=== PATIENT | male | born 1955 | race Caucasian/White ===

== ENCOUNTER → 2018-04-01 10:28 | Outpatient (CLI) | payer OTHER, SELFPAY ==
[2018-04-01 11:42] LABS: Prostate Specific Ag, Diagnost < 0.05 ng/mL (0.0-4.0)
== END ==
PROVIDERS: Visit Provider Urology
DX: Z85.46 Personal history of malignant neoplasm of prostate (principal)
CPT/HCPCS: 36415; 84153

== ENCOUNTER → 2018-10-07 09:49 | Outpatient (CLI) | payer OTHER, SELFPAY ==
[2018-10-07 11:19] LABS: Prostate Specific Ag, Diagnost < 0.05 ng/mL (0.0-4.0)
== END ==
PROVIDERS: Visit Provider Urology
DX: C61 Malignant neoplasm of prostate (principal)
CPT/HCPCS: 36415; 84153

== ENCOUNTER → 2019-04-07 09:49 | Outpatient (CLI) | payer OTHER, SELFPAY ==
[2019-04-07 11:29] LABS: Prostate Specific Ag, Diagnost < 0.05 ng/mL (0.0-4.0)
== END ==
PROVIDERS: Visit Provider Urology
DX: C61 Malignant neoplasm of prostate (principal)
CPT/HCPCS: 36415; 84153

== ENCOUNTER → 2019-10-13 10:05 | Outpatient (CLI) | payer OTHER, SELFPAY ==
[2019-10-13 21:13] LABS: Prostate Specific Ag, Diagnost 0.02 ng/mL (0.0-4.0)
== END ==
PROVIDERS: Visit Provider Urology
DX: C61 Malignant neoplasm of prostate (principal)
CPT/HCPCS: 36415; 84153

== ENCOUNTER → 2020-04-12 14:48 | Outpatient (CLI) | payer MEDICAID, SELFPAY ==
[2020-04-12 18:26] LABS: Prostate Specific Ag, Diagnost < 0.064 ng/ml (0.0-4.0)
== END ==
PROVIDERS: Visit Provider Urology
DX: C61 Malignant neoplasm of prostate (principal)
CPT/HCPCS: 36415; 84153

== ENCOUNTER 2020-08-15 13:33 | Emergency (ER) | payer MEDICARE, OTHER, SELFPAY ==
[2020-08-15] VITALS (10 sets, daily range): BP systolic 142–218; BP diastolic 78–103; PULSE 57–67; RESP 17–18; TEMP 36.7–36.8; O2SAT 93–97
--- NOTE | 2020-08-15 13:28 | ECG_ITS ---
APPROVED REPORT Exam: Resting ECG HR:60 bpm ECG Measurements Heart Rate 60 AXES WI 184 P 63 QRSd 86 QRS 27 QT 458 T 49 QTc 458 Conclusion Sinus rhythm with marked sinus arrhythmia ST abnormality, possible digitalis effect Abnormal ECG Electronically signed by : Mack Jaeger, 08/17/2020 18:18:34
--- NOTE | 2020-08-15 13:39 | XR_ITS ---
PROCEDURE: XR CHEST PORTABLE CLINICAL HISTORY: cough midsternal chest pain COMPARISON: CR CXR1 CHEST-PORTABLE from 06/21/2016 CR CXR CHEST(2 VIEWS-NOT PORTABLE) from 06/23/[address] CHEST W/ CONTRAST from 06/23/2016 CR CXR CHEST(2 VIEWS-NOT PORTABLE) from 06/26/2016 FINDINGS: The cardiomediastinal silhouette and pulmonary vascularity are within normal limits. COPD with scattered pulmonary fibrotic changes. Patchy density is present in the right upper lobe and may be due to an area of scarring slightly more prominent compared to 06/26/2016. No definite lobar consolidation or collapse. Small bulla are present in the apices. IMPRESSION: COPD with chronic changes Dictated by: Robert Morales MD 08/15/2020 14:04 Robert Morales MD in [place] 08/15/2020 14:04
--- NOTE | 2020-08-15 13:40 | HMH.EDCP ---
ED Disposition Clinical Impression: Nonspecific chest pain, Atypical pneumonia Disposition: Home, Self-Care Condition on Discharge: Good Instructions: DI for Atypical Chest Pain Prescriptions: Doxycycline Hyclate [Doxycycline 100mg Capsule] 100 mg PO Q12 #20 cap Prescription Printed - Critical Care Critical Care Time: No Attestation: On , the high probability of a clinically significant, sudden or life threatening deterioration of the following system(s) required my full and direct attention, intervention and personal management. The time I documented below is in addition to time spent performing reported procedures but includes the following listed in this critical care notation. Medical Decision Making - Medical Records Medical records reviewed: Yes: I reviewed the patient's medical records. - Denis Inquiry Pt receiving controlled substance: Yes Denis was queried for this patient: No Reason not queried -: Emergent pt cond-no time Risks and benefits of using a controlled substance: were discussed with pt by me Vital Signs: 08/15/20 13:33 08/15/20 13:49 08/15/20 14:08 Temperature 98.0 F Temperature Source Oral Pulse Rate [Right Brachial] 65 67 59 L Respiratory Rate 18 Blood Pressure [Right Arm] 218/103 H 186/94 H 154/93 H Blood Pressure Mean [Right Arm] 141 124 113 Blood Pressure Source [Right Arm] Automatic Cuff Automatic Cuff Automatic Cuff Blood Pressure Position [Right Arm] Sitting Sitting Sitting 02 Sat by Pulse Oximetry 96 96 95 Oxygen Delivery Method Room Air Room Air Room Air 08/15/20 14:34 08/15/20 15:00 08/15/20 15:38 Temperature Temperature Source Pulse Rate [Right Brachial] 59 L 60 65 Respiratory Rate Blood Pressure [Right Arm] 196/93 H 186/94 H 142/78 H Blood Pressure Mean [Right Arm] 127 124 99 Blood Pressure Source [Right Arm] Automatic Cuff Automatic Cuff Automatic Cuff Blood Pressure Position [Right Arm] Sitting Sitting 02 Sat by Pulse Oximetry 95 95 93 L Oxygen Delivery Method Room Air Room Air Room Air 08/15/20 16:07 08/15/20 16:41 08/15/20 17:08 Temperature Temperature Source Pulse Rate [Right Brachial] 64 57 L 59 L Respiratory Rate Blood Pressure [Right Arm] 149/81 H 154/85 H 160/82 H Blood Pressure Mean [Right Arm] 103 108 108 Blood Pressure Source [Right Arm] Automatic Cuff Automatic Cuff Automatic Cuff Blood Pressure Position [Right Arm] Sitting Sitting Sitting 02 Sat by Pulse Oximetry 93 L 94 L 97 Oxygen Delivery Method Room Air Room Air Room Air - Lab Data Lab Results 08/15/20 13:43: WBC 19.8 H, RBC 4.59 L, Hgb 14.1, Hct 44.4, MCV 96.6 H, MCH 30.7, MCHC 31.8, RDW 13.3, Plt Count 540 H, MPV 8.1, Neut % (Auto) 83.8 H, Lymph % (Auto) 10.1, [place] % (Auto) 4.5, Eos % (Auto) 1.0, Baso % (Auto) 0.7, Neut # (Auto) 16.6 H, Lymph # (Auto) 2.0, [place] # (Auto) 0.9, Eos # (Auto) 0.2, Baso # (Auto) 0.1, Total Counted 100, Neutrophils % (Manual) 88 H, Lymphocytes % (Manual) 8 L, Monocytes % (Manual) 4, Platelet Estimate Marked increase, RBC Morphology Normal 08/15/20 13:43: PT 23.5 H, INR 2.28 H, APTT 49.0 H 08/15/20 13:43: Sodium 136, Potassium 3.6, Chloride 99, Carbon Dioxide 27, Anion Gap 13.6, BUN 14, Creatinine 0.90, Estimated Creat Clear 66, Estimated GFR 85, Est GFR ( Amer) 102, Glucose 107 H, Calcium 9.8, Total Bilirubin 0.8, AST 23, ALT 14, Alkaline Phosphatase 81, Troponin I < 0.01, NT-Pro-B Natriuret Pep 171 H, Total Protein 8.7 H, Albumin 4.6, Globulin 4.1 H, Albumin/Globulin Ratio 1.1, Lipase 68 08/15/20 16:53: Troponin I < 0.01 Result diagrams: 08/15/20 13:43 08/15/20 13:43 Orders (Tests/Meds): ED MEDICATIONS Discontinued Medications Generic Name Dose Route Start Last Admin Trade Name Freq PRN Reason Stop Dose Admin Iopamidol 70 ml 08/15/20 15:37 08/15/20 15:38 Iopamidol-370 (76%);100ml Bottle IV 08/15/20 15:38 70 ml ONCE ONE Administration Morphine Sulfate 4 mg 08/15/20 13:39 08/15/20 13:44 Morphine
[2020-08-15 14:09] LABS: Chloride 99 mmol/L (98-107); Potassium 3.6 mmoL/L (3.5-5.1); Sodium 136 mmol/L (136-145)
[2020-08-15 14:11] LABS: Alanine Aminotransferase 14 U/L (12-78); Aspartate Amino Transferase 23 U/L (17-59); Blood Urea Nitrogen 14 mg/dl (9-20); Creatinine Clearance Estimated 66 mL/min (50-200); Estimated Glomerular Filt Rate 85 ml/min (>60); GFR (African American) 102 ML/MIN (>60)
[2020-08-15 14:12] LABS: Albumin Level 4.6 g/dl (3.5-5.0); Albumin/Globulin Ratio 1.1 (1.1-1.8); Alkaline Phosphatase 81 U/L (38-126); Anion Gap 13.6 mEq/L (5-15); Basophils # 0.1 K/mm3 (0-0.2); Basophils % 0.7 % (0.1-2.0); Bilirubin,Total 0.8 mg/dl (0.2-1.3); Calcium 9.8 mg/dl (8.4-10.2); Carbon Dioxide 27 mmol/L (22.0-30.0); Eosinophils # 0.2 K/mm3 (0.0-0.4); Globulin 4.1 g/dL (1.3-3.2); Glucose 107 mg/dl (74-100); Hematocrit 44.4 % (42.0-52.0); Hemoglobin 14.1 g/dL (14.1-18.0); Lipase 68 U/L (23-300); Lymphocytes % 10.1 % (10-50); Mean Corpuscular HGB Conc 31.8 g/dL (31.8-35.4); Mean Corpuscular Hemoglobin 30.7 pg (27.0-31.2); Mean Corpuscular Volume 96.6 fl (80-94); Mean Platelet Volume 8.1 fl (7.4-10.4); Monocytes # 0.9 K/mm3 (0.1-1.0); Monocytes % 4.5 % (1.7-9.3); Neutrophils # 16.6 K/mm3 (1.8-7.8); Neutrophils % 83.8 % (37.0-80.0); Platelet Count 540 K/mm3 (142-424); Red Blood Count 4.59 M/mm3 (4.60-6.20); Red Cell Distribution Width 13.3 % (11.5-17.5); Total Protein,Serum 8.7 g/dl (6.3-8.2); White Blood Count 19.8 K/mm3 (4.8-10.8)
[2020-08-15 14:15] LABS: MANUAL DIFFERENTIAL MANUAL DIFFERENTIAL (MANUAL DIFF)
[2020-08-15 14:21] LABS: NT Pro Brain Natriuretic Pep. 171 pg/mL (0-125)
[2020-08-15 14:25] LABS: Troponin I < 0.01 ng/ml (0.00-0.034)
[2020-08-15 14:31] LABS: Lymphocytes % 8 % (10-50); Monocytes % 4 % (2-9); Neutrophils % 88 % (42-76); Platelet Estimate Marked Increase; RBC Morphology Normal; Total Cells Counted 100
--- NOTE | 2020-08-15 14:42 | CT_ITS ---
PROCEDURE: CT ANGIO CHEST CLINCIAL INDICATION: chest pain, soa Chest pain and shortness of air COMPARISON: CT LDCTLCAS LDCT FOR LUNG CA SCREEN from 08/25/2017 CR XR CHEST PORTABLE from 08/15/2020 TECHNIQUE: IV Contrast: 70ML Isovue 370 Axial images obtained with sagittal and coronal reformats. All CT scans at the facility use one or more dose reduction, viz: automated exposure control, ma/kV adjustment per patient size (including targeted exams where dose is matched to indication, i.e. head), or iterative reconstruction technique. FINDINGS: HEART AND MEDIASTINAL STRUCTURES: There are coronary artery calcifications. No evidence of aortic aneurysm or dissection. There is a medium-sized hiatal hernia. No evidence of pulmonary embolus. LUNGS AND PLEURAL SPACES: There is biapical bullous change with pulmonary fibrosis. There is scarring in the lung apices which may be slightly worse compared to the previous exam. There are centrilobular emphysematous changes. There are scattered multi segmental small areas of alveolar opacification along with scattered areas of ground-glass attenuation. These findings have developed since the previous exam and are suspicious for pneumonia. No effusions. There is mild dilatation of the proximal descending thoracic aorta is distal to the isthmus measuring 2.6 cm. There is a 7 mm nodule within the right middle lobe and some mild atelectatic change along the right major fissure inferiorly. BONY STRUCTURES: No acute bony abnormalities apparent. UPPER ABDOMEN: Moderate-sized hiatal hernia. Multiple nodular opacities are present in the left upper quadrant and may be due to small splenules. A normal spleen is not identified. There is a nonobstructing 3 mm stone in the upper pole of the right kidney. ADDITIONAL FINDINGS: There is moderate gynecomastia. IMPRESSION: 1. No evidence of pulmonary embolus, aortic aneurysm, or aortic dissection. 2. COPD with centrilobular emphysema and bilateral bullous changes in the upper lobes with biapical scarring slightly worse. 3. Patchy multi segmental small areas of alveolar infiltrate along with scattered ground-glass attenuation consistent with bilateral pneumonia. COVID 19 pneumonia is a consideration. 4. 7 mm nodule in the right middle lobe. This is indeterminate and could be inflammatory/infectious or neoplastic. This was not present on the previous study. Three month follow-up is suggested. Dictated by: Robert Morales MD 08/15/2020 16:03 Robert Morales MD in [place] 08/15/2020 16:03
--- NOTE | 2020-08-15 15:11 | PC.NURSE ---
pt gone to radiology
--- NOTE | 2020-08-15 15:13 | PC.NURSE ---
Pt gone to radiology at this time
[2020-08-15 16:22] LABS: INR 2.28 (0.9-1.1)
[2020-08-15 16:23] LABS: Prothrombin Time 23.5 seconds (9.4-11.8)
--- NOTE | 2020-08-15 16:24 | INFXCTL.NOTE ---
Lab called with ptt result of 49
[2020-08-15 17:27] LABS: Troponin I < 0.01 ng/ml (0.00-0.034)
[2020-08-15 18:02] LABS: Coronavirus 19 IgG Antibody Negative (Negative); Coronavirus 19 IgM Antibody Negative (Negative)
== END 2020-08-15 17:37 | disposition home or self-care (01) ==
PROVIDERS: Emergency Provider Emergency Medicine; PCP Family Medicine
DX: J18.9 Pneumonia, unspecified organism (principal); R07.89 Other chest pain; Z01.84 Encounter for antibody response examination; J44.9 Chronic obstructive pulmonary disease, unspecified; Z79.899 Other long term (current) drug therapy; R06.02 Shortness of breath
CPT/HCPCS: 71045; 71275; 80053; 83690; 83880; 84484; 85007; 85025; 85610; 85730; 86328; 93005; 96374; 96375; 99283; J2405; Q9967

== ENCOUNTER → 2020-10-16 09:58 | Outpatient (CLI) | payer MEDICARE, OTHER, SELFPAY ==
[2020-10-16 12:22] LABS: Prostate Specific Ag, Diagnost < 0.064 ng/ml (0.0-4.0)
== END ==
PROVIDERS: Visit Provider Urology
DX: C61 Malignant neoplasm of prostate (principal)
CPT/HCPCS: 36415; 84153

== ENCOUNTER → 2021-04-16 09:36 | Outpatient (CLI) | payer MEDICARE, OTHER, SELFPAY ==
[2021-04-16 11:13] LABS: Prostate Specific Ag, Diagnost < 0.064 ng/ml (0.0-4.0)
== END ==
PROVIDERS: Visit Provider Urology
DX: C61 Malignant neoplasm of prostate (principal)
CPT/HCPCS: 36415; 84153

== ENCOUNTER → 2021-10-17 09:43 | Outpatient (CLI) | payer MEDICARE, OTHER, SELFPAY ==
[2021-10-17 11:41] LABS: Prostate Specific Ag, Diagnost < 0.064 ng/ml (0.0-4.0)
== END ==
PROVIDERS: Visit Provider Urology
DX: C61 Malignant neoplasm of prostate (principal)
CPT/HCPCS: 36415; 84153

== ENCOUNTER → 2022-04-17 10:06 | Outpatient (CLI) | payer MEDICARE, OTHER, SELFPAY ==
[2022-04-17 12:23] LABS: Prostate Specific Ag, Diagnost < 0.064 ng/ml (0.0-4.0)
== END ==
PROVIDERS: PCP Family Medicine; Visit Provider Urology
DX: C61 Malignant neoplasm of prostate (principal)
CPT/HCPCS: 36415; 84153

== ENCOUNTER 2022-09-17 07:59 | Inpatient (IN) | payer MEDICARE, OTHER, SELFPAY ==
[2022-09-17] VITALS (14 sets, daily range): BP systolic 106–136; BP diastolic 69–86; PULSE 96–121; RESP 18–38; TEMP 36.7–37.2; O2SAT 92–97; BMI 21.5; BMI 27.4; BMI 20.8
--- NOTE | 2022-09-17 08:28 | EXP.UTC ---
Discharge Plan Disposition Patient Disposition: Still a Patient Condition: Good Clinical Impressions Clinical Impression: Respiratory failure, Pneumonia Discharge ED Provider: Jennifer Verma [facility] [place] HPI General Chief complaint: Weakness Stated complaint: no appetite, chest congestion, body aches, cough Mode of Arrival: Ambulatory Source of Information: Patient Limitations: No Limitations Time Seen by Provider: 09/17/22 08:28 Description of Symptoms (Recalled from Triage Doc. by RN): PT WITH SHORTNESS OF BREATH, COUGH, DIARRHEA, FATIGUE. HASN'T EATEN SINCE THURSDAY. HEENT Symptoms (Recalled from RN notes): No Resp Symptoms (Recalled from RN notes): Yes Skin Symptoms (Recalled from RN notes): No MS Symptoms (Recalled from RN notes): No Functional Status (Recalled from RN notes): WNL History of Present Illness Provider Complaint: Patient states that he hasnt felt well for several days and not eaten since Thursday and only drink small amounts States that he has COPD but been having SOA, chest congestion and diarrhea States that he has been so weak he could barely get out of bed and today he was feeling worse States that it took all he had to get up to come in here today he just does not feel well Related Data Home Medications Medication Instructions Recorded Confirmed nifedipine 30 mg tablet,extended 30 mg PO DAILY Hypertension 04/01/18 09/17/22 release 24 hr (Procardia XL) omeprazole 40 mg capsule,delayed 40 mg PO DAILY GERD 04/01/18 09/17/22 release apixaban 2.5 mg tablet (Eliquis) 2.5 mg PO BID HX OF DVT 09/17/22 09/17/22 bicalutamide 50 mg tablet 50 mg PO DAILY CANCER 09/17/22 09/17/22 budesonide 160 mcg-glycopyr 9 2 puff inhalation BID Breathing 09/17/22 09/17/22 mcg-formot 4.8 mcg/actuation HFA problems inhaler (Breztri [employer]) Allergies Allergy/AdvReac Type Severity Reaction Status Date / Time No Known Allergies Allergy Verified 04/17/22 09:42 Worker's Comp Is this a Worker's Comp case?: No [facility] Disclaimer: The information contained in this section may have been updated after the patient was seen, as this information can be updated by other users. Medical History (Updated 09/17/22 @ 18:29 by Carlos Manuel Juares MD) COPD (chronic obstructive pulmonary disease) (~09/17/22) Pneumonia Prostate cancer (~09/17/22) Surgical History (Updated 09/17/22 @ 18:23 by Carlos Manuel Juares MD) H/O hernia repair H/O splenectomy S/P TURP Family History (Updated 09/17/22 @ 18:25 by Carlos Manuel Juares MD) Mother Severe sepsis with septic shock Father Throat cancer Social History (Updated 09/17/22 @ 18:26 by Carlos Manuel Juares MD) Smoking Status: Former smoker alcohol intake: never substance use type: denies use current occupational status: retired Travel in the last 8 weeks: None household members: spouse housing: house additional social history: The patient lives with Dorothea his of 40 years. He has 2 adult sons. He quit smoking several years ago after smoking 1 pack/day for 50 years. He denies routine alcohol consumption. He elects a full CODE STATUS. ROS Obtained: Yes All systems reviewed & no additional complaints except as documented and Yes Systems reviewed as appropriate & no additional complaints except as documented Constitutional Constitutional: Reports system reviewed and no additional complaints, except as documented, Reports as per HPI, Reports body ache, Reports fatigue, Reports poor appetite and Reports weakness Cardiovascular Cardiovascular: Reports system reviewed and no additional complaints, except as documented and Reports as per HPI Respiratory Respiratory: Reports system reviewed and no additional complaints, except as documented, Reports as per HPI, Reports shortness of breath and Reports chest congestion Gastrointestinal Gastrointestingal: Reports system reviewed and no additional complaints, except as documented, as per HPI and diarrhea Neurologic
--- NOTE | 2022-09-17 08:47 | ECG_ITS ---
APPROVED REPORT Exam: Resting ECG HR:111 bpm ECG Measurements Heart Rate 111 AXES HI 189 P 65 QRSd 83 QRS 18 QT 424 T 32 QTc 490 Conclusion SINUS TACHYCARDIA WITH FREQUENT SUPRAVENTRICULAR PREMATURE COMPLEXES NONSPECIFIC ST & T-WAVE ABNORMALITY ABNORMAL RHYTHM ECG UNCONFIRMED REPORT Electronically signed by : Samuel Saldaña MD 09/17/2022 21:52:54
--- NOTE | 2022-09-17 09:11 | XR_ITS ---
FINAL REPORT CLINICAL HISTORY: dyspnea COMPARISON: 08/15/2020 FINDINGS: A single portable view of the chest was obtained. The heart size and pulmonary vascularity are within normal limits. The mediastinum is within normal limits. There are persistent bilateral pulmonary opacities favor fibrosis/scarring. The bony thorax is intact. IMPRESSION: Persistent bibasilar pulmonary opacities, favor fibrosis/scarring. If indicated, high-resolution chest CT may be helpful. Reviewed, Interpreted and Dictated by Gianni Izaguirre III, MD Transcribed by Monalisa Kc Authenticated and [facility]
--- NOTE | 2022-09-17 09:17 | PC.NURSE ---
resp called for ABG
[2022-09-17 09:23] LABS: Basophils # 0.1 K/mm3 (0-0.2); Basophils % 0.4 % (0.1-2.0); Chloride 100 mmol/L (98-107); Coronavirus 19, PCR Not Detected (NotDetected); Eosinophils # 0.2 K/mm3 (0.0-0.4); Eosinophils % 0.8 % (0.1-12.0); Hematocrit 45.6 % (42.0-52.0); Hemoglobin 14.8 g/dL (14.1-18.0); Influenza A, PCR Not Detected (NotDetected); Influenza B, PCR Not Detected (NotDetected); Lymphocytes # 1.6 K/mm3 (0.7-4.5); Lymphocytes % 6.6 % (10-50); Mean Corpuscular HGB Conc 32.4 g/dL (31.8-35.4); Mean Corpuscular Hemoglobin 31.9 pg (27.0-31.2); Mean Corpuscular Volume 98.6 fl (80-94); Mean Platelet Volume 9.4 fl (7.4-10.4); Monocytes # 1.3 K/mm3 (0.1-1.0); Monocytes % 5.4 % (1.7-9.3); Neutrophils # 20.4 K/mm3 (1.8-7.8); Neutrophils % 86.8 % (37.0-80.0); Platelet Count 405 K/mm3 (142-424); Potassium 4.2 mmoL/L (3.5-5.1); Red Blood Count 4.63 M/mm3 (4.60-6.20); Red Cell Distribution Width 14.6 % (11.5-17.5); Sodium 138 mmol/L (136-145); White Blood Count 23.5 K/mm3 (4.8-10.8)
[2022-09-17 09:26] LABS: Alanine Aminotransferase 19 U/L (12-78); Albumin Level 4.3 g/dl (3.5-5.0); Albumin/Globulin Ratio 1.1 (1.1-1.8); Alkaline Phosphatase 76 U/L (38-126); Anion Gap 18.2 mEq/L (5-15); Aspartate Amino Transferase 32 U/L (17-59); Bilirubin,Total 0.6 mg/dl (0.2-1.3); Blood Urea Nitrogen 32 mg/dl (9-20); Carbon Dioxide 24 mmol/L (22.0-30.0); Creatinine Clearance Estimated 57 mL/min (50-200); Estimated Glomerular Filt Rate 60 ml/min (>60); GFR (African American) 73 ML/MIN (>60); Total Protein,Serum 8.3 g/dl (6.3-8.2)
[2022-09-17 09:27] LABS: Calcium 9.8 mg/dl (8.4-10.2); Glucose 118 mg/dl (74-100)
[2022-09-17 09:35] LABS: MANUAL DIFFERENTIAL MANUAL DIFFERENTIAL (MANUAL DIFF)
[2022-09-17 09:38] LABS: Troponin I 0.02 ng/ml (0.00-0.034)
[2022-09-17 09:42] LABS: ABG Base Excess -3.2 mmol/L (-2.4-2.3); ABG HCO3 20.5 mmhg (22.0-26.0); ABG Oxygen Saturation 96 % (90-100); ABG PCO2 28.9 mmhg (35.0-45.0); ABG PH 7.47 mmol/L (7.35-7.45); ABG PO2 80.6 mmhg (80-100); ABG TCO2 21.4 mmhg (23-27)
[2022-09-17 09:53] LABS: Allen's Test Acceptable; Oxygen 4.5L %; Source Right Radial
[2022-09-17 10:10] LABS: Lymphocytes % 8 % (10-50); Neutrophils % 92 % (42-76); Total Cells Counted 100
[2022-09-17 10:11] LABS: Platelet Estimate Normal; RBC Morphology Normal
--- NOTE | 2022-09-17 10:22 | CT_ITS ---
FINAL REPORT CLINICAL HISTORY: dyspnea COMPARISON: 08/15/2020 FINDINGS: Thin section axial CT images of the chest were obtained with contrast. 3D reformatted images were also obtained. This study was performed with techniques to keep radiation doses as low as reasonably achievable (ALARA). Individualized dose reduction techniques using automated exposure control or adjustment of mA and/or kV according to the patient''s size were employed. There is a moderate hiatal hernia. There is moderate mediastinal and bilateral hilar adenopathy, worse from previous. Findings are nonspecific, may be reactive or neoplastic. There is no evidence of pulmonary embolism. There is no evidence of thoracic aortic aneurysm or dissection. There is moderate scarring and moderate emphysema. There is diffuse bronchial wall thickening, right greater than left with may represent bronchitis. There are patchy bilateral pulmonary ground-glass opacities worrisome for bilateral pneumonia. Limited images of the upper abdomen reveal several gallstones. The patient is status post splenectomy. IMPRESSION: No evidence of pulmonary embolism. Worsening mediastinal and bilateral hilar adenopathy, may be reactive or neoplastic. Findings worrisome for bilateral pneumonia. Cholelithiasis. Reviewed, Interpreted and Dictated by Gianni Izaguirre III, MD Transcribed by Isi Pitts Authenticated and [facility]
--- NOTE | 2022-09-17 10:35 | PC.NURSE ---
RADIOLOGY NOTIFIED OF CT CHEST
--- NOTE | 2022-09-17 10:57 | PC.NURSE ---
PT GONE OVER FOR CT CHEST VIA W/C
--- NOTE | 2022-09-17 11:23 | PC.NURSE ---
pt given urinal to attempt urine collection
[2022-09-17 11:36] LABS: Microscopic, Urine URINE MICROSCOPIC (MICROSCOPIC)
[2022-09-17 11:40] LABS: Appearance,Urine CLEAR (Clear); Blood, Urine 2+ (Negative); Color,Urine YELLOW (Yellow); Glucose,Urine (UA) Negative (Negative); Ketones,Urine 1+ (Negative); Leukocyte Esterase,Urine Negative (Negative); Nitrate,Urine Negative (Negative); PH,Urine 5.5 (5.0-8.5); Protein,Urine 1+ (Negative); Specific Gravity, Urine >= 1.030 (1.005-1.030)
--- NOTE | 2022-09-17 11:40 | PC.NURSE ---
called care management for admission
[2022-09-17 11:45] LABS: Bilirubin,Urine 1+ (Negative)
[2022-09-17 11:56] LABS: Bacteria,Urine Trace /lpf; Hyaline Casts,Urine Occasional #/lpf (0); RBC,Urine Occasional #/hpf (0-3); Squamous Epithelial Cell,Urine Occasional #/hpf (0-5); WBC,Urine Occasional #/hpf (0-3)
--- NOTE | 2022-09-17 11:57 | HMH.PHAINT1 ---
Pharmacy Intervention Comments: MEDICATION RECONCILIATION COMPLETED ON PATIENT USING EXTERNAL FILL HISTORY FROM PHARMACY. -STAN HUI, KAYLEED
--- NOTE | 2022-09-17 12:41 | PC.NURSE ---
report called to Stacie Kc RN
--- NOTE | 2022-09-17 12:54 | PC.NURSE ---
pt arrived to floor via wheelchair
[2022-09-17 12:59] LABS: Troponin I 0.02 ng/ml (0.00-0.034)
[2022-09-17 15:09] LABS: Lipase 14 U/L (23-300)
[2022-09-17 15:56] LABS: Troponin I 0.02 ng/ml (0.00-0.034)
[2022-09-17 15:59] LABS: Vitamin B12 302 pg/mL (239-931)
--- NOTE | 2022-09-17 18:18 | EXP.HP ---
History of Present Illness *Admission Date: 09/17/22 *Reason for visit:: Chief complaint: Shortness of air *History of present illness: This is a 67-year-old male who presents to [facility] emergency department with concerns of feeling weak and experiencing shortness of air. His past medical history significant for COPD, hypertension, reflux with hiatal hernia, prostate cancer 2003 on hormone therapy. He reports a significant smoking history of 1 pack/day for at least 50 years. 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 He reports getting pneumonia very easily. He identified several days of cough not improving with home care. He started experiencing shortness of air that became worse with exertion. He was not responding to his home medications so he presented to the emergency department. He denied associated retrosternal chest pain or palpitations. In the ED his tachypnea was identified and required increased oxygen from baseline to maintain appropriate oxygen saturations. Imaging of his chest identified bilateral pneumonia. [facility] Disclaimer: The information contained in this section may have been updated after the patient was seen, as this information can be updated by other users. Medical History (Updated 09/17/22 @ 18:29 by Carlos Manuel Juares MD) COPD (chronic obstructive pulmonary disease) (~09/17/22) Pneumonia Prostate cancer (~09/17/22) Surgical History (Updated 09/17/22 @ 18:23 by Carlos Manuel Juares MD) H/O hernia repair H/O splenectomy S/P TURP Family History (Updated 09/17/22 @ 18:25 by Carlos Manuel Juares MD) Mother Severe sepsis with septic shock Father Throat cancer Social History (Updated 09/17/22 @ 18:26 by Carlos Manuel Juares MD) Smoking Status: Former smoker alcohol intake: never substance use type: denies use current occupational status: retired Travel in the last 8 weeks: None household members: spouse housing: house Review of Systems Review of Systems Review of systems:: pertinent systems reviewed and negative unless documented below Constitutional Constitutional: Reports weakness *Cardiovascular Cardiovascular: Denies chest pain, Reports dyspnea and Reports dyspnea on exertion *Respiratory Respiratory: Reports change in phlegm color, Reports cough, Reports dyspnea, Reports dyspnea on exertion, Reports excessive phlegm production and Denies hemoptysis *Neurologic Neurologic: Reports weakness Meds Home Medications and Allergies Home Medications Medication Instructions Recorded Confirmed Type nifedipine 30 mg tablet,extended 30 mg PO DAILY Hypertension 04/01/18 09/17/22 History release 24 hr (Procardia XL) omeprazole 40 mg capsule,delayed 40 mg PO DAILY GERD 04/01/18 09/17/22 History release apixaban 2.5 mg tablet (Eliquis) 2.5 mg PO BID HX OF DVT 09/17/22 09/17/22 History bicalutamide 50 mg tablet 50 mg PO DAILY CANCER 09/17/22 09/17/22 History budesonide 160 mcg-glycopyr 9 2 puff inhalation BID Breathing 09/17/22 09/17/22 History mcg-formot 4.8 mcg/actuation HFA problems inhaler ([employer]) New Prescriptions to Start Prescriptions: Allergies Allergy/AdvReac Type Severity Reaction Status Date / Time No Known Allergies Allergy Verified 04/17/22 09:42 Exam Data for Last 24 hours Vital signs and Labs for Last 24 Hours: Temp Pulse Resp BP Pulse Ox 98.4 F 113 H 20 135/80 95 09/17/22 15:19 09/17/22 15:19 09/17/22 15:19 09/17/22 15:19 09/17/22 15:19 Laboratory Results - last 24 hr 09/17/22 08:53: WBC 23.5 H*, RBC 4.63, Hgb 14.8, Hct 45.6, MCV 98.6 H, MCH 31.9 H, MCHC 32.4, RDW 14.6, Plt Count 405, MPV 9.4, Neut % (Auto) 86.8 H, Lymph % (Auto) 6.6 L, [place] % (Auto) 5.4, Eos % (Auto) 0.8, Baso % (Auto) 0.4, Neut # (Auto) 20.4 H, Lymph # (Auto) 1.6, [place] # (Auto) 1.3 H, Eos # (Auto) 0.2, Baso # (Auto) 0.1, Total Counted 100, Neutrophils % (Manual) 92 H
--- NOTE | 2022-09-17 21:21 | PC.NURSE ---
Pt is A/Ox4. He has tolerated his diet well. He has been on 2L NC since admission. He has no complaints of pain or issues.
[2022-09-18] VITALS (11 sets, daily range): BP systolic 110–147; BP diastolic 67–79; PULSE 74–135; RESP 17–20; TEMP 36.4–37.1; O2SAT 92–99; BMI 20.5
--- NOTE | 2022-09-18 04:39 | PC.NURSE ---
NO ACUTE CHANGES SINCE PREVIOUS ASSESSMENT. PT HAS RESTED WELL THIS SHIFT. LUNG SOUNDS HAVE A PLURAL LIKE RUB. TOLERATING 2L NASAL CANNULA WELL. DOES GET SHORT OF BREATH WITH EXERTION. NO C/O PAIN, N/V/D THIS SHIFT. USING THE URINAL INDEPENDENTLY. HAS HAD INTERMITTENT NON-PRODUCTIVE COUGH. CALL SIMS WITHIN REACH.
[2022-09-18 07:38] LABS: Basophils % 0.1 % (0.1-2.0); Eosinophils # 0.2 K/mm3 (0.0-0.4); Hematocrit 39.6 % (42.0-52.0); Lymphocytes # 1.2 K/mm3 (0.7-4.5); Mean Corpuscular HGB Conc 32.2 g/dL (31.8-35.4); Mean Corpuscular Hemoglobin 31.8 pg (27.0-31.2); Mean Corpuscular Volume 98.8 fl (80-94); Mean Platelet Volume 10.1 fl (7.4-10.4); Monocytes # 0.8 K/mm3 (0.1-1.0); Monocytes % 3.6 % (1.7-9.3); Neutrophils # 20.9 K/mm3 (1.8-7.8); Neutrophils % 90.2 % (37.0-80.0); Platelet Count 382 K/mm3 (142-424); Red Cell Distribution Width 14.5 % (11.5-17.5); White Blood Count 23.1 K/mm3 (4.8-10.8)
[2022-09-18 07:41] LABS: Chloride 107 mmol/L (98-107)
[2022-09-18 07:42] LABS: Sodium 137 mmol/L (136-145)
[2022-09-18 07:44] LABS: Blood Urea Nitrogen 16 mg/dl (9-20); Carbon Dioxide 17 mmol/L (22.0-30.0); Creatinine Clearance Estimated 67 mL/min (50-200); Estimated Glomerular Filt Rate 112 ml/min (>60); GFR (African American) 136 ML/MIN (>60)
[2022-09-18 07:45] LABS: Calcium 8.9 mg/dl (8.4-10.2); Glucose 146 mg/dl (74-100); INR 0.97 (0.9-1.1); Magnesium 1.6 mg/dl (1.6-2.3); Prothrombin Time 10.5 seconds (10.1-12.5)
[2022-09-18 07:57] LABS: Phosphorous 1.8 mg/dl (2.5-4.5)
--- NOTE | 2022-09-18 08:00 | US_ITS ---
FINAL REPORT CLINICAL HISTORY: .hx of gallstones -- fatigue FINDINGS: Ultrasound images of the right upper quadrant were obtained. The pancreas is partially obscured. The liver parenchyma is normal in echogenicity. The gallbladder is well visualized and the wall appears normal. There are gallstones. The common duct is normal. Limited images of the right kidney are unremarkable. IMPRESSION: Cholelithiasis. Reviewed, Interpreted and Dictated by Gianni Izaguirre III, MD Transcribed by Santos Lucas Authenticated and [facility]
[2022-09-18 08:51] LABS: Hemoglobin 12.8 g/dL (14.1-18.0)
[2022-09-18 08:52] LABS: MANUAL DIFFERENTIAL MANUAL DIFFERENTIAL (MANUAL DIFF)
[2022-09-18 12:09] LABS: Lymphocytes % 3 % (10-50); Monocytes % 6 % (2-9); Neutrophils % 90 % (42-76); Platelet Estimate Normal; RBC Morphology Normal; Total Cells Counted 100
--- NOTE | 2022-09-18 16:25 | EXP.PN ---
Subjective *Date: 09/18/22 *Time: 16:25 Interval history: Date of service 09/18/2022 I am accompanied by the patient's nurse and members from the multidisciplinary rounds team. The patient reports that he is feeling 100% better. Nursing staff reports that he remains afebrile with stable vital signs and saturating appropriately on 2 L of oxygen via nasal cannula. We have reviewed and discussed his morning labs including his leukocytosis, low potassium and metabolic acidosis. He is tolerating his IV antibiotic therapy with no adverse events. Exam Data for Last 24 hours Vital signs and Labs for Last 24 Hours: Temp Pulse Resp BP Pulse Ox 97.5 F L 74 20 147/76 H 99 09/18/22 15:17 09/18/22 15:17 09/18/22 15:17 09/18/22 15:17 09/18/22 15:17 Laboratory Results - last 24 hr 09/18/22 06:55: WBC 23.1 H*, RBC 4.00 L, Hgb 12.8 L D, Hct 39.6 L, MCV 98.8 H, MCH 31.8 H, MCHC 32.2, RDW 14.5, Plt Count 382, MPV 10.1, Neut % (Auto) 90.2 H, Lymph % (Auto) 5.0 L, [place] % (Auto) 3.6, Eos % (Auto) 1.0, Baso % (Auto) 0.1, Neut # (Auto) 20.9 H, Lymph # (Auto) 1.2, [place] # (Auto) 0.8, Eos # (Auto) 0.2, Baso # (Auto) 0.0, Total Counted 100, Neutrophils % (Manual) 90 H, Band Neutrophils % 1.0, Lymphocytes % (Manual) 3 L, Monocytes % (Manual) 6, Platelet Estimate Normal, RBC Morphology Normal 09/18/22 06:55: PT 10.5, INR 0.97 09/18/22 06:55: Sodium 137, Potassium 3.0 L D, Chloride 107, Carbon Dioxide 17 L, Anion Gap 16.0 H, BUN 16 D, Creatinine 0.70 D, Estimated Creat Clear 67, Estimated GFR 112, Est GFR ( Amer) 136 D, Glucose 146 H D, Calcium 8.9, Phosphorus 1.8 L, Magnesium 1.6 I & O for Last 24 hours: Intake & Output 09/15/22 09/16/22 09/17/22 09/18/22 23:59 23:59 23:59 23:59 Intake Total 945 / 945 1267 / 1267 Output Total 700 / 1100 400 / 400 Balance 245 / -155 867 / 867 Weight 65.941 kg 65 kg Microbiology Reports for the Last 24 Hours: Microbiology 09/17/22 16:24 Sputum - Expectorated Sputum Gram Stain - Final Constitutional Constitutional: no acute distress, thin, chronically ill appearing and cooperative *Routine HEENT Exam Head: Present normocephalic Eye: Present EOMI and PERRL ENT: Present mucous membranes moist *Routine Neck Exam Neck: Present supple; Absent lymphadenopathy *Routine Respiratory Exam Respiratory: Present rhonchi, normal respiratory effort and symmetric chest movement *Routine Cardiovascular Exam Cardiovascular: Present RRR; Absent murmur *Routine Abdominal Exam Abdominal: Present soft and normoactive bowel sounds; Absent tenderness *Routine Extremities Exam Extremities: Absent cyanosis, clubbing or edema *Routine Skin Exam Skin: Present warm; Absent rash *Routine Neurological Exam Neurological: Present alert, oriented X3, moving all extremities, vision grossly intact, hearing grossly intact and normal speech; Absent sensory deficit or motor deficit Routine Psychiatric Exam Psychiatric: Present normal affect, normal thought process, cooperative, good insight and good judgment Assessment and Plan *Assessment and plan (1) Pneumonia: Status: Acute Category: Medical Code(s): J18.9 - Pneumonia, unspecified organism (2) Respiratory failure: Status: Acute Category: Medical Code(s): J96.90 - Respiratory failure, unspecified, unspecified whether with hypoxia or hypercapnia (3) Immunocompromised: Status: Acute Category: Medical Code(s): D84.9 - Immunodeficiency, unspecified (4) Elevated INR: Status: Acute Category: Medical Code(s): R79.1 - Abnormal coagulation profile Plan Pneumonia?chest x-ray and CTA of chest reviewed. Leukocytoses identified, trend labs and inflammatory markers, IV antibiotics, prior splenectomy and immunocompromise state noted, taking p.o. well transition IV to oral fluids Acute hypoxic respiratory failure?pulse oximetry monitoring, oxygen therapy to maintain appropriate oxygen sat
--- NOTE | 2022-09-18 19:23 | PC.NURSE ---
Pt on 1 L NC at this time. VSS. CB in reach. No acute changes.
[2022-09-19] VITALS (10 sets, daily range): BP systolic 137–152; BP diastolic 66–98; PULSE 76–110; RESP 18–22; TEMP 36.3–36.8; O2SAT 92–97
--- NOTE | 2022-09-19 06:59 | PC.NURSE ---
NO ACUTE CHANGES SINCE PREVIOUS ASSESSMENT. PT DID NOT SLEEP WELL THIS SHIFT. LING SOUNDS ARE DIMINISHED. REMAINS ON 1L AND IS TOLERATING WELL. NO C/O PAIN OR SOB THIS SHIFT. HAS AMBULATED TO THE BATHROOM INDEPENDENTLY. CALL SIMS WITHIN REACH.
[2022-09-19 07:54] LABS: Basophils # 0.1 K/mm3 (0-0.2); Basophils % 0.3 % (0.1-2.0); Eosinophils # 0.2 K/mm3 (0.0-0.4); Eosinophils % 0.9 % (0.1-12.0); Hematocrit 39.5 % (42.0-52.0); Hemoglobin 12.6 g/dL (14.1-18.0); Lymphocytes # 2.4 K/mm3 (0.7-4.5); Lymphocytes % 11.7 % (10-50); Mean Corpuscular HGB Conc 31.8 g/dL (31.8-35.4); Mean Corpuscular Hemoglobin 31.1 pg (27.0-31.2); Mean Corpuscular Volume 97.9 fl (80-94); Mean Platelet Volume 10.1 fl (7.4-10.4); Monocytes # 0.7 K/mm3 (0.1-1.0); Monocytes % 3.4 % (1.7-9.3); Neutrophils # 17.2 K/mm3 (1.8-7.8); Neutrophils % 83.7 % (37.0-80.0); Platelet Count 447 K/mm3 (142-424); Red Blood Count 4.03 M/mm3 (4.60-6.20); Red Cell Distribution Width 14.8 % (11.5-17.5); White Blood Count 20.6 K/mm3 (4.8-10.8)
[2022-09-19 07:56] LABS: Chloride 108 mmol/L (98-107); MANUAL DIFFERENTIAL MANUAL DIFFERENTIAL (MANUAL DIFF); Sodium 140 mmol/L (136-145)
[2022-09-19 07:58] LABS: Blood Urea Nitrogen 16 mg/dl (9-20); Creatinine Clearance Estimated 66 mL/min (50-200); Estimated Glomerular Filt Rate 134 ml/min (>60); GFR (African American) 163 ML/MIN (>60)
[2022-09-19 07:59] LABS: Carbon Dioxide 19 mmol/L (22.0-30.0); Glucose 133 mg/dl (74-100); Magnesium 1.4 mg/dl (1.6-2.3); Phosphorous 2.6 mg/dl (2.5-4.5)
[2022-09-19 08:08] LABS: Lymphocytes % 9 % (10-50); Monocytes % 5 % (2-9); Neutrophils % 86 % (42-76); Total Cells Counted 100
[2022-09-19 08:09] LABS: Platelet Estimate Normal; RBC Morphology Normal
[2022-09-19 08:20] LABS: Procalcitonin 0.243 ng/mL (0.0-2.0)
--- NOTE | 2022-09-19 10:38 | EXP.PN ---
Subjective *Date: 09/19/22 *Time: 10:38 Interval history: Date of service September 19, 2022 The patient reports no acute events overnight. He is evaluated with several members of the staff staff during multidisciplinary rounds team. He is ambulating in his room and to the bathroom with no difficulty. Nursing staff report that he remains afebrile with stable vital signs and saturating appropriately on supplemental oxygen 1 L via nasal cannula. The patient reports good urine output. His morning labs have been reviewed and discussed including an improved leukocytosis stable hemoglobin and negative procalcitonin. His electrolytes include a potassium of 3.0 with improving bicarb and normal creatinine 0.6 Exam Data for Last 24 hours Vital signs and Labs for Last 24 Hours: Temp Pulse Resp BP Pulse Ox 97.5 F L 76 22 151/97 H 97 09/19/22 08:00 09/19/22 08:00 09/19/22 08:00 09/19/22 08:00 09/19/22 08:00 Laboratory Results - last 24 hr 09/18/22 06:55: Total Counted 100, Neutrophils % (Manual) 90 H, Band Neutrophils % 1.0, Lymphocytes % (Manual) 3 L, Monocytes % (Manual) 6, Platelet Estimate Normal, RBC Morphology Normal 09/19/22 07:37: WBC 20.6 H*, RBC 4.03 L, Hgb 12.6 L, Hct 39.5 L, MCV 97.9 H, MCH 31.1, MCHC 31.8, RDW 14.8, Plt Count 447 H, MPV 10.1, Neut % (Auto) 83.7 H, Lymph % (Auto) 11.7, [place] % (Auto) 3.4, Eos % (Auto) 0.9, Baso % (Auto) 0.3, Neut # (Auto) 17.2 H, Lymph # (Auto) 2.4, [place] # (Auto) 0.7, Eos # (Auto) 0.2, Baso # (Auto) 0.1, Total Counted 100, Neutrophils % (Manual) 86 H, Lymphocytes % (Manual) 9 L, Monocytes % (Manual) 5, Platelet Estimate Normal, RBC Morphology Normal 09/19/22 07:37: Sodium 140, Potassium 3.0 L, Chloride 108 H, Carbon Dioxide 19 L, Anion Gap 16.0 H, BUN 16, Creatinine 0.60 L, Estimated Creat Clear 66, Estimated GFR 134, Est GFR ( Amer) 163, Glucose 133 H, Calcium 9.0, Phosphorus 2.6 D, Magnesium 1.4 L D, Procalcitonin 0.243 I & O for Last 24 hours: Intake & Output 09/16/22 09/17/22 09/18/22 09/19/22 23:59 23:59 23:59 23:59 Intake Total 945 / 945 1507 / 1507 240 / 240 Output Total 700 / 1100 400 / 400 250 / 250 Balance 245 / -155 1107 / 1107 -10 / -10 Weight 65.941 kg 65 kg Microbiology Reports for the Last 24 Hours: Microbiology 09/17/22 16:24 Sputum - Expectorated Sputum Gram Stain - Final 09/17/22 16:24 Sputum - Expectorated Sputum Sputum Culture - Preliminary Constitutional Constitutional: no acute distress, thin, chronically ill appearing and cooperative *Routine HEENT Exam Head: Present normocephalic Eye: Present EOMI and PERRL ENT: Present mucous membranes moist *Routine Neck Exam Neck: Present supple; Absent lymphadenopathy *Routine Respiratory Exam Respiratory: Present rhonchi, normal respiratory effort and symmetric chest movement *Routine Cardiovascular Exam Cardiovascular: Present RRR; Absent murmur *Routine Abdominal Exam Abdominal: Present soft and normoactive bowel sounds; Absent tenderness *Routine Extremities Exam Extremities: Absent cyanosis, clubbing or edema *Routine Skin Exam Skin: Present warm; Absent rash *Routine Neurological Exam Neurological: Present alert, oriented X3, moving all extremities, vision grossly intact, hearing grossly intact and normal speech; Absent sensory deficit or motor deficit Routine Psychiatric Exam Psychiatric: Present normal affect, normal thought process, cooperative, good insight and good judgment Assessment and Plan *Assessment and plan (1) Pneumonia: Status: Acute Category: Medical Code(s): J18.9 - Pneumonia, unspecified organism (2) Respiratory failure: Status: Acute Category: Medical Code(s): J96.90 - Respiratory failure, unspecified, unspecified whether with hypoxia or hypercapnia (3) Immunocompromised: Status: Acute Category: Medical Code(s): D84.9 - Immunodeficiency, unspecified (4) Elevated INR: Status: Acute Catego
--- NOTE | 2022-09-19 13:42 | DIET.NUTRFU ---
upon visit again today, patient has requested a regular diet. He uses a good amount of salt at home and plans to continue. Even though this RD discussed health benefits of counting back. Therefore changed diet during reminder of stay to a regular diet, no restrictions.
[2022-09-19 14:51] LABS: Peripheral Smear Review Scanned Result
--- NOTE | 2022-09-19 20:30 | PC.NURSE ---
Pt is A/Ox4. He has ambulated around the room and unit today. He has tolerated diet well. He has been RA.
[2022-09-20] VITALS: BP 152/86; PULSE 103; RESP 18; TEMP 36.6; O2SAT 94
[2022-09-20 04:00] VITALS: BP 153/68; PULSE 88; RESP 20; TEMP 37; O2SAT 96
[2022-09-20 05:00] VITALS: BMI 21.4
[2022-09-20 06:22] VITALS: PULSE 102; PULSE 98; O2SAT 92
--- NOTE | 2022-09-20 06:49 | PC.NURSE ---
PATIENT HAS HAD AN UNEVENTFUL NIGHT. NO C/O PAIN. NO RESP DISTRESS. PERFORMS 1250 ON INCENTIVE SPIROMETER. HAS NOT REQUIRED 02 THIS SHIFT..
[2022-09-20 07:49] LABS: Basophils # 0.1 K/mm3 (0-0.2); Basophils % 0.5 % (0.1-2.0); Eosinophils # 0.1 K/mm3 (0.0-0.4); Eosinophils % 0.7 % (0.1-12.0); Hemoglobin 12.2 g/dL (14.1-18.0); Lymphocytes # 3.2 K/mm3 (0.7-4.5); Lymphocytes % 22.8 % (10-50); Mean Corpuscular HGB Conc 32.9 g/dL (31.8-35.4); Mean Corpuscular Hemoglobin 31.2 pg (27.0-31.2); Mean Corpuscular Volume 94.9 fl (80-94); Mean Platelet Volume 11.1 fl (7.4-10.4); Monocytes % 7.1 % (1.7-9.3); Neutrophils # 9.6 K/mm3 (1.8-7.8); Neutrophils % 68.8 % (37.0-80.0); Platelet Count 444 K/mm3 (142-424); White Blood Count 13.9 K/mm3 (4.8-10.8)
[2022-09-20 07:54] LABS: Chloride 110 mmol/L (98-107)
[2022-09-20 07:55] LABS: Potassium 3.8 mmoL/L (3.5-5.1); Sodium 140 mmol/L (136-145)
[2022-09-20 07:57] LABS: Blood Urea Nitrogen 16 mg/dl (9-20); Creatinine Clearance Estimated 69 mL/min (50-200); Estimated Glomerular Filt Rate 112 ml/min (>60); GFR (African American) 136 ML/MIN (>60)
[2022-09-20 07:58] LABS: Anion Gap 10.8 mEq/L (5-15); Calcium 8.5 mg/dl (8.4-10.2); Carbon Dioxide 23 mmol/L (22.0-30.0); Glucose 81 mg/dl (74-100); Magnesium 1.8 mg/dl (1.6-2.3); Phosphorous 2.5 mg/dl (2.5-4.5)
[2022-09-20 08:00] VITALS: BP 138/99; PULSE 98; TEMP 36.4; O2SAT 95
--- NOTE | 2022-09-20 08:59 | EXP.PHA.PN ---
Subjective *Date: 09/20/22 *Time: 08:59 Medical Exam Vital signs and Labs for Last 24 Hours: Vital Signs Temp Pulse Pulse Pulse Resp BP Pulse Ox 09/20/22 06:22 102 H 09/20/22 06:22 98 H 09/20/22 06:22 92 L 09/20/22 04:00 98.6 F 88 20 153/68 H 96 09/20/22 00:00 97.8 F 103 H 18 152/86 H 94 L 09/19/22 23:39 106 H 09/19/22 23:39 97 H 09/19/22 20:00 93 L 09/19/22 20:00 98.3 F 99 H 18 143/83 H 93 L 09/19/22 16:00 98.2 F 83 22 142/98 H 97 09/19/22 18:41 110 H 09/19/22 18:41 90 09/19/22 18:41 96 09/19/22 12:00 97.5 F L 94 H 18 137/66 97 09/19/22 11:14 88 09/19/22 11:14 91 H 09/19/22 11:14 96 Intake and Output 09/19/22 09/20/22 09/20/22 23:59 07:59 15:59 Intake Total 240 / 720 250 / 250 Output Total 350 / 350 Balance 240 / 320 -100 / -100 Intake: Intake, Oral Amount 240 / 720 Intake, Total IV Amount 250 / 250 Doxycycline Hyclate 100 mg In 0 250 / 250 .9 % Sodium Chloride 250 ml @ 166.667 mls/hr IV Q[facility] Rx#: [id number] Output: Output, Urine Amount 350 / 350 Other: Weight 68.084 kg Patient Weight 09/20/22 23:59 Weight 68.084 kg Laboratory Results - last 24 hr 09/20/22 06:33: Sodium 140, Potassium 3.8 D, Chloride 110 H, Carbon Dioxide 23, Anion Gap 10.8, BUN 16, Creatinine 0.70, Estimated Creat Clear 69, Estimated GFR 112, Est GFR ( Amer) 136, Glucose 81 D, Calcium 8.5, Phosphorus 2.5, Magnesium 1.8 D 09/20/22 06:33: WBC 13.9 H D, RBC 3.90 L, Hgb 12.2 L, Hct 37.0 L, MCV 94.9 H, MCH 31.2, MCHC 32.9, RDW 15.0, Plt Count 444 H, MPV 11.1 H, Neut % (Auto) 68.8, Lymph % (Auto) 22.8, [place] % (Auto) 7.1, Eos % (Auto) 0.7, Baso % (Auto) 0.5, Neut # (Auto) 9.6 H, Lymph # (Auto) 3.2, [place] # (Auto) 1.0, Eos # (Auto) 0.1, Baso # (Auto) 0.1 I & O for Labs for Last 24 Hours: Intake & Output 09/17/22 09/18/22 09/19/22 09/20/22 23:59 23:59 23:59 23:59 Intake Total 945 / 945 1507 / 1507 720 / 720 250 / 250 Output Total 700 / 1100 400 / 400 250 / 400 350 / 350 Balance 245 / -155 1107 / 1107 470 / 320 -100 / -100 Weight 65.941 kg 65 kg 68.084 kg Microbiology Reports for the Last 24 Hours: Microbiology 09/17/22 16:24 Sputum - Expectorated Sputum Gram Stain - Final 09/17/22 16:24 Sputum - Expectorated Sputum Sputum Culture - Final Normal Respiratory Marily The patient's infection will respond to the chosen ABx?: Yes Is the patient receiving the right drug, dose, and route?: Yes Could a more targeted ABx be ordered?: No
--- NOTE | 2022-09-20 10:49 | EXP.DC.SUM ---
General Admission date:: 09/17/22 Discharge date: 09/20/22 HPI HPI HPI: This is a 67-year-old male who presents to emergency department with concerns of feeling weak and experiencing shortness of air. His past medical history significant for COPD, hypertension, reflux with hiatal hernia, prostate cancer 2003 on hormone therapy. He reports a significant smoking history of 1 pack/day for at least 50 years. 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 He reports getting pneumonia very easily. He identified several days of cough not improving with home care. He started experiencing shortness of air that became worse with exertion. He was not responding to his home medications so he presented to the emergency department. He denied associated retrosternal chest pain or palpitations. In the ED his tachypnea was identified and required increased oxygen from baseline to maintain appropriate oxygen saturations. Imaging of his chest identified bilateral pneumonia. Hospital Course Hospital Course Hospital Course: The patient was admitted to the medical unit with telemetry monitoring secondary to his oxygen requirements. CT scanning of the chest identified bilateral pneumonia. Sputum cultures were acquired that identified no growth to date. He was maintained on IV Rocephin and doxycycline therapy. His laboratory studies and inflammatory markers were trended. His leukocytoses trended downward with an admission white blood cell count of 23.5 and a discharge white blood cell count of 14,000. Electrolyte disturbances were corrected with supplementation. His discharge BMP was normal. B12 deficiency was identified through his hospital stay and he received IM supplementation which was transitioned to p.o. on discharge. Nursing staff reported that his oxygen requirements diminished and he was saturating appropriately on room air day prior to discharge. He ambulated without difficulty in his room. He identified improvement and inquired about discharge home. He will be discharged home with inhaler therapy, antibiotic therapy with instructions to see his PCP in 1 week and continue follow-up with his urologist. I spent 35 minutes in [id number] time with the patient and nursing staff concerning the discharge process. We discussed the admitting diagnoses and hospital course. We discussed identified improvement and the patient's desire to be discharged. We reviewed inpatient studies and imaging. The patient voiced understanding on the importance of follow-up with his primary care provider and specialist(s). The patient plans to be compliant with the medication regimen prescribed and follow-up appointments. He understands that he can return to the emergency department with any sudden changes or concerns. Exam Data for Last 24 hours Vital signs and Labs for Last 24 Hours: Temp Pulse Resp BP Pulse Ox 97.5 F L 98 H 20 138/99 H 95 09/20/22 08:00 09/20/22 08:00 09/20/22 04:00 09/20/22 08:00 09/20/22 08:00 Laboratory Results - last 24 hr 09/20/22 06:33: Sodium 140, Potassium 3.8 D, Chloride 110 H, Carbon Dioxide 23, Anion Gap 10.8, BUN 16, Creatinine 0.70, Estimated Creat Clear 69, Estimated GFR 112, Est GFR ( Amer) 136, Glucose 81 D, Calcium 8.5, Phosphorus 2.5, Magnesium 1.8 D 09/20/22 06:33: WBC 13.9 H D, RBC 3.90 L, Hgb 12.2 L, Hct 37.0 L, MCV 94.9 H, MCH 31.2, MCHC 32.9, RDW 15.0, Plt Count 444 H, MPV 11.1 H, Neut % (Auto) 68.8, Lymph % (Auto) 22.8, [place] % (Auto) 7.1, Eos % (Auto) 0.7, Baso % (Auto) 0.5, Neut # (Auto) 9.6 H, Lymph # (Auto) 3.2, [place] # (Auto) 1.0, Eos # (Auto) 0.1, Baso # (Auto) 0.1 I & O for Last 24 hours: Intake & Output 09/17/22 09/18/22 09/19/22 09/20/22 23:59 23:59 23:59 23:59 Intake Total 945 / 945 1507 / 1507 720 / 720 490 / 490 Output Total 700 / 1100 400 / 400 250 / 400 350 / 350 Balance 245 / -155 1107 / 1107 470 / 320 140 / 14
[2022-09-20 11:50] VITALS: PULSE 73; O2SAT 99
--- NOTE | 2022-09-22 13:48 | CARE MANAGER ---
Spoke with patient related to hospital discharge. He states he is doing better. He is taking his medications and denies any questions or concerns. HENRI Linda
== END 2022-09-20 13:07 | disposition home or self-care (01) | DRG 193 ==
LOC: UTC 08:35 → ER 08:47 → 2ND 12:40
PROVIDERS: Admitting Provider Family Medicine; Emergency Provider Student in an Organized Health Care Education/Training Program; PCP Family Medicine; Visit Provider Family Medicine
DX: J18.9 Pneumonia, unspecified organism (principal); J96.01 Acute respiratory failure with hypoxia; D84.9 Immunodeficiency, unspecified; J44.0 Chronic obstructive pulmonary disease with (acute) lower respiratory infection; R79.1 Abnormal coagulation profile; Z85.46 Personal history of malignant neoplasm of prostate; Z87.891 Personal history of nicotine dependence; K21.9 Gastro-esophageal reflux disease without esophagitis; E87.6 Hypokalemia; E53.8 Deficiency of other specified B group vitamins; K80.80 Other cholelithiasis without obstruction
CPT/HCPCS: 36415; 71045; 71275; 76705; 80048; 80053; 81001; 82607; 82803; 83690; 83735; 84100; 84145; 84484; 85007; 85025; 85610; 87070; 87205; 93005; 94640; 94760; 94761; 99285; C9803; J0696; J3475; Q9967; U0003; U0005

== ENCOUNTER 2023-07-01 10:03 | Inpatient (IN) | payer MEDICARE, OTHER, SELFPAY ==
[2023-07-01] VITALS (11 sets, daily range): BP systolic 96–129; BP diastolic 56–69; PULSE 62–110; RESP 16–24; TEMP 36.4–37; O2SAT 91–100; BMI 21.5; BMI 20.1
--- NOTE | 2023-07-01 10:05 | ECG_ITS ---
APPROVED REPORT Exam: Resting ECG HR:123 bpm ECG Measurements Heart Rate 123 AXES QRSd 85 QRS 61 QT 344 T -52 QTc 417 Conclusion ATRIAL FIBRILLATION WITH RAPID VENTRICULAR RESPONSE WITH ABERRANT CONDUCTION OR VENTRICULAR PREMATURE COMPLEXES ST DEVIATION AND MODERATE T-WAVE ABNORMALITY, CONSIDER LATERAL ISCHEMIA [-0.1+ mV T-WAVE IN I/aVL/V5/V6] ST DEVIATION AND MODERATE T-WAVE ABNORMALITY, CONSIDER INFERIOR ISCHEMIA [-0.1+ mV T-WAVE IN II/aVF] ABNORMAL ECG UNCONFIRMED REPORT Electronically signed by : Samuel Saldaña MD 07/02/2023 07:50:43
[2023-07-01 10:14] LABS: POC Glucose,Bedside 145 (70-110)
--- NOTE | 2023-07-01 10:17 | XR_ITS ---
FINAL REPORT CLINICAL HISTORY: dyspnea COMPARISON: 09/17/2022 FINDINGS: SINGLE-VIEW CHEST The heart size is in the upper limits of normal in size. The mediastinum is normal. There are moderate chronic changes at the bases, stable. Findings are consistent with chronic fibrosis. There is no pneumothorax. IMPRESSION: Chronic fibrosis. Reviewed, Interpreted and Dictated by Adam Laws MD Transcribed by Isi Pitts Authenticated and [facility]
--- NOTE | 2023-07-01 10:21 | HMH.EDGENADL ---
Discharge Plan Disposition Patient Disposition: Admitted Prescriptions Prescriptions: No Action nifedipine [Procardia XL] 30 mg tablet extended release 24hr 30 mg PO DAILY omeprazole 40 mg capsule,delayed release(DR/EC) 40 mg PO DAILY Eliquis 2.5 mg tablet 2.5 mg PO BID Patient Comments: TAKE ONE TABLET BY MOUTH TWICE DAILY Lisatri Aerosphere 160-9-4.8 mcg/actuation HFA aerosol inhaler 2 puff INHALATION BID Patient Comments: INHALE TWO PUFFS BY MOUTH TWICE DAILY bicalutamide 50 mg tablet 50 mg PO DAILY magnesium oxide 400 mg (241.3 mg magnesium) Tablet 400 mg PO BID Qty: 60 0RF cefdinir 300 mg capsule 300 mg PO BID Qty: 10 0RF cyanocobalamin (vitamin B-12) 1,000 mcg capsule 1,000 mcg PO DAILY Qty: 30 0RF budesonide-formoterol [Symbicort] 160-4.5 mcg/actuation HFA aerosol inhaler 2 puff inhalation BID Qty: 10.2 0RF doxycycline hyclate 100 mg capsule 100 mg PO BID 10 Days Qty: 20 0RF Referrals Follow up/Referrals: Shaq Sevilla MD [Primary Care Provider] - See instructions Clinical Impressions Clinical Impression: Atrial fibrillation with rapid ventricular response, Sepsis, Acute exacerbation of chronic obstructive pulmonary disease, EMA (acute kidney injury) Discharge ED Provider: Luba Chacon General Adult HPI General Chief complaint: Weakness Stated complaint: weakness Time Seen by Provider: 07/01/23 10:11 Mode of Arrival: EMS Source of Information: Patient Limitations: No Limitations Description of Symptoms (Recalled from ER Triage Doc. by RN): pt to ed c/o hypotension, blurry vision, and new onset afib. pt states he was being seen at pcp office and had a near syncopal episode. pt denies pain. History of Present Illness HPI narrative: Patient is a 67-year-old male to the emergency department multiple complaints. States that he has been feeling sick for the last several days and has been in bed. His articulation of feeling sick includes feeling dizzy lightheaded and had some chills. No objective fever. Has a chronic cough states his cough may be a little bit worse than normal but not significantly. No increased wheezing but has had some mild increase in dyspnea. States he has no history of atrial fibrillation or other cardiac dysrhythmia that he is aware of. Has a known history of a DVT which was diagnosed in 2015 at which point he was started on Eliquis and states he has never had any reevaluation for that and has never been taken off of his Eliquis and he is currently taking it. Denies any chest pain. States that he went to work today at [employer] where he felt much worse stating that he almost passed out 3 times while at work. He subsequently went to his primary care doctor and they sent him to the ED. Related Data Home Medications Medication Instructions Recorded Confirmed nifedipine 30 mg tablet,extended 30 mg PO DAILY Hypertension 04/01/18 09/17/22 release 24 hr (Procardia XL) omeprazole 40 mg capsule,delayed 40 mg PO DAILY GERD 04/01/18 09/17/22 release apixaban 2.5 mg tablet (Eliquis) 2.5 mg PO BID HX OF DVT 09/17/22 09/17/22 bicalutamide 50 mg tablet 50 mg PO DAILY CANCER 09/17/22 09/17/22 budesonide 160 mcg-glycopyr 9 2 puff inhalation BID Breathing 09/17/22 09/17/22 mcg-formot 4.8 mcg/actuation HFA problems inhaler (Breztri Aerosphere) Previous Rx's Medication Instructions Recorded budesonide-formoterol HFA 160 2 puff inhalation BID #10.2 grams 09/20/22 mcg-4.5 mcg/actuation aerosol inhaler (Symbicort) cefdinir 300 mg capsule 300 mg PO BID #10 caps 09/20/22 cyanocobalamin (vitamin B-12) 1,000 mcg PO DAILY #30 caps 09/20/22 1,000 mcg capsule doxycycline hyclate 100 mg capsule 100 mg PO BID 10 days #20 caps 09/20/22 magnesium oxide 400 mg (241.3 mg 400 mg PO BID #60 tabs 09/20/22 magnesium) tablet Allergies Allergy/AdvReac Type Severity Reaction Status Date / Time No Known Allergies Allergy Verif
--- NOTE | 2023-07-01 10:29 | PC.NURSE ---
Spouse at BS
[2023-07-01 10:30] LABS: Eosinophils # 0.2 K/mm3 (0.0-0.4); Red Cell Distribution Width 14.3 % (11.5-17.5)
[2023-07-01 10:32] LABS: Chloride 100 mmol/L (98-107); Potassium 3.4 mmoL/L (3.5-5.1); Sodium 140 mmol/L (136-145)
[2023-07-01 10:34] LABS: Alanine Aminotransferase 26 U/L (12-78); Aspartate Amino Transferase 29 U/L (17-59); Basophils # 0.1 K/mm3 (0-0.2); Basophils % 0.3 % (0.1-2.0); Blood Urea Nitrogen 26 mg/dl (9-20); Creatinine Clearance Estimated 43 mL/min (50-200); Eosinophils % 0.8 % (0.1-12.0); Estimated Glomerular Filt Rate 43 ml/min (>60); GFR (African American) 52 ML/MIN (>60); Hematocrit 43.5 % (42.0-52.0); Hemoglobin 13.6 g/dL (14.1-18.0); Lymphocytes # 2.6 K/mm3 (0.7-4.5); Lymphocytes % 8.9 % (10-50); Mean Corpuscular HGB Conc 31.2 g/dL (31.8-35.4); Mean Corpuscular Hemoglobin 30.6 pg (27.0-31.2); Monocytes % 3.4 % (1.7-9.3); Neutrophils # 24.7 K/mm3 (1.8-7.8); Neutrophils % 86.6 % (37.0-80.0); Platelet Count 490 K/mm3 (142-424); Red Blood Count 4.44 M/mm3 (4.60-6.20)
[2023-07-01 10:35] LABS: Albumin Level 4.1 g/dl (3.5-5.0); Alkaline Phosphatase 66 U/L (38-126); Anion Gap 18.4 mEq/L (5-15); Bilirubin,Total 1.4 mg/dl (0.2-1.3); Calcium 8.3 mg/dl (8.4-10.2); Carbon Dioxide 25 mmol/L (22.0-30.0); Globulin 4.3 g/dL (1.3-3.2); Glucose 155 mg/dl (74-100); Total Protein,Serum 8.4 g/dl (6.3-8.2)
[2023-07-01 10:36] LABS: Magnesium 0.9 mg/dl (1.6-2.3)
[2023-07-01 10:40] LABS: White Blood Count 28.5 K/mm3 (4.8-10.8)
[2023-07-01 10:42] LABS: MANUAL DIFFERENTIAL MANUAL DIFFERENTIAL (MANUAL DIFF)
[2023-07-01 10:44] LABS: NT Pro Brain Natriuretic Pep. 867 pg/mL (0-125)
[2023-07-01 10:46] LABS: D-Dimer 0.77 ug/mL (0.0-0.5)
[2023-07-01 10:50] LABS: Troponin I < 0.01 ng/ml (0.00-0.034)
--- NOTE | 2023-07-01 10:50 | ECG_ITS ---
APPROVED REPORT Exam: Resting ECG HR:78 bpm ECG Measurements Heart Rate 78 AXES AR 175 P 75 QRSd 92 QRS 63 QT 434 T 3 QTc 467 Conclusion SINUS RHYTHM WITH FREQUENT VENTRICULAR PREMATURE COMPLEXES ST DEVIATION AND MODERATE T-WAVE ABNORMALITY, CONSIDER INFERIOR ISCHEMIA [-0.1+ mV T-WAVE IN II/aVF] ABNORMAL ECG UNCONFIRMED REPORT Electronically signed by : Samuel Saldaña MD 07/02/2023 07:50:26
--- NOTE | 2023-07-01 10:50 | PC.NURSE ---
Repeat EKG completed and given to DEANNE MARTINEZ
--- NOTE | 2023-07-01 11:00 | PC.NURSE ---
pt converted to SR while preparing dilt. per MD, hold medication.
[2023-07-01 11:06] LABS: Coronavirus 19, PCR Not Detected (NotDetected); Influenza A, PCR Not Detected (NotDetected); Influenza B, PCR Not Detected (NotDetected)
[2023-07-01 11:06] LABS: Thyroid Stimulating Hormone 2.21 uIU/mL (0.465-4.68)
--- NOTE | 2023-07-01 11:21 | PC.NURSE ---
Spoke with Raina in care management regarding patient admission
[2023-07-01 11:36] LABS: Lymphocytes % 12 % (10-50); Monocytes % 4 % (2-9); Neutrophils % 82 % (42-76); Platelet Estimate Normal; RBC Morphology Normal; Total Cells Counted 100
--- NOTE | 2023-07-01 11:52 | PC.NURSE ---
report called to genaro peacock
--- NOTE | 2023-07-01 12:11 | PC.NURSE ---
arrived by w/c to floor from ED
[2023-07-01 13:01] LABS: Lactic Acid 2.7 mmol/L (0.7-2.1)
[2023-07-01 13:15] LABS: Troponin I < 0.01 ng/ml (0.00-0.034)
--- NOTE | 2023-07-01 13:29 | HMH.PHAINT1 ---
Pharmacy Intervention Comments: HOME MEDICATION LIST VERIFIED USING LIST FROM OUTPATIENT PHARMACY AND PT INTERVIEW
--- NOTE | 2023-07-01 14:17 | EXP.HP ---
History of Present Illness *Admission Date: 07/01/23 *Reason for visit:: weakness, SOA *History of present illness: Mr. Cosme is a 67-year-old gentleman with history of prostate cancer, hypertension, DVT, and COPD. Presented to the ER with complaint of fatigue, weakness, blurry vision. Initially presented to his PCPs office today where he had a near syncopal event. PCP sent him urgently to the ER for evaluation. Patient states that he started feeling bad about Thursday. Slight increase in cough and shortness of breath. Fatigue and chills accompanied his symptoms. Stayed home from work the past 2 days and felt better today. When he got to work he had 3 events of near syncope. Denies any vomiting but has had some nausea and one episode of diarrhea. Denies any increased production and cough. On arrival to the ER was found to be in A-fib with RVR. Initial labs concerning for leukocytosis, electrolyte disturbances, EMA, and meeting criteria for sepsis. Medicine consulted for admission. On arrival to the floor, patient's is at bedside and helps answer questions. States he has had some intermittent chest discomfort worse with coughing over the past several months. Reports dyspnea for the past 2 years but more acutely over the past few days. Reports being on Eliquis for history of DVTs in 2016 but is just continued to take the medication without further evaluation. Denies any confusion. Denies any dysuria or hematuria. [facility] Disclaimer: The information contained in this section may have been updated after the patient was seen, as this information can be updated by other users. Medical History (Updated 07/01/23 @ 14:21 by Rashaad Arreola MD) COPD (chronic obstructive pulmonary disease) (~09/17/22) Pneumonia Prostate cancer (~09/17/22) Surgical History H/O hernia repair H/O splenectomy S/P TURP Family History Father Mother Severe sepsis with septic shock Mother Throat cancer Father Social History (Updated 07/01/23 @ 12:39 by Lisa Osorio RN) Smoking Status: Never smoker alcohol intake: never substance use type: denies use current occupational status: retired Travel in the last 8 weeks: None household members: spouse housing: house Review of Systems Review of Systems Review of systems (narrative): 14 point review of systems performed, pertinent positives and negatives as per HPI Meds Home Medications and Allergies Home Medications Medication Instructions Recorded Confirmed Type nifedipine 30 mg tablet,extended 30 mg PO DAILY High Blood Pressure 04/01/18 07/01/23 History release 24 hr (Procardia XL) omeprazole 40 mg capsule,delayed 40 mg PO DAILY Acid Reflux 04/01/18 07/01/23 History release apixaban 2.5 mg tablet (Eliquis) 2.5 mg PO DAILY history of DVT 09/17/22 07/01/23 History bicalutamide 50 mg tablet 50 mg PO DAILY cancer 09/17/22 07/01/23 History budesonide 160 mcg-glycopyr 9 2 puff inhalation BID Breathing 09/17/22 07/01/23 History mcg-formot 4.8 mcg/actuation HFA problems inhaler (Breztri Aerosphere) lisinopril 10 mg tablet 10 mg PO DAILY High Blood Pressure 07/01/23 07/01/23 History New Prescriptions to Start Prescriptions: Allergies Allergy/AdvReac Type Severity Reaction Status Date / Time No Known Allergies Allergy Verified 04/17/22 09:42 Exam Data for Last 24 hours Vital signs and Labs for Last 24 Hours: Temp Pulse Resp BP Pulse Ox O2 Del Method 97.7 F 62 18 108/57 L 95 Room Air 07/01/23 12:27 07/01/23 12:27 07/01/23 12:27 07/01/23 12:27 07/01/23 12:27 07/01/23 13:00 Laboratory Results - last 24 hr 07/01/23 10:05: WBC 28.5 H*, RBC 4.44 L, Hgb 13.6 L, Hct 43.5, MCV 98.0 H, MCH 30.6, MCHC 31.2 L, RDW 14.3, Plt Count 490 H, MPV 9.0, Neut % (Auto) 86.6 H, Lymph % (Auto) 8.9 L, [place] % (Auto) 3.4, Eos % (Auto) 0
--- NOTE | 2023-07-01 14:18 | CA_ITS ---
APPROVED REPORT EXAM: Comprehensive 2D, Doppler, and color-flow Echocardiogram Branch Specialist: Miladis Boateng CRT Ht: 5 ft 10 in Wt: 140lbs BSA: 1.79 BP: 108/57 mmHg Indications: COPD, Atrial Fibrillation (new onset), pneumonia 2D Dimensions LVOT 2.07 cm (M/F) 1.5-2.5 LA Volume 43.20 mL LA Volume Index 23.50 mL/m2 (M/F) 16-34 M-Mode Dimensions RVDd 2.25 cm (0.9-2.6) LA Diam 3.70 cm (1.9-4.0) LVDd 4.54 cm (3.5-5.7) Ao Diam 3.87 cm (2.0-3.7) LVDs 3.04 cm (3.5-5.7) IVSd 1.25 cm (0.6-1.1) PWd 0.84 cm (0.6-1.1) EF (Teich) 61.70% FS 33.00% EDV (Teich) 94.40 mL TAPSE 2.73 (<1.7) ESV (Teich) 36.20 mL LV Diastology E Decel Time 197.00 (160-240 msec) E/A Ratio 1.27 MED E' 14.10 (< 7 cm/sec) MED A' 15.50 cm/s E'/MED E' Ratio 6.46 (>14) LAT E' 11.40 (<10 cm/sec) LAT A' 9.70 cm/s E/LAT E' Ratio 7.99 (>14) Aortic Valve AO Peak GR. 9.80 mmHg Mitral Valve MV A Velocity 72.00 (40-130 cm/s) E/A Ratio 1.27 MV Decel. Time 197.00 (160-240 ms) Pulmonary Valve PV Peak Velocity 121.00 (50-150 cm/s) Tricuspid Valve TR P. Velocity 228.00 cm/s RAP Estimate 10.00 mmHg RVSP 30.90 mmHg Left Ventricle The left ventricle is normal size. The left ventricular systolic function is normal. The left ventricular ejection fraction is within the normal range. There is normal left ventricular wall thickness. There is normal LV segmental wall motion. The left ventricular diastolic function is normal. LVEF is 55%. Right Ventricle The right ventricle is normal size. The right ventricular systolic function is normal. Atria The left atrium size is normal. The right atrium size is normal. There is no Doppler evidence of interatrial shunt. Aortic Valve The aortic valve is mildly thickened. There is no aortic valvular stenosis. No aortic regurgitation is present. Mitral Valve The mitral valve is normal in structure. No evidence of mitral valve stenosis. Trace mitral regurgitation. Tricuspid Valve The tricuspid valve leaflets are thin and pliable. Mild tricuspid regurgitation. RVSP is 20-25 mmHg. Pulmonic Valve The pulmonary valve is normal in structure. Trace pulmonic regurgitation. Great Vessels The aortic root is normal in size. The ascending aorta is normal in size. IVC is normal in size and collapses >50% with inspiration. Pericardium There is no pericardial effusion. Other Information Study Quality: Adequate Conclusion Normal biventricular systolic function. No significant valvular stenosis or regurigtation. Electronically signed by : Citlali De La Cruz MD 07/03/2023 19:54:50
--- NOTE | 2023-07-01 14:19 | EXP.SEPSISRE ---
[facility] Tissue Perfusion Eval Sepsis Re-Evaluation Performed: Yes Date Performed: 07/01/23 Time Performed: 14:02
[2023-07-01 16:32] LABS: Microscopic, Urine URINE MICROSCOPIC (MICROSCOPIC)
[2023-07-01 16:35] LABS: Appearance,Urine CLEAR (Clear); Blood, Urine TRACE-I (Negative); Color,Urine YELLOW (Yellow); Glucose,Urine (UA) TRACE (Negative); Ketones,Urine TRACE (Negative); Leukocyte Esterase,Urine Negative (Negative); Nitrate,Urine Negative (Negative); PH,Urine 5.5 (5.0-8.5); Protein,Urine 1+ (Negative); Specific Gravity, Urine 1.025 (1.005-1.030); Urobilinogen,Urine 0.2 EU/dl (0.2)
[2023-07-01 16:42] LABS: Reflex Lactic Add Lactic Reflex
[2023-07-01 17:04] LABS: Bilirubin,Urine 1+ (Negative)
[2023-07-01 17:08] LABS: Squamous Epithelial Cell,Urine Occasional #/hpf (0-5)
[2023-07-01 17:50] LABS: Troponin I < 0.01 ng/ml (0.00-0.034)
[2023-07-01 18:03] LABS: Lactic Acid Follow Up (RFLX 1) 1.6 mmol/L (0.7-2.1)
[2023-07-01 20:34] LABS: Anion Gap 16.9 mEq/L (5-15); Blood Urea Nitrogen 20 mg/dl (9-20); Calcium 7.7 mg/dl (8.4-10.2); Carbon Dioxide 20 mmol/L (22.0-30.0); Chloride 103 mmol/L (98-107); Creatinine Clearance Estimated 64 mL/min (50-200); Estimated Glomerular Filt Rate 75 ml/min (>60); GFR (African American) 90 ML/MIN (>60); Glucose 272 mg/dl (74-100); Magnesium 1.2 mg/dl (1.6-2.3); Sodium 137 mmol/L (136-145)
[2023-07-01 20:42] LABS: Potassium 2.9 mmoL/L (3.5-5.1)
[2023-07-02] VITALS (14 sets, daily range): BP systolic 107–148; BP diastolic 59–79; PULSE 68–95; RESP 16–20; TEMP 36.4–36.7; O2SAT 92–98; BMI 20.7
[2023-07-02 01:22] LABS: Chloride 104 mmol/L (98-107); Sodium 137 mmol/L (136-145)
[2023-07-02 01:25] LABS: Blood Urea Nitrogen 19 mg/dl (9-20); Calcium 7.5 mg/dl (8.4-10.2); Carbon Dioxide 21 mmol/L (22.0-30.0); Creatinine Clearance Estimated 64 mL/min (50-200); Estimated Glomerular Filt Rate 84 ml/min (>60); GFR (African American) 102 ML/MIN (>60); Glucose 245 mg/dl (74-100)
--- NOTE | 2023-07-02 05:09 | PC.NURSE ---
Patient has had a good night. had been able to rest after his K was replaced. No other issues have been noted
[2023-07-02 06:18] LABS: Eosinophils # 0.1 K/mm3 (0.0-0.4); Eosinophils % 0.4 % (0.1-12.0); Hematocrit 35.9 % (42.0-52.0); Lymphocytes # 1.1 K/mm3 (0.7-4.5); Lymphocytes % 6.6 % (10-50); Mean Corpuscular HGB Conc 31.9 g/dL (31.8-35.4); Mean Corpuscular Hemoglobin 30.5 pg (27.0-31.2); Mean Corpuscular Volume 95.6 fl (80-94); Mean Platelet Volume 8.9 fl (7.4-10.4); Monocytes # 0.3 K/mm3 (0.1-1.0); Monocytes % 1.8 % (1.7-9.3); Neutrophils # 15.4 K/mm3 (1.8-7.8); Neutrophils % 91.2 % (37.0-80.0); Platelet Count 486 K/mm3 (142-424); Red Blood Count 3.76 M/mm3 (4.60-6.20); Red Cell Distribution Width 14.4 % (11.5-17.5); White Blood Count 16.9 K/mm3 (4.8-10.8)
[2023-07-02 06:20] LABS: MANUAL DIFFERENTIAL MANUAL DIFFERENTIAL (MANUAL DIFF)
[2023-07-02 06:21] LABS: Hemoglobin 11.5 g/dL (14.1-18.0)
[2023-07-02 06:23] LABS: Alanine Aminotransferase 22 U/L (12-78); Albumin Level 3.3 g/dl (3.5-5.0); Albumin/Globulin Ratio 0.9 (1.1-1.8); Alkaline Phosphatase 56 U/L (38-126); Anion Gap 14.2 mEq/L (5-15); Aspartate Amino Transferase 21 U/L (17-59); Bilirubin,Total 0.3 mg/dl (0.2-1.3); Blood Urea Nitrogen 16 mg/dl (9-20); Calcium 7.9 mg/dl (8.4-10.2); Carbon Dioxide 24 mmol/L (22.0-30.0); Chloride 103 mmol/L (98-107); Chol/HDL Ratio 3.4 (1-3.5); Cholesterol 175 mg/dl (140-200); Creatinine Clearance Estimated 67 mL/min (50-200); Estimated Glomerular Filt Rate 96 ml/min (>60); GFR (African American) 117 ML/MIN (>60); Globulin 3.6 g/dL (1.3-3.2); Glucose 145 mg/dl (74-100); HDL Cholesterol 52 mg/dl (40-60); Magnesium 1.7 mg/dl (1.6-2.3); Potassium 3.2 mmoL/L (3.5-5.1); Sodium 138 mmol/L (136-145); Total Protein,Serum 6.9 g/dl (6.3-8.2); Triglycerides 61 mg/dl (30-150); VLDL Cholesterol 12 mg/dL (0-40)
[2023-07-02 06:34] LABS: Direct LDL Cholesterol 87.82 mg/dL (100-129)
[2023-07-02 07:10] LABS: Lymphocytes % 5 % (10-50); Neutrophils % 92 % (42-76); Total Cells Counted 100
[2023-07-02 07:11] LABS: Macrocytosis 2+; Platelet Estimate Moderate Increase; Polychromasia 1+
[2023-07-02 07:12] LABS: Target Cells 1+
--- NOTE | 2023-07-02 07:53 | EXP.ACUTE.PN ---
Subjective *Date: 07/02/23 *Time: 10:21 Interval history: Patient states he is feeling much better this morning. Not as weak. No nausea or vomiting overnight. No diarrhea. No chest pain. Denies any worsening shortness of breath. No cough this morning. Tolerating p.o. intake. Afebrile. Medical Exam Vital signs and Labs for Last 24 Hours: Vital Signs Temp Pulse Pulse Resp BP BP Pulse Ox 07/02/23 07:35 97.5 F L 88 20 107/59 L 97 07/02/23 05:58 74 07/02/23 05:58 78 07/02/23 05:58 92 L 07/02/23 04:00 70 07/02/23 04:00 98.1 F 72 16 115/62 95 07/02/23 00:00 80 07/02/23 01:00 07/02/23 00:00 98 F 68 17 133/63 96 07/02/23 06:46 07/02/23 05:00 07/02/23 03:00 07/01/23 23:00 07/01/23 21:00 07/01/23 20:00 07/01/23 20:00 98.6 F 80 16 96/56 L 93 L 07/01/23 20:00 80 07/01/23 18:24 67 07/01/23 18:24 70 07/01/23 18:21 07/01/23 17:00 07/01/23 14:18 71 07/01/23 16:00 69 07/01/23 15:41 97.6 F 68 24 114/64 91 L 07/01/23 15:00 07/01/23 13:00 07/01/23 12:27 97.7 F 62 18 108/57 L 95 07/01/23 12:08 98.2 F 64 20 108/57 L 07/01/23 11:30 76 117/67 97 07/01/23 11:00 70 109/64 L 99 07/01/23 10:30 71 103/59 L 100 07/01/23 10:12 98.3 F 110 H 20 129/69 96 O2 Del Method 07/02/23 07:35 Room Air 07/02/23 05:58 07/02/23 05:58 07/02/23 05:58 Room Air 07/02/23 04:00 07/02/23 04:00 07/02/23 00:00 07/02/23 01:00 Room Air 07/02/23 00:00 07/02/23 06:46 Room Air 07/02/23 05:00 Room Air 07/02/23 03:00 Room Air 07/01/23 23:00 Room Air 07/01/23 21:00 Room Air 07/01/23 20:00 Room Air 07/01/23 20:00 Room Air 07/01/23 20:00 07/01/23 18:24 07/01/23 18:24 07/01/23 18:21 Room Air 07/01/23 17:00 Room Air 07/01/23 14:18 07/01/23 16:00 07/01/23 15:41 Room Air 07/01/23 15:00 Room Air 07/01/23 13:00 Room Air 07/01/23 12:27 Room Air 07/01/23 12:08 Room Air 07/01/23 11:30 07/01/23 11:00 Room Air 07/01/23 10:30 Room Air 07/01/23 10:12 Room Air Intake and Output 07/01/23 07/01/23 07/02/23 15:59 23:59 07:59 Intake Total 270 / 1060 240 / 1060 970 / 970 Output Total 100 / 100 250 / 250 Balance 270 / 960 140 / 960 720 / 720 Intake: Intake, Oral Amount 270 / 710 240 / 710 620 / 620 Intake, Total IV Amount 350 / 350 KCl 10mEq/100ml 100 ml @ 100 300 / 300 mls/hr IV Q1H [facility] Rx#:[id number] Magnesium Sulfate in Water 2 gm 50 / 50 In 50 ml @ 50 mls/hr IV ONCE ONE Rx#:[id number] Output: Output, Urine Amount 100 / 100 250 / 250 Other: Number of Unmeasured Voids 1 0 Weight 63.588 kg 65.589 kg Patient Weight 07/02/23 23:59 Weight 65.589 kg Laboratory Results - last 24 hr 07/01/23 10:05: WBC 28.5 H*, RBC 4.44 L, Hgb 13.6 L, Hct 43.5, MCV 98.0 H, MCH 30.6, MCHC 31.2 L, RDW 14.3, Plt Count 490 H, MPV 9.0, Neut % (Auto) 86.6 H, Lymph % (Auto) 8.9 L, [place] % (Auto) 3.4, Eos % (Auto) 0.8, Baso % (Auto) 0.3, Neut # (Auto) 24.7 H, Lymph # (Auto) 2.6, [place] # (Auto) 1.0, Eos # (Auto) 0.2, Baso # (Auto) 0.1, Total Counted 100, Neutrophils % (Manual) 82 H, Band Neutrophils % 2.0, Lymphocytes % (Manual) 12, Monocytes % (Manual) 4, Platelet Estimate Normal, RBC Morphology Normal, D-Dimer 0.77 H, Sodium 140, Potassium 3.4 L, Chloride 100, Carbon Dioxide 25, Anion Gap 18.4 H, BUN 26 H, Creatinine 1.60 H, Estimated Creat Clear 43, Estimated GFR 43 L, Est GFR ( Amer) 52 L, Glucose 155 H, Calcium 8.3 L, Magnesium 0.9 L, Total Bilirubin 1.4 H, AST 29, ALT 26, Alkaline Phosphatase 66, Troponin I < 0.01, NT-Pro-B Natriuret Pep 867 H, Total Protein 8.4 H, Albumin 4.1, Globulin 4.3 H, Albumin/Globulin Ratio 1.0 L, TSH 2.21 07/01/23 10:08: POC Glucose 145 H 07/01/23 11:02: SARS-CoV-2 (PCR) Not detected, Influenza A Untype (PCR) Not de
[2023-07-02 09:30] LABS: Hemoglobin A1C 5.4 % (4.0-6.0)
--- NOTE | 2023-07-02 18:52 | ECG_ITS ---
APPROVED REPORT Exam: Resting ECG HR:100 bpm ECG Measurements Heart Rate 100 AXES NV 160 P 76 QRSd 92 QRS 2 QT 365 T 46 QTc 422 Conclusion SINUS TACHYCARDIA WITH FREQUENT VENTRICULAR PREMATURE COMPLEXES WITH OCCASIONAL SUPRAVENTRICULAR PREMATURE COMPLEXES NONSPECIFIC ST & T-WAVE ABNORMALITY ABNORMAL RHYTHM ECG UNCONFIRMED REPORT Electronically signed by : Samuel Saldaña MD 07/03/2023 09:51:11
[2023-07-03] VITALS (9 sets, daily range): BP systolic 141–146; BP diastolic 73–100; PULSE 65–91; RESP 18; TEMP 36.4–36.5; O2SAT 95–96; BMI 21.0
--- NOTE | 2023-07-03 03:55 | PC.NURSE ---
pt rested well through the night. no complaints of pain. no issues noted.
[2023-07-03 06:27] LABS: Basophils % 0.1 % (0.1-2.0); Eosinophils # 0.2 K/mm3 (0.0-0.4); Eosinophils % 1.1 % (0.1-12.0); Hematocrit 35.9 % (42.0-52.0); Hemoglobin 11.3 g/dL (14.1-18.0); Lymphocytes # 2.9 K/mm3 (0.7-4.5); Lymphocytes % 14.5 % (10-50); Mean Corpuscular HGB Conc 31.5 g/dL (31.8-35.4); Mean Corpuscular Hemoglobin 30.8 pg (27.0-31.2); Mean Corpuscular Volume 97.7 fl (80-94); Mean Platelet Volume 8.9 fl (7.4-10.4); Monocytes # 0.9 K/mm3 (0.1-1.0); Monocytes % 4.3 % (1.7-9.3); Neutrophils # 15.8 K/mm3 (1.8-7.8); Neutrophils % 79.9 % (37.0-80.0); Platelet Count 482 K/mm3 (142-424); Red Blood Count 3.67 M/mm3 (4.60-6.20); Red Cell Distribution Width 14.5 % (11.5-17.5); White Blood Count 19.8 K/mm3 (4.8-10.8)
[2023-07-03 06:31] LABS: MANUAL DIFFERENTIAL MANUAL DIFFERENTIAL (MANUAL DIFF)
[2023-07-03 06:35] LABS: Alanine Aminotransferase 21 U/L (12-78); Albumin Level 3.1 g/dl (3.5-5.0); Albumin/Globulin Ratio 0.9 (1.1-1.8); Alkaline Phosphatase 48 U/L (38-126); Anion Gap 10.7 mEq/L (5-15); Aspartate Amino Transferase 23 U/L (17-59); Bilirubin,Total 0.3 mg/dl (0.2-1.3); Blood Urea Nitrogen 15 mg/dl (9-20); Calcium 7.7 mg/dl (8.4-10.2); Carbon Dioxide 27 mmol/L (22.0-30.0); Chloride 104 mmol/L (98-107); Creatinine Clearance Estimated 68 mL/min (50-200); Estimated Glomerular Filt Rate 112 ml/min (>60); GFR (African American) 136 ML/MIN (>60); Globulin 3.3 g/dL (1.3-3.2); Glucose 98 mg/dl (74-100); Magnesium 1.6 mg/dl (1.6-2.3); Potassium 3.7 mmoL/L (3.5-5.1); Sodium 138 mmol/L (136-145); Total Protein,Serum 6.4 g/dl (6.3-8.2)
--- NOTE | 2023-07-03 07:13 | CT_ITS ---
FINAL REPORT TECHNIQUE: Axial images were obtained through the chest without contrast. CLINICAL HISTORY: Shortness of breath, lymphadenopathy COMPARISON: CTA chest 09/17/2022 FINDINGS: There has been interval improvement in the previously noted diffuse mediastinal adenopathy. The heart size is normal. There is no pericardial or pleural effusion. There is a moderate hiatal hernia. There is moderately asymmetric bilateral gynecomastia, right greater than left. There are moderate changes of centrilobular emphysema. There is coarse linear scarring in both lungs. The previously noted patchy airspace opacities have generally improved. There is a new opacity at the left base measuring 1.8 x 1.4 cm best seen on image 63 of series 3. IMPRESSION: Improved adenopathy. Generally improved airspace infiltrates. Extensive pulmonary scarring and centrilobular emphysema. New ovoid focus at the periphery of the left base could be inflammatory or neoplastic. Consider PET scan or tissue sampling. Reviewed, Interpreted and Dictated by Adam Laws MD Transcribed by Zaynab Mueller Authenticated and . [facility]
--- NOTE | 2023-07-03 07:18 | EXP.DC.SUM ---
General Admission date:: 07/01/23 Discharge date: 07/03/23 HPI HPI HPI: Mr. Cosme is a 67-year-old gentleman with history of prostate cancer, hypertension, DVT, and COPD. Presented to the ER with complaint of fatigue, weakness, blurry vision. Initially presented to his PCPs office today where he had a near syncopal event. PCP sent him urgently to the ER for evaluation. Patient states that he started feeling bad about Thursday. Slight increase in cough and shortness of breath. Fatigue and chills accompanied his symptoms. Stayed home from work the past 2 days and felt better today. When he got to work he had 3 events of near syncope. Denies any vomiting but has had some nausea and one episode of diarrhea. Denies any increased production and cough. On arrival to the ER was found to be in A-fib with RVR. Initial labs concerning for leukocytosis, electrolyte disturbances, EMA, and meeting criteria for sepsis. Medicine consulted for admission. On arrival to the floor, patient's is at bedside and helps answer questions. States he has had some intermittent chest discomfort worse with coughing over the past several months. Reports dyspnea for the past 2 years but more acutely over the past few days. Reports being on Eliquis for history of DVTs in 2016 but is just continued to take the medication without further evaluation. Denies any confusion. Denies any dysuria or hematuria. Hospital Course Hospital Course Hospital Course: Mr. Cosme is a 67-year-old male with a history of COPD and prostate cancer who resented for weakness to the ER. Found to be septic with leukocytosis, tachycardia, new onset A-fib, EMA, chest imaging concerning for possible pneumonia. Showed improvement during admission with antibiotics. Symptoms defervesced and he is stable for discharge home to continue antibiotics. Problems addressed as follows: Sepsis, POA COPD exacerbation versus pneumonia -Leukocytosis, tachycardia, suspected infection with pneumonia/COPD exacerbation. Which was obtained and remain negative at discharge. Started on antibiotics with azithromycin and ceftriaxone. Supplemental oxygen used with stable saturations on room air for more than 24 hours prior to discharge home. Chest imaging was reviewed showed concern for some bilateral airspace disease versus fibrosis. Echo was obtained out of concern for CHF component with preliminary EF preserved greater than 55%. Treated with DuoNebs and budesonide during admission. Plan to complete antibiotics orally for total of 7 days. Stable to discharge home to complete course. Hypertension: Holding home regimen of lisinopril and nifedipine given normotension. New onset A-fib: Converted in the ER to sinus rhythm. Increase metoprolol to 25 mg succinate twice daily for rate control. Initiated on Eliquis. Plan for follow-up with cardiology EMA Hypokalemia Hypomagnesemia -Potassium and magnesium monitor during admission. Necessitated repletion. Improved to normal range. Creatinine elevated with EMA on admission at 1.6. Improved to 0.8 by discharge. Recommend repeat labs in 1 week with CMP. History of prostate cancer: Continue home bicalutamide. Denies any symptoms at this time. Spent 35 minutes in discharge counseling, documentation, chart review, and direct care with patient. Exam Data for Last 24 hours Vital signs and Labs for Last 24 Hours: Temp Pulse Resp BP Pulse Ox O2 Del Method 97.7 F 65 18 141/80 H 95 Room Air 07/03/23 04:00 07/03/23 06:15 07/03/23 04:00 07/03/23 04:00 07/03/23 04:00 07/03/23 06:50 Laboratory Results - last 24 hr 07/02/23 05:38: Hemoglobin A1c 5.4, LDL Cholesterol Direct 87.82 L 07/03/23 06:15: WBC 19.8 H, RBC 3.67 L, Hgb 11.3 L, Hct 35.9 L, MCV 97.7 H, MCH 30.8, MCHC 31.5 L, RDW 14.5, Plt Count 482 H, MPV 8.9, Neut % (Auto) 79.9, Lymph % (Auto) 14.5, [place] % (Auto) 4.3, Eos % (Auto) 1.1, Baso % (Auto) 0.1, Neut # (Auto) 15.8 H, Lymph # (Auto) 2.9,
[2023-07-03 07:30] LABS: Lactate Dehydrogenase 143 U/L (313-618); Uric Acid 4.3 mg/dl (3.5-8.5)
[2023-07-03 07:31] LABS: Lymphocytes % 15 % (10-50); Monocytes % 3 % (2-9); Neutrophils % 82 % (42-76); Platelet Estimate Slight Increase; RBC Morphology Normal; Total Cells Counted 100
--- NOTE | 2023-07-03 12:33 | CARE MANAGER ---
Patient is planned for discharge home today and will have a new order for a nebulizer machine. [facility] signed for [facility], and it was placed on chart. Clinical/Order faxed to [facility]. Nebulizer will be delivered to home.
--- NOTE | 2023-07-03 12:52 | HMH.PHAINT1 ---
Pharmacy Intervention Comments: DISCHARGE MEDICATION COUNSELING PROVIDED. DISCUSSED STARTING THE FOLLOWING: -ALBUTEROL INHALER (RESCUE INHALER, 2 PUFFS EVERY 6 HOURS NEEDED FOR SHORTNESS OF BREATH, JITTERY/NERVOUSNESS FEELING POSSIBLE) -DUONEBS (NEBULIZER SOLUTION, 1 NEB EVERY 4-6 HOURS NEEDED FOR SHORTNESS OF BREATH, JITTERY/NERVOUSNESS FEELING POSSIBLE) -AZITHROMYCIN (ANTIBIOTIC, DAILY FOR 2 DAYS, TAKE WITH FOOD, N/V/D POSSIBLE) -CEFDINIR (ANTIBIOTIC, TWICE DAILY FOR 2 DAYS, TAKE WITH FOOD, N/V/D POSSIBLE) -MAGNESIUM OXIDE (SUPPLEMENT, TWICE DAILY, UPSET STOMACH/DIARRHEA POSSIBLE) -METOPROLOL SUCCINATE (FOR BLOOD PRESSURE, TWICE DAILY, FATIGUE, DIZZINESS, LIGHTHEADEDNESS, LOW BP, SLOWED HEART RATE POSSIBLE) PATIENT VERBALIZED NO QUESTIONS AT THIS TIME.
[2023-07-05 07:21] LABS: Peripheral Smear Review Scanned Result
--- NOTE | 2023-07-07 08:22 | CARE MANAGER ---
Patient returned phone call related to hospital discharge. He states he picked up all his medications and is doing well. He has a follow up appt. today with PCP and pulmonology on the 12 of August. He denies questions or concerns. HENRI Linda
== END 2023-07-03 13:23 | disposition home or self-care (01) | DRG 871 ==
LOC: ER 11:06 → 2ND 11:41
PROVIDERS: Nurse Practitioner Critical Care Medicine; Admitting Provider Internal Medicine Adolescent Medicine; Emergency Provider Student in an Organized Health Care Education/Training Program; PCP Family Medicine; Visit Provider Internal Medicine Adolescent Medicine
DX: A41.9 Sepsis, unspecified organism (principal); J18.9 Pneumonia, unspecified organism; N17.9 Acute kidney failure, unspecified; J44.1 Chronic obstructive pulmonary disease with (acute) exacerbation; R65.20 Severe sepsis without septic shock; E83.42 Hypomagnesemia; I48.91 Unspecified atrial fibrillation; Z86.718 Personal history of other venous thrombosis and embolism; E87.6 Hypokalemia; C61 Malignant neoplasm of prostate
CPT/HCPCS: 36415; 71045; 71250; 80048; 80053; 80061; 81001; 82962; 83036; 83605; 83615; 83735; 83880; 84443; 84484; 84550; 85007; 85025; 85378; 87040; 87070; 87205; 87636; 93005; 93306; 94640; 99291; J0456; J0696; J3475

== ENCOUNTER 2023-09-08 08:49 | Inpatient (IN) | payer MEDICARE, OTHER, SELFPAY ==
[2023-09-08] VITALS (17 sets, daily range): BP systolic 98–136; BP diastolic 55–101; PULSE 57–140; RESP 18–28; TEMP 36.4–36.8; O2SAT 88–97; BMI 19.8; BMI 19.0
--- NOTE | 2023-09-08 08:46 | ECG_ITS ---
APPROVED REPORT Exam: Resting ECG HR:148 bpm ECG Measurements Heart Rate 148 AXES QRSd 84 QRS 58 QT 254 T -83 QTc 339 Conclusion ATRIAL FIBRILLATION WITH RAPID VENTRICULAR RESPONSE WITH ABERRANT CONDUCTION OR VENTRICULAR PREMATURE COMPLEXES ST DEVIATION AND MODERATE T-WAVE ABNORMALITY, CONSIDER LATERAL ISCHEMIA [-0.1+ mV T-WAVE IN I/aVL/V5/V6] ST DEVIATION AND MODERATE T-WAVE ABNORMALITY, CONSIDER INFERIOR ISCHEMIA [-0.1+ mV T-WAVE IN II/aVF] ABNORMAL ECG UNCONFIRMED REPORT Electronically signed by : Samuel Saldaña MD 09/09/2023 18:27:40
--- NOTE | 2023-09-08 08:52 | HMH.EDGENADL ---
Discharge Plan Disposition Patient Disposition: Admitted Clinical Impressions Clinical Impression: Pneumonia, Atrial fibrillation with rapid ventricular response Discharge ED Provider: Lukas Butts Adult HPI General Chief complaint: Arrhythmia/Palpitations Stated complaint: rapid heart rate Time Seen by Provider: 09/08/23 08:52 History of Present Illness HPI narrative: The patient presents with a chief complaint of feeling unwell since Thursday night. They report a history of fatigue and have been mostly bedridden, only getting up for bathroom use. The patient has a past medical history of a cold and recent diarrhea, but denies any blood in the stool. They report experiencing lightheadedness and dizziness, particularly when walking. The patient has a history of an irregular heart rhythm a few months ago, which was associated with a kidney infection that spread to the blood and heart. No known heart conditions are reported, but nitroglycerin has been prescribed as a precaution. The patient has been using inhalers but does not regularly wear oxygen. They have not been exposed to any sick individuals recently. Currently, the patient is experiencing a rapid and irregular heart rhythm without any associated pain. Related Data Home Medications Medication Instructions Recorded Confirmed nifedipine 30 mg tablet,extended 30 mg PO DAILY High Blood Pressure 04/01/18 09/08/23 release 24 hr (Procardia XL) omeprazole 40 mg capsule,delayed 40 mg PO DAILY Acid Reflux 04/01/18 09/08/23 release apixaban 2.5 mg tablet (Eliquis) 2.5 mg PO DAILY blood 09/17/22 09/08/23 thinner/history of DVT bicalutamide 50 mg tablet 50 mg PO DAILY cancer 09/17/22 09/08/23 budesonide 160 mcg-glycopyr 9 2 puff inhalation BID Breathing 09/17/22 09/08/23 mcg-formot 4.8 mcg/actuation HFA problems inhaler (Breztri Aerosphere) lisinopril 10 mg tablet 10 mg PO DAILY High Blood Pressure 07/01/23 09/08/23 albuterol sulfate 90 mcg/actuation 2 puff inhalation Q6HP PRN 09/08/23 09/08/23 aerosol inhaler shortness of breath or wheezing ipratropium 0.5 mg-albuterol 3 mg 3 ml inhalation Q4HP PRN Shortness 09/08/23 09/08/23 (2.5 mg base)/3 mL nebulization Of Breath Or Wheezing soln magnesium oxide 400 mg (241.3 mg 400 mg PO BID Supplement 09/08/23 09/08/23 magnesium) tablet metoprolol succinate 25 mg 25 mg PO BID High Blood Pressure 09/08/23 09/08/23 tablet,extended release 24 hr nitroglycerin 0.4 mg sublingual 0.4 mg sublingual Q5MINP PRN Chest 09/08/23 09/08/23 tablet Pain Allergies Allergy/AdvReac Type Severity Reaction Status Date / Time No Known Allergies Allergy Verified 04/17/22 09:42 [facility] Disclaimer: The information contained in this section may have been updated after the patient was seen, as this information can be updated by other users. Medical History (Updated 09/08/23 @ 16:46 by Cassie Guillermo RN) Atrial fibrillation COPD (chronic obstructive pulmonary disease) (~09/17/22) DVT (deep venous thrombosis) GERD (gastroesophageal reflux disease) HTN (hypertension) Pneumonia Prostate cancer (~09/17/22) Surgical History H/O hernia repair H/O splenectomy S/P TURP Family History Mother Severe sepsis with septic shock Father Throat cancer Social History (Updated 09/08/23 @ 16:46 by Cassie Guillermo RN) Smoking Status: Never smoker alcohol intake: never substance use type: denies use current occupational status: retired Travel in the last 8 weeks: None household members: spouse housing: house ROS Obtained: Yes Systems reviewed as appropriate & no additional complaints except as documented As per HPI Physical Exam General General appearance: alert and in no apparent distress Head Head exam: atraumatic and normocephalic Eye Eye exam: Present
--- NOTE | 2023-09-08 09:03 | XR_ITS ---
PROCEDURE INFORMATION: Exam: XR Chest Exam date and time: 09/08/2023 9:05 AM Age: 68 years old Clinical indication: Cough and shortness of breath; Additional info: SOA, cough TECHNIQUE: Imaging protocol: Radiologic exam of the chest. Views: 2 views. COMPARISON: CT CHEST WO CON 07/03/2023 8:39 AM FINDINGS: Lungs: Bilateral infiltrates are identified when compared to a contract specialist topogram of this CT chest. This is heavier on the left. Pleural spaces: Apical pleural thickening and disease appears stable since the CT scan. Heart/Mediastinum: Unremarkable. No cardiomegaly. Bones/joints: Unremarkable. IMPRESSION: While it is difficult to compare CT scan to a chest x-ray, comparing the contract specialist films demonstrate bilateral worsening infiltrates in the lungs. This could be an acute pneumonia on chronic changes.
[2023-09-08 09:14] LABS: Basophils # 0.1 K/mm3 (0-0.2); Basophils % 0.2 % (0.1-2.0); Eosinophils # 0.4 K/mm3 (0.0-0.4); Eosinophils % 1.1 % (0.1-12.0); Hemoglobin 15.6 g/dL (14.1-18.0); Lymphocytes # 1.9 K/mm3 (0.7-4.5); Lymphocytes % 5.2 % (10-50); Mean Corpuscular HGB Conc 32.5 g/dL (31.8-35.4); Mean Corpuscular Hemoglobin 32.8 pg (27.0-31.2); Mean Corpuscular Volume 100.8 fl (80-94); Mean Platelet Volume 9.5 fl (7.4-10.4); Monocytes # 0.9 K/mm3 (0.1-1.0); Monocytes % 2.5 % (1.7-9.3); Neutrophils # 32.6 K/mm3 (1.8-7.8); Neutrophils % 90.9 % (37.0-80.0); Platelet Count 372 K/mm3 (142-424); Red Blood Count 4.76 M/mm3 (4.60-6.20); White Blood Count 35.8 K/mm3 (4.8-10.8)
[2023-09-08 09:15] LABS: Chloride 102 mmol/L (98-107); Sodium 141 mmol/L (136-145)
[2023-09-08 09:16] LABS: Potassium 3.6 mmoL/L (3.5-5.1)
[2023-09-08 09:18] LABS: Alanine Aminotransferase 29 U/L (12-78); Albumin Level 4.6 g/dl (3.5-5.0); Albumin/Globulin Ratio 1.2 (1.1-1.8); Alkaline Phosphatase 72 U/L (38-126); Anion Gap 15.6 mEq/L (5-15); Aspartate Amino Transferase 37 U/L (17-59); Bilirubin,Total 1.2 mg/dl (0.2-1.3); Blood Urea Nitrogen 29 mg/dl (9-20); Carbon Dioxide 27 mmol/L (22.0-30.0); Creatinine Clearance Estimated 52 mL/min (50-200); Estimated Glomerular Filt Rate 60 ml/min (>60); GFR (African American) 73 ML/MIN (>60); Globulin 3.9 g/dL (1.3-3.2); Total Protein,Serum 8.5 g/dl (6.3-8.2)
[2023-09-08 09:19] LABS: Calcium 9.6 mg/dl (8.4-10.2); Glucose 132 mg/dl (74-100); Magnesium 1.7 mg/dl (1.6-2.3); Phosphorous 3.1 mg/dl (2.5-4.5)
[2023-09-08 09:20] LABS: VBG Base Excess -2.9 mmol/L (-2.4-2.3); VBG Oxygen Saturation 54.3 % (50-70); VBG PCO2 44.3 mmol/L (35-51); VBG PH 7.33 mmol/L (7.31-7.41); VBG PO2 28.9 mmol/L (28-40); VBG Total CO2 24.4 mmol/L (23-27)
[2023-09-08 09:20] LABS: MANUAL DIFFERENTIAL MANUAL DIFFERENTIAL (MANUAL DIFF)
[2023-09-08 09:29] LABS: NT Pro Brain Natriuretic Pep. 4760 pg/mL (0-125)
[2023-09-08 09:31] LABS: Troponin I 0.05 ng/ml (0.00-0.034)
[2023-09-08 09:35] LABS: Free T4 (Free Thyroxine) 1.21 ng/dl (0.78-2.19)
[2023-09-08 09:50] LABS: Thyroid Stimulating Hormone 2.67 uIU/mL (0.465-4.68)
[2023-09-08 09:52] LABS: Lymphocytes % 15 % (10-50); Macrocytosis 1+; Monocytes % 4 % (2-9); Neutrophils % 81 % (42-76); Platelet Estimate Normal; Total Cells Counted 100
[2023-09-08 10:05] LABS: Coronavirus 19, PCR Not Detected (NotDetected); Influenza A, PCR Not Detected (NotDetected); Influenza B, PCR Not Detected (NotDetected)
--- NOTE | 2023-09-08 10:45 | PC.NURSE ---
PT SLEEPING ON RIGHT SIDE, NO DISTRESS NOTED. CALL LIGHT WITHIN REACH
--- NOTE | 2023-09-08 11:42 | PC.NURSE ---
Lab at to draw cultures.
--- NOTE | 2023-09-08 11:43 | PC.NURSE ---
BLOOD CULTURES COLLECTED BY LAB
--- NOTE | 2023-09-08 12:07 | PC.NURSE ---
patient re-adjusted in bed to sit up and eat his lunch. Lunch tray set up for patient to be accessible. No other needs at this time
[2023-09-08 12:22] LABS: Troponin I 0.05 ng/ml (0.00-0.034)
--- NOTE | 2023-09-08 13:14 | PC.NURSE ---
DR CONTE SPEAKING WITH HOSPITALIST FOR ADMISSION
--- NOTE | 2023-09-08 13:17 | PC.NURSE ---
CARE MANAGEMENT NOTIFIED OF ADMISSION
--- NOTE | 2023-09-08 14:06 | HMH.PHAINT1 ---
Pharmacy Intervention Comments: MEDICATION RECONCILIATION COMPLETED ON PATIENT USING EXTERNAL FILL HISTORY FROM PHARMACY. -STAN HUI, KAYLEED
[2023-09-08 14:09] LABS: Troponin I 0.05 ng/ml (0.00-0.034)
--- NOTE | 2023-09-08 14:12 | PC.NURSE ---
REPORT CALLED TO MAYDA AT THIS TIME
--- NOTE | 2023-09-08 17:37 | EXP.HP ---
History of Present Illness *Admission Date: 09/08/23 *Reason for visit:: generalized weakness *History of present illness: Patient is a 68-year-old male with past medical history of atrial fibrillation who presented to hospital due to difficulty walking. Patient feels weak, patient also mentions he has cough productive of phlegm., Greenish,. On arrival to the emergency department he was also noticed to have A-fib with RVR. Patient otherwise denied chest pain nausea vomiting, endorses having diarrhea, he had dry cough. [facility] Disclaimer: The information contained in this section may have been updated after the patient was seen, as this information can be updated by other users. Medical History (Updated 09/08/23 @ 16:46 by Cassie Guillermo RN) Atrial fibrillation COPD (chronic obstructive pulmonary disease) (~09/17/22) DVT (deep venous thrombosis) GERD (gastroesophageal reflux disease) HTN (hypertension) Pneumonia Prostate cancer (~09/17/22) Surgical History H/O hernia repair H/O splenectomy S/P TURP Family History Mother Severe sepsis with septic shock Father Throat cancer Social History (Updated 09/08/23 @ 16:46 by Cassie Guillermo RN) Smoking Status: Never smoker alcohol intake: never substance use type: denies use current occupational status: retired Travel in the last 8 weeks: None household members: spouse housing: house Review of Systems Review of Systems Review of systems (narrative): as per HPI Meds Home Medications and Allergies Home Medications Medication Instructions Recorded Confirmed Type nifedipine 30 mg tablet,extended 30 mg PO DAILY High Blood Pressure 04/01/18 09/08/23 History release 24 hr (Procardia XL) omeprazole 40 mg capsule,delayed 40 mg PO DAILY Acid Reflux 04/01/18 09/08/23 History release apixaban 2.5 mg tablet (Eliquis) 2.5 mg PO DAILY blood 09/17/22 09/08/23 History thinner/history of DVT bicalutamide 50 mg tablet 50 mg PO DAILY cancer 09/17/22 09/08/23 History budesonide 160 mcg-glycopyr 9 2 puff inhalation BID Breathing 09/17/22 09/08/23 History mcg-formot 4.8 mcg/actuation HFA problems inhaler (Breztri Aerosphere) lisinopril 10 mg tablet 10 mg PO DAILY High Blood Pressure 07/01/23 09/08/23 History albuterol sulfate 90 mcg/actuation 2 puff inhalation Q6HP PRN 09/08/23 09/08/23 History aerosol inhaler shortness of breath or wheezing ipratropium 0.5 mg-albuterol 3 mg 3 ml inhalation Q4HP PRN Shortness 09/08/23 09/08/23 History (2.5 mg base)/3 mL nebulization Of Breath Or Wheezing soln magnesium oxide 400 mg (241.3 mg 400 mg PO BID Supplement 09/08/23 09/08/23 History magnesium) tablet metoprolol succinate 25 mg 25 mg PO BID High Blood Pressure 09/08/23 09/08/23 History tablet,extended release 24 hr nitroglycerin 0.4 mg sublingual 0.4 mg sublingual Q5MINP PRN Chest 09/08/23 09/08/23 History tablet Pain New Prescriptions to Start Prescriptions: Allergies Allergy/AdvReac Type Severity Reaction Status Date / Time No Known Allergies Allergy Verified 04/17/22 09:42 Exam Data for Last 24 hours Vital signs and Labs for Last 24 Hours: Temp Pulse Resp BP Pulse Ox O2 Del Method O2 Flow Rate 97.6 F 65 18 121/68 97 Nasal Cannula 2 09/08/23 15:28 09/08/23 16:00 09/08/23 15:28 09/08/23 15:28 09/08/23 15:28 09/08/23 15:28 09/08/23 15:28 Laboratory Results - last 24 hr 09/08/23 08:58: WBC 35.8 H*, RBC 4.76, Hgb 15.6, Hct 48.0, MCV 100.8 H, MCH 32.8 H, MCHC 32.5, RDW 14.0, Plt Count 372, MPV 9.5, Neut % (Auto) 90.9 H, Lymph % (Auto) 5.2 L, [place] % (Auto) 2.5, Eos % (Auto) 1.1, Baso % (Auto) 0.2, Neut # (Auto) 32.6 H, Lymph # (Auto) 1.9, [place] # (Auto) 0.9, Eos # (Auto) 0.4, Baso # (Auto) 0.1, Total Counted 100, Neutrophils % (Manual) 81 H, Lymphocytes % (M
--- NOTE | 2023-09-08 18:46 | PC.NURSE ---
Patient admitted from ER today. Patient has shortness of air and new oxygen requirement. Patient A&Ox4 VSS
--- NOTE | 2023-09-08 19:02 | PC.NURSE ---
Patient's bicalutamide not given as patient's is to bring home medication in the morning and is unable to bring medication tonight.
[2023-09-09] VITALS (11 sets, daily range): BP systolic 101–114; BP diastolic 50–71; PULSE 50–66; RESP 16–19; TEMP 36.6–36.8; O2SAT 91–94; BMI 19.6
--- NOTE | 2023-09-09 03:56 | PC.NURSE ---
Pt is A&Ox4 and currently on 2L of O2 and sating in the mid 90's. Pt denies pain this shift and C/O trouble sleeping. Contacted and obtained an order for restoril 15 mg PO. Pt tolerated medication well and has rested for the most part of the shift. Pt denies need at this time
[2023-09-09 06:20] LABS: Chloride 107 mmol/L (98-107); Potassium 3.1 mmoL/L (3.5-5.1); Sodium 140 mmol/L (136-145)
[2023-09-09 06:23] LABS: Anion Gap 8.1 mEq/L (5-15); Blood Urea Nitrogen 22 mg/dl (9-20); Calcium 8.6 mg/dl (8.4-10.2); Carbon Dioxide 28 mmol/L (22.0-30.0); Creatinine Clearance Estimated 62 mL/min (50-200); Estimated Glomerular Filt Rate 84 ml/min (>60); GFR (African American) 102 ML/MIN (>60); Glucose 103 mg/dl (74-100)
[2023-09-09 06:27] LABS: Basophils % 0.2 % (0.1-2.0); Eosinophils # 0.3 K/mm3 (0.0-0.4); Mean Corpuscular HGB Conc 32.1 g/dL (31.8-35.4); Neutrophils # 16.9 K/mm3 (1.8-7.8)
[2023-09-09 06:56] LABS: Eosinophils % 1.3 % (0.1-12.0); Lymphocytes # 2.4 K/mm3 (0.7-4.5); Lymphocytes % 11.5 % (10-50); Mean Corpuscular Hemoglobin 32.7 pg (27.0-31.2); Mean Corpuscular Volume 101.8 fl (80-94); Monocytes % 5.1 % (1.7-9.3); Neutrophils % 81.9 % (37.0-80.0); Platelet Count 340 K/mm3 (142-424); Red Blood Count 3.64 M/mm3 (4.60-6.20); Red Cell Distribution Width 14.1 % (11.5-17.5); White Blood Count 20.7 K/mm3 (4.8-10.8)
[2023-09-09 06:57] LABS: Hemoglobin 11.9 g/dL (14.1-18.0); MANUAL DIFFERENTIAL MANUAL DIFFERENTIAL (MANUAL DIFF)
[2023-09-09 08:56] LABS: Eosinophils % 2 % (0-3); Lymphocytes % 11 % (10-50); Macrocytosis 1+; Monocytes % 4 % (2-9); Neutrophils % 83 % (42-76); Platelet Estimate Normal; Total Cells Counted 100
--- NOTE | 2023-09-09 11:51 | EXP.CARD.CON ---
History of Present Illness History of Present Illness Consult date: 09/09/23 Requesting physician: Rukhsana Hernandez Consult reason: atrial fibrillation Chief complaint: Fatigue and weakness History of present illness: This is a 68-year-old white gentleman who presented to the emergency department with complaints of weakness and fatigue and difficulty walking. He states that he started to feel dizzy and lightheaded on Thursday. He states that he just overall did not feel well and thought he had a stomach virus. He also had a little bit of diarrhea and a cough that was productive for green sputum. He states that he is weakness and fatigue just progressively worsened and he decided to come into the emergency department. The patient the patient was found to be in atrial fibrillation with RVR. He is also currently being treated for pneumonia. He denied any chest pain or pressure. He denied any shortness of breath or edema. He denied any fever, chills, nausea, vomiting, PND or orthopnea. He denied any racing of the heart or palpitations. The patient was treated with diltiazem and he has converted to sinus rhythm this morning. He denies any racing of the heart or palpitations this morning. He states that he actually feels pretty well today and better than he did when he came into the hospital. [facility] Disclaimer: The information contained in this section may have been updated after the patient was seen, as this information can be updated by other users. Medical History (Updated 09/09/23 @ 11:57 by Jennifer Albert APRN) Atrial fibrillation COPD (chronic obstructive pulmonary disease) (~09/17/22) DVT (deep venous thrombosis) Elevated troponin GERD (gastroesophageal reflux disease) HTN (hypertension) Pneumonia Prostate cancer (~09/17/22) Surgical History H/O hernia repair H/O splenectomy S/P TURP Family History Mother Severe sepsis with septic shock Father Throat cancer Social History (Updated 09/08/23 @ 16:46 by Cassie Guillermo RN) Smoking Status: Never smoker alcohol intake: never substance use type: denies use current occupational status: retired Travel in the last 8 weeks: None household members: spouse housing: house Review of Systems Review of Systems Review of systems:: pertinent systems reviewed and negative unless documented below Constitutional Constitutional: Reports system reviewed and no additional complaints, except as documented, Reports fatigue, Reports lethargy and Reports weakness Eyes Eyes: Reports system reviewed and no additional complaints, except as documented ENT Ears, Nose, Mouth, and Throat: Reports system reviewed and no additional complaints, except as documented, Reports disequilibrium and Reports dizziness *Cardiovascular Cardiovascular: Reports system reviewed and no additional complaints, except as documented, Denies chest pain, Denies dyspnea, Reports lightheadedness, Denies palpitations and Denies rapid heart rate *Respiratory Respiratory: Reports system reviewed and no additional complaints, except as documented, Reports change in phlegm color, Reports cough and Denies dyspnea *Gastrointestinal Gastrointestinal: Reports system reviewed and no additional complaints, except as documented *Genitourinary Genitourinary: Reports system reviewed and no additional complaints, except as documented *Musculoskeletal Musculoskeletal: Reports system reviewed and no additional complaints, except as documented and Reports abnormal gait Integumentary/Breasts Skin/Breast: Reports system reviewed and no additional complaints, except as documented *Neurologic Neurologic: Reports system reviewed and no additional complaints, except as documented, Reports abnormal gait, Reports disequilibrium, Reports dizziness and Reports weakness Psychiatric Psychiatric: Reports system
--- NOTE | 2023-09-09 17:43 | EXP.PN ---
Subjective *Date: 09/09/23 *Time: 17:47 Interval history: Patient was seen and evaluated at the bedside. denies chest pain, shortness of breath, nausea, vomiting, abdominal pain. Patient does not have any complaints at this time. feels better overall Exam Data for Last 24 hours Vital signs and Labs for Last 24 Hours: Temp Pulse Resp BP Pulse Ox O2 Del Method O2 Flow Rate 98.2 F 60 19 101/60 L 93 L Nasal Cannula 2 09/09/23 15:31 09/09/23 16:00 09/09/23 15:31 09/09/23 15:31 09/09/23 15:31 09/09/23 15:31 09/09/23 15:31 Laboratory Results - last 24 hr 09/09/23 05:16: WBC 20.7 H* D, RBC 3.64 L, Hgb 11.9 L D, Hct 37.0 L, MCV 101.8 H, MCH 32.7 H, MCHC 32.1, RDW 14.1, Plt Count 340, MPV 10.0, Neut % (Auto) 81.9 H, Lymph % (Auto) 11.5, [place] % (Auto) 5.1, Eos % (Auto) 1.3, Baso % (Auto) 0.2, Neut # (Auto) 16.9 H, Lymph # (Auto) 2.4, [place] # (Auto) 1.0, Eos # (Auto) 0.3, Baso # (Auto) 0.0, Total Counted 100, Neutrophils % (Manual) 83 H, Lymphocytes % (Manual) 11, Monocytes % (Manual) 4, Eosinophils % (Manual) 2, Platelet Estimate Normal, Macrocytosis 1+, Sodium 140, Potassium 3.1 L, Chloride 107, Carbon Dioxide 28, Anion Gap 8.1, BUN 22 H, Creatinine 0.90 D, Estimated Creat Clear 62, Estimated GFR 84, Est GFR ( Amer) 102 D, Glucose 103 H D, Calcium 8.6 I & O for Last 24 hours: Intake & Output 09/06/23 09/07/23 09/08/23 09/09/23 23:59 23:59 23:59 23:59 Intake Total 1550 / 1550 Output Total 850 / 850 Balance 700 / 700 Weight 60.101 kg 62.233 kg Constitutional Constitutional: no acute distress *Routine HEENT Exam Head: Present normocephalic Eye: Present EOMI and PERRL ENT: Present mucous membranes moist *Routine Neck Exam Neck: Present supple; Absent lymphadenopathy *Routine Respiratory Exam Respiratory: Present CTA bilaterally *Routine Cardiovascular Exam Cardiovascular: Present RRR *Routine Abdominal Exam Abdominal: Present soft and normoactive bowel sounds; Absent tenderness *Routine Extremities Exam Extremities: Absent cyanosis, clubbing or edema *Routine Skin Exam Skin: Present warm; Absent rash *Routine Neurological Exam Neurological: Present alert and oriented X3 Assessment and Plan *Assessment and plan (1) Atrial fibrillation with rapid ventricular response: Status: Acute Category: Medical Code(s): I48.91 - Unspecified atrial fibrillation (2) Pneumonia: Status: Acute Qualifiers: Pneumonia type: due to unspecified organism Laterality: unspecified laterality Lung location: unspecified part of lung Qualified Code(s): J18.9 - Pneumonia, unspecified organism Category: Medical Code(s): J18.9 - Pneumonia, unspecified organism Plan Patient is a 68-year-old male with past medical history of atrial fibrillation who presented to hospital due to difficulty walking. Patient feels weak, patient also mentions he has cough productive of phlegm., Greenish,. On arrival to the emergency department he was also noticed to have A-fib with RVR. Patient otherwise denied chest pain nausea vomiting, endorses having diarrhea, he had dry cough. Assessment Generalized weakness Secondary to suspected pneumonia A-fib with RVR COPD GERD Hypertension Plan continue azithromycin, Rocephin Chest x-ray reviewed does show bilateral worsening infiltrates Check blood cultures - ngtd Patient is a s/p IV Cardizem, currently rate controlled, cardiology consulted and following Monitor on cardiac telemetry Consult cardiology Echocardiogram performed 06/2023 did show EF 55% continue home Eliquis, lisinopril, metoprolol Monitor and replace electrolytes DVT prophylaxis-on Eliquis
--- NOTE | 2023-09-09 18:52 | PC.NURSE ---
Patient has been tolerating IV antibiotics and states that he is feeling better than yesterday today. Patient A&Ox4 and VSS. Patient still on 2L NC
[2023-09-10] VITALS: BP 106/60; PULSE 50; PULSE 70; RESP 16; TEMP 36.6; O2SAT 94
[2023-09-10 04:00] VITALS: BP 109/56; PULSE 50; PULSE 59; RESP 16; TEMP 36.7; O2SAT 91; BMI 19.6
--- NOTE | 2023-09-10 05:12 | PC.NURSE ---
NO C/O SOA/CP OR DISCOMFORT. VSS/AFEBRILE. SINUS KRISTEN ON TELE. 02 AT 2LNC MOST OF NIGHT. 02 SATS 91% ON RM AIR.
[2023-09-10 05:49] VITALS: O2SAT 90
[2023-09-10 06:03] LABS: Basophils % 0.4 % (0.1-2.0); Eosinophils # 0.4 K/mm3 (0.0-0.4); Eosinophils % 3.2 % (0.1-12.0); Hematocrit 33.8 % (42.0-52.0); Hemoglobin 11.1 g/dL (14.1-18.0); Lymphocytes # 2.2 K/mm3 (0.7-4.5); Lymphocytes % 19.8 % (10-50); Mean Corpuscular HGB Conc 32.8 g/dL (31.8-35.4); Mean Corpuscular Hemoglobin 32.9 pg (27.0-31.2); Mean Corpuscular Volume 100.2 fl (80-94); Mean Platelet Volume 10.1 fl (7.4-10.4); Monocytes # 0.7 K/mm3 (0.1-1.0); Monocytes % 6.4 % (1.7-9.3); Neutrophils # 7.9 K/mm3 (1.8-7.8); Neutrophils % 70.3 % (37.0-80.0); Platelet Count 347 K/mm3 (142-424); Red Blood Count 3.37 M/mm3 (4.60-6.20); Red Cell Distribution Width 14.1 % (11.5-17.5); White Blood Count 11.2 K/mm3 (4.8-10.8)
[2023-09-10 06:10] LABS: Anion Gap 8.1 mEq/L (5-15); Blood Urea Nitrogen 15 mg/dl (9-20); Calcium 8.3 mg/dl (8.4-10.2); Carbon Dioxide 25 mmol/L (22.0-30.0); Chloride 104 mmol/L (98-107); Creatinine Clearance Estimated 62 mL/min (50-200); Estimated Glomerular Filt Rate 96 ml/min (>60); GFR (African American) 116 ML/MIN (>60); Glucose 97 mg/dl (74-100); Potassium 3.1 mmoL/L (3.5-5.1); Sodium 134 mmol/L (136-145)
[2023-09-10 07:18] VITALS: BP 108/58; PULSE 59; RESP 18; TEMP 36.6; O2SAT 97
[2023-09-10 08:00] VITALS: PULSE 80; O2SAT 97
--- NOTE | 2023-09-10 08:32 | PC.NURSE ---
Jennifer with cardiology okay to give patient metoprolol.
--- NOTE | 2023-09-10 08:35 | PC.NURSE ---
pt walked around half of floor with just stand by assistance to help with O2
--- NOTE | 2023-09-10 09:20 | EXP.DC.SUM ---
General Admission date:: 09/08/23 Discharge date: 09/10/23 HPI HPI HPI: Patient is a 68-year-old male with past medical history of atrial fibrillation who presented to hospital due to difficulty walking. Patient feels weak, patient also mentions he has cough productive of phlegm., Greenish,. On arrival to the emergency department he was also noticed to have A-fib with RVR. Patient otherwise denied chest pain nausea vomiting, endorses having diarrhea, he had dry cough. Hospital Course Hospital Course Hospital Course: Patient was seen and evaluated at the bedside on the day of discharge. Patient is stable for discharge. Patient wishes to be discharged. All patient questions were answered and patient was given time to ask questions. Patient was discharged in stable condition. Patient is a 68-year-old male with past medical history of atrial fibrillation who presented to hospital due to difficulty walking. Patient feels weak, patient also mentions he has cough productive of phlegm., Greenish,. On arrival to the emergency department he was also noticed to have A-fib with RVR. Patient otherwise denied chest pain nausea vomiting, endorses having diarrhea, he had dry cough. Assessment Generalized weakness Secondary to suspected pneumonia - dc on oral ceftin A-fib with RVR - started on xarelto, dc eliquis, cardizem PO 120mg daily, f/u with cardiology as OP COPD GERD Hypertension Exam Data for Last 24 hours Vital signs and Labs for Last 24 Hours: Temp Pulse Resp BP Pulse Ox O2 Del Method O2 Flow Rate 97.9 F 80 18 108/58 L 97 Nasal Cannula 2 09/10/23 07:18 09/10/23 08:00 09/10/23 07:18 09/10/23 07:18 09/10/23 08:00 09/10/23 09:00 09/10/23 09:00 Laboratory Results - last 24 hr 09/10/23 05:13: WBC 11.2 H D, RBC 3.37 L, Hgb 11.1 L, Hct 33.8 L, MCV 100.2 H, MCH 32.9 H, MCHC 32.8, RDW 14.1, Plt Count 347, MPV 10.1, Neut % (Auto) 70.3, Lymph % (Auto) 19.8, [place] % (Auto) 6.4, Eos % (Auto) 3.2, Baso % (Auto) 0.4, Neut # (Auto) 7.9 H, Lymph # (Auto) 2.2, [place] # (Auto) 0.7, Eos # (Auto) 0.4, Baso # (Auto) 0.0, Sodium 134 L, Potassium 3.1 L, Chloride 104, Carbon Dioxide 25, Anion Gap 8.1, BUN 15 D, Creatinine 0.80, Estimated Creat Clear 62, Estimated GFR 96, Est GFR ( Amer) 116, Glucose 97, Calcium 8.3 L I & O for Last 24 hours: Intake & Output 09/07/23 09/08/23 09/09/23 09/10/23 23:59 23:59 23:59 23:59 Intake Total 1550 / 1990 910 / 910 Output Total 850 / 850 Balance 700 / 1140 909 / 909 Weight 60.101 kg 62.233 kg 62.278 kg Constitutional Constitutional: no acute distress *Routine HEENT Exam Head: Present normocephalic Eye: Present EOMI and PERRL ENT: Present mucous membranes moist *Routine Neck Exam Neck: Present supple; Absent lymphadenopathy *Routine Respiratory Exam Respiratory: Present CTA bilaterally *Routine Cardiovascular Exam Cardiovascular: Present RRR *Routine Abdominal Exam Abdominal: Present soft and normoactive bowel sounds; Absent tenderness *Routine Extremities Exam Extremities: Absent cyanosis, clubbing or edema *Routine Skin Exam Skin: Present warm; Absent rash *Routine Neurological Exam Neurological: Present alert and oriented X3 Results Data Completed and Pending Labs on day of discharge: Labs from last 24 hours 09/10/23 05:13 WBC 11.2 H D RBC 3.37 L Hgb 11.1 L Hct 33.8 L MCV 100.2 H MCH 32.9 H MCHC 32.8 RDW 14.1 Plt Count 347 MPV 10.1 Neut % (Auto) 70.3 Lymph % (Auto) 19.8 [place] % (Auto) 6.4 Eos % (Auto) 3.2 Baso % (Auto) 0.4 Neut # (Auto) 7.9 H Lymph # (Auto) 2.2 [place] # (Auto) 0.7 Eos # (Auto) 0.4 Baso # (Auto) 0.0 Sodium 134 L Potassium 3.1 L Chloride 104 Carbon Dioxide 25 Anion Gap 8.1 BUN 15 D Creatinine 0.80 Estimated Creat Clear 62 Estimated GFR 96 Est GFR ( Amer) 116 Glucose 97 Calcium 8.3 L DS: Diagnosis Discharge Diagnosis (1) Atrial fibrillation with rapid v
--- NOTE | 2023-09-10 09:58 | EXP.CARD.PN ---
Subjective Subjective Date: 09/10/23 Time: 08:30 Principal diagnosis: afib with RVR Interval history: This is a 68-year-old gentleman who presented to the emergency department with complaints of weakness, fatigue and difficulty walking. He was found to be in atrial fibrillation with RVR. He has converted to sinus rhythm. This morning he states he feels well. He denies any chest pain or pressure. He states that he does have shortness of breath with exertion which is chronic and unchanged from his baseline. He denies any lower extremity edema. He denies any fever, chills, nausea, vomiting, diarrhea, PND or orthopnea. Exam Data for Last 24 hours Vital signs and Labs for Last 24 Hours: Temp Pulse Resp BP Pulse Ox O2 Del Method O2 Flow Rate 97.9 F 80 18 108/58 L 97 Nasal Cannula 2 09/10/23 07:18 09/10/23 08:00 09/10/23 07:18 09/10/23 07:18 09/10/23 08:00 09/10/23 09:00 09/10/23 09:00 Laboratory Results - last 24 hr 09/10/23 05:13: WBC 11.2 H D, RBC 3.37 L, Hgb 11.1 L, Hct 33.8 L, MCV 100.2 H, MCH 32.9 H, MCHC 32.8, RDW 14.1, Plt Count 347, MPV 10.1, Neut % (Auto) 70.3, Lymph % (Auto) 19.8, [place] % (Auto) 6.4, Eos % (Auto) 3.2, Baso % (Auto) 0.4, Neut # (Auto) 7.9 H, Lymph # (Auto) 2.2, [place] # (Auto) 0.7, Eos # (Auto) 0.4, Baso # (Auto) 0.0, Sodium 134 L, Potassium 3.1 L, Chloride 104, Carbon Dioxide 25, Anion Gap 8.1, BUN 15 D, Creatinine 0.80, Estimated Creat Clear 62, Estimated GFR 96, Est GFR ( Amer) 116, Glucose 97, Calcium 8.3 L I & O for Last 24 hours: Intake & Output 09/07/23 09/08/23 09/09/23 09/10/23 23:59 23:59 23:59 23:59 Intake Total 1550 / 1989 910 / 910 Output Total 850 / 850 Balance 700 / 1140 909 / 909 Weight 132 lb 8 oz 137 lb 3.2 oz 137 lb 4.8 oz Narrative: Telemetry strip shows sinus rhythm with a rate of 72 bpm. Constitutional Constitutional: no acute distress and average body habitus *Routine HEENT Exam Head: Present normocephalic and atraumatic ENT: Present mucous membranes moist *Routine Neck Exam Neck: Present supple, full ROM and normal carotid upstroke; Absent JVD, carotid bruit or lymphadenopathy *Routine Respiratory Exam Respiratory: Present CTA bilaterally, normal respiratory effort, able to speak in complete sentences and symmetric chest movement *Routine Cardiovascular Exam Cardiovascular: Present RRR, Normal S1, Normal S2 and bradycardia; Absent murmur or gallop *Routine Abdominal Exam Abdominal: Present soft and normoactive bowel sounds; Absent tenderness, distended or organomegaly *Routine Extremities Exam Extremities: Present full ROM, pulses intact and normal capillary refill; Absent cyanosis, clubbing or edema *Routine Skin Exam Skin: Present intact and warm; Absent erythema *Routine Neurological Exam Neurological: Present alert, oriented X3 and CN II-XII intact; Absent sensory deficit or motor deficit Routine Psychiatric Exam Psychiatric: Present normal affect Progress Note: A&P Assessment and plan (1) Atrial fibrillation with rapid ventricular response: Status: Acute (2) Pneumonia: Status: Acute (3) HTN (hypertension): Status: Acute (4) COPD (chronic obstructive pulmonary disease): Status: Acute (5) Elevated troponin: Status: Acute (6) Immunocompromised: Status: Acute (7) Hx of prostatic malignancy: Status: Chronic Assessment and Plan Assessment and Plan for All Diagnoses:: Plan: 1. The patient was admitted to the hospital for atrial fibrillation with RVR. He did convert with diltiazem. The patient's nifedipine was stopped yesterday and he has been placed on oral diltiazem. He remains in sinus rhythm today. 2. The patient will need long-term anticoagulation for [id number] score of at least 2. The patient will remain on Xarelto for long-term anticoagulation. 3. The patient is being treated for pneumonia by the hospitalist. Will defer. 4. The patient did have an elevated troponin. This
--- NOTE | 2023-09-10 10:11 | PC.NURSE ---
iv went bad and removed.
--- NOTE | 2023-09-11 12:48 | CARE MANAGER ---
Contacted patient related to hospital discharge. He is taking his new medication. He denies questions and concerns and is aware of follow up appointments. HENRI Linda
== END 2023-09-10 13:43 | disposition home or self-care (01) | DRG 280 ==
LOC: ER 09:35 → 2ND 13:56
PROVIDERS: Admitting Provider Internal Medicine; Emergency Provider Emergency Medicine; PCP Family Medicine; Visit Provider Internal Medicine
DX: I48.91 Unspecified atrial fibrillation (principal); J18.9 Pneumonia, unspecified organism; I21.A1 Myocardial infarction type 2; J44.0 Chronic obstructive pulmonary disease with (acute) lower respiratory infection; I10 Essential (primary) hypertension; Z85.46 Personal history of malignant neoplasm of prostate; Z86.718 Personal history of other venous thrombosis and embolism; K21.9 Gastro-esophageal reflux disease without esophagitis
CPT/HCPCS: 36415; 71046; 80048; 80053; 82803; 83735; 83880; 84100; 84439; 84443; 84484; 85007; 85025; 87040; 87070; 87205; 87636; 93005; 94640; 99285; J0456; J0696; J2405

== ENCOUNTER → 2023-10-02 06:12 | Outpatient (CLI) | payer MEDICARE, OTHER, SELFPAY ==
--- NOTE | 2023-10-02 | CA_ITS ---
APPROVED REPORT Exam: Pharmacologic Technologist: Cristine Sauceda, Ht: 5 ft 10 in Wt: 144 lbs BSA: 1.82 m2 HR: 54 bpm BP: 117/58 mmHg Rhythm: SINUS BRADYCARDIA, CANNOT R/O OLD SEPTAL PA Medical History Medical History: HTN Medications: Lisinopril,,,,, Omeprazole,,,,, Atorvastatin,,,,, Albuterol,,,,, Nitroglycerin,,,,, RIvaROXABAN,,,,, Bicalutamide,,,,, BREztri aeroshpere,,,,, DilTAiazem,,,,, Allergies: No known drug allergies Cardiac Risk Factors: HTN Stress Test Details Test: LEXISCAN HR Resting HR: 56 bpm Max Heart Rate (APMHR): 152 bpm Max HR Achieved: 88 bpm Target HR (85% APMHR): 129 bpm % of APMHR: 58 Recovery HR: 67 bpm BP Resting BP: 117/58 mmHg Max BP: 126/63 mmHg Recovery BP: 112.0/56.0 mmHg ECG Resting ECG: Sinus bradycardia, cannot rule out old septal PA, nonspecific T wave changes at baseline Stress ECG: No significant ST changes Arrhythmia: PACs, PVCs Clinical Exercise duration: 04:13 min Highest Stage Achieved: Exercise capacity: 1.0 METs Stress ECG Conclusion The patient developed mild headache and stomach discomfort. No chest pain Ectopy: PACs, PVCs ST changes: No significant ST changes were noted Conclusion: Unremarkable Lexiscan stress test. Myoview images are reported separately. Test Summary REST 03:53 . . 56 . 117/ 58 . . Stage 1 01:00 . . 75 . . . . Stage 2 01:00 . . 86 . 126/ 63 . . Stage 3 01:00 . . 75 . 119/ 62 . . Stage 4 01:00 . . 75 . . . . Stage 4 01:13 . . 77 . 119/ 63 . Stop exercise at 04:13 RECOVERY 01:00 . . 69 . . . . RECOVERY 02:00 . . 78 . 122/ 65 . . RECOVERY 03:00 . . 67 . 112/ 56 . . RECOVERY 03:16 . . 67 . 112/ 56 . . Electronically signed by : Citlali De La Cruz MD 10/05/2023 21:45:29
--- NOTE | 2023-10-02 06:15 | NM_ITS ---
APPROVED REPORT Exam: Nuclear Stress Test Indication: a-fib, sob, htn, hyperlipidemia, palptations Patient Location: Outpatient Stress Tech: Cristine Sauceda DC Tech:Nova Lou NORAH RT (R)(N)(M) Ht: 5 ft 10 in Wt: 145 lbs HR: 54 bpm BP: 117/58 mmHg BSA: 1.82 m2 TID: 1.00 BMI: 20.8 Procedure: Patient received 0.4 mg of intravenous AdenosineLexiscan, resting heart rate 54 bpm, resting blood pressure 117/58 mmHg, with Lexiscan maximum heart rate achieved was 87 bpm which is % of the maximum predicted heart rate and blood pressure was 126/63 mmHg. With Lexiscan, patient denied any complaint of chest pain. Cardiac Stress and Resting SPECT Images: Cardiac Stress and Resting SPECT images were obtained using technetium 99m Myoview 31.4 mCi stress and 10.64 mCi at rest. Raw images demonstrate significant GI radiotracer uptake in close proximity to the inferior border of the LV wall. This may affect the diagnostic interpretation of the study findings. Resting and stress imaging in supine and prone positions demonstrate no definite evidence of fixed or reversible perfusion defects. Gated imaging demonstrates normal global and regional LV systolic function. LVEF is calculated at 54%. Conclusion: No definite evidence of fixed or reversible perfusion defects. Gated imaging demonstrates normal global and regional LV systolic function. LVEF is calculated at 54%. Electronically signed by : Citlali De La Cruz MD 10/05/2023 21:47:23
== END ==
PROVIDERS: PCP Family Medicine; Visit Provider Internal Medicine
DX: I10 Essential (primary) hypertension (principal); I48.19 Other persistent atrial fibrillation; J44.9 Chronic obstructive pulmonary disease, unspecified; R06.02 Shortness of breath; R79.89 Other specified abnormal findings of blood chemistry; Z85.46 Personal history of malignant neoplasm of prostate
CPT/HCPCS: 78452; 93017; 93018; A9502; J2785

== ENCOUNTER 2024-02-24 10:33 | Emergency (ER) | payer MEDICARE, OTHER, SELFPAY ==
[2024-02-24 10:34] VITALS: BP 106/63; PULSE 67; RESP 18; TEMP 36.7; O2SAT 97; BMI 22.2
[2024-02-24 10:39] VITALS: BP 106/63; PULSE 64; O2SAT 97
[2024-02-24 11:00] VITALS: BP 105/61; PULSE 61; O2SAT 96
[2024-02-24] MEDS: predniSONE 20MG TAB 40 MG PO (11:19)
--- NOTE | 2024-02-24 11:28 | ED_ITS ---
Discharge Plan Disposition Patient Disposition: Home, Self-Care Prescriptions Prescriptions: New prednisone 20 mg tablet 40 mg PO DAILY 5 Days Qty: 10 0RF No Action nifedipine [Procardia XL] 30 mg tablet extended release 24hr 30 mg PO DAILY omeprazole 40 mg capsule,delayed release(DR/EC) 40 mg PO DAILY lisinopril 10 mg tablet 10 mg PO DAILY Patient Comments: TAKE ONE TABLET BY MOUTH EVERY DAY nitroglycerin 0.4 mg tablet, sublingual 0.4 mg sublingual Q5MINP PRN (Reason: Chest Pain) Patient Comments: PLACE 1 TABLET UNDER TONGUE EVERY 5 MINUTES IF NEEDED FOR CHEST PAIN; MAY REPEAT 2 TIMES; IF NO RELIEF AFTER 3 DOSES CALL 911 OR GO TO ER albuterol sulfate 90 mcg/actuation HFA aerosol inhaler 2 puff inhalation Q6HP PRN (Reason: shortness of breath or wheezing) atorvastatin 40 mg Tablet 40 mg PO HS Qty: 30 0RF diltiazem HCl 120 mg Capsule,Extended Release 24hr 120 mg PO DAILY Qty: 30 0RF Xarelto 10 mg Tablet 20 mg PO QPMWITHMEAL Qty: 30 0RF Breztri Aerosphere 160-9-4.8 mcg/actuation HFA aerosol inhaler 2 puff INHALATION BID Patient Comments: INHALE TWO PUFFS BY MOUTH TWICE DAILY bicalutamide 50 mg tablet 50 mg PO DAILY Referrals Follow up/Referrals: Shaq Sevilla MD [Primary Care Provider] - See instructions Activity Restrictions/Add. Instructions Additional Instructions/Restrictions: Talk to your family doctor regarding this visit to the emergency department within 48 hours. Discuss schedulin) physical therapy for your back 2) MRI of your spine 3) follow-up with a spine surgeon 4) pain management with Dr. Ang Take prednisone every morning with plenty of food and water to prevent GI upset. If you have any worsening of your condition or any other concerning signs or symptoms, return to the emergency department or your primary care doctor for further evaluation. Clinical Impressions Clinical Impression: Acute exacerbation of chronic low back pain Instructions Patient Instructions: DI for Low Back Pain Discharge ED Provider: Darin Davis General Adult [facility] General Chief complaint: Back Pain/Injury Stated complaint: severe back pain and legs going numb Time Seen by Provider: 02/24/24 10:37 Mode of Arrival: Wheelchair Source of Information: Patient Limitations: No Limitations Description of Symptoms (Recalled from ER Triage Doc. by RN): Patient reports mid lower back pain that started approx 4-5 months ago. States it got worse this morning and he began to have bilateral leg numbness. States the pain has improved since getting here but wanted to get it checked out. History of Present Illness HPI narrative: 68-year-old male history of chronic back pain presenting with back pain. Patient states that lower back pain started months ago, has been following with his family doctor for this. Has not been to physical therapy, received a cortisone shot, 1 time, it seemed to help with pain for short period of time, then went away. Patient has not seen or been referred to physical therapy, spine surgery, further diagnostic imaging including MRI, or pain management. Denies weakness, patient states that multiple times a day and numerous times a week his back goes out, and he has to help himself sit down. No bowel or bladder dysfunction, saddle anesthesia, or any other concerns. No recent or remote traumatic injuries to his back. Please note that above description of symptoms, in this electronic medical record under categorization of recalled from ER triage doctor by RN are reflective of an initial nursing assessment, however, is not reflective of my full history and physical exam that was personally taken and clarified. Consequentially, this preceding description of symptoms, which may include the patient's categorized chief complaint in the EMR, do not reflect my personal cl inical impression, and the ultimate description of history of present illness and patient stated complaints should be deferred to this section of the note. Unless stated otherwise or congruent with this section of the note, additional signs, symptoms, or incongruence should be interpreted as inaccurate with my clinical impression. Related Data Home Medications Medication Instructions Recorded Confirmed nifedipine 30 mg tablet,extended 30 mg PO DAILY High Blood Pressure 04/01/18 10/13/23 release 24 hr (Procardia XL) omeprazole 40 mg capsule,delayed 40 mg PO DAILY Acid Reflux 04/01/18 10/13/23 release bicalutamide 50 mg tablet 50 mg PO DAILY cancer 09/17/22 10/13/23 budesonide 160 mcg-glycopyr 9 2 puff inhalation BID Breathing 09/17/22 10/13/23 mcg-formot 4.8 mcg/actuation HFA problems inhaler (Breztri Aerosphere) lisinopril 10 mg tablet 10 mg PO DAILY High Blood Pressure 07/01/23 10/13/23 albuterol sulfate 90 mcg/actuation 2 puff inhalation Q6HP PRN 09/08/23 10/13/23 aerosol inhaler shortness of breath or wheezing nitroglycerin 0.4 mg sublingual 0.4 mg sublingual Q5MINP PRN Chest 09/08/23 10/13/23 tablet Pain Previous Rx's Medication Instructions Recorded atorvastatin 40 mg tablet 40 mg PO HS #30 tabs 09/10/23 diltiazem HCl 120 mg 120 mg PO DAILY #30 caps 09/10/23 capsule,extended release 24 hr rivaroxaban 10 mg tablet (Xarelto) 20 mg (2 x 10 mg) PO QPMWITHMEAL 09/10/23 #30 tabs prednisone 20 mg tablet 40 mg (2 x 20 mg) PO DAILY 5 days 02/24/24 #10 tabs Allergies Allergy/AdvReac Type Severity Reaction Status Date / Time No Known Allergies Allergy Verified 10/13/23 09:09 [facility] Disclaimer: The information contained in this section may have been updated after the patient was seen, as this information can be updated by other users. Medical History Acute exacerbation of chronic obstructive pulmonary disease Atrial fibrillation Atrial fibrillation with rapid ventricular response Atrial fibrillation with rapid ventricular response COPD (chronic obstructive pulmonary disease) (~09/17/22) DVT (deep venous thrombosis) Elevated troponin GERD (gastroesophageal reflux disease) HTN (hypertension) Hx of prostatic malignancy Hypomagnesemia Immunocompromised Pneumonia Pneumonia Prostate cancer (~09/17/22) SOB (shortness of breath) Surgical History H/O hernia repair H/O splenectomy S/P TURP Family History Mother , Mother at the age of 73 from sepsis Severe sepsis with septic shock Father , Father at the age of 57 from throat cancer Throat cancer Social History Smoking Status: Never smoker alcohol intake: never substance use type: denies use current occupational status: retired Travel in the last 8 weeks: None household members: spouse housing: house ROS Obtained: Yes All systems reviewed & no additional complaints except as documented Physical Exam General General appearance: alert and in no apparent distress Head Head exam: atraumatic and normocephalic Eye Eye exam: Present normal appearance, PERRL and EOMI ENT ENT exam: Present mucous membranes moist Neck Neck exam: Present normal inspection, full ROM and trachea midline Respiratory Respiratory exam: Absent respiratory distress, wheezes, stridor, accessory muscle use or prolonged expiratory phase Cardiovascular Cardiovascular exam: Present normal rhythm Abdominal Exam Abdominal exam: Present soft; Absent distention, tenderness, guarding, rebound or rigidity Extremities Exam Extremities exam: Absent edema Neurological Exam Neurological exam: Present alert, oriented X3, CN II-XII intact, normal gait and reflexes normal; Absent motor sensory deficit Skin Skin exam: Present warm and dry; Absent diaphoresis or erythema Medical Decision Making Medical Records Medical records reviewed: Yes I reviewed the patient's medical records. Denis Inquiry Pt receiving controlled substance: No Denis was queried for this patient: No Vital Signs: 02/24/24 10:34 02/24/24 10:39 02/24/24 11:00 Temperature 98.1 F Temperature Source Oral Pulse Rate 64 61 Pulse Rate [Radial] 67 Respiratory Rate 18 Blood Pressure 106/63 L 105/61 L Blood Pressure [Right Arm] 106/63 L Blood Pressure Mean [Right Arm] 77 Blood Pressure Source [Right Arm] Automatic Cuff Blood Pressure Position [Right Arm] Sitting 02 Sat by Pulse Oximetry 97 97 96 Oxygen Delivery Method Room Air Room Air Room Air Orders (Tests/Meds): ED MEDICATIONS Discontinued Medications Generic Name Dose Route Start Last Admin Trade Name Cornelioq PRN Reason Stop Dose Admin Prednisone 40 mg 02/24/24 11:10 02/24/24 11:19 Prednisone 20mg Tab PO 02/24/24 11:11 40 mg ONCE ONE Administration Medical Decision Narrative: 68-year-old male history of chronic back pain presenting with back pain. Patient states that lower back pain started months ago, has been following with his family doctor for this. Has not been to physical therapy, received a cortisone shot, 1 time, it seemed to help with pain for short period of time, then went away. Patient has not seen or been referred to physical therapy, spine surgery, further diagnostic imaging including MRI, or pain management. Denies weakness, patient states that multiple times a day and numerous times a week his back goes out, and he has to help himself sit down. No bowel or bladder dysfunction, saddle anesthesia, or any other concerns. No recent or remote traumatic injuries to his back. History was obtained via conversation with patient. On arrival, patient hemodynamically stable, alert, oriented x4, appropriate, GCS 15, moving all extremities spontaneously, pupils equal and reactive to light. Full physical exam performed and significant for patient ambulatory, very well-appearing. He does not have midline spinal tenderness in his back. Straight leg test negative bilaterally. Neurologically intact including reflexes, motor, sensory and lower extremities. Differential includes disc herniation, spinal osteoarthritis, fracture, dislocation, among others. Patient was given p.o. prednisone for symptomatic management and correction of underlying abnormalities. Because patient well-appearing, atraumatic, desi rologically intact, further diagnostic imaging including CT versus MRI of spine was considered, but not deemed necessary. Patient able to ambulate with mild pain. Postvoid residual 0. I feel this is likely acute on chronic pain and patient does as well. Recommendations for primary care follow-up to arrange physical therapy, MRI, then evaluation by spine surgeon within 6 months of MRI given and patient voiced his understanding. Patient be given prednisone burst for 5 days. Return precautions given. Because patient at baseline without signs or symptoms of clinical decompensation, deemed appropriate for discharge. Results were relayed to patient who voiced understanding and were agreeable to outpatient management and follow up. I discussed my clinical impression with patient and answered all questions. At this time, the evidence for any other entities in the differential is insufficient to warrant any further testing or ED observation. This was explained as well. Advisory was given that persistent or worsening symptoms require further evaluation. I confirmed the understanding of this discussion. Critical Care Critical Care Time Critical Care Time: No
[2024-02-24 11:43] VITALS: BP 105/61; PULSE 61; RESP 18; TEMP 36.7; O2SAT 96
== END 2024-02-24 11:44 | disposition home or self-care (01) ==
PROVIDERS: Emergency Provider Emergency Medicine; PCP Family Medicine
DX: M54.50 Low back pain, unspecified (principal); G89.29 Other chronic pain
CPT/HCPCS: 99283

== ENCOUNTER 2024-02-25 07:44 | Emergency (ER) | payer MEDICARE, SELFPAY ==
[2024-02-25 07:44] VITALS: BP 159/70; PULSE 78; RESP 20; TEMP 36.6; O2SAT 97; BMI 19.5
[2024-02-25 07:45] VITALS: BP 159/70; PULSE 83; O2SAT 98
[2024-02-25 08:00] VITALS: BP 165/75; PULSE 84; O2SAT 99
--- NOTE | 2024-02-25 08:13 | CT_ITS ---
FINAL REPORT TECHNIQUE: Axial imaging of the lumbar spine was obtained without contrast. Sagittal and coronal reformatted images were also obtained and reviewed. This study was performed with techniques to keep radiation doses as low as reasonably achievable (ALARA). Individualized dose reduction techniques using automated exposure control or adjustment of mA and/or kV according to the patient's size were employed. CLINICAL HISTORY: new onset acute on chronic pain COMPARISON: None FINDINGS: There is no fracture. There is mild left curvature of the lumbar spine. Mild degenerative changes present.There is no evidence of significant central canal stenosis. L1-L2: An annular bulge is present with small osteophytes and mild bilateral neural foraminal narrowing. L2-L3: An annular bulge is present with osteophytes and mild bilateral neural foraminal narrowing. L3-L4: An annular bulge is present with facet arthropathy, small vertebral osteophytes, and moderate bilateral neural foraminal narrowing. L4-L5: An annular bulge is present with facet arthropathy and moderate bilateral neural foraminal narrowing. L5-S1: An annular bulge is present with facet arthropathy and mild bilateral neural foraminal narrowing. There are several nonobstructing right renal stones present measuring up to 3 mm in size. IMPRESSION: Multilevel degenerative change without acute bony abnormality. Several nonobstructing right renal stones are present measuring up to 3 mm in size. Reviewed, Interpreted and Dictated by Gianni Izaguirre III, MD Transcribed by Renate Reid Authenticated and [facility]
--- NOTE | 2024-02-25 08:17 | ED_ITS ---
Discharge Plan Disposition Patient Disposition: Home, Self-Care Chief Complaint: Back Pain/Injury Prescriptions Prescriptions: No Action nifedipine [Procardia XL] 30 mg tablet extended release 24hr 30 mg PO DAILY omeprazole 40 mg capsule,delayed release(DR/EC) 40 mg PO DAILY lisinopril 10 mg tablet 10 mg PO DAILY Patient Comments: TAKE ONE TABLET BY MOUTH EVERY DAY nitroglycerin 0.4 mg tablet, sublingual 0.4 mg sublingual Q5MINP PRN (Reason: Chest Pain) Patient Comments: PLACE 1 TABLET UNDER TONGUE EVERY 5 MINUTES IF NEEDED FOR CHEST PAIN; MAY REPEAT 2 TIMES; IF NO RELIEF AFTER 3 DOSES CALL 911 OR GO TO ER albuterol sulfate 90 mcg/actuation HFA aerosol inhaler 2 puff inhalation Q6HP PRN (Reason: shortness of breath or wheezing) atorvastatin 40 mg Tablet 40 mg PO HS Qty: 30 0RF diltiazem HCl 120 mg Capsule,Extended Release 24hr 120 mg PO DAILY Qty: 30 0RF Xarelto 10 mg Tablet 20 mg PO QPMWITHMEAL Qty: 30 0RF Breztri Aerosphere 160-9-4.8 mcg/actuation HFA aerosol inhaler 2 puff INHALATION BID Patient Comments: INHALE TWO PUFFS BY MOUTH TWICE DAILY bicalutamide 50 mg tablet 50 mg PO DAILY prednisone 20 mg tablet 40 mg PO DAILY 5 Days Qty: 10 0RF Referrals Follow up/Referrals: Shaq Sevilla MD [Primary Care Provider] - See instructions Activity Restrictions/Add. Instructions Additional Instructions/Restrictions: Follow-up with your family doctor regarding referral to Dr. Ang, physical therapy, possible MRI, possible spine surgery referrals. Take Tylenol 1000 mg every 6 hours (4 times daily) and ibuprofen 400 mg every 6 hours (4 times daily) as needed with food and water to prevent GI upset and kidney damage. Clinical Impressions Clinical Impression: Pain of lumbar spine Instructions Patient Instructions: DI for Low Back Pain Discharge ED Provider: Darin Davis General Adult HPI General Chief complaint: Back Pain/Injury Stated complaint: back pain w nausea Time Seen by Provider: 02/25/24 08:03 Mode of Arrival: EMS Source of Information: Patient and EMS Limitations: No Limitations Description of Symptoms (Recalled from ER Triage Doc. by RN): Patient brought in by EMS due to low back pain. Patient states he was seen here yesterday for same issue. Patient returned to work and back pain has returned. Reports pain is severe in lower back radiates down into both legs and making him nauseous. History of Present Illness HPI narrative: Patient with history of hypertension, hyperlipidemia, prostate cancer and remission after radiation therapy, atrial fibrillation on Xarelto, chronic lower back pain presenting with back pain. Patient was seen by me yesterday on 02/23 in the emergency department for back pain. Today he returns for the same thing. Was at work, not doing anything particularly heavy lifting, believes he turned the wrong way, had severe onset lower back pain. Caused him to vomit. He is also shaking from pain. Has not taken anything for pain. He saw his family doctor yesterday and afternoon after being seen in the emergency department and they gave him 2 pain shots, but these did not seem to help. No bowel or bladder dysfunction, lower extremity weakness, or any other concerns. Please note that above description of symptoms, in this electronic medical record under categorization of recalled from ER triage doctor by RN are reflective of an initial nursing assessment, however, is not reflective of my full history and physical exam that was personally taken and clarified. Consequentially, this preceding description of symptoms, which may include the patient's categorized chief complaint in the EMR, do not reflect my personal clinical impression, and the ultimate description of history of present illness and patient stated complaints should be deferred to this section of the note. Unless stated otherwise or congruent with this section of the note, additional signs, symptoms, or incongruence should be interpreted as inaccurate with my clinical impression. Related Data Home Medications Medication Instructions Recorded Confirmed nifedipine 30 mg tablet,extended 30 mg PO DAILY High Blood Pressure 04/01/18 10/13/23 release 24 hr (Procardia XL) omeprazole 40 mg capsule,delayed 40 mg PO DAILY Acid Reflux 04/01/18 10/13/23 release bicalutamide 50 mg tablet 50 mg PO DAILY cancer 09/17/22 10/13/23 budesonide 160 mcg-glycopyr 9 2 puff inhalation BID Breathing 09/17/22 10/13/23 mcg-formot 4.8 mcg/actuation HFA problems inhaler (Breztri Aerosphere) lisinopril 10 mg tablet 10 mg PO DAILY High Blood Pressure 07/01/23 10/13/23 albuterol sulfate 90 mcg/actuation 2 puff inhalation Q6HP PRN 09/08/23 10/13/23 aerosol inhaler shortness of breath or wheezing nitroglycerin 0.4 mg sublingual 0.4 mg sublingual Q5MINP PRN Chest 09/08/23 10/13/23 tablet Pain Previous Rx's Medication Instructions Recorded atorvastatin 40 mg tablet 40 mg PO HS #30 tabs 09/10/23 diltiazem HCl 120 mg 120 mg PO DAILY #30 caps 09/10/23 capsule,extended release 24 hr rivaroxaban 10 mg tablet (Xarelto) 20 mg (2 x 10 mg) PO QPMWITHMEAL 09/10/23 #30 tabs prednisone 20 mg tablet 40 mg (2 x 20 mg) PO DAILY 5 days 02/24/24 #10 tabs Allergies Allergy/AdvReac Type Severity Reaction Status Date / Time No Known Allergies Allergy Verified 10/13/23 09:09 [facility] Disclaimer: The information contained in this section may have been updated after the patient was seen, as this information can be updated by other users. Medical History Acute exacerbation of chronic obstructive pulmonary disease Atrial fibrillation Atrial fibrillation with rapid ventricular response Atrial fibrillation with rapid ventricular response COPD (chronic obstructive pulmonary disease) (~09/17/22) DVT (deep venous thrombosis) Elevated troponin GERD (gastroesophageal reflux disease) HTN (hypertension) Hx of prostatic malignancy Hypomagnesemia Immunocompromised Pneumonia Pneumonia Prostate cancer (~09/17/22) SOB (shortness of breath) Surgical History H/O hernia repair H/O splenectomy S/P TURP Family History Mother , Mother at the age of 73 from sepsis Severe sepsis with septic shock Father , Father at the age of 57 from throat cancer Throat cancer Social History Smoking Status: Never smoker alcohol intake: never substance use type: denies use current occupational status: retired Travel in the last 8 weeks: None household members: spouse housing: house ROS Obtained: Yes All systems reviewed & no additional complaints except as documented Physical Exam General General appearance: alert and in distress (Second to pain) Head Head exam: atraumatic and normocephalic Eye Eye exam: Present normal appearance, PERRL and EOMI ENT ENT exam: Present mucous membranes moist Neck Neck exam: Present normal inspection, full ROM and trachea midline Respiratory Respiratory exam: Absent respiratory distress, wheezes, stridor, accessory muscle use or prolonged expiratory phase Cardiovascular Cardiovascular exam: Present normal rhythm Abdominal Exam Abdominal exam: Present soft; Absent distention, tenderness, guarding, rebound or rigidity Extremities Exam Extremities exam: Absent edema Back Exam Back exam: Present tenderness (Midline lumbar spine without outward normality) Neurological Exam Neurological exam: Present alert, oriented X3, CN II-XII intact and normal gait (From stretcher to bed); Absent motor sensory deficit Skin Skin exam: Present warm and dry; Absent diaphoresis or erythema Medical Decision Making Medical Records Medical records reviewed: Yes I reviewed the patient's medical records. Denis Inquiry Pt receiving controlled substance: No Denis was queried for this patient: No Vital Signs: 02/25/24 07:44 02/25/24 07:45 02/25/24 08:00 Temperature 97.9 F Temperature Source Oral Pulse Rate 83 84 Pulse Rate [Right] 78 Respiratory Rate 20 Blood Pressure 159/70 H 165/75 H Blood Pressure [Right Arm] 159/70 H Blood Pressure Mean [Right Arm] 99 Blood Pressure Source [Right Arm] Automatic Cuff 02 Sat by Pulse Oximetry 97 98 99 Oxygen Delivery Method Room Air Room Air Room Air Orders (Tests/Meds): ED MEDICATIONS Discontinued Medications Generic Name Dose Route Start Last Admin Trade Name Cornelioq PRN Reason Stop Dose Admin Acetaminophen 1,000 mg 02/25/24 08:14 02/25/24 09:04 Acetaminophen 500mg Tab PO 02/25/24 08:15 1,000 mg ONCE ONE Administration Diazepam 5 mg 02/25/24 08:13 02/25/24 08:24 Diazepam 5mg Tablet PO 02/25/24 08:14 5 mg ONCE ONE Administration Ketorolac Tromethamine 15 mg 02/25/24 08:13 02/25/24 09:04 Ketorolac 30mg/Ml Vial IV 02/25/24 08:14 15 mg ONCE ONE Administration Lidocaine 1 each 02/25/24 08:13 02/25/24 09:04 Lidocaine 5% Transdermal Patch TP 02/25/24 08:14 1 each ONCE ONE Administration Oxycodone HCl 5 mg 02/25/24 08:13 02/25/24 08:24 Oxycodone 5mg Immediate Release Tablet PO 02/25/24 08:14 5 mg ONCE ONE Administration ORDERS Category Date Time Status CT lumbar spine wo con Stat Cat Scan 02/25/24 08:13 Completed Medical Decision Narrative: Patient with history of hypertension, hyperlipidemia, prostate cancer and remission after radiation therapy, atrial fibrillation on Xarelto, chronic lower back pain presenting with back pain. Patient was seen by me yesterday on 02/23 in the emergency department for back pain. Today he returns for the same thing. Was at work, not doing anything particularly heavy lifting, believes he turned the wrong way, had severe onset lower back pain. Caused him to vomit. He is also shaking from pain. Has not taken anything for pain. He saw his family doctor yesterday and afternoon after being seen in the emergency department and they gave him 2 pain shots, but these did not seem to help. No bowel or bladder dysfunction, lower extremity weakness, or any other concerns. History was obtained via conversation with patient and EMS. On arrival, patient hemodynamically stable, alert, oriented x4, appropriate, GCS 15, moving all extremities spontaneously, pupils equal and reactive to light. Full physical exam performed and significant for 68-year-old male mild distress secondary to pain. Has vomitus bag, shaking with minimal movement. Laying on his right side. Knees are tucked. He does have midline spinal tenderness in the lumbar spine, straight leg positive. Neurovascular intact in lower extremities without saddle anesthesia. Patient able to ambulate to the bed from the stretcher. Differential includes osteoarthritis, disc herniation, fracture, muscle spasm, radiculopathy, among others. Patient was given Valium, oxycodone, Toradol, acetaminophen for symptomatic management and correction of underlying abnormalities. Workup independently interpreted and significant for negative CT lumbar spine. See radiology read for full review of final results. On reevaluation, patient sitting on bed, able to ambulate, no pain or complaints at this time. Reassurance given, patient still has follow-up with Dr. Ang, physical therapy, and recommendations for outpatient management and following up in case needing MRI or spine surgeon referral, he voiced his understanding. Because patient at baseline without signs or symptoms of clinical decompensation, deemed appropriate for discharge. Results were relayed to patient who voiced understanding and were agreeable to outpatient management and follow up. I discussed my clinical impression with patient and answered all questions. At this time, the evidence for any other entities in the differential is insufficient to warrant any further testing or ED observation. This was explained as well. Advisory was given that persistent or worsening symptoms require further evaluation. I confirmed the understanding of this discussion. [employer] disclaimer Much of this encounter note is an electronic service order clerk spoken language to printed text. Electronic service order clerk of the spoken language may permit errors. Although I have reviewed the note, some errors may still exist. Critical Care Critical Care Time Critical Care Time: No
[2024-02-25] MEDS: OXYCODONE 5MG IMMEDIATE RELEASE TABLET 5 MG PO (08:24)
[2024-02-25] MEDS: diazePAM 5MG TABLET 5 MG PO (08:24)
[2024-02-25] MEDS: LIDOCAINE 5% TRANSDERMAL PATCH 1 EACH TP (09:04)
[2024-02-25] MEDS: KETOROLAC 30MG/ML VIAL 15 MG IV (09:04)
[2024-02-25] MEDS: ACETAMINOPHEN 500MG TAB 1000 MG PO (09:04)
--- NOTE | 2024-02-25 09:43 | PC.NURSE ---
Rounded on patient. Patient states pain has improved.
[2024-02-25 10:27] VITALS: BP 148/68; PULSE 78; RESP 18; TEMP 36.6; O2SAT 96
== END 2024-02-25 10:35 | disposition home or self-care (01) ==
PROVIDERS: Emergency Provider Emergency Medicine; PCP Family Medicine
DX: M54.50 Low back pain, unspecified (principal); G89.29 Other chronic pain
CPT/HCPCS: 72131; 96374; 99284

== ENCOUNTER 2024-02-29 17:32 | Inpatient (IN) | payer MEDICARE, SELFPAY ==
[2024-02-29] VITALS (17 sets, daily range): BP systolic 92–128; BP diastolic 56–76; PULSE 60–120; RESP 14–23; TEMP 36.8–36.9; O2SAT 94–100; BMI 19.5; BMI 18.8
--- NOTE | 2024-02-29 17:44 | ED_ITS ---
<Statement entered by Harry Yuan MD - 02/29/24 21:06> I was consulted by the YOBANY, and we discussed the complexity of the problems being addressed. I approved the treatment and management plan for this patient's care in the emergency department, thus performing a substantive portion of the medical decision making. Harry Yuan MD Discharge Plan Disposition Chief Complaint: Back Pain/Injury Prescriptions Prescriptions: No Action atorvastatin 40 mg tablet 40 mg PO HS Patient Comments: TAKE ONE TABLET BY MOUTH EVERY DAY bicalutamide 50 mg tablet 50 mg PO DAILY Patient Comments: TAKE ONE TABLET BY MOUTH EVERY DAY nifedipine 30 mg tablet extended release 30 mg PO DAILY Patient Comments: TAKE ONE TABLET BY MOUTH EVERY DAY omeprazole 40 mg capsule,delayed release(DR/EC) 40 mg PO DAILY Patient Comments: TAKE ONE CAPSULE BY MOUTH ONCE DAILY IN THE MORNING FOR stomach diltiazem HCl 120 mg tablet 120 mg PO DAILY Patient Comments: TAKE ONE TABLET BY MOUTH EVERY DAY DIRECTED Xarelto 10 mg tablet 10 mg PO DAILY Patient Comments: TAKE ONE TABLET BY MOUTH EVERY DAY Breztri Aerosphere 160-9-4.8 mcg/actuation HFA aerosol inhaler 2 inh INHALATION BID Patient Comments: INHALE TWO PUFFS BY MOUTH TWICE DAILY Discharge ED Provider: Harry Yuan General Adult HPI <SELINA Jasso - Last Filed: 02/29/24 20:57> General Chief complaint: Back Pain/Injury Stated complaint: back pain, vomiting Time Seen by Provider: 02/29/24 17:44 Mode of Arrival: Wheelchair Source of Information: Patient Limitations: No Limitations Description of Symptoms (Recalled from ER Triage Doc. by RN): 68 M presents from home with c/o severe and worsening low back pain that he has been dealing with over the last few months. Patient reports being here 3 times at this ER for evaluation of the pain that is now making him severely nauseated. He reports a few episodes of vomiting. Patient denies incontinence of bowel or bladder. Full ROM intact to lower extremities. History of Present Illness HPI narrative: Patient presents for reevaluation of severe low back pain. Patient has been seen 2 previous times in our ER the first being February 23 and the second 1 day later and now today. Patient does have a history of chronic low back pain but he is normally functional working 40 hours a week and treating symptomatically up until the last 5 days. Patient is now at a point where his pain hurts so bad that he is left in tears. He is been seen both in our ER and by his PCP in this time. And prescribed multiple medication regimens none of which have relieved his pain. Patient reports that the pain does not radiate anywhere and denies any known injury or trauma. He currently denies chest pain fever chills hemoptysis hematochezia melena nausea vomit diarrhea. On arrival and at the time of my exam patient was noted to be in atrial fibrillation with rapid ventricular response in the bedside monitor. Related Data Home Medications Medication Instructions Recorded Confirmed atorvastatin 40 mg tablet 40 mg PO HS 02/29/24 02/29/24 bicalutamide 50 mg tablet 50 mg PO DAILY Prostate Cancer 02/29/24 02/29/24 budesonide 160 mcg-glycopyr 9 2 inh inhalation BID 02/29/24 02/29/24 mcg-formot 4.8 mcg/actuation HFA inhaler (Breztri Aerosphere) diltiazem HCl 120 mg tablet 120 mg PO DAILY 02/29/24 02/29/24 nifedipine 30 mg tablet,extended 30 mg PO DAILY 02/29/24 02/29/24 release omeprazole 40 mg capsule,delayed 40 mg PO DAILY 02/29/24 02/29/24 release rivaroxaban 10 mg tablet (Xarelto) 10 mg PO DAILY 02/29/24 02/29/24 Allergies Allergy/AdvReac Type Severity Reaction Status Date / Time No Known Allergies Allergy Verified 10/13/23 09:09 [facility] <SELINA Jasso - Last Filed: 02/29/24 20:57> [facility] Disclaimer: The information contained in this section may have been updated after the patient was seen, as this information can be updated by other users. Medical History Acute exacerbation of chronic obstructive pulmonary disease Atrial fibrillation Atrial fibrillation with rapid ventricular response Atrial fibrillation with rapid ventricular response COPD (chronic obstructive pulmonary disease) (~09/17/22) DVT (deep venous thrombosis) Elevated troponin GERD (gastroesophageal reflux disease) HTN (hypertension) Hx of prostatic malignancy Hypomagnesemia Immunocompromised Pneumonia Pneumonia Prostate cancer (~09/17/22) SOB (shortness of breath) Surgical History H/O hernia repair H/O splenectomy S/P TURP Family History Mother , Mother at the age of 73 from sepsis Severe sepsis with septic shock Father , Father at the age of 57 from throat cancer Throat cancer Social History (Updated 02/29/24 @ 19:17 by Kale Lunsford RN) Smoking Status: Former smoker alcohol intake: current alcohol intake frequency: a few times a month substance use type: denies use current occupational status: retired Travel in the last 8 weeks: None household members: spouse housing: house <SELINA Jasso - Last Filed: 02/29/24 20:57> ROS Obtained: Yes Systems reviewed as appropriate & no additional complaints except as documented Physical Exam <SELINA Jasso - Last Filed: 02/29/24 20:57> General General appearance: alert and in no apparent distress Respiratory Respiratory exam: Present normal lung sounds bilaterally Cardiovascular Cardiovascular exam: Present tachycardia, irregular rhythm, normal heart sounds, +S1 and +S2 Abdominal Exam Abdominal exam: Present soft, rigidity and normal bowel sounds; Absent tenderness, guarding or rebound Extremities Exam Extremities exam: Present normal inspection and full ROM; Absent tenderness or edema Back Exam Back exam: Present normal inspection, tenderness (Tenderness to palpation all over the left CVA/paraspinous musculature no midline tenderness), CVA tenderness (L), paraspinal tenderness (Left) and vertebral tenderness (None); Absent full ROM Neurological Exam Neurological exam: Present alert, oriented X3, CN II-XII intact and reflexes normal; Absent normal gait (Antalgic gait) or motor sensory deficit Psychiatric Psychiatric exam: Present normal affect and normal mood Skin Skin exam: Present warm, dry and normal color Medical Decision Making <SELINA Jasso - Last Filed: 02/29/24 20:57> Medical Records Medical records reviewed: Yes I reviewed the patient's medical records. Denis Inquiry Pt receiving controlled substance: No Vital Signs: 02/29/24 17:33 02/29/24 18:00 02/29/24 18:05 Temperature 98.2 F Temperature Source Oral Pulse Rate 90 100 H Pulse Rate [Left] 120 H Respiratory Rate 20 22 23 Blood Pressure 103/66 L 103/66 L Blood Pressure [Right Arm] 128/72 Blood Pressure Mean 81 Blood Pressure Mean [Right Arm] 90 Blood Pressure Source [Right Arm] Automatic Cuff Blood Pressure Position [Right Arm] Sitting 02 Sat by Pulse Oximetry 100 98 99 Oxygen Delivery Method Room Air Room Air Room Air 02/29/24 18:34 02/29/24 18:45 02/29/24 19:00 Temperature Temperature Source Pulse Rate 94 H 70 80 Pulse Rate [Left] Respiratory Rate 14 20 20 Blood Pressure 111/64 109/71 L 110/64 Blood Pressure [Right Arm] Blood Pressure Mean 77 72 Blood Pressure Mean [Right Arm] Blood Pressure Source [Right Arm] Blood Pressure Position [Right Arm] 02 Sat by Pulse Oximetry 98 96 96 Oxygen Delivery Method Room Air Room Air Room Air 02/29/24 19:15 02/29/24 19:30 02/29/24 19:45 Temperature Temperature Source Pulse Rate 82 84 84 Pulse Rate [Left] Respiratory Rate 18 17 17 Blood Pressure 107/63 L 96/56 L 104/76 L Blood Pressure [Right Arm] Blood Pressure Mean 72 62 85 Blood Pressure Mean [Right Arm] Blood Pressure Source [Right Arm] Blood Pressure Position [Right Arm] 02 Sat by Pulse Oximetry 95 97 97 Oxygen Delivery Method Room Air Room Air Room Air 02/29/24 20:00 02/29/24 20:16 Temperature Temperature Source Pulse Rate 60 76 Pulse Rate [Left] Respiratory Rate 20 19 Blood Pressure 96/60 L 112/62 Blood Pressure [Right Arm] Blood Pressure Mean 72 68 Blood Pressure Mean [Right Arm] Blood Pressure Source [Right Arm] Blood Pressure Position [Right Arm] 02 Sat by Pulse Oximetry 98 98 Oxygen Delivery Method Room Air Lab Data Lab results reviewed: Yes I reviewed the patient's lab results. Lab Results 02/29/24 17:52: WBC 19.5 H, RBC 3.88 L, Hgb 13.6 L, Hct 38.6 L, MCV 99.5 H, MCH 34.9 H, MCHC 35.1, RDW 14.3, Plt Count 464 H, MPV 8.8, Neut % (Auto) 91.7 H, L ymph % (Auto) 4.8 L, Leake % (Auto) 2.4, Eos % (Auto) 1.0, Baso % (Auto) 0.1, N eut # (Auto) 17.9 H, Lymph # (Auto) 0.9, Leake # (Auto) 0.5, Eos # (Auto) 0.2, Baso # (Auto) 0.0, Total Counted 100, Neutrophils % (Manual) 89 H, Lymphocytes % (Manual) 8 L, Monocytes % (Manual) 3, Platelet Estimate Normal, RBC Morphology Not Reportable, Acanthocytes (Spur) 1+, PT 14.0 H, INR 1.32 H, Sodium 136, Potassium 4.1, Chloride 104, Carbon Dioxide 18 L, Anion Gap 18.1 H, BUN 58 H, C reatinine 2.80 H, Estimated Creat Clear 22, Estimated GFR 23 L, Est GFR ( Amer) 27 L, Glucose 134 H, Calcium 8.5, Magnesium 0.5 L, Total Bilirubin 0.7, AST 32, ALT 37, Alkaline Phosphatase 49, Total Creatine Kinase 60, Troponin I < 0.01, Total Protein 7.4, Albumin 4.1, Globulin 3.3 H, Albumin/Globulin Ratio 1.2, Lipase 90, TSH 0.85 02/29/24 19:41: Urine Color Yellow, Urine Appearance Clear, Urine pH 6.0, Ur Specific [place] 1.010, Urine Protein Negative, Urine Glucose (UA) Negative, Urine Ketones Negative, Urine Blood Negative, Urine Nitrate Negative, Urine Bilirubin Negative, Urine Urobilinogen 0.2, Ur Leukocyte Esterase Trace, Urine RBC None, Urine WBC 5-10, Ur Squamous Epith Cells Occasional, Urine Bacteria None 02/29/24 19:43: Lactate 3.3 H 02/29/24 20:14: Sodium 134 L, Potassium 3.9, Chloride 106 02/29/24 17:52 02/29/24 20:14 Orders (Tests/Meds): ED MEDICATIONS Generic Name Dose Route Start Last Admin Trade Name Freq PRN Reason Stop Dose Admin Magnesium Oxide 800 mg 02/29/24 19:00 02/29/24 19:07 Magnesium Oxide 400mg Tablet PO 03/30/24 18:59 800 mg DAILY ARMEN Administration Discontinued Medications Generic Name Dose Route Start Last Admin Trade Name Freq PRN Reason Stop Dose Admin Acetaminophen 1,000 mg 02/29/24 17:57 02/29/24 18:04 Acetaminophen 1,000mg/100ml Vial IV 02/29/24 17:58 1,000 mg ONCE ONE Administration Dexamethasone Sodium Phosphate 10 mg 02/29/24 17:57 02/29/24 18:04 Dexamethasone 4mg/Ml 5ml Mdv IV 02/29/24 17:58 10 mg ONCE ONE Administration Hydromorphone HCl 0.5 mg 02/29/24 19:01 02/29/24 19:05 Hydromorphone 2mg/Ml Syringe IV 02/29/24 19:02 0.5 mg ONCE ONE Administration Lactated Ringer's 1,000 mls @ 999 mls/hr 02/29/24 17:57 02/29/24 18:04 Lactated Ringer's 1000 Ml Bag IV 02/29/24 18:57 999 mls/hr .Q1H1M ONE Administration Magnesium Sulfate 2 gm in 50 mls @ 50 mls/hr 02/29/24 18:57 02/29/24 19:02 Magnesium Sulfate 2gm/50ml Premix IV 02/29/24 19:56 50 mls/hr ONCE ONE Administration Iopamidol 100 ml 02/29/24 18:28 02/29/24 18:30 Iopamidol-370 (76%);100ml Bottle IV 02/29/24 18:29 100 ml ONCE ONE Administration Lidocaine 1 each 02/29/24 17:57 02/29/24 18:05 Lidocaine 5% Transdermal Patch TP 02/29/24 17:58 1 each ONCE ONE Administration Methocarbamol 500 mg 02/29/24 21:00 02/29/24 18:04 Methocarbamol 500mg Tablet PO 03/30/24 20:59 500 mg BID ARMEN Administration Methocarbamol 500 mg 02/29/24 20:04 02/29/24 20:05 Methocarbamol 500mg Tablet PO 02/29/24 20:05 Not Given ONCE ONE Metoprolol Tartrate 5 mg 02/29/24 17:54 02/29/24 17:54 Metoprolol Tartrate 5mg/5ml Vial IV 02/29/24 17:55 5 mg ONCE ONE Administration Oxycodone HCl 5 mg 02/29/24 17:57 02/29/24 18:04 Oxycodone 5mg Immediate Release Tablet PO 02/29/24 17:58 5 mg ONCE ONE Administration Sodium Chloride 10 ml 02/29/24 18:28 02/29/24 18:30 Sodium Chloride 0.9% 10ml Syr (Rad Only) IV 02/29/24 18:29 10 ml ONCE ONE Administration Sodium Chloride 50 ml 02/29/24 18:28 02/29/24 18:30 0.9 % Sodium Chloride 50 Ml Vial IV 02/29/24 18:29 50 ml ONCE ONE Administration ORDERS Category Date Time Status CT abdomen pelvis wo con Stat Cat Scan 02/29/24 17:[address] angio abdomen pelvis Stat Cat Scan 02/29/24 18:17 Completed BMP [Basic Metabolic Panel] Stat Lab 02/29/24 20:14 Received CBC w/Auto Diff [Complete Blood Count Auto Diff] Stat Lab 02/29/24 17:52 Completed CK [Creatine Kinase] Stat Lab 02/29/24 17:52 Completed Comprehensive Metabolic Panel Stat Lab 02/29/24 17:52 Completed INR [Prothrombin Time INR] Stat Lab 02/29/24 17:52 Completed Lactic Acid Stat Lab 02/29/24 19:43 Completed Lipase Stat Lab 02/29/24 17:52 Completed Magnesium Stat Lab 02/29/24 17:52 Completed Magnesium Stat Lab 02/29/24 20:14 Received TSH [Thyroid Stimulating Hormone] Stat Lab 02/29/24 17:52 Completed Trop I [Troponin I] Stat Lab 02/29/24 17:52 Completed Troponin I Q3H Lab 02/29/24 21:00 Ordered Troponin I Q3H Lab 03/01/24 00:00 Ordered UA [Urinalysis and Microscopic] Stat Lab 02/29/24 19:41 Completed Medical Decision Narrative: In summary patient is a 68-year-old male who presents to the emergency department for evaluation of low back pain. Patient is atrial fibrillation with rapid ventricular response on arrival but satting at 100% on room air breathing 20 times a minute and essentially asymptomatic upon arrival, afebrile. Physical exam is remarkable for exquisite tenderness to palpation in the left flank/paraspinous area with no bony deformity noted. Patient is neurovascularly intact distally in the left lower extremity with preserved motor and sensory.. Differential diagnosis includes degenerative disc disease, muscle tear versus muscle spasm versus deep space infection versus pyelonephritis versus complicated urinary tract infection versus epidural abscess versus epidural hematoma etc. Initial workup will be conducted with hematologic labs CT scan of the abdomen pelvis and CTA of the abdomen pelvis urinalysis.. Initial interventions include crystalloid bolus Tylenol oxycodone p.o. Initial workup reviewed by me shows significant lab derangements including acute renal failure, severe low magnesium and leukocytosis. Patient appears to be significantly volume depleted contributing to his leukocytosis in addition to receiving both oral and IM steroid several times this week do not feel that this represents a true infection or sepsis but a stress response plus leukemoid reaction plus volume contraction. Upon repeat evaluation has improvement in his low back pain and he is still in atrial fibrillation but now rate controlled after volume repletion and repleted his magnesium. Given this I had interactive discussion with [facility] for vascular surgery consult regarding his right internal iliac artery thrombus and they advised that no follow-up was required as this is likely chronic and there is no intervention. Given this I had interactive discussion with hospital medicine for admission and volume hydration and recheck his creatinine. <Harry Yuan MD - Last Filed: 02/29/24 18:01> Vital Signs: 02/29/24 17:33 02/29/24 18:00 02/29/24 18:05 Temperature 98.2 F Temperature Source Oral Pulse Rate 90 100 H Pulse Rate [Left] 120 H Respiratory Rate 20 22 23 Blood Pressure 103/66 L 103/66 L Blood Pressure [Right Arm] 128/72 Blood Pressure Mean 81 Blood Pressure Mean [Right Arm] 90 Blood Pressure Source [Right Arm] Automatic Cuff Blood Pressure Position [Right Arm] Sitting 02 Sat by Pulse Oximetry 100 98 99 Oxygen Delivery Method Room Air Room Air Room Air 02/29/24 18:34 02/29/24 18:45 02/29/24 19:00 Temperature Temperature Source Pulse Rate 94 H 70 80 Pulse Rate [Left] Respiratory Rate 14 20 20 Blood Pressure 111/64 109/71 L 110/64 Blood Pressure [Right Arm] Blood Pressure Mean 77 72 Blood Pressure Mean [Right Arm] Blood Pressure Source [Right Arm] Blood Pressure Position [Right Arm] 02 Sat by Pulse Oximetry 98 96 96 Oxygen Delivery Method Room Air Room Air Room Air 02/29/24 19:15 02/29/24 19:30 02/29/24 19:45 Temperature Temperature Source Pulse Rate 82 84 84 Pulse Rate [Left] Respiratory Rate 18 17 17 Blood Pressure 107/63 L 96/56 L 104/76 L Blood Pressure [Right Arm] Blood Pressure Mean 72 62 85 Blood Pressure Mean [Right Arm] Blood Pressure Source [Right Arm] Blood Pressure Position [Right Arm] 02 Sat by Pulse Oximetry 95 97 97 Oxygen Delivery Method Room Air Room Air Room Air 02/29/24 20:00 02/29/24 20:16 Temperature Temperature Source Pulse Rate 60 76 Pulse Rate [Left] Respiratory Rate 20 19 Blood Pressure 96/60 L 112/62 Blood Pressure [Right Arm] Blood Pressure Mean 72 68 Blood Pressure Mean [Right Arm] Blood Pressure Source [Right Arm] Blood Pressure Position [Right Arm] 02 Sat by Pulse Oximetry 98 98 Oxygen Delivery Method Room Air Lab Data Lab Results 02/29/24 17:52: WBC 19.5 H, RBC 3.88 L, Hgb 13.6 L, Hct 38.6 L, MCV 99.5 H, MCH 34.9 H, MCHC 35.1, RDW 14.3, Plt Count 464 H, MPV 8.8, Neut % (Auto) 91.7 H, L ymph % (Auto) 4.8 L, Leake % (Auto) 2.4, Eos % (Auto) 1.0, Baso % (Auto) 0.1, N eut # (Auto) 17.9 H, Lymph # (Auto) 0.9, Leake # (Auto) 0.5, Eos # (Auto) 0.2, Baso # (Auto) 0.0, Total Counted 100, Neutrophils % (Manual) 89 H, Lymphocytes % (Manual) 8 L, Monocytes % (Manual) 3, Platelet Estimate Normal, RBC Morphology Not Reportable, Acanthocytes (Spur) 1+, PT 14.0 H, INR 1.32 H, Sodium 136, Potassium 4.1, Chloride 104, Carbon Dioxide 18 L, Anion Gap 18.1 H, BUN 58 H, C reatinine 2.80 H, Estimated Creat Clear 22, Estimated GFR 23 L, Est GFR ( Amer) 27 L, Glucose 134 H, Calcium 8.5, Magnesium 0.5 L, Total Bilirubin 0.7, AST 32, ALT 37, Alkaline Phosphatase 49, Total Creatine Kinase 60, Troponin I < 0.01, Total Protein 7.4, Albumin 4.1, Globulin 3.3 H, Albumin/Globulin Ratio 1.2, Lipase 90, TSH 0.85 02/29/24 19:41: Urine Color Yellow, Urine Appearance Clear, Urine pH 6.0, Ur Specific [place] 1.010, Urine Protein Negative, Urine Glucose (UA) Negative, Urine Ketones Negative, Urine Blood Negative, Urine Nitrate Negative, Urine Bilirubin Negative, Urine Urobilinogen 0.2, Ur Leukocyte Esterase Trace, Urine RBC None, Urine WBC 5-10, Ur Squamous Epith Cells Occasional, Urine Bacteria None 02/29/24 19:43: Lactate 3.3 H 02/29/24 20:14: Sodium 134 L, Potassium 3.9, Chloride 106 Orders (Tests/Meds): ED MEDICATIONS Generic Name Dose Route Start Last Admin Trade Name Freq PRN Reason Stop Dose Admin Magnesium Oxide 800 mg 02/29/24 19:00 02/29/24 19:07 Magnesium Oxide 400mg Tablet PO 03/30/24 18:59 800 mg DAILY ARMEN Administration Discontinued Medications Generic Name Dose Route Start Last Admin Trade Name Freq PRN Reason Stop Dose Admin Acetaminophen 1,000 mg 02/29/24 17:57 02/29/24 18:04 Acetaminophen 1,000mg/100ml Vial IV 02/29/24 17:58 1,000 mg ONCE ONE Administration Dexamethasone Sodium Phosphate 10 mg 02/29/24 17:57 02/29/24 18:04 Dexamethasone 4mg/Ml 5ml Mdv IV 02/29/24 17:58 10 mg ONCE ONE Administration Hydromorphone HCl 0.5 mg 02/29/24 19:01 02/29/24 19:05 Hydromorphone 2mg/Ml Syringe IV 02/29/24 19:02 0.5 mg ONCE ONE Administration Lactated Ringer's 1,000 mls @ 999 mls/hr 02/29/24 17:57 02/29/24 18:04 Lactated Ringer's 1000 Ml Bag IV 02/29/24 18:57 999 mls/hr .Q1H1M ONE Administration Magnesium Sulfate 2 gm in 50 mls @ 50 mls/hr 02/29/24 18:57 02/29/24 19:02 Magnesium Sulfate 2gm/50ml Premix IV 02/29/24 19:56 50 mls/hr ONCE ONE Administration Iopamidol 100 ml 02/29/24 18:28 02/29/24 18:30 Iopamidol-370 (76%);100ml Bottle IV 02/29/24 18:29 100 ml ONCE ONE Administration Lidocaine 1 each 02/29/24 17:57 02/29/24 18:05 Lidocaine 5% Transdermal Patch TP 02/29/24 17:58 1 each ONCE ONE Administration Methocarbamol 500 mg 02/29/24 21:00 02/29/24 18:04 Methocarbamol 500mg Tablet PO 03/30/24 20:59 500 mg BID ARMEN Administration Methocarbamol 500 mg 02/29/24 20:04 02/29/24 20:05 Methocarbamol 500mg Tablet PO 02/29/24 20:05 Not Given ONCE ONE Metoprolol Tartrate 5 mg 02/29/24 17:54 02/29/24 17:54 Metoprolol Tartrate 5mg/5ml Vial IV 02/29/24 17:55 5 mg ONCE ONE Administration Oxycodone HCl 5 mg 02/29/24 17:57 02/29/24 18:04 Oxycodone 5mg Immediate Release Tablet PO 02/29/24 17:58 5 mg ONCE ONE Administration Sodium Chloride 10 ml 02/29/24 18:28 02/29/24 18:30 Sodium Chloride 0.9% 10ml Syr (Rad Only) IV 02/29/24 18:29 10 ml ONCE ONE Administration Sodium Chloride 50 ml 02/29/24 18:28 02/29/24 18:30 0.9 % Sodium Chloride 50 Ml Vial IV 02/29/24 18:29 50 ml ONCE ONE Administration ORDERS Category Date Time Status CT abdomen pelvis wo con Stat Cat Scan 02/29/24 17:[address] angio abdomen pelvis Stat Cat Scan 02/29/24 18:17 Completed BMP [Basic Metabolic Panel] Stat Lab 02/29/24 20:14 Received CBC w/Auto Diff [Complete Blood Count Auto Diff] Stat Lab 02/29/24 17:52 Completed CK [Creatine Kinase] Stat Lab 02/29/24 17:52 Completed Comprehensive Metabolic Panel Stat Lab 02/29/24 17:52 Completed INR [Prothrombin Time INR] Stat Lab 02/29/24 17:52 Completed Lactic Acid Stat Lab 02/29/24 19:43 Completed Lipase Stat Lab 02/29/24 17:52 Completed Magnesium Stat Lab 02/29/24 17:52 Completed Magnesium Stat Lab 02/29/24 20:14 Received TSH [Thyroid Stimulating Hormone] Stat Lab 02/29/24 17:52 Completed Trop I [Troponin I] Stat Lab 02/29/24 17:52 Completed Troponin I Q3H Lab 02/29/24 21:00 Ordered Troponin I Q3H Lab 03/01/24 00:00 Ordered UA [Urinalysis and Microscopic] Stat Lab 02/29/24 19:41 Completed ECG Data Tracing #1: Independently interpreted by me, rate is 114, rhythm is irregular, atrial fibrillation with rapid ventricular response, no ST elevation in anatomical contiguous leads, QTc 377 Critical Care <SELINA Jasso - Last Filed: 02/29/24 20:57> Critical Care Time Critical Care Time: Yes Attestation: On 02/29/24, the high probability of a clinically significant, sudden or life threatening deterioration of the following system(cardiac) required my full and direct attention, intervention and personal management. The time I documented below is in addition to time spent performing reported procedures but includes the following listed in this critical care notation. Total Time Total Critical Care Time: 30
[2024-02-29] MEDS: METOPROLOL TARTRATE 5MG/5ML VIAL 5 MG IV (17:54)
--- NOTE | 2024-02-29 17:58 | CT_ITS ---
PROCEDURE INFORMATION: Exam: CT Abdomen And Pelvis Without Contrast Exam date and time: 02/29/2024 6:14 PM Age: 68 years old Clinical indication: Abdominal pain; Generalized; Additional info: Acute abd pain TECHNIQUE: Imaging protocol: Computed tomography of the abdomen and pelvis without contrast. Radiation optimization: All CT scans at this facility use at least one of these dose optimization techniques: automated exposure control; mA and/or kV adjustment per patient size (includes targeted exams where dose is matched to clinical indication); or iterative reconstruction. COMPARISON: 1. CT LUMBAR SPINE WO CON 02/25/2024 8:[address] ANGIO ABDOMEN PELVIS 02/29/2024 6:25 PM FINDINGS: Lungs: Emphysema at the lung bases. Diaphragm: Small hiatal hernia. Liver: Normal. No mass. Gallbladder and bile ducts: Punctate gallstone in the gallbladder. The gallbladder is decompressed. No biliary ductal dilatation. Pancreas: Normal. No ductal dilation. Spleen: Status post splenectomy. Tiny splenules remain in the splenic bed. Adrenal glands: Normal. No mass. Kidneys and ureters: 3 mm right renal calyceal calculi. 1.8 cm simple cyst in the lower pole of the left kidney. No ureteral calculi or hydronephrosis. Stomach and bowel: Unremarkable. No obstruction. No mucosal thickening. Appendix: No evidence of appendicitis. Intraperitoneal space: Unremarkable. No free air. No significant fluid collection. Vasculature: Mild aortoiliac atherosclerotic disease without aneurysm. Lymph nodes: Unremarkable. No enlarged lymph nodes. Urinary bladder: Unremarkable as visualized. Reproductive: Status post prostatectomy. Bones/joints: Unremarkable. No acute fracture. Soft tissues: Unremarkable. IMPRESSION: 1. No acute findings. 2. Punctate right renal calyceal calculi. 3. Status post prostatectomy. 4. Cholelithiasis. COMMENTS: Consistent with the [employer]'s Incidental Findings Committee white paper (J Am Nicolle Radiol 2018): Any incidental renal lesion less than 1 cm or classified as too small to characterize, or any incidental cystic renal lesion characterized as simple-appearing, is likely benign. No follow-up imaging is recommended for these lesions per consensus recommendations based on imaging criteria.
--- NOTE | 2024-02-29 18:00 | PC.NURSE ---
RACHELLE notified for severe sepsis risk per questionnaire. No new orders
[2024-02-29] MEDS: DEXAMETHASONE 4MG/ML 5ML MDV 10 MG IV (18:04)
[2024-02-29] MEDS: ACETAMINOPHEN 1,000MG/100ML VIAL 1000 MG IV (18:04)
[2024-02-29] MEDS: OXYCODONE 5MG IMMEDIATE RELEASE TABLET 5 MG PO (18:04)
[2024-02-29] MEDS: LACTATED RINGERS 1000ML 1,000 ML 999 ML IV (18:04)
[2024-02-29] MEDS: METHOCARBAMOL 500MG TABLET 500 MG PO (18:04)
[2024-02-29 18:05] LABS: Basophils % 0.1 % (0.1-2.0); Eosinophils # 0.2 K/mm3 (0.0-0.4); Hematocrit 38.6 % (42.0-52.0); Hemoglobin 13.6 g/dL (14.1-18.0); Lymphocytes # 0.9 K/mm3 (0.7-4.5); Lymphocytes % 4.8 % (10-50); Mean Corpuscular HGB Conc 35.1 g/dL (31.8-35.4); Mean Corpuscular Hemoglobin 34.9 pg (27.0-31.2); Mean Corpuscular Volume 99.5 fl (80-94); Mean Platelet Volume 8.8 fl (7.4-10.4); Monocytes # 0.5 K/mm3 (0.1-1.0); Monocytes % 2.4 % (1.7-9.3); Neutrophils # 17.9 K/mm3 (1.8-7.8); Neutrophils % 91.7 % (37.0-80.0); Platelet Count 464 K/mm3 (142-424); Red Blood Count 3.88 M/mm3 (4.60-6.20); Red Cell Distribution Width 14.3 % (11.5-17.5); White Blood Count 19.5 K/mm3 (4.8-10.8)
[2024-02-29] MEDS: LIDOCAINE 5% TRANSDERMAL PATCH 1 EACH TP (18:05)
[2024-02-29 18:11] LABS: MANUAL DIFFERENTIAL MANUAL DIFFERENTIAL (MANUAL DIFF)
--- NOTE | 2024-02-29 18:17 | CT_ITS ---
PROCEDURE INFORMATION: Exam: CTA Abdomen and Pelvis With Contrast Exam date and time: 02/29/2024 6:25 PM Age: 68 years old Clinical indication: Abdominal pain; Generalized; Additional info: Acute abdominal pain TECHNIQUE: Imaging protocol: Computed tomographic angiography of the abdomen and pelvis with contrast. Exam focused on the arteries. 3D rendering (Not supervised by radiologist): MIP and/or 3D reconstructed images were created by the technologist. Radiation optimization: All CT scans at this facility use at least one of these dose optimization techniques: automated exposure control; mA and/or kV adjustment per patient size (includes targeted exams where dose is matched to clinical indication); or iterative reconstruction. Contrast material: ISO 370; Contrast volume: 100 ml; Contrast route: INTRAVENOUS (IV); COMPARISON: CT ABDOMEN PELVIS WO CON 02/29/2024 6:14 PM FINDINGS: Lungs: Mild emphysema at the lung bases. Calcified granuloma in the lingula. Diaphragm: Small hiatal hernia. Aorta: No aortic aneurysm. No aortic dissection. Mild atherosclerotic disease. Celiac trunk and mesenteric arteries: No occlusion or significant stenosis. Mild narrowing of the proximal celiac artery is likely due to the arcuate ligament. Renal arteries: No occlusion or significant stenosis. 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 Patent common and external iliac artery without significant stenosis. Mild atherosclerotic disease. Left iliac arteries: No occlusion or significant stenosis. Mild atherosclerotic disease. Liver: No mass. Gallbladder and bile ducts: Small calcified gallstone in the gallbladder. The gallbladder is decompressed. No biliary ductal dilatation. Pancreas: Unremarkable. No mass. No ductal dilation. Spleen: Status post splenectomy. Tiny splenules remain in the splenic bed. Adrenal glands: Unremarkable. No mass. Kidneys and ureters: Heterogeneous enhancement of the bilateral kidneys. 3 mm right renal calyceal calculi. 1.8 cm left lower pole simple cyst. No ureteral calculi or hydronephrosis. Stomach and bowel: Unremarkable. No obstruction. No mucosal thickening. Appendix: No evidence of appendicitis. Intraperitoneal space: Unremarkable. No free air. No significant fluid collection. Lymph nodes: Unremarkable. No enlarged lymph nodes. Urinary bladder: Unremarkable. No mass. Reproductive: Status post prostatectomy. Bones/joints: No acute fracture. Soft tissues: Bilateral gynecomastia, worse on the right. IMPRESSION: 1. 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 2. No acute findings. 3. Heterogeneous enhancement of both kidneys. Correlate with renal function. No hydronephrosis.
[2024-02-29 18:21] LABS: Chloride 104 mmol/L (98-107); Sodium 136 mmol/L (136-145)
[2024-02-29 18:22] LABS: Potassium 4.1 mmoL/L (3.5-5.1)
[2024-02-29 18:24] LABS: Alanine Aminotransferase 37 U/L (12-78); Albumin Level 4.1 g/dl (3.5-5.0); Albumin/Globulin Ratio 1.2 (1.1-1.8); Alkaline Phosphatase 49 U/L (38-126); Anion Gap 18.1 mEq/L (5-15); Aspartate Amino Transferase 32 U/L (17-59); Bilirubin,Total 0.7 mg/dl (0.2-1.3); Blood Urea Nitrogen 58 mg/dl (9-20); Calcium 8.5 mg/dl (8.4-10.2); Carbon Dioxide 18 mmol/L (22.0-30.0); Creatine Kinase 60 U/L (55-170); Creatinine Clearance Estimated 22 mL/min (50-200); Estimated Glomerular Filt Rate 23 ml/min (>60); GFR (African American) 27 ML/MIN (>60); Globulin 3.3 g/dL (1.3-3.2); Glucose 134 mg/dl (74-100); Total Protein,Serum 7.4 g/dl (6.3-8.2)
[2024-02-29 18:26] LABS: INR 1.32 (0.9-1.1)
[2024-02-29] MEDS: 0.9 % SODIUM CHLORIDE 50 ML VIAL IV (18:30)
[2024-02-29] MEDS: IOPAMIDOL-370 (76%);100ML BOTTLE 100 ML IV (18:30)
[2024-02-29] MEDS: SODIUM CHLORIDE 0.9% 10ML SYR (RAD ONLY) 10 ML IV (18:30)
--- NOTE | 2024-02-29 18:36 | PC.NURSE ---
PT ARRIVED BACK TO ROOM FROM CT
[2024-02-29 18:37] LABS: Lipase 90 U/L (23-300)
[2024-02-29 18:38] LABS: Magnesium 0.5 mg/dl (1.6-2.3); Troponin I < 0.01 ng/ml (0.00-0.034)
[2024-02-29 18:43] LABS: Acanthocytes 1+; Lymphocytes % 8 % (10-50); Monocytes % 3 % (2-9); Neutrophils % 89 % (42-76); Platelet Estimate Normal; Total Cells Counted 100
[2024-02-29 18:55] LABS: Thyroid Stimulating Hormone 0.85 uIU/mL (0.465-4.68)
[2024-02-29] MEDS: MAGNESIUM SULFATE IN WATER 2 GM/50 ML PIGGYBACK IV (19:02)
[2024-02-29] MEDS: HYDROMORPHONE 2MG/ML SYRINGE 0.5 MG IV (19:05)
[2024-02-29] MEDS: MAGNESIUM OXIDE 400MG TABLET 800 MG PO (19:07)
[2024-02-29 19:49] LABS: Microscopic, Urine URINE MICROSCOPIC (MICROSCOPIC)
[2024-02-29 19:56] LABS: Appearance,Urine CLEAR (Clear); Bilirubin,Urine Negative (Negative); Blood, Urine Negative (Negative); Color,Urine YELLOW (Yellow); Glucose,Urine (UA) Negative (Negative); Ketones,Urine Negative (Negative); Leukocyte Esterase,Urine TRACE (Negative); Nitrate,Urine Negative (Negative); Protein,Urine Negative (Negative); Urobilinogen,Urine 0.2 EU/dl (0.2)
[2024-02-29 20:07] LABS: Lactic Acid 3.3 mmol/L (0.7-2.1)
--- NOTE | 2024-02-29 20:19 | PC.NURSE ---
Lactate level resulted as 3.3- Reported this to RACHELLE Mendez to go along with severe sepsis risk. No new orders
--- NOTE | 2024-02-29 20:25 | PC.NURSE ---
spoke with [facility] for a consult with vascular, vascular will call back when available.
[2024-02-29 20:44] LABS: Chloride 106 mmol/L (98-107); Potassium 3.9 mmoL/L (3.5-5.1); Sodium 134 mmol/L (136-145)
[2024-02-29 20:45] LABS: Squamous Epithelial Cell,Urine Occasional #/hpf (0-5)
[2024-02-29 20:47] LABS: Anion Gap 12.9 mEq/L (5-15); Blood Urea Nitrogen 51 mg/dl (9-20); Calcium 7.3 mg/dl (8.4-10.2); Carbon Dioxide 19 mmol/L (22.0-30.0); Creatinine Clearance Estimated 29 mL/min (50-200); Estimated Glomerular Filt Rate 32 ml/min (>60); GFR (African American) 38 ML/MIN (>60); Glucose 123 mg/dl (74-100)
[2024-02-29 20:48] LABS: Magnesium 1.2 mg/dl (1.6-2.3)
--- NOTE | 2024-02-29 20:51 | PC.NURSE ---
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
--- NOTE | 2024-02-29 20:52 | EXP.HP ---
History of Present Illness *Admission Date: 02/29/24 *Reason for visit:: [place] *History of present illness: This is a 68yo M with PMHx of hypertension, hyperlipidemia, prostate cancer and remission after radiation therapy, atrial fibrillation on Xarelto, who initially came with back pain. Patient has been seen in the emergency department twice and PCP. Patient was advised to follow-up with spine surgery again nonemergent MRI. However during this evaluation, patient presented with mild distress, tachycardic, dehydration. Initial ED the workup findings was consistent with acute kidney injury and severe hypomagnesemia. Admitted for further treatment and management. [facility] Disclaimer: The information contained in this section may have been updated after the patient was seen, as this information can be updated by other users. Medical History Acute exacerbation of chronic obstructive pulmonary disease Atrial fibrillation Atrial fibrillation with rapid ventricular response Atrial fibrillation with rapid ventricular response COPD (chronic obstructive pulmonary disease) (~09/17/22) DVT (deep venous thrombosis) Elevated troponin GERD (gastroesophageal reflux disease) HTN (hypertension) Hx of prostatic malignancy Hypomagnesemia Immunocompromised Pneumonia Pneumonia Prostate cancer (~09/17/22) SOB (shortness of breath) Surgical History H/O hernia repair H/O splenectomy S/P TURP Family History Mother , Mother at the age of 73 from sepsis Severe sepsis with septic shock Father , Father at the age of 57 from throat cancer Throat cancer Social History (Updated 02/29/24 @ 21:42 by Ping Connolly RN) Smoking Status: Former smoker alcohol intake: current alcohol intake frequency: a few times a month substance use type: denies use current occupational status: employed Travel in the last 8 weeks: None household members: spouse housing: house Review of Systems Review of Systems Review of systems:: pertinent systems reviewed and negative unless documented below Meds Home Medications and Allergies Home Medications Medication Instructions Recorded Confirmed Type atorvastatin 40 mg tablet 40 mg PO HS 02/29/24 02/29/24 History bicalutamide 50 mg tablet 50 mg PO DAILY Prostate Cancer 02/29/24 02/29/24 History budesonide 160 mcg-glycopyr 9 2 inh inhalation BID 02/29/24 02/29/24 History mcg-formot 4.8 mcg/actuation HFA inhaler (Breztri Aerosphere) diltiazem HCl 120 mg tablet 120 mg PO DAILY 02/29/24 02/29/24 History nifedipine 30 mg tablet,extended 30 mg PO DAILY 02/29/24 02/29/24 History release omeprazole 40 mg capsule,delayed 40 mg PO DAILY 02/29/24 02/29/24 History release rivaroxaban 10 mg tablet (Xarelto) 10 mg PO DAILY 02/29/24 02/29/24 History New Prescriptions to Start Prescriptions: Allergies Allergy/AdvReac Type Severity Reaction Status Date / Time No Known Allergies Allergy Verified 10/13/23 09:09 Exam Data for Last 24 hours Vital signs and Labs for Last 24 Hours: Temp Pulse Resp BP Pulse Ox O2 Del Method 98.2 F 76 19 112/62 98 Room Air 02/29/24 17:33 02/29/24 20:16 02/29/24 20:16 02/29/24 20:16 02/29/24 20:16 02/29/24 20:00 Laboratory Results - last 24 hr 02/29/24 17:52: WBC 19.5 H, RBC 3.88 L, Hgb 13.6 L, Hct 38.6 L, MCV 99.5 H, MCH 34.9 H, MCHC 35.1, RDW 14.3, Plt Count 464 H, MPV 8.8, Neut % (Auto) 91.7 H, Lymph % (Auto) 4.8 L, [place] % (Auto) 2.4, Eos % (Auto) 1.0, Baso % (Auto) 0.1, Neut # (Auto) 17.9 H, Lymph # (Auto) 0.9, [place] # (Auto) 0.5, Eos # (Auto) 0.2, Baso # (Auto) 0.0, Total Counted 100, Neutrophils % (Manual) 89 H, Lymphocytes % (Manual) 8 L, Monocytes % (Manual) 3, Platelet Estimate Normal, RBC Morphology Not Reportable, Acanthocytes (Spur) 1+, PT 14.0 H, INR 1.32 H, Sodium 136, Potassium 4.1, Chloride 104, Carbon Dioxide 18 L, Anion Gap 18.1 H, BUN 58 H, Creatinine 2.80 H, Estimated Creat Clear 22, Estimated GFR 23 L, Est GFR ( Amer) 27 L, Glucose 134 H, Calcium 8.5, Magnesium 0.5 L, Total Bilirubin 0.7, AST 32, ALT 37, Alkaline Phosphatase 49, Total Creatine Kinase 60, Troponin I < 0.01, Total Protein 7.4, Albumin 4.1, Globulin 3.3 H, Albumin/Globulin Ratio 1.2, Lipase 90, TSH 0.85 02/29/24 19:41: Urine Color Yellow, Urine Appearance Clear, Urine pH 6.0, Ur Specific [place] 1.010, Urine Protein Negative, Urine Glucose (UA) Negative, Urine Ketones Negative, Urine Blood Negative, Urine Nitrate Negative, Urine Bilirubin Negative, Urine Urobilinogen 0.2, Ur Leukocyte Esterase Trace, Urine RBC None, Urine WBC 5-10, Ur Squamous Epith Cells Occasional, Urine Bacteria None 02/29/24 19:43: Lactate 3.3 H 02/29/24 20:14: Sodium 134 L, Potassium 3.9, Chloride 106, Carbon Dioxide 19 L, Anion Gap 12.9, BUN 51 H, Creatinine 2.10 H D, Estimated Creat Clear 29, Estimated GFR 32 L, Est GFR ( Amer) 38 L D, Glucose 123 H, Calcium 7.3 L, Magnesium 1.2 L D Temp Pulse Resp BP Pulse Ox O2 Del Method O2 Flow Rate 97.6 F 65 18 121/68 97 Nasal Cannula 2 09/08/23 15:28 09/08/23 16:00 09/08/23 15:28 09/08/23 15:28 09/08/23 15:28 09/08/23 15:28 09/08/23 15:28 Laboratory Results - last 24 hr 09/08/23 08:58: WBC 35.8 H*, RBC 4.76, Hgb 15.6, Hct 48.0, MCV 100.8 H, MCH 32.8 H, MCHC 32.5, RDW 14.0, Plt Count 372, MPV 9.5, Neut % (Auto) 90.9 H, Lymph % (Auto) 5.2 L, [place] % (Auto) 2.5, Eos % (Auto) 1.1, Baso % (Auto) 0.2, Neut # (Auto) 32.6 H, Lymph # (Auto) 1.9, [place] # (Auto) 0.9, Eos # (Auto) 0.4, Baso # (Auto) 0.1, Total Counted 100, Neutrophils % (Manual) 81 H, Lymphocytes % (Manual) 15, Monocytes % (Manual) 4, Platelet Estimate Normal, Macrocytosis 1+, Sodium 141, Potassium 3.6, Chloride 102, Carbon Dioxide 27, Anion Gap 15.6 H, BUN 29 H, Creatinine 1.20, Estimated Creat Clear 52, Estimated GFR 60, Est GFR ( Amer) 73, Glucose 132 H, Calcium 9.6, Phosphorus 3.1, Magnesium 1.7, Total Bilirubin 1.2, AST 37, ALT 29, Alkaline Phosphatase 72, Troponin I 0.05 H, NT-Pro-B Natriuret Pep 4760 H, Total Protein 8.5 H D, Albumin 4.6, Globulin 3.9 H, Albumin/Globulin Ratio 1.2, TSH 2.67, Free T4 1.21 09/08/23 09:05: VBG pH 7.33, VBG pCO2 44.3, VBG pO2 28.9, VBG HCO3 23.0, VBG Total CO2 24.4, VBG O2 Saturation 54.3, VBG Base Excess -2.9 L 09/08/23 10:01: SARS-CoV-2 (PCR) Not detected, Influenza A Untype (PCR) Not detected, Influenza Type B (PCR) Not detected 09/08/23 11:35: Troponin I 0.05 H 09/08/23 13:27: Troponin I 0.05 H I & O for Last 24 hours: Intake & Output 02/26/24 02/27/24 02/28/24 02/29/24 23:59 23:59 23:59 23:59 Weight 61.689 kg Intake & Output 09/05/23 09/06/23 09/07/23 09/08/23 23:59 23:59 23:59 23:59 Weight 60.101 kg Constitutional Constitutional: no acute distress *Routine HEENT Exam Head: Present normocephalic Eye: Present EOMI and PERRL ENT: Present mucous membranes moist *Routine Neck Exam Neck: Present supple; Absent lymphadenopathy *Routine Respiratory Exam Respiratory: Present CTA bilaterally *Routine Cardiovascular Exam Cardiovascular: Present Normal S1, Normal S2 and irregularly irregular *Routine Abdominal Exam Abdominal: Present soft and normoactive bowel sounds; Absent tenderness *Routine Rectal Exam Rectal:: deferred *Routine Genitalia Exam Genitalia:: deferred *Routine Extremities Exam Extremities: Absent cyanosis, clubbing or edema *Routine Skin Exam Skin: Present warm; Absent rash *Routine Neurological Exam Neurological: Present alert and oriented X3 H&P: Result Imaging and Cardiology EKG: Status: image reviewed by me, Preliminary report and final report CT scan - abdomen: Status: image reviewed by me, Preliminary report and final report CT scan - pelvis: Status: image reviewed by me, Preliminary report and final report Assessment and Plan *Assessment and plan (1) HENRIETTA (acute kidney injury): Status: Resolved Category: Medical Code(s): N17.9 - Acute kidney failure, unspecified (2) Hypomagnesemia: Status: Inactive Category: Medical Code(s): E83.42 - Hypomagnesemia (3) Atrial fibrillation with rapid ventricular response: Status: Inactive Category: Medical Code(s): I48.91 - Unspecified atrial fibrillation (4) Hx of prostatic malignancy: Status: Acute Category: Medical Code(s): Z85.46 - Personal history of malignant neoplasm of prostate (5) HTN (hypertension): Status: Acute Qualifiers: Hypertension type: primary hypertension Qualified Code(s): I10 - Essential (primary) hypertension Category: Medical Code(s): I10 - Essential (primary) hypertension (6) COPD (chronic obstructive pulmonary disease): Status: Acute Qualifiers: COPD type: unspecified COPD Qualified Code(s): J44.9 - Chronic obstructive pulmonary disease, unspecified Category: Medical Code(s): J44.9 - Chronic obstructive pulmonary disease, unspecified (7) Pain of lumbar spine: Status: Acute Category: Medical Code(s): M54.50 - Low back pain, unspecified Plan 68yo M with PMHx of hypertension, hyperlipidemia, prostate cancer and remission after radiation therapy, atrial fibrillation on Xarelto, who initially came with back pain. On arrival he was found on A-fib with rapid response. Acute kidney injury with elevated creatinine above baseline, severe hypomagnesemia, CBC was concerning for leukocytosis, suspect reactive. Initial intervention included IV fluid bolus. Heart rate responded to therapy. ED request bed for admit. Discussion was made the above findings. Medicine agreeable. Plan as follow: HENRIETTA hyponatremia Hypomagnesemia -Potassium 3.9 on admission, Na 134, magnesium 0.5 on admission, creatinine 2.80 (baseline normal at less than 1). -started on Mg oral 800mg BID after initial 2g replaced. -Repeat labs ordered for this afternoon and in the morning with CMP and magnesium in the morning. Monitor for improvement after fluids -Suspect prerenal and secondary to dehydration -Caution with nephrotoxins A-fib with RVR. Improved rate after crystalloid bolus -resume cardizem 120ng daily to maintain rate control. -Already anticoagulated with Xarelto History of prostate cancer -Continue home bicalutamide -Denies any symptoms at this time -HTN and COPD not on exacerbation. stable. on RA. cont monitor resume nifedipine -PAin lumbar spine: Improved after oxycodone pain management. advised to follow up as outpatient with spine surgery. Recommended non emergent MRI Full code Cardiac diet Rounded on patient after nurse practitioner. Personally examined and interviewed patient. Agree with exam findings and care plan as documented.
[2024-02-29] MEDS: 0.9 % SODIUM CHLORIDE 1000ML 1,000 ML 125 ML IV (20:57)
--- NOTE | 2024-02-29 20:59 | PC.NURSE ---
Attempted report at this time. No answer. Will give another call in 5 min
--- NOTE | 2024-02-29 21:03 | PC.NURSE ---
Attempted report again with no answer to receiving RN. Contacting 2nd floor charge
--- NOTE | 2024-02-29 21:12 | PC.NURSE ---
Report given at this time. Awaiting transportation
[2024-02-29] MEDS: DOCUSATE SODIUM 100 MG CAPSULE PO (21:31)
[2024-02-29 21:34] LABS: Troponin I < 0.01 ng/ml (0.00-0.034)
[2024-02-29 23:24] LABS: Reflex Lactic Add Lactic Reflex
[2024-02-29 23:59] LABS: Lactic Acid Follow Up (RFLX 1) 2.9 mmol/L (0.7-2.1)
[2024-03-01] VITALS (9 sets, daily range): BP systolic 114–130; BP diastolic 59–85; PULSE 63–100; RESP 16–24; TEMP 36.3–37.1; O2SAT 96–100; BMI 18.8
[2024-03-01 00:48] LABS: Troponin I < 0.01 ng/ml (0.00-0.034)
[2024-03-01 01:44] LABS: Reflex Lactic (2 hrs) Add Lactic Reflex
[2024-03-01 02:17] LABS: Lactic Acid Follow up (RFLX 2) 1.6 mmol/L (0.7-2.1)
[2024-03-01] MEDS: 0.9 % SODIUM CHLORIDE 1000ML 1,000 ML 125 ML IV ×3 (04:59→23:55)
[2024-03-01 07:55] LABS: Eosinophils # 0.1 K/mm3 (0.0-0.4); Eosinophils % 0.5 % (0.1-12.0); Hematocrit 38.5 % (42.0-52.0); Hemoglobin 12.4 g/dL (14.1-18.0); Lymphocytes % 6.6 % (10-50); Mean Corpuscular HGB Conc 32.2 g/dL (31.8-35.4); Mean Corpuscular Hemoglobin 32.6 pg (27.0-31.2); Mean Corpuscular Volume 101.5 fl (80-94); Mean Platelet Volume 9.7 fl (7.4-10.4); Monocytes # 0.4 K/mm3 (0.1-1.0); Monocytes % 2.5 % (1.7-9.3); Neutrophils # 13.2 K/mm3 (1.8-7.8); Neutrophils % 90.4 % (37.0-80.0); Platelet Count 452 K/mm3 (142-424); Red Blood Count 3.79 M/mm3 (4.60-6.20); Red Cell Distribution Width 14.1 % (11.5-17.5); White Blood Count 14.6 K/mm3 (4.8-10.8)
[2024-03-01 08:01] LABS: Alanine Aminotransferase 31 U/L (12-78); Albumin Level 3.5 g/dl (3.5-5.0); Albumin/Globulin Ratio 1.3 (1.1-1.8); Alkaline Phosphatase 41 U/L (38-126); Anion Gap 16.3 mEq/L (5-15); Aspartate Amino Transferase 27 U/L (17-59); Bilirubin,Total 0.5 mg/dl (0.2-1.3); Blood Urea Nitrogen 45 mg/dl (9-20); Carbon Dioxide 21 mmol/L (22.0-30.0); Chloride 104 mmol/L (98-107); Creatinine Clearance Estimated 35 mL/min (50-200); Estimated Glomerular Filt Rate 40 ml/min (>60); GFR (African American) 49 ML/MIN (>60); Globulin 2.8 g/dL (1.3-3.2); Glucose 123 mg/dl (74-100); Magnesium 1.3 mg/dl (1.6-2.3); Potassium 4.3 mmoL/L (3.5-5.1); Sodium 137 mmol/L (136-145); Total Protein,Serum 6.3 g/dl (6.3-8.2)
[2024-03-01 08:08] LABS: MANUAL DIFFERENTIAL MANUAL DIFFERENTIAL (MANUAL DIFF)
[2024-03-01 08:30] LABS: Anisocytosis 1+; Lymphocytes % 11 % (10-50); Macrocytosis 1+; Monocytes % 2 % (2-9); Neutrophils % 87 % (42-76); Total Cells Counted 100
[2024-03-01 08:31] LABS: Burr Cells 1+; Platelet Estimate Slight Increase
[2024-03-01] MEDS: dilTIAZem ER 120MG CAPSULE 120 MG PO (09:13)
[2024-03-01] MEDS: MAGNESIUM SULFATE IN WATER 2 GM/50 ML PIGGYBACK IV ×2 (09:13→13:47)
[2024-03-01] MEDS: DOCUSATE SODIUM 100 MG CAPSULE PO (09:13)
[2024-03-01] MEDS: NIFEdipine XL 30MG TABLET 30 MG PO (09:14)
[2024-03-01] MEDS: RIVAROXABAN 10MG TABLET 10 MG PO (09:14)
[2024-03-01] MEDS: GLYCOPYRROLATE IH ×2 (09:56→20:08)
[2024-03-01] MEDS: BICALUTAMIDE 50 MG 50 EACH PO (09:56)
[2024-03-01] MEDS: FORMOTEROL IH ×2 (09:56→20:08)
[2024-03-01] MEDS: BUDESONIDE IH ×2 (09:56→20:08)
[2024-03-01] MEDS: MAGNESIUM OXIDE 400MG TABLET 800 MG PO (09:57)
[2024-03-01 14:16] LABS: Basophils % 0.2 % (0.1-2.0); Eosinophils # 0.3 K/mm3 (0.0-0.4); Eosinophils % 1.6 % (0.1-12.0); Hematocrit 39.7 % (42.0-52.0); Hemoglobin 13.1 g/dL (14.1-18.0); Lymphocytes # 1.1 K/mm3 (0.7-4.5); Lymphocytes % 5.8 % (10-50); Mean Corpuscular HGB Conc 33.1 g/dL (31.8-35.4); Mean Corpuscular Volume 99.8 fl (80-94); Mean Platelet Volume 9.3 fl (7.4-10.4); Monocytes # 0.6 K/mm3 (0.1-1.0); Monocytes % 3.3 % (1.7-9.3); Neutrophils # 16.8 K/mm3 (1.8-7.8); Neutrophils % 89.1 % (37.0-80.0); Platelet Count 428 K/mm3 (142-424); Red Blood Count 3.98 M/mm3 (4.60-6.20); Red Cell Distribution Width 14.2 % (11.5-17.5); White Blood Count 18.9 K/mm3 (4.8-10.8)
[2024-03-01 14:28] LABS: Chloride 106 mmol/L (98-107); Potassium 3.9 mmoL/L (3.5-5.1); Sodium 136 mmol/L (136-145)
[2024-03-01 14:31] LABS: Anion Gap 16.9 mEq/L (5-15); Blood Urea Nitrogen 43 mg/dl (9-20); Calcium 8.5 mg/dl (8.4-10.2); Carbon Dioxide 17 mmol/L (22.0-30.0); Creatinine Clearance Estimated 35 mL/min (50-200); Estimated Glomerular Filt Rate 40 ml/min (>60); GFR (African American) 49 ML/MIN (>60); Glucose 128 mg/dl (74-100); Magnesium 2.2 mg/dl (1.6-2.3)
[2024-03-01] MEDS: LEVOFLOXACIN/D5W 750 MG/150 ML 750 MG/150 ML PIGGYBACK 100 MG IV (16:26)
--- NOTE | 2024-03-01 18:05 | PC.NURSE ---
Alert & oriented x4 this shift. Tolerating room air well. Patient treated with mag per MAR and 1400 labs shown improvement. States back pain has improved, but is still having pain. Offered medications for pain but patient denied. Tolerating NS at 125 mls/hr well. Patient has ambulated on the floor a few times today and took a shower. No new complaints. Call light within reach.
--- NOTE | 2024-03-01 18:31 | EXP.ACUTE.PN ---
Subjective *Date: 03/01/24 *Time: 19:34 Interval history: Patient feeling better this morning. Back pain responded well to opiate therapy. Kidney functions showing improvement on morning labs. White cell count still elevated. Stable on room air. Denies chest pain, nausea, vomiting, dysuria, flank pain. Complains of just feeling weak. No increase shortness of breath from baseline. Medical Exam Vital signs and Labs for Last 24 Hours: Vital Signs Temp Pulse Pulse Resp BP BP Pulse Ox 03/01/24 17:00 03/01/24 16:00 90 03/01/24 16:00 97.6 F 78 16 118/59 L 98 03/01/24 15:00 03/01/24 13:10 03/01/24 12:00 100 H 03/01/24 11:42 97.4 F L 73 20 122/74 100 03/01/24 11:00 03/01/24 09:05 03/01/24 09:00 100 03/01/24 08:00 90 03/01/24 08:00 98.8 F 75 24 130/74 100 03/01/24 06:33 03/01/24 05:49 88 03/01/24 04:38 03/01/24 04:00 97.9 F 80 16 117/82 97 03/01/24 04:00 80 03/01/24 03:00 03/01/24 01:00 03/01/24 00:00 98.4 F 77 18 114/60 99 02/29/24 23:00 02/29/24 21:45 02/29/24 21:35 02/29/24 21:35 98.4 F 78 17 115/67 97 02/29/24 21:13 98.2 F 73 14 108/66 L 02/29/24 21:00 74 14 108/66 L 94 L 02/29/24 20:58 80 02/29/24 20:45 69 14 96/61 L 94 L 02/29/24 20:30 74 16 92/63 L 96 02/29/24 20:16 76 19 112/62 98 02/29/24 20:00 60 20 96/60 L 98 02/29/24 19:45 84 17 104/76 L 97 02/29/24 19:30 84 17 96/56 L 97 02/29/24 19:15 82 18 107/63 L 95 02/29/24 19:00 80 20 110/64 96 02/29/24 18:45 70 20 109/71 L 96 02/29/24 18:34 94 H 14 111/64 98 O2 Del Method 03/01/24 17:00 Room Air 03/01/24 16:00 03/01/24 16:00 Room Air 03/01/24 15:00 Room Air 03/01/24 13:10 Room Air 03/01/24 12:00 03/01/24 11:42 Room Air 03/01/24 11:00 Room Air 03/01/24 09:05 Room Air 03/01/24 09:00 Room Air 03/01/24 08:00 03/01/24 08:00 Room Air 03/01/24 06:33 Room Air 03/01/24 05:49 03/01/24 04:38 Room Air 03/01/24 04:00 Room Air 03/01/24 04:00 03/01/24 03:00 Room Air 03/01/24 01:00 Room Air 03/01/24 00:00 Room Air 02/29/24 23:00 Room Air 02/29/24 21:45 Room Air 02/29/24 21:35 Room Air 02/29/24 21:35 Room Air 02/29/24 21:13 Room Air 02/29/24 21:00 Room Air 02/29/24 20:58 02/29/24 20:45 Room Air 02/29/24 20:30 Room Air 02/29/24 20:16 02/29/24 20:00 Room Air 02/29/24 19:45 Room Air 02/29/24 19:30 Room Air 02/29/24 19:15 Room Air 02/29/24 19:00 Room Air 02/29/24 18:45 Room Air 02/29/24 18:34 Room Air Intake and Output 03/01/24 03/01/24 03/01/24 07:59 15:59 23:59 Intake Total 480 / 990 510 / 990 Output Total 910 / 1735 825 / 1735 Balance -910 / -745 -345 / -745 510 / -745 Intake: Intake, Oral Amount 480 / 990 510 / 990 Output: Output, Urine Amount 910 / 1735 825 / 1735 Other: Number of Unmeasured Voids 0 1 Weight 59.87 kg Patient Weight 03/01/24 23:59 Weight 59.87 kg Laboratory Results - last 24 hr 02/29/24 17:52: Total Counted 100, Neutrophils % (Manual) 89 H, Lymphocytes % (Manual) 8 L, Monocytes % (Manual) 3, Platelet Estimate Normal, RBC Morphology Not Reportable, Acanthocytes (Spur) 1+, PT 14.0 H, INR 1.32 H, Magnesium 0.5 L, Troponin I < 0.01, Lipase 90, TSH 0.85 02/29/24 19:41: Urine Color Yellow, Urine Appearance Clear, Urine pH 6.0, Ur Specific [place] 1.010, Urine Protein Negative, Urine Glucose (UA) Negative, Urine Ketones Negative, Urine Blood Negative, Urine Nitrate Negative, Urine Bilirubin Negative, Urine Urobilinogen 0.2, Ur Leukocyte Esterase Trace, Urine RBC None, Urine WBC 5-10, Ur Squamous Epith Cells Occasional, Urine Bacteria None 02/29/24 19:43: Lactate 3.3 H 02/29/24 20:14: Sodium 134 L, Potassium 3.9, Chloride 106, Carbon Dioxide 19 L, Anion Gap 12.9, BUN 51 H, Creatinine 2.10 H D, Estimated Creat Clear 29, Estimated GFR 32 L, Est GFR ( Amer) 38 L D, Glucose 123 H, Calcium 7.3 L, Magnesium 1.2 L D, Troponin I < 0.01 02/29/24 23:37: Lactate 2.9 H 03/01/24 00:20: Troponin I < 0.01 03/01/24 02:00: Lactate 1.6 03/01/24 06:55: WBC 14.6 H D, RBC 3.79 L, Hgb 12.4 L, Hct 38.5 L, MCV 101.5 H, MCH 32.6 H, MCHC 32.2, RDW 14.1, Plt Count 452 H, MPV 9.7, Neut % (Auto) 90.4 H, Lymph % (Auto) 6.6 L, [place] % (Auto) 2.5, Eos % (Auto) 0.5, Baso % (Auto) 0.0 L, Neut # (Auto) 13.2 H, Lymph # (Auto) 1.0, [place] # (Auto) 0.4, Eos # (Auto) 0.1, Baso # (Auto) 0.0, Total Counted 100, Neutrophils % (Manual) 87 H, Lymphocytes % (Manual) 11, Monocytes % (Manual) 2, Platelet Estimate Slight increase, Anisocytosis 1+, Macrocytosis 1+, [place] Cells 1+, Sodium 137, Potassium 4.3, Chloride 104, Carbon Dioxide 21 L, Anion Gap 16.3 H, BUN 45 H, Creatinine 1.70 H, Estimated Creat Clear 35, Estimated GFR 40 L, Est GFR ( Amer) 49 L D, Glucose 123 H, Calcium 8.0 L, Magnesium 1.3 L, Total Bilirubin 0.5, AST 27, ALT 31, Alkaline Phosphatase 41, Total Protein 6.3, Albumin 3.5 D, Globulin 2.8, Albumin/Globulin Ratio 1.3 03/01/24 14:00: WBC 18.9 H D, RBC 3.98 L, Hgb 13.1 L, Hct 39.7 L, MCV 99.8 H, MCH 33.0 H, MCHC 33.1, RDW 14.2, Plt Count 428 H, MPV 9.3, Neut % (Auto) 89.1 H, Lymph % (Auto) 5.8 L, [place] % (Auto) 3.3, Eos % (Auto) 1.6, Baso % (Auto) 0.2, Neut # (Auto) 16.8 H, Lymph # (Auto) 1.1, [place] # (Auto) 0.6, Eos # (Auto) 0.3, Baso # (Auto) 0.0, Sodium 136, Potassium 3.9, Chloride 106, Carbon Dioxide 17 L, Anion Gap 16.9 H, BUN 43 H, Creatinine 1.70 H, Estimated Creat Clear 35, Estimated GFR 40 L, Est GFR ( Amer) 49 L, Glucose 128 H, Calcium 8.5, Magnesium 2.2 D I & O for Labs for Last 24 Hours: Intake & Output 02/27/24 02/28/24 02/29/24 03/01/24 23:59 23:59 23:59 23:59 Intake Total 990 / 990 Output Total 50 / 260 1735 / 1735 Balance -50 / -260 -745 / -745 Weight 59.874 kg 59.87 kg Constitutional: Present no acute distress, thin, chronically ill appearing and cooperative Head: Present atraumatic and normocephalic ENT: Present normal exam Neck: Present normal inspection Respiratory: Present distant breath sounds and normal respiratory effort; Absent rhonchi, wheezes or crackles Cardiac: Present Reg Rate and Rhythm GI: Present soft and normal bowel sounds; Absent distention or tenderness Extremities: Present normal inspection and full ROM Skin: Present intact; Absent erythema Neuro: Present Grossly Intact, alert, awake, oriented x 3 and moves all extremities Comment:: Minimal tenderness in paraspinal muscles in the lower lumbar region. Assessment and Plan *Assessment and plan (1) EMA (acute kidney injury): Status: Resolved Category: Medical Code(s): N17.9 - Acute kidney failure, unspecified (2) Hypomagnesemia: Status: Inactive Category: Medical Code(s): E83.42 - Hypomagnesemia (3) Atrial fibrillation with rapid ventricular response: Status: Inactive Category: Medical Code(s): I48.91 - Unspecified atrial fibrillation (4) Hx of prostatic malignancy: Status: Acute Category: Medical Code(s): Z85.46 - Personal history of malignant neoplasm of prostate (5) HTN (hypertension): Status: Acute Qualifiers: Hypertension type: primary hypertension Qualified Code(s): I10 - Essential (primary) hypertension Category: Medical Code(s): I10 - Essential (primary) hypertension (6) COPD (chronic obstructive pulmonary disease): Status: Acute Qualifiers: COPD type: unspecified COPD Qualified Code(s): J44.9 - Chronic obstructive pulmonary disease, unspecified Category: Medical Code(s): J44.9 - Chronic obstructive pulmonary disease, unspecified (7) Pain of lumbar spine: Status: Acute Category: Medical Code(s): M54.50 - Low back pain, unspecified Plan 68yo M with PMHx of hypertension, hyperlipidemia, prostate cancer and remission after radiation therapy, atrial fibrillation on Xarelto, who initially came with back pain. On arrival he was found on A-fib with rapid response. Acute kidney injury with elevated creatinine above baseline, severe hypomagnesemia, CBC was concerning for leukocytosis, suspect reactive. Initial intervention included IV fluid bolus. Heart rate responded to therapy. ED request bed for admit. Discussion was made the above findings. Medicine agreeable. Showing improvement this morning. Still has leukocytosis. Magnesium slowly improving. Continue to monitor for 24 more hours. Problems addressed as follows: EMA hyponatremia Hypomagnesemia -Creatinine improved to 1.7, BUN 45. Potassium normalized to 4.3. Magnesium 1.3. Continue IV repletion today. -Repeat BMP ordered for the evening, CMP, magnesium, CBC ordered for the morning. - started on Mg oral 800mg BID -Suspect prerenal and secondary to dehydration -Caution with nephrotoxins A-fib with RVR. Improved rate after crystalloid bolus -resume cardizem 120ng daily to maintain rate control. -Already anticoagulated with Xarelto Leukocytosis -Unclear etiology, worse today on repeat labs in the afternoon. Initiate empiric levofloxacin. Blood cultures pending, obtained prior to initiation of antibiotics -Reviewed abdomen/pelvis CT, no concern for focal source of infection. -No significant respiratory symptoms, if no improvement by morning, will consider chest x-ray. History of prostate cancer -Continue home bicalutamide -Denies any symptoms at this time -HTN and COPD not on exacerbation. stable. on RA. cont monitor resume nifedipine Pain lumbar spine: Improved after oxycodone -Will need outpatient nonemergent MRI -Transition hydrocodone 5 every 6 hours as needed. Monitor for toxicity Full code Cardiac diet Xarelto
[2024-03-01] MEDS: ATORVASTATIN 40MG TABLET 40 MG PO (20:08)
[2024-03-01] MEDS: PANTOPRAZOLE 40MG TABLET 40 MG PO (20:08)
[2024-03-02] VITALS: BP 111/58; PULSE 70; PULSE 78; RESP 16; TEMP 37; O2SAT 99
[2024-03-02 04:00] VITALS: BP 126/78; PULSE 67; PULSE 68; RESP 17; TEMP 36.9; O2SAT 99; BMI 19.5
--- NOTE | 2024-03-02 05:03 | PC.NURSE ---
A/O X 4. SLEPT AT SHORT INTERVALS. BED UNCOMFORTABLE. VITAL SIGNS STABLE/AFEBRILE. TELEMETRY MONITORING ONGOING, AFIB CONTROLLED RATE WITH OCCASSIONAL PVC. DENIES CHEST PAIN OR SOA. ONLY COMPLAINT THIS SHIFT WAS GASTRIC REFLUX AT 1999.
[2024-03-02] MEDS: BUDESONIDE IH (06:40)
[2024-03-02] MEDS: GLYCOPYRROLATE IH (06:40)
[2024-03-02] MEDS: FORMOTEROL IH (06:40)
[2024-03-02 07:14] LABS: Alanine Aminotransferase 25 U/L (12-78); Albumin Level 2.9 g/dl (3.5-5.0); Albumin/Globulin Ratio 1.1 (1.1-1.8); Alkaline Phosphatase 41 U/L (38-126); Anion Gap 11.4 mEq/L (5-15); Aspartate Amino Transferase 33 U/L (17-59); Bilirubin,Total 0.5 mg/dl (0.2-1.3); Blood Urea Nitrogen 33 mg/dl (9-20); Calcium 7.5 mg/dl (8.4-10.2); Carbon Dioxide 21 mmol/L (22.0-30.0); Chloride 106 mmol/L (98-107); Creatinine Clearance Estimated 56 mL/min (50-200); Estimated Glomerular Filt Rate 67 ml/min (>60); GFR (African American) 81 ML/MIN (>60); Globulin 2.6 g/dL (1.3-3.2); Glucose 84 mg/dl (74-100); Magnesium 2.1 mg/dl (1.6-2.3); Potassium 4.4 mmoL/L (3.5-5.1); Sodium 134 mmol/L (136-145); Total Protein,Serum 5.5 g/dl (6.3-8.2)
[2024-03-02 07:18] LABS: Basophils % 0.1 % (0.1-2.0); Eosinophils # 0.1 K/mm3 (0.0-0.4); Eosinophils % 0.8 % (0.1-12.0); Hematocrit 35.7 % (42.0-52.0); Lymphocytes # 2.1 K/mm3 (0.7-4.5); Lymphocytes % 13.6 % (10-50); Mean Corpuscular HGB Conc 32.8 g/dL (31.8-35.4); Mean Corpuscular Hemoglobin 32.1 pg (27.0-31.2); Mean Corpuscular Volume 98.1 fl (80-94); Monocytes % 6.2 % (1.7-9.3); Neutrophils # 12.4 K/mm3 (1.8-7.8); Neutrophils % 79.4 % (37.0-80.0); Platelet Count 435 K/mm3 (142-424); Red Blood Count 3.64 M/mm3 (4.60-6.20); Red Cell Distribution Width 14.4 % (11.5-17.5); White Blood Count 15.6 K/mm3 (4.8-10.8)
[2024-03-02 07:25] LABS: MANUAL DIFFERENTIAL MANUAL DIFFERENTIAL (MANUAL DIFF)
[2024-03-02 08:00] VITALS: BP 111/72; PULSE 90; PULSE 98; RESP 18; TEMP 36.4; O2SAT 98
[2024-03-02] MEDS: 0.9 % SODIUM CHLORIDE 1000ML 1,000 ML 125 ML IV (08:11)
[2024-03-02] MEDS: DOCUSATE SODIUM 100 MG CAPSULE PO (09:23)
[2024-03-02] MEDS: BICALUTAMIDE 50 MG 50 EACH PO (09:23)
[2024-03-02] MEDS: NIFEdipine XL 30MG TABLET 30 MG PO (09:23)
[2024-03-02] MEDS: MAGNESIUM OXIDE 400MG TABLET 800 MG PO (09:23)
[2024-03-02] MEDS: RIVAROXABAN 10MG TABLET 10 MG PO (09:23)
[2024-03-02] MEDS: dilTIAZem ER 120MG CAPSULE 120 MG PO (09:23)
[2024-03-02 09:39] LABS: Lymphocytes % 29 % (10-50); Monocytes % 3 % (2-9); Neutrophils % 68 % (42-76); Platelet Estimate Normal; RBC Morphology Normal; Total Cells Counted 100
--- NOTE | 2024-03-02 10:44 | EXP.DC.SUM ---
General Admission date:: 02/29/24 Discharge date: 03/02/24 HPI HPI HPI: This is a 68yo M with PMHx of hypertension, hyperlipidemia, prostate cancer and remission after radiation therapy, atrial fibrillation on Xarelto, who initially came with back pain. Patient has been seen in the emergency department twice and PCP. Patient was advised to follow-up with spine surgery again nonemergent MRI. However during this evaluation, patient presented with mild distress, tachycardic, dehydration. Initial ED the workup findings was consistent with acute kidney injury and severe hypomagnesemia. Admitted for further treatment and management. Hospital Course Hospital Course Hospital Course: 68yo M with PMHx of hypertension, hyperlipidemia, prostate cancer and remission after radiation therapy, atrial fibrillation on Xarelto, who initially came with back pain. On arrival he was found on A-fib with rapid response. Acute kidney injury with elevated creatinine above baseline, severe hypomagnesemia, CBC was concerning for leukocytosis, suspect reactive. Initial intervention included IV fluid bolus. Heart rate responded to therapy. ED request bed for admit. Discussion was made the above findings. Medicine agreeable. Showed improvement in kidney function during admission. Creatinine normalized. Leukocytosis improving. Continue antibiotics at discharge. Stable for discharge home with follow-up with PCP. Cultures still pending at discharge. Problems addressed as follows: EMA hyponatremia Hypomagnesemia -Kidney injury present on admission. Also noted to have electrolyte disturbances. These improved with gentle hydration. On day of discharge magnesium was 2.1, but sodium 134, creatinine 1.1, BUN 33. Encouraged to avoid NSAIDs to decrease risk for further kidney injury. Suspect NSAID induced injury due to his back pain. Would benefit from repeat labs in 1 to 2 weeks to monitor for stability and kidney function electrolytes. A-fib with RVR. Improved rate after crystalloid bolus Hypertension -Continue home regimen with diltiazem 120mg daily, nifedipine 30 mg daily, Xarelto 10 mg daily. Rate controlled during admission. Leukocytosis -Unclear etiology, fluctuated during admission. 15.6 on day of discharge. Differential includes infection such as COPD exacerbation, UTI reactive due to his kidney injury, related to his prostate cancer history. Cultures pending. Started on empiric Levaquin. Patient relatively asymptomatic with no fever. Chest imaging negative. No oxygen requirement during admission. Urine unremarkable. Will continue to follow cultures after discharge. Of note, CT abdomen pelvis with no concern for focal source of infection. Of note, blood cultures negative at time of completion of this note (more than 48 hours after being drawn). History of prostate cancer -Continue home bicalutamide, Denies any symptoms at this time COPD not in exacerbation. stable. on RA. Pain lumbar spine: Improved after oxycodone -Will need outpatient nonemergent MRI -Transition hydrocodone 5 every 6 hours as needed. Discharged with short course of pain medication. Exam Data for Last 24 hours Vital signs and Labs for Last 24 Hours: Temp Pulse Resp BP Pulse Ox O2 Del Method 97.6 F 90 18 111/72 98 Room Air 03/02/24 08:00 03/02/24 08:00 03/02/24 08:00 03/02/24 08:00 03/02/24 08:00 03/02/24 08:00 Laboratory Results - last 24 hr 03/01/24 14:00: WBC 18.9 H D, RBC 3.98 L, Hgb 13.1 L, Hct 39.7 L, MCV 99.8 H, MCH 33.0 H, MCHC 33.1, RDW 14.2, Plt Count 428 H, MPV 9.3, Neut % (Auto) 89.1 H, Lymph % (Auto) 5.8 L, [place] % (Auto) 3.3, Eos % (Auto) 1.6, Baso % (Auto) 0.2, Neut # (Auto) 16.8 H, Lymph # (Auto) 1.1, [place] # (Auto) 0.6, Eos # (Auto) 0.3, Baso # (Auto) 0.0, Sodium 136, Potassium 3.9, Chloride 106, Carbon Dioxide 17 L, Anion Gap 16.9 H, BUN 43 H, Creatinine 1.70 H, Estimated Creat Clear 35, Estimated GFR 40 L, Est GFR ( Amer) 49 L, Glucose 128 H, Calcium 8.5, Magnesium 2.2 D 03/02/24 06:33: WBC 15.6 H, RBC 3.64 L, Hct 35.7 L, MCV 98.1 H, MCH 32.1 H, MCHC 32.8, RDW 14.4, Plt Count 435 H, MPV 10.0, Neut % (Auto) 79.4, Lymph % (Auto) 13.6, [place] % (Auto) 6.2, Eos % (Auto) 0.8, Baso % (Auto) 0.1, Neut # (Auto) 12.4 H, Lymph # (Auto) 2.1, [place] # (Auto) 1.0, Eos # (Auto) 0.1, Baso # (Auto) 0.0, Total Counted 100, Neutrophils % (Manual) 68, Lymphocytes % (Manual) 29, Monocytes % (Manual) 3, Platelet Estimate Normal, RBC Morphology Normal, Sodium 134 L, Potassium 4.4, Chloride 106, Carbon Dioxide 21 L, Anion Gap 11.4, BUN 33 H, Creatinine 1.10 D, Estimated Creat Clear 56, Estimated GFR 67, Est GFR ( Amer) 81 D, Glucose 84 D, Calcium 7.5 L, Magnesium 2.1, Total Bilirubin 0.5, AST 33, ALT 25, Alkaline Phosphatase 41, Total Protein 5.5 L, Albumin 2.9 L D, Globulin 2.6, Albumin/Globulin Ratio 1.1 I & O for Last 24 hours: Intake & Output 02/28/24 02/29/24 03/01/24 03/02/24 23:59 23:59 23:59 23:59 Intake Total 4429 / 4429 240 / 240 Output Total 50 / 260 2335 / 2535 1050 / 1050 Balance -50 / -260 2094 / 1894 -810 / -810 Weight 59.874 kg 59.87 kg 62.006 kg Constitutional Constitutional: no acute distress, thin, chronically ill appearing and cooperative *Routine HEENT Exam Head: Present normocephalic Eye: Present EOMI and PERRL ENT: Present mucous membranes moist *Routine Neck Exam Neck: Present supple; Absent lymphadenopathy *Routine Respiratory Exam Respiratory: Present CTA bilaterally; Absent rhonchi, wheezes or crackles Comments: Smoker's cough *Routine Cardiovascular Exam Cardiovascular: Present RRR *Routine Abdominal Exam Abdominal: Present soft and normoactive bowel sounds; Absent tenderness *Routine Rectal Exam Patient deferred: visual exam *Routine Exam Patient deferred: penile exam *Routine Extremities Exam Extremities: Absent cyanosis, clubbing or edema Routine Back/Spine/Pelvis Exam Comments: Minimal pain to palpation in paraspinal lumbar region *Routine Skin Exam Skin: Present warm; Absent rash *Routine Neurological Exam Neurological: Present alert, oriented X3 and moving all extremities; Absent altered mental status Results Data Completed and Pending Labs on day of discharge: Labs from last 24 hours 03/02/24 03/01/24 06:33 14:00 WBC 15.6 H 18.9 H D RBC 3.64 L 3.98 L Hgb 13.1 L Hct 35.7 L 39.7 L MCV 98.1 H 99.8 H MCH 32.1 H 33.0 H MCHC 32.8 33.1 RDW 14.4 14.2 Plt Count 435 H 428 H MPV 10.0 9.3 Neut % (Auto) 79.4 89.1 H Lymph % (Auto) 13.6 5.8 L [place] % (Auto) 6.2 3.3 Eos % (Auto) 0.8 1.6 Baso % (Auto) 0.1 0.2 Neut # (Auto) 12.4 H 16.8 H Lymph # (Auto) 2.1 1.1 [place] # (Auto) 1.0 0.6 Eos # (Auto) 0.1 0.3 Baso # (Auto) 0.0 0.0 Total Counted 100 Neutrophils % (Manual) 68 Lymphocytes % (Manual) 29 Monocytes % (Manual) 3 Platelet Estimate Normal RBC Morphology Normal Sodium 134 L 136 Potassium 4.4 3.9 Chloride 106 106 Carbon Dioxide 21 L 17 L Anion Gap 11.4 16.9 H BUN 33 H 43 H Creatinine 1.10 D 1.70 H Estimated Creat Clear 56 35 Estimated GFR 67 40 L Est GFR ( Amer) 81 D 49 L Glucose 84 D 128 H Calcium 7.5 L 8.5 Magnesium 2.1 2.2 D Total Bilirubin 0.5 AST 33 ALT 25 Alkaline Phosphatase 41 Total Protein 5.5 L Albumin 2.9 L D Globulin 2.6 Albumin/Globulin Ratio 1.1 DS: Diagnosis Discharge Diagnosis (1) EMA (acute kidney injury): Status: Resolved Code(s): N17.9 - Acute kidney failure, unspecified (2) Hypomagnesemia: Status: Inactive Code(s): E83.42 - Hypomagnesemia (3) Atrial fibrillation with rapid ventricular response: Status: Inactive Code(s): I48.91 - Unspecified atrial fibrillation (4) Hx of prostatic malignancy: Status: Acute Code(s): Z85.46 - Personal history of malignant neoplasm of prostate (5) HTN (hypertension): Status: Acute Code(s): I10 - Essential (primary) hypertension Qualifiers: Hypertension type: primary hypertension Qualified Code(s): I10 - Essential (primary) hypertension (6) COPD (chronic obstructive pulmonary disease): Status: Acute Code(s): J44.9 - Chronic obstructive pulmonary disease, unspecified Qualifiers: COPD type: unspecified COPD Qualified Code(s): J44.9 - Chronic obstructive pulmonary disease, unspecified (7) Pain of lumbar spine: Status: Acute Code(s): M54.50 - Low back pain, unspecified (8) Leukocytosis: Status: Acute Code(s): D72.829 - Elevated white blood cell count, unspecified (9) Back pain: Status: Acute Code(s): M54.9 - Dorsalgia, unspecified Qualifiers: Back pain laterality: unspecified Back pain location: low back pain Chronicity: chronic Sciatica presence: unspecified whether sciatica present Qualified Code(s): M54.50 - Low back pain, unspecified; G89.29 - Other chronic pain Meds Home Medications and Allergies Home Medications Medication Instructions Recorded Confirmed Type atorvastatin 40 mg tablet 40 mg PO HS 02/29/24 02/29/24 History bicalutamide 50 mg tablet 50 mg PO DAILY Prostate Cancer 02/29/24 02/29/24 History budesonide 160 mcg-glycopyr 9 2 inh inhalation BID 02/29/24 02/29/24 History mcg-formot 4.8 mcg/actuation HFA inhaler (Breztri Aerosphere) diltiazem HCl 120 mg tablet 120 mg PO DAILY 02/29/24 02/29/24 History nifedipine 30 mg tablet,extended 30 mg PO DAILY 02/29/24 02/29/24 History release omeprazole 40 mg capsule,delayed 40 mg PO DAILY 02/29/24 02/29/24 History release rivaroxaban 10 mg tablet (Xarelto) 10 mg PO DAILY 02/29/24 02/29/24 History hydrocodone 5 mg-acetaminophen 325 1 tab PO Q6HP PRN Moderate To 03/02/24 Rx mg tablet Severe Pain (4-10) 3 days #12 tabs levofloxacin 750 mg tablet 750 mg PO DAILY 3 days #3 tabs 03/02/24 Rx magnesium oxide 400 mg (241.3 mg 400 mg PO DAILY 30 days #30 tabs 03/02/24 Rx magnesium) tablet New Prescriptions to Start Prescriptions: hydrocodone-acetaminophen Rashaad Arreola levofloxacin Rashaad Arreola magnesium oxide Rashaad Arreola Allergies Allergy/AdvReac Type Severity Reaction Status Date / Time No Known Allergies Allergy Verified 10/13/23 09:09 Discharge Plan Disposition Patient Disposition: Home, Self-Care Condition: Fair Discharge Order Discharge Orders: Discharge Order (Routine); Ordered 03/02/24 Ordered By: Rashaad Arreola Follow up Plan Follow up with: Shaq Sevilla MD [Primary Care Provider] - 03/02/24 2:15 pm Prescriptions/Medication Reconciliation: New hydrocodone-acetaminophen 5-325 mg Tablet 1 tab PO Q6HP PRN (Reason: Moderate To Severe Pain (4-10)) 3 Days Qty: 12 0RF magnesium oxide 400 mg (241.3 mg magnesium) Tablet 400 mg PO DAILY 30 Days Qty: 30 0RF levofloxacin 750 mg tablet 750 mg PO DAILY 3 Days Qty: 3 0RF Rx Instructions: first dose 03/03 Continued atorvastatin 40 mg tablet 40 mg PO HS Patient Comments: TAKE ONE TABLET BY MOUTH EVERY DAY bicalutamide 50 mg tablet 50 mg PO DAILY Patient Comments: TAKE ONE TABLET BY MOUTH EVERY DAY nifedipine 30 mg tablet extended release 30 mg PO DAILY Patient Comments: TAKE ONE TABLET BY MOUTH EVERY DAY omeprazole 40 mg capsule,delayed release(DR/EC) 40 mg PO DAILY Patient Comments: TAKE ONE CAPSULE BY MOUTH ONCE DAILY IN THE MORNING FOR stomach diltiazem HCl 120 mg tablet 120 mg PO DAILY Patient Comments: TAKE ONE TABLET BY MOUTH EVERY DAY DIRECTED Xarelto 10 mg tablet 10 mg PO DAILY Patient Comments: TAKE ONE TABLET BY MOUTH EVERY DAY Breztri Aerosphere 160-9-4.8 mcg/actuation HFA aerosol inhaler 2 inh INHALATION BID Patient Comments: INHALE TWO PUFFS BY MOUTH TWICE DAILY Problem Reconciliation Problems Reviewed?: Yes Patient Discharge Instructions ACTIVITY: Continue current activity DIET: continue same diet Stand Alone Forms: [facility] Work Release Patient Instructions: DI for Low Back Pain, DI for Hypomagnesemia, DI for Acute Kidney Injury Providers Primary Care Provider: Shaq Sevilla Admit Provider: Rukhsana Hernandez Attending Provider: Rukhsana Hernandez
[2024-03-02 11:46] VITALS: BP 144/70; PULSE 108; RESP 20; TEMP 36.5; O2SAT 98
--- NOTE | 2024-03-02 12:01 | HMH.PHAINT1 ---
Pharmacy Intervention Comments: DISCHARGE MEDICATION COUNSELING PROVIDED. DISCUSSED STARTING THE FOLLOWING: -NORCO (FOR PAIN, EVERY 6 HOURS NEEDED FOR PAIN, DO NOT HAVE TO TAKE IF NOT IN PAIN, N/V/CONSTIPATION POSSIBLE, MAY CAUSE SEDATION, DONT DRIVE/OPERATE MACHINERY UNTIL YOU KNOW HOW THIS WILL AFFECT YOU.) -LEVOFLOXACIN (ANTIBIOTIC FOR INFECTION, DAILY, START TOMORROW, N/V/D POSSIBLE) -MAGNESIUM (SUPPLEMENT, DAILY, START TOMORROW, DIARRHEA POSSIBLE) PATIENT VERBALIZED NO QUESTIONS AT THIS TIME.
[2024-03-02 13:01] LABS: Hemoglobin 11.7 g/dL (14.1-18.0)
--- NOTE | 2024-03-03 14:55 | CARE MANAGER ---
Called and spoke with patient regarding recent discharge. Patient states that he is doing well, went to f/u appt yesterday and has started all new medication prescribed at discharge. No concerns voiced at time of call.
== END 2024-03-02 12:05 | disposition home or self-care (01) | DRG 683 ==
LOC: ER 18:06 → 2ND 21:05
PROVIDERS: Internal Medicine Adolescent Medicine; Nurse Practitioner Family; Physician Assistant; Admitting Provider Internal Medicine; Emergency Provider Emergency Medicine; PCP Family Medicine; Visit Provider Internal Medicine
DX: N17.9 Acute kidney failure, unspecified (principal); E87.1 Hypo-osmolality and hyponatremia; E83.42 Hypomagnesemia; I10 Essential (primary) hypertension; C61 Malignant neoplasm of prostate; J44.9 Chronic obstructive pulmonary disease, unspecified; M54.50 Low back pain, unspecified; I48.91 Unspecified atrial fibrillation; Z86.718 Personal history of other venous thrombosis and embolism; Z87.891 Personal history of nicotine dependence; M54.9 Dorsalgia, unspecified; G89.29 Other chronic pain; Z79.01 Long term (current) use of anticoagulants
CPT/HCPCS: 36415; 74174; 74176; 80048; 80053; 81001; 82550; 83605; 83690; 83735; 84443; 84484; 85007; 85025; 85610; 87040; 93005; 99291; J0131; J1956; J3475; Q9967

== ENCOUNTER 2024-03-08 12:09 | Outpatient (CLI) | payer MEDICARE, SELFPAY ==
--- NOTE | 2024-03-08 12:14 | XR_ITS ---
FINAL REPORT TECHNIQUE: 5 views CLINICAL HISTORY: severe low back pain no known injury COMPARISON: None FINDINGS: There is no fracture present. There is no malalignment. There is mild anterior osteophyte formation at L2-3 and L3-4. Vertebrae are normal in height. IMPRESSION: No acute process. Reviewed, Interpreted and Dictated by Adam Laws MD Transcribed by Zaynab Mueller Authenticated and [facility]
== END 2024-03-08 23:59 | disposition home or self-care (01) ==
LOC: RAD 12:10
PROVIDERS: PCP Family Medicine; Visit Provider Family Medicine
DX: M54.50 Low back pain, unspecified (principal)
CPT/HCPCS: 72110

== ENCOUNTER 2024-03-28 14:25 | Outpatient (CLI) | payer MEDICARE, SELFPAY ==
--- NOTE | 2024-03-28 14:30 | MR_ITS ---
FINAL REPORT TECHNIQUE: Multiplanar MR without contrast CLINICAL HISTORY: Neck pain when standing for 4 months COMPARISON: None FINDINGS: There is a mild chronic compression fracture at the superior endplate of T1. Cervical vertebrae are normal with normal height and alignment. Cervical spinal cord shows normal signal and contour. C2-3: Mild right neuroforaminal narrowing. No central canal stenosis. C3-4: Minimal annular disc bulge. Mild central canal stenosis. C4-5: Mild annular disc bulge. No central canal stenosis. C5-6: Moderate annular disc bulge. Borderline central canal stenosis. Moderate bilateral neuroforaminal narrowing. C6-7: Unremarkable C7-T1: Unremarkable IMPRESSION: Multilevel degenerative disc disease with mild central canal stenosis as described. Reviewed, Interpreted and Dictated by Alejandra Oseguera MD Transcribed by Zaynab Mueller Authenticated and . [facility]
--- NOTE | 2024-03-28 14:30 | MR_ITS ---
FINAL REPORT TECHNIQUE: Multiplanar MR without contrast CLINICAL HISTORY: Low back pain for 4 weeks COMPARISON: None FINDINGS: Sagittal images show normal vertebral height. Alignment is normal. Marrow signal pattern is unremarkable. L1-2: Unremarkable L2-3: Minimal annular disc bulge. Mild bilateral facet arthropathy. Mild bilateral neuroforaminal narrowing without central canal stenosis. L3-4: Minimal annular disc bulge. Mild bilateral facet arthropathy. Mild bilateral neuroforaminal narrowing without central canal stenosis. L4-5: Minimal annular disc bulge. Mild bilateral facet arthropathy. Mild bilateral neuroforaminal narrowing without central canal stenosis. L5-S1: Unremarkable IMPRESSION: Multilevel degenerative changes as above. Reviewed, Interpreted and Dictated by Alejandra Oseguera MD Transcribed by Zaynab Mueller Authenticated and [facility]
== END 2024-03-28 23:59 | disposition home or self-care (01) ==
LOC: RAD 14:26
PROVIDERS: PCP Family Medicine; Visit Provider Family Medicine
DX: M54.2 Cervicalgia (principal); M54.50 Low back pain, unspecified
CPT/HCPCS: 72141; 72148

== ENCOUNTER 2024-08-25 22:58 | Observation (INO) | payer MEDICARE, SELFPAY ==
--- NOTE | 2024-08-25 22:55 | ECG_ITS ---
APPROVED REPORT Exam: Resting ECG HR:89 bpm ECG Measurements Heart Rate 89 AXES [place] 194 P 78 QRSd 89 QRS 31 QT 391 T 76 QTc 438 Conclusion SINUS RHYTHM MODERATE ST DEPRESSION [0.05+ mV ST DEPRESSION] ABNORMAL ECG UNCONFIRMED REPORT Electronically signed by : NGUYỄN DANIELLE, 08/26/2024 06:49:38
--- NOTE | 2024-08-25 22:59 | HMH.EDGENADL ---
Discharge Plan Disposition Patient Disposition: Admitted Prescriptions Prescriptions: No Action atorvastatin 40 mg tablet 40 mg PO HS Patient Comments: TAKE ONE TABLET BY MOUTH EVERY DAY bicalutamide 50 mg tablet 50 mg PO DAILY Patient Comments: TAKE ONE TABLET BY MOUTH EVERY DAY nifedipine 30 mg tablet extended release 30 mg PO DAILY Patient Comments: TAKE ONE TABLET BY MOUTH EVERY DAY omeprazole 40 mg capsule,delayed release(DR/EC) 40 mg PO DAILY Patient Comments: TAKE ONE CAPSULE BY MOUTH ONCE DAILY IN THE MORNING FOR stomach diltiazem HCl 120 mg tablet 120 mg PO DAILY Patient Comments: TAKE ONE TABLET BY MOUTH EVERY DAY DIRECTED Xarelto 10 mg tablet 10 mg PO DAILY Patient Comments: TAKE ONE TABLET BY MOUTH EVERY DAY Breztri Aerosphere 160-9-4.8 mcg/actuation HFA aerosol inhaler 2 inh INHALATION BID Patient Comments: INHALE TWO PUFFS BY MOUTH TWICE DAILY hydrocodone-acetaminophen 5-325 mg Tablet 1 tab PO Q6HP PRN (Reason: Moderate To Severe Pain (4-10)) 3 Days Qty: 12 0RF magnesium oxide 400 mg (241.3 mg magnesium) Tablet 400 mg PO DAILY 30 Days Qty: 30 0RF levofloxacin 750 mg tablet 750 mg PO DAILY 3 Days Qty: 3 0RF Rx Instructions: first dose 03/03 Referrals Follow up/Referrals: Provider,Referral, MD [Primary Care Provider] - See instructions Clinical Impressions Clinical Impression: Angina pectoris, unstable Print Language Print Language: Korean Discharge ED Provider: Kvng Saldivar General Adult HPI General Chief complaint: Chest Pain Stated complaint: CP Time Seen by Provider: 08/25/24 22:59 History of Present Illness HPI narrative: 69-year-old male with history of prostate cancer in remission, hypertension, COPD, atrial fibrillation on Xarelto presents for chest pain. He reports that the pain is central in nature, relatively severe, nonradiating, has been lasting for about 3 hours. Denies significant shortness of breath. Reports he did have some pain last night as well but it went away. Denies history of AR. Patient reports that he has pretty bad reflux and his pain is much worse with laying down. Related Data Home Medications ?Medication ?Instructions ?Recorded ?Confirmed atorvastatin 40 mg tablet 40 mg PO HS 02/29/24 02/29/24 bicalutamide 50 mg tablet 50 mg PO DAILY Prostate Cancer 02/29/24 02/29/24 budesonide 160 mcg-glycopyr 9 2 inh inhalation BID 02/29/24 02/29/24 mcg-formot 4.8 mcg/actuation HFA inhaler (Breztri Aerosphere) diltiazem HCl 120 mg tablet 120 mg PO DAILY 02/29/24 02/29/24 nifedipine 30 mg tablet,extended 30 mg PO DAILY 02/29/24 02/29/24 release omeprazole 40 mg capsule,delayed 40 mg PO DAILY 02/29/24 02/29/24 release rivaroxaban 10 mg tablet (Xarelto) 10 mg PO DAILY 02/29/24 02/29/24 Previous Rx's ?Medication ?Instructions ?Recorded hydrocodone 5 mg-acetaminophen 325 1 tab PO Q6HP PRN Moderate To 03/02/24 mg tablet Severe Pain (4-10) 3 days #12 tabs levofloxacin 750 mg tablet 750 mg PO DAILY 3 days #3 tabs 03/02/24 magnesium oxide 400 mg (241.3 mg 400 mg PO DAILY 30 days #30 tabs 03/02/24 magnesium) tablet Allergies Allergy/AdvReac Type Severity Reaction Status Date / Time No Known Allergies Allergy Verified 10/13/23 09:09 [facility] Disclaimer: The information contained in this section may have been updated after the patient was seen, as this information can be updated by other users. Medical History Acute exacerbation of chronic obstructive pulmonary disease Atrial fibrillation Atrial fibrillation with rapid ventricular response Atrial fibrillation with rapid ventricular response COPD (chronic obstructive pulmonary disease) (~09/17/22) DVT (deep venous thrombosis) Elevated troponin GERD (gastroesophageal reflux disease) HTN (hypertension) Hx of prostatic malignancy Hypomagnesemia Immunocompromised Pneumonia Pneumonia Prostate cancer (~09/17/22) SOB (shortness of breath) Surgical History H/O hernia repair H/O splenectomy S/P TURP Family History Mother , Mother at the age of 73 from sepsis Severe sepsis with septic shock Father , Father at the age of 57 from throat cancer Throat cancer Social History (Updated 02/29/24 @ 21:42 by Ping Connolly RN) Smoking Status: Former smoker alcohol intake: current alcohol intake frequency: a few times a month substance use type: denies use current occupational status: employed Travel in the last 8 weeks: None household members: spouse housing: house Other Medical History Have you received the Flu Vaccine for this season: No Have you received the Pneumonia Vaccine: No ROS Obtained: Yes All systems reviewed & no additional complaints except as documented Physical Exam General General appearance: alert Comment: Uncomfortable appearing Head Head exam: atraumatic and normocephalic Eye Eye exam: Present normal appearance, PERRL and EOMI ENT ENT exam: Present normal oropharynx and normal external ear exam Neck Neck exam: Present normal inspection and full ROM Chest Chest inspection: Present normal inspection and symmetric chest wall rise; Absent tenderness Respiratory Respiratory exam: Present normal lung sounds bilaterally; Absent respiratory distress Cardiovascular Cardiovascular exam: Present regular rate and normal rhythm Abdominal Exam Abdominal exam: Present soft; Absent distention, tenderness or guarding Extremities Exam Extremities exam: Present normal inspection; Absent edema or joint swelling Back Exam Back exam: Present normal inspection; Absent tenderness Neurological Exam Neurological exam: Present alert and oriented X3; Absent motor sensory deficit Psychiatric Psychiatric exam: Present normal affect and normal mood Skin Skin exam: Present warm, dry and normal color Lymphatic Lymphatic Findings: no adenopathy Medical Decision Making Medical Records Medical records reviewed: Yes I reviewed the patient's medical records. Screening: Per USPSTF and CDC recommendations, given the prevalence of disease in our region, it is our hospital?s policy to screen for HIV and viral Hepatitis for all patients aged 18 and over and those with ongoing risk factors. Denis Inquiry Pt receiving controlled substance: No Denis was queried for this patient: No Vital Signs: 08/25/24 23:02 08/25/24 23:09 08/25/24 23:30 Temperature 98.0 F Temperature Source Oral Pulse Rate 90 Pulse Rate [Left Radial] 90 Respiratory Rate 22 Blood Pressure 160/83 H Blood Pressure [Right Arm] 168/89 H Blood Pressure Mean 111 Blood Pressure Mean [Right Arm] 115 Blood Pressure Source [Right Arm] Automatic Cuff Blood Pressure Position [Right Arm] Sitting 02 Sat by Pulse Oximetry 95 Oxygen Delivery Method Room Air 08/25/24 23:56 08/26/24 00:00 08/26/24 00:30 Temperature Temperature Source Pulse Rate Pulse Rate [Left Radial] Respiratory Rate Blood Pressure 154/82 H 131/72 150/85 H Blood Pressure [Right Arm] Blood Pressure Mean 109 94 103 Blood Pressure Mean [Right Arm] Blood Pressure Source [Right Arm] Blood Pressure Position [Right Arm] 02 Sat by Pulse Oximetry Oxygen Delivery Method 08/26/24 01:00 Temperature Temperature Source Pulse Rate Pulse Rate [Left Radial] Respiratory Rate Blood Pressure 153/75 H Blood Pressure [Right Arm] Blood Pressure Mean 106 Blood Pressure Mean [Right Arm] Blood Pressure Source [Right Arm] Blood Pressure Position [Right Arm] 02 Sat by Pulse Oximetry Oxygen Delivery Method Lab Data Lab results reviewed: Yes I reviewed the patient's lab results. Lab Results 08/25/24 23:00: WBC 12.9 H, RBC 4.28 L, Hgb 13.6 L, Hct 39.5 L, MCV 92.2, MCH 31.8 H, MCHC 34.5, RDW 15.3, Plt Count 437 H, MPV 8.2, Neut % (Auto) 65.3, Lymph % (Auto) 21.1, Amador % (Auto) 6.5, Eos % (Auto) 6.1, Baso % (Auto) 1.0, Neut # (Auto) 8.4 H, Lymph # (Auto) 2.7, Amador # (Auto) 0.8, Eos # (Auto) 0.8 H, Baso # (Auto) 0.1, D-Dimer 0.80 H, Sodium 138, Potassium 3.4 L, Chloride 102, Carbon Dioxide 22, Anion Gap 17.4 H, BUN 21 H, Creatinine 1.90 H, Estimated Creat Clear 31, Estimated GFR 35 L, Est GFR ( Amer) 43 L, Glucose 112 H, Calcium 9.5, Total Bilirubin 0.7, AST 20, ALT 13, Alkaline Phosphatase 106, Troponin I < 0.01, Total Protein 7.8 D, Albumin 4.3, Globulin 3.5 H, Albumin/Globulin Ratio 1.2, HIV 1&2 Antibody Rapid Nonreactive 08/26/24 01:43: Troponin I < 0.01 08/25/24 23:00 08/25/24 23:00 Orders (Tests/Meds): ED MEDICATIONS Generic Name Dose Route Start Last Admin Trade Name Freq PRN Reason Stop Dose Admin Nitroglycerin 0.4 mg 08/25/24 23:03 08/25/24 23:59 Nitroglycerin 0.4mg Sl Tablet SL 09/24/24 23:02 0.4 mg Q5MINP PRN Administration Chest Pain Discontinued Medications Generic Name Dose Route Start Last Admin Trade Name Tyree PRN Reason Stop Dose Admin Acetaminophen 1,000 mg 08/25/24 23:03 08/25/24 23:10 Acetaminophen 500mg Tab PO 08/25/24 23:04 1,000 mg ONCE ONE Administration Aspirin 324 mg 08/25/24 23:03 08/25/24 23:10 Aspirin 81mg Chewable Tablet PO 08/25/24 23:04 324 mg ONCE ONE Administration Belladonna Alkaloids 60 ml 08/25/24 23:53 08/25/24 23:59 Belladonna Alkaloids 60 Ml Ml PO 08/25/24 23:54 60 ml ONCE ONE Administration Famotidine 20 mg 08/25/24 23:53 08/25/24 23:59 Famotidine 20mg Tablet PO 08/25/24 23:54 20 mg ONCE ONE Administration ORDERS Category Date Time Status CXR --portable [XR chest portable] Stat Exams 08/25/24 23:04 Completed CBC w/Auto Diff [Complete Blood Count Auto Diff] Stat Lab 08/25/24 23:00 Completed CMP [Comprehensive Metabolic Panel] Stat Lab 08/25/24 23:00 Completed D-Dimer Stat Lab 08/25/24 23:00 Completed HIV (1&2) Antibody Rapid Stat Lab 08/25/24 23:00 Completed Hep C Ab with Reflex to RNA Stat Lab 08/25/24 23:00 Received Troponin I Q3H Lab 08/25/24 23:00 Completed Troponin I Q3H Lab 08/26/24 01:43 Completed EKG Request [ECG Request] Stat Y 08/26/24 01:46 Ordered ECG Data Tracing #1: I reviewed this ECG and interpreted as documented below: Sinus rhythm, regular rate, ST depression in lead V34 and 5, significant baseline artifact limits interpretation. ECG initial impression date: 08/25/24 ECG initial impression time: 22:58 Tracing #2: I reviewed this ECG and interpreted as documented below: Sinus rhythm, rate of 79, previously seen ST depression in V345 appear mildly improved. ECG initial impression date: 08/26/24 ECG initial impression time: 01:47 HEART Score History (anamnesis): Moderately suspicious ECG: Significant ST-deviation Age: >65 years Risk factors: 1-2 risk factors Troponin: </= normal limit HEART Score: 6 Medical Decision Narrative: 69-year-old male with history of hypertension COPD A-fib on Xarelto presents for central chest pain for the last 3 hours.. History was obtained via interactive discussion with patient, family, chart review. On arrival, patient is [afebrile, hemodynamically stable, satting appropriately, alert, oriented x4, GCS 15], moving all extremities spontaneously. Full physical exam performed and significant for no significant physical exam abnormalities. Differential includes but is not limited to ACS, PE, musculoskeletal chest pain, pneumonia, pneumothorax, GERD, esophagitis, Patient was given full dose aspirin and nitro, GI cocktail and Tylenol for symptomatic management and correction of underlying abnormalities. Workup initiated including CBC CMP troponin EKG chest x-ray D-dimer (unable to PERC out secondary to age). EKG shows some subtle ST depression in V345. On re-evaluation, patient [remains afebrile, HD stable.] Patient continues to have some chest pain. Laboratory workup independently interpreted by me and significant for negative troponin x 2, negative D-dimer by Years criteria. Minimal leukocytosis. Creatinine mildly somewhat elevated from baseline. Imaging independently interpreted by me and significant for chronic emphysematous changes, some left-sided increased density. See radiology read for full review of final results. Repeat EKG shows some subtle improvement in ST depressions. Heart score of 6. Patient continues to have chest pain though reports it feels better. Given patient history, exam and workup, patient's presentation most likely represents unstable angina. The chest x-ray was read as possible pneumonia, but given the pain was sudden in onset, patient is not short of breath, not hypoxic, no cough or fever, I feel that an infectious etiology is less likely. I had interactive discussion with patient regarding his presentation. We will admit to the hospitalist service for further evaluation and management.. Procedures Risk/Benefits of Procedure(s) Were Explained: Yes Critical Care Critical Care Time Critical Care Time: No
[2024-08-25 23:02] VITALS: BP 168/89; PULSE 90; RESP 22; TEMP 36.7; O2SAT 95; BMI 18.6
--- NOTE | 2024-08-25 23:04 | XR_ITS ---
PROCEDURE INFORMATION: Exam: XR Chest Exam date and time: 08/25/2024 11:10 PM Age: 69 years old Clinical indication: Pain; Chest pressure; Additional info: Cp TECHNIQUE: Imaging protocol: Radiologic exam of the chest. Views: 1 view. COMPARISON: No relevant prior studies available. FINDINGS: Lungs: Apical lucency bilaterally. Left lower lung hazy infiltrate. Left lower lobe region calcified granuloma measuring 6 mm. Pleural spaces: No pleural effusions. Heart/Mediastinum: Unremarkable. No cardiomegaly. Bones/joints: Unremarkable. Other findings: Rotated examination to the right IMPRESSION: Chronic lung disease. Suspect left lower lobe pneumonia or pneumonitis
[2024-08-25 23:09] VITALS: PULSE 90
[2024-08-25] MEDS: ASPIRIN 81MG CHEWABLE TABLET 324 MG PO (23:10)
[2024-08-25] MEDS: NITROGLYCERIN 0.4MG SL TABLET 0.4 MG SL ×2 (23:10→23:59)
[2024-08-25] MEDS: ACETAMINOPHEN 500MG TAB 1000 MG PO (23:10)
[2024-08-25 23:12] LABS: Basophils # 0.1 K/mm3 (0-0.2); Eosinophils # 0.8 K/mm3 (0.0-0.4); Eosinophils % 6.1 % (0.1-12.0); Hematocrit 39.5 % (42.0-52.0); Hemoglobin 13.6 g/dL (14.1-18.0); Lymphocytes # 2.7 K/mm3 (0.7-4.5); Lymphocytes % 21.1 % (10-50); Mean Corpuscular HGB Conc 34.5 g/dL (31.8-35.4); Mean Corpuscular Hemoglobin 31.8 pg (27.0-31.2); Mean Corpuscular Volume 92.2 fl (80-94); Mean Platelet Volume 8.2 fl (7.4-10.4); Monocytes # 0.8 K/mm3 (0.1-1.0); Monocytes % 6.5 % (1.7-9.3); Neutrophils # 8.4 K/mm3 (1.8-7.8); Neutrophils % 65.3 % (37.0-80.0); Platelet Count 437 K/mm3 (142-424); Red Blood Count 4.28 M/mm3 (4.60-6.20); Red Cell Distribution Width 15.3 % (11.5-17.5); White Blood Count 12.9 K/mm3 (4.8-10.8)
[2024-08-25 23:21] LABS: Alanine Aminotransferase 13 U/L (12-78); Albumin Level 4.3 g/dl (3.5-5.0); Albumin/Globulin Ratio 1.2 (1.1-1.8); Alkaline Phosphatase 106 U/L (38-126); Anion Gap 17.4 mEq/L (5-15); Aspartate Amino Transferase 20 U/L (17-59); Bilirubin,Total 0.7 mg/dl (0.2-1.3); Blood Urea Nitrogen 21 mg/dl (9-20); Calcium 9.5 mg/dl (8.4-10.2); Carbon Dioxide 22 mmol/L (22.0-30.0); Chloride 102 mmol/L (98-107); Creatinine Clearance Estimated 31 mL/min (50-200); Estimated Glomerular Filt Rate 35 ml/min (>60); GFR (African American) 43 ML/MIN (>60); Globulin 3.5 g/dL (1.3-3.2); Glucose 112 mg/dl (74-100); Potassium 3.4 mmoL/L (3.5-5.1); Sodium 138 mmol/L (136-145); Total Protein,Serum 7.8 g/dl (6.3-8.2)
[2024-08-25 23:30] VITALS: BP 160/83
[2024-08-25 23:37] LABS: Troponin I < 0.01 ng/ml (0.00-0.034)
[2024-08-25 23:56] VITALS: BP 154/82
[2024-08-25] MEDS: FAMOTIDINE 20MG TABLET 20 MG PO (23:59)
[2024-08-25] MEDS: BELLADONNA ALKALOIDS 60 ML ML PO (23:59)
[2024-08-26] VITALS (13 sets, daily range): BP systolic 131–175; BP diastolic 69–101; PULSE 77–91; RESP 16–22; TEMP 36.6–36.9; O2SAT 94–97; BMI 17.4
[2024-08-26 00:37] LABS: HIV (1&2) Antibody Rapid NONREACTIVE (NONREACTIVE)
--- NOTE | 2024-08-26 01:45 | PC.NURSE ---
pt reports still having chest pain. RN reports chest pain to MD. New EKG ordered. EKG obtained
--- NOTE | 2024-08-26 01:47 | ECG_ITS ---
APPROVED REPORT Exam: Resting ECG HR:79 bpm ECG Measurements Heart Rate 79 AXES ME 166 P -3 QRSd 83 QRS -5 QT 397 T 30 QTc 432 Conclusion SINUS RHYTHM WITH OCCASIONAL VENTRICULAR PREMATURE COMPLEXES WITH OCCASIONAL SUPRAVENTRICULAR PREMATURE COMPLEXES BORDERLINE ECG UNCONFIRMED REPORT Electronically signed by : NGUYỄN DANIELLE, 08/26/2024 06:49:22
[2024-08-26 02:12] LABS: Troponin I < 0.01 ng/ml (0.00-0.034)
--- NOTE | 2024-08-26 03:04 | PC.NURSE ---
report called to Flora ÁLVAREZ
--- NOTE | 2024-08-26 03:14 | PC.NURSE ---
Patient arrived to floor via wheelchair from ED at 03:13.
[2024-08-26] MEDS: IPRATROPIUM/ALBUTEROL 3 ML NEB IH ×3 (03:45→11:02)
[2024-08-26] MEDS: KETOROLAC 30MG/ML VIAL 15 MG IV (03:45)
--- NOTE | 2024-08-26 03:52 | P.HP_ITS ---
<Statement entered by Shoaib Fuentes MD - 08/28/24 22:46> I personally examined patient and agree with FILLER SHREDDER HELPER's plan of care. History of Present Illness *Admission Date: 08/26/24 *Reason for visit:: Atypical chest wall pain/angina *History of present illness: This patient has been for the last 48 hours has had increased chest wall pain. Versus atypical angina. He denies any new respiratory symptoms of cough but while in the emergency room began to feel chilled , had normal temperature. Patient is a previous smoker for more than 30 years. But quit in 2016, past medical history includes a DVT, doctors talk to him about this and he decided to quit smoking because of, patient also noted for extremely bad teeth, gingivitis untreated. Past medical history include spleenectomy 1985 prostatectomy related to prostate cancer also has had a TURP. History of hypertension with off and on again A-fib and COPD. It is noted in the past scanned that he does have gallstones I have conferred with the ER physician and do agree to admit him., Will need to rule out whether this is cardiac in nature costochondritis, pneumonia referred pain from gallbladder, or possibly something related to his chronic back pain, or related to pleurisy. Patient is medically stable at this time we will place him on the floor start antibiotics and breathing treatments and work with pain relief. Patient noted that he had Toradol and that his pain went from an 8 out of 10 to a 4 out of 10. [facility] Disclaimer: The information contained in this section may have been updated after the patient was seen, as this information can be updated by other users. Medical History Acute exacerbation of chronic obstructive pulmonary disease Atrial fibrillation Atrial fibrillation with rapid ventricular response Atrial fibrillation with rapid ventricular response COPD (chronic obstructive pulmonary disease) (~09/17/22) DVT (deep venous thrombosis) Elevated troponin GERD (gastroesophageal reflux disease) HTN (hypertension) Hx of prostatic malignancy Hypomagnesemia Immunocompromised Pneumonia Pneumonia Prostate cancer (~09/17/22) SOB (shortness of breath) Surgical History H/O hernia repair H/O splenectomy S/P TURP Family History Mother , Mother at the age of 73 from sepsis Severe sepsis with septic shock Father , Father at the age of 57 from throat cancer Throat cancer Social History (Updated 08/26/24 @ 03:39 by Flora Pierre RN) Smoking Status: Former smoker alcohol intake: current alcohol intake frequency: a few times a month substance use type: denies use current occupational status: employed Travel in the last 8 weeks: None household members: spouse housing: house Other Medical History Have you received the Flu Vaccine for this season: Yes Have you received the Pneumonia Vaccine: Yes Review of Systems Review of Systems Review of systems:: pertinent systems reviewed and negative unless documented below Constitutional Constitutional: Reports body ache(s) Comments: Having chills per the patient and the exam while in the emergency room Eyes Eyes: Reports as per HPI ENT Ears, Nose, Mouth, and Throat: Reports as per HPI *Cardiovascular Cardiovascular: Reports as per HPI and Reports chest pain Comments: He describes midsternal constant chest pain *Respiratory Respiratory: Reports as per HPI Comments: He denies respiratory issues *Gastrointestinal Comments: Denies any chest pain without palpation stated have no problems with bowel or bladder control *Genitourinary Genitourinary: Reports as per HPI *Musculoskeletal Musculoskeletal: Reports as per HPI and Reports back pain (Chronic back pain) Integumentary/Breasts Skin/Breast: Reports as per HPI *Neurologic Neurologic: Reports as per HPI Psychiatric Psychiatric: Reports as per HPI Endocrine Endocrine: Reports as per HPI Hematologic/Lymphatic Hematologic/Lymphatic: Reports as per HPI Allergic/Immunologic Allergic/Immunologic: Reports as per HPI Meds Home Medications and Allergies Home Medications ?Medication ?Instructions ?Recorded ?Confirmed ?Type atorvastatin 40 mg tablet 40 mg PO HS 02/29/24 08/26/24 History bicalutamide 50 mg tablet 50 mg PO DAILY Prostate Cancer 02/29/24 08/26/24 History budesonide 160 mcg-glycopyr 9 2 inh inhalation BID 02/29/24 08/26/24 History mcg-formot 4.8 mcg/actuation HFA inhaler (Breztri Aerosphere) diltiazem HCl 120 mg tablet 120 mg PO DAILY 02/29/24 08/26/24 History nifedipine 30 mg tablet,extended 30 mg PO DAILY 02/29/24 08/26/24 History release omeprazole 40 mg capsule,delayed 40 mg PO DAILY 02/29/24 08/26/24 History release rivaroxaban 10 mg tablet (Xarelto) 10 mg PO DAILY 02/29/24 08/26/24 History magnesium oxide 400 mg (241.3 mg 400 mg PO DAILY 30 days #30 tabs 03/02/24 08/26/24 Rx magnesium) tablet New Prescriptions to Start Prescriptions: Allergies Allergy/AdvReac Type Severity Reaction Status Date / Time No Known Allergies Allergy Verified 10/13/23 09:09 Exam Data for Last 24 hours Vital signs and Labs for Last 24 Hours: Temp Pulse Resp BP Pulse Ox O2 Del Method 98.5 F 87 22 168/96 H 96 Room Air 08/26/24 03:04 08/26/24 03:04 08/26/24 03:04 08/26/24 03:04 08/26/24 02:30 08/26/24 03:04 Laboratory Results - last 24 hr 08/25/24 23:00: WBC 12.9 H, RBC 4.28 L, Hgb 13.6 L, Hct 39.5 L, MCV 92.2, MCH 31.8 H, MCHC 34.5, RDW 15.3, Plt Count 437 H, MPV 8.2, Neut % (Auto) 65.3, Lymph % (Auto) 21.1, [place] % (Auto) 6.5, Eos % (Auto) 6.1, Baso % (Auto) 1.0, Neut # (Auto) 8.4 H, Lymph # (Auto) 2.7, [place] # (Auto) 0.8, Eos # (Auto) 0.8 H, Baso # (Auto) 0.1, D-Dimer 0.80 H, Sodium 138, Potassium 3.4 L, Chloride 102, Carbon Dioxide 22, Anion Gap 17.4 H, BUN 21 H, Creatinine 1.90 H, Estimated Creat Clear 31, Estimated GFR 35 L, Est GFR ( Amer) 43 L, Glucose 112 H, Calcium 9.5, Total Bilirubin 0.7, AST 20, ALT 13, Alkaline Phosphatase 106, Troponin I < 0.01, Total Protein 7.8 D, Albumin 4.3, Globulin 3.5 H, Albumin/Globulin Ratio 1.2, HIV 1&2 Antibody Rapid Nonreactive 08/26/24 01:43: Troponin I < 0.01 I & O for Last 24 hours: Intake & Output 08/23/24 08/24/24 08/25/24 08/26/24 23:59 23:59 23:59 23:59 Weight 58.967 kg Radiology Reports for the Last 24 Hours: I have examined the chest x-ray do agree that is probably a left lower lobe pneumonia. Heart size was normal Constitutional Constitutional: mild distress and thin Comments: Has been having 8 out of 10 midsternal chest pain, not complicated by deep breath or palpation. Patient has received Toradol says pain is gone from 8 out of 10 to 4 out of 10 *Routine HEENT Exam Head: Present normocephalic and atraumatic Eye: Present EOMI and PERRL ENT: Present mucous membranes moist Comments: Severe dental disease with his teeth rotted down to the gums., Very bad halitosis *Routine Neck Exam Neck: Present supple and full ROM Comments: No lymphadenopathy or thyroid megaly found Routine Chest/Breast/Axilla Exam Comments: No lymphadenopathy or chest wall tenderness found, I am able to press on the chest the sternum and does not increase chest pain. *Routine Respiratory Exam Respiratory: Present decreased breath sounds, rhonchi, wheezes, distant breath sounds, normal respiratory effort, able to speak in complete sentences and symmetric chest movement Comments: Left lower posterior lung abnormal lung sounds on exam. Harsh and raspy on end expiration *Routine Cardiovascular Exam Cardiovascular: Present RRR, Normal S1, Normal S2 and tachycardia Comments: No rubs or squeaks heard on auscultation *Routine Abdominal Exam Abdominal: Present soft, normoactive bowel sounds and tenderness Comments: Mild generalized tenderness in left lower quadrant also moderate tenderness to deep palpation over gallbladder right upper quadrant *Routine Rectal Exam Rectal:: deferred *Routine Genitalia Exam Genitalia:: deferred *Routine Extremities Exam Comments: Examination of the person's limbs shows that he is able to move all limbs no decrease in range of motion he can bear weight Routine Back/Spine/Pelvis Exam Back/Spine: Present full ROM and CVA tenderness Comments: Patient long history of chronic back pain.. Says sometimes it is stabbing middle of the back almost makes him vomit *Routine Skin Exam Skin: Present intact and warm *Routine Neurological Exam Neurological: Present alert, oriented X3, CN II-XII intact, normal reflexes, normal tone, vision grossly intact, hearing grossly intact and normal speech Comments: No neurological deficits found Routine Psychiatric Exam Psychiatric: Present normal affect, normal thought process, cooperative, good insight and good judgment Additional Findings:: Extremely poor dental care gingivitis with blackened knobs of what used to be as teeth protruding through the gums H&P: Result Impressions 1. Constant chest pains starting approximately 48 hours ago. 2. Left lung pneumonia 3. Severe dental disease with gingivitis, Imaging and Cardiology Chest x-ray: Additional comments: COPD changes with emphysema left lower lung pneumonia Assessment and Plan *Assessment and plan (1) Angina pectoris, unstable: Status: Acute Category: Medical Code(s): I20.0 - Unstable angina (2) COPD (chronic obstructive pulmonary disease): Status: Acute Qualifiers: COPD type: unspecified COPD Qualified Code(s): J44.9 - Chronic obstructive pulmonary disease, unspecified Category: Medical Code(s): J44.9 - Chronic obstructive pulmonary disease, unspecified (3) Pneumonia involving left lung: Status: Acute Category: Medical Code(s): J18.9 - Pneumonia, unspecified organism (4) Right upper quadrant pain: Status: Acute Category: Medical Code(s): R10.11 - Right upper quadrant pain (5) HTN (hypertension): Status: Acute Qualifiers: Hypertension type: primary hypertension Qualified Code(s): I10 - Essential (primary) hypertension Category: Medical Code(s): I10 - Essential (primary) hypertension (6) Back pain: Status: Acute Qualifiers: Back pain laterality: unspecified Back pain location: low back pain Chronicity: chronic Sciatica presence: unspecified whether sciatica present Qualified Code(s): M54.50 - Low back pain, unspecified; G89.29 - Other chronic pain Category: Medical Code(s): M54.9 - Dorsalgia, unspecified Plan 1. #1. chest pain unstable and atypical. Will consult cardiology, continue to monitor labs troponins have been normal at this time, patient is in sinus rhythm. Toradol 15 mg IV given with good results lowering pain by 50%. Will rule out other sources of pain from the gallbladder, pleurisy or costochondritis. , 2. #2 left lung pneumonia will start antibiotics at this time and breathing treatments., 3. #3. terrible dental decay with halitosis, patient is on antibiotics for pneumonia but question possibility of endocarditis. Cardiology has been consulted
[2024-08-26] MEDS: AZITHROMYCIN 250MG TABLET 250 MG PO ×3 (04:14→10:42)
[2024-08-26] MEDS: CEFTRIAXONE SODIUM 2 GM in 0.9 % SODIUM CHLORIDE 100 ML IV (04:15)
--- NOTE | 2024-08-26 05:29 | PC.NURSE ---
Blood cultures and lactic labs were not taken in the ER prior to patient's arrival to the floor. At this time, Keisha MUSTAFA was paged to request orders for blood cultures and a lactic lab to be taken. He stated that he will put these orders in so they can be drawn with the morning labs.
--- NOTE | 2024-08-26 05:33 | PC.NURSE ---
Addendum entered by Flora Pierre RN 08/26/24 05:48: Sputum culture has not been obtained thus far. Patient is aware of expectorating a sputum sample into a specimen cup at the bedside. Original Note: Mr Jayden Cosme was newly admitted this morning on behalf of documented diagnosis of chest pain. He has a history of pneumonia, a splenectomy, prostatectomy and TURP, GERD, chronic back pain, afib, COPD, an EMA, etc. (see list). His admission and home medication reconciliation was completed this shift (Keisha MUSTAFA was notified of completion). He was given a dose of IV Toradol 15mg once this shift; he stated that this medication has relieved some of his chest pain. He reports that his chest pain is primarily localized in the center. His chest x-ray showed chronic lung disease findings and suspected left lower lobe pneumonia. Upon auscultation, the patient's left lung was more diminished compared to the right, S1/S2 heart sounds could be heard, and his bowel sounds were active. Patient was able to ambulate independently with supervision to the bathroom; he tolerated this well. Tooth decay was noticed. He was given a PO azithromycin and an IV Rocephin per DEC this shift. Blood cultures and lactic labs were ordered (see prior note). He also has scheduled breathing treatments; he has had complaints of shortness of air. Oxygen saturations have remained > 90% on room air. At this time, the patient is resting in bed. No acute changes noted. Call light within reach.
[2024-08-26 06:32] LABS: Basophils # 0.1 K/mm3 (0-0.2); Basophils % 0.6 % (0.1-2.0); Eosinophils # 0.2 K/mm3 (0.0-0.4); Eosinophils % 1.4 % (0.1-12.0); Hematocrit 41.8 % (42.0-52.0); Hemoglobin 14.1 g/dL (14.1-18.0); Lymphocytes # 1.6 K/mm3 (0.7-4.5); Lymphocytes % 12.2 % (10-50); Mean Corpuscular HGB Conc 33.7 g/dL (31.8-35.4); Mean Corpuscular Hemoglobin 31.7 pg (27.0-31.2); Mean Platelet Volume 8.5 fl (7.4-10.4); Monocytes # 0.8 K/mm3 (0.1-1.0); Monocytes % 6.1 % (1.7-9.3); Neutrophils # 10.5 K/mm3 (1.8-7.8); Neutrophils % 79.8 % (37.0-80.0); Platelet Count 443 K/mm3 (142-424); Red Blood Count 4.44 M/mm3 (4.60-6.20); Red Cell Distribution Width 15.1 % (11.5-17.5); White Blood Count 13.1 K/mm3 (4.8-10.8)
[2024-08-26 06:50] LABS: Alanine Aminotransferase 18 U/L (12-78); Albumin Level 3.9 g/dl (3.5-5.0); Albumin/Globulin Ratio 1.2 (1.1-1.8); Alkaline Phosphatase 92 U/L (38-126); Anion Gap 15.7 mEq/L (5-15); Aspartate Amino Transferase 20 U/L (17-59); Bilirubin,Total 0.5 mg/dl (0.2-1.3); Blood Urea Nitrogen 18 mg/dl (9-20); Calcium 9.4 mg/dl (8.4-10.2); Carbon Dioxide 22 mmol/L (22.0-30.0); Chloride 104 mmol/L (98-107); Creatinine Clearance Estimated 34 mL/min (50-200); Estimated Glomerular Filt Rate 43 ml/min (>60); GFR (African American) 52 ML/MIN (>60); Globulin 3.2 g/dL (1.3-3.2); Glucose 103 mg/dl (74-100); Magnesium 2.1 mg/dl (1.6-2.3); Potassium 3.7 mmoL/L (3.5-5.1); Sodium 138 mmol/L (136-145); Total Protein,Serum 7.1 g/dl (6.3-8.2)
--- NOTE | 2024-08-26 08:09 | HMH.PHAINT1 ---
Pharmacy Intervention Comments: MEDICATION RECONCILIATION COMPLETED ON PATIENT USING EXTERNAL FILL HISTORY FROM PHARMACY. -STAN HUI, KAYLEED
--- NOTE | 2024-08-26 08:28 | CA_ITS ---
APPROVED REPORT EXAM: Comprehensive 2D, Doppler, and color-flow Echocardiogram Polishing Machine Operator: Isabela Garrett, RCS, RVS Ht: 5 ft 10 in Wt: 121lbs BSA: 1.69 BP: 168/96 mmHg Indications: afib, copd, htn, cp 2D Dimensions Aortic Root 3.04 cm LA Volume 54.20 mL Left Atrium 2.52 cm LA Volume Index 32.10 mL/m2 (M/F) 16-34 RVID Base (AP4) 3.29 cm (M/F) 2.5-4.1 EF AP4 66.50 % LVOT 1.83 cm (M/F) 1.5-2.5 GL Strain -19.3 % M-Mode Dimensions RVDd 2.03 cm (0.9-2.6) LVDd 4.07 cm (3.5-5.7) Ao Diam 3.37 cm (2.0-3.7) LVDs 2.47 cm (3.5-5.7) IVSd 0.91 cm (0.6-1.1) PWd 0.91 cm (0.6-1.1) EF (Teich) 70.20% FS 39.30% EDV (Teich) 72.90 mL TAPSE 1.22 (<1.7) ESV (Teich) 21.70 mL LV Diastology E Decel Time 175 (160-240 msec) E/A Ratio 0.66 MED E' 6.0 (>= 7 cm/sec) MED A' 15.80 cm/s E'/MED E' Ratio 9.28 (<= 14) LAT E' 7.1 (>= 10 cm/sec) LAT A' 12.60 cm/s E/LAT E' Ratio 7.85 (<= 14) Aortic Valve LVOT Max 118.0 (70-110 cm/s) GENA Index 1.43 cm2/m2 LVOT VTI 23.07 cm AoV Peak Hai. 135.0 (50-130 cm/s) AO Mean GR. 3.60 (<5 mmHg) AO VTI 25.2 (18-25 cm) GENA (VTI) 2.41 (2.5-4.5 cm2) Mitral Valve MV E Max Hai. 56.0 (40-130 cm/s) MV A Velocity 84.0 (40-130 cm/s) E/A Ratio 0.66 MV Decel. Time 175 (160-240 ms) MV Mean Gr. 1.20 (<2mmHg) Tricuspid Valve TR P. Velocity 258.00 cm/s RAP Estimate 10.00 mmHg RVSP 36.70 mmHg Left Ventricle The left ventricle is normal size. The left ventricular systolic function is normal. The left ventricular ejection fraction is within the normal range. There is increased LV wall thickness. There is normal LV segmental wall motion. Transmitral Doppler flow pattern suggests impaired LV relaxation. LVEF is 55%. Right Ventricle The right ventricle is normal size. The right ventricular systolic function is normal. Atria The left atrium is mildly dilated. The right atrium size is normal. There is no Doppler evidence of interatrial shunt. Aortic Valve The aortic valve is mildly thickened. There is no aortic valvular stenosis. No aortic regurgitation is present. Mitral Valve The mitral valve is normal in structure. No evidence of mitral valve stenosis. Trace mitral regurgitation. Tricuspid Valve Tricuspid valve is grossly normal in structure and function. Mild tricuspid regurgitation. RVSP is 20-25 mmHg. Pulmonic Valve The pulmonary valve is normal in structure. Trace pulmonic regurgitation. Great Vessels The aortic root is normal in size. IVC is normal in size and collapses >50% with inspiration. Pericardium There is no pericardial effusion. Other Information Study Quality: Fair Conclusion Normal biventricular systolic function. Mild LA dilation. Mild TR. Electronically signed by : Citlali De La Cruz MD 08/26/2024 11:58:08
[2024-08-26] MEDS: ASPIRIN EC 81MG TABLET 81 MG PO (09:20)
[2024-08-26] MEDS: MAGNESIUM OXIDE 400MG TABLET 400 MG PO (09:20)
[2024-08-26] MEDS: dilTIAZem 60MG TABLET 120 MG PO (09:20)
[2024-08-26] MEDS: METOPROLOL SUCCINATE XL 50MG TABLET 50 MG PO (09:20)
[2024-08-26] MEDS: 0.9 % SODIUM CHLORIDE 1000ML 1,000 ML 999 ML IV (09:21)
--- NOTE | 2024-08-26 09:26 | P.CONS_ITS ---
History of Present Illness History of present illness: Mr. Cosme is a 69-year-old male greater than [id number] smoking history carries a diagnosis COPD on Breztri inhaler presented to the ER complaining of chest pain. Patient admits chronic cough and productive phlegm. Denies any worsening. Denies any subjective fevers or chills. [facility] Disclaimer: The information contained in this section may have been updated after the patient was seen, as this information can be updated by other users. Medical History (Updated 08/26/24 @ 09:55 by Dawit Arechiga MD) Pneumonia SOB (shortness of breath) Elevated troponin Atrial fibrillation GERD (gastroesophageal reflux disease) DVT (deep venous thrombosis) HTN (hypertension) Atrial fibrillation with rapid ventricular response Hypomagnesemia Hx of prostatic malignancy Acute exacerbation of chronic obstructive pulmonary disease Atrial fibrillation with rapid ventricular response Immunocompromised Pneumonia COPD (chronic obstructive pulmonary disease) (~09/17/22) Prostate cancer (~09/17/22) Surgical History H/O hernia repair S/P TURP H/O splenectomy Family History Mother , Mother at the age of 73 from sepsis Severe sepsis with septic shock Father , Father at the age of 57 from throat cancer Throat cancer Social History (Updated 08/26/24 @ 03:39 by Flora Pierre, HENRI) Smoking Status: Former smoker alcohol intake: current alcohol intake frequency: a few times a month substance use type: denies use current occupational status: employed Travel in the last 8 weeks: None household members: spouse housing: house Review of Systems Constitutional Constitutional: Reports anorexia, Reports body ache(s) and Reports fatigue Eyes Eyes: Denies eye discharge, Denies dry eyes, Denies irritation and Denies itchy eyes ENT Ears, Nose, Mouth, and Throat: Denies epistaxis, Denies facial pain, Denies lip swelling and Denies throat swelling *Cardiovascular Cardiovascular: Reports dyspnea and Reports dyspnea on exertion *Respiratory Respiratory: Denies change in phlegm color, Reports chest congestion, Reports cough, Reports dyspnea, Reports dyspnea on exertion, Denies excessive phlegm production, Denies hemoptysis, Denies pain on inspiration, Denies pain with cough and Reports wheezing *Gastrointestinal Gastrointestinal: Denies abdominal pain, Denies belching and Denies cramping *Musculoskeletal Musculoskeletal: Reports back pain, Reports myalgias and Reports other (No small joint swelling or Pain) *Neurologic Neurologic: Reports as per HPI Psychiatric Psychiatric: Denies homicidal ideation and Denies suicidal ideation Endocrine Endocrine: Reports fatigue and Denies heat intolerance Hematologic/Lymphatic Hematologic/Lymphatic: Denies easy bleeding and Denies lymphadenopathy Allergic/Immunologic Allergic/Immunologic: Denies itchy eyes, Denies lip swelling, Denies throat swelling and Reports wheezing Pulmonology Exam Inpatient Vital signs and Labs for Last 24 Hours: Temp Pulse Resp BP Pulse Ox O2 Del Method 98 F 91 H 16 147/77 H 94 L Room Air 08/26/24 08:00 08/26/24 08:00 08/26/24 08:00 08/26/24 08:00 08/26/24 08:00 08/26/24 08:00 Laboratory Results - last 24 hr 08/25/24 23:00: WBC 12.9 H, RBC 4.28 L, Hgb 13.6 L, Hct 39.5 L, MCV 92.2, MCH 31.8 H, MCHC 34.5, RDW 15.3, Plt Count 437 H, MPV 8.2, Neut % (Auto) 65.3, Lymph % (Auto) 21.1, [place] % (Auto) 6.5, Eos % (Auto) 6.1, Baso % (Auto) 1.0, Neut # (Auto) 8.4 H, Lymph # (Auto) 2.7, [place] # (Auto) 0.8, Eos # (Auto) 0.8 H, Baso # (Auto) 0.1, D-Dimer 0.80 H, Sodium 138, Potassium 3.4 L, Chloride 102, Carbon Dioxide 22, Anion Gap 17.4 H, BUN 21 H, Creatinine 1.90 H, Estimated Creat Clear 31, Estimated GFR 35 L, Est GFR ( Amer) 43 L, Glucose 112 H, Calcium 9.5, Total Bilirubin 0.7, AST 20, ALT 13, Alkaline Phosphatase 106, Troponin I < 0.01, Total Protein 7.8 D, Albumin 4.3, Globulin 3.5 H, Albumin/Globulin Ratio 1.2, HIV 1&2 Antibody Rapid Nonreactive 08/26/24 01:43: Troponin I < 0.01 08/26/24 06:11: WBC 13.1 H, RBC 4.44 L, Hgb 14.1, Hct 41.8 L, MCV 94.0, MCH 31.7 H, MCHC 33.7, RDW 15.1, Plt Count 443 H, MPV 8.5, Neut % (Auto) 79.8, Lymph % (Auto) 12.2, [place] % (Auto) 6.1, Eos % (Auto) 1.4, Baso % (Auto) 0.6, Neut # (Auto) 10.5 H, Lymph # (Auto) 1.6, [place] # (Auto) 0.8, Eos # (Auto) 0.2, Baso # (Auto) 0.1, Sodium 138, Potassium 3.7, Chloride 104, Carbon Dioxide 22, Anion Gap 15.7 H, BUN 18, Creatinine 1.60 H, Estimated Creat Clear 34, Estimated GFR 43 L, Est GFR ( Amer) 52 L D, Glucose 103 H, Calcium 9.4, Magnesium 2.1, Total Bilirubin 0.5, AST 20, ALT 18 D, Alkaline Phosphatase 92, Total Protein 7.1, Albumin 3.9, Globulin 3.2, Albumin/Globulin Ratio 1.2 I & O for Labs for Last 24 Hours: Intake & Output 08/23/24 08/24/24 08/25/24 08/26/24 23:59 23:59 23:59 23:59 Intake Total 80 / 80 Balance 80 / 80 Weight 130 lb 121 lb 4 oz Constitutional: Present moderate distress Head: Present normocephalic and atraumatic ENT: Present normal exam, normal oropharynx and mucous membranes moist Neck: Present normal inspection and full ROM Respiratory: Present respiratory distress and able to speak in complete sentences; Absent rhonchi, wheezes or crackles Cardiac: Present S1/S2, Tachycardia and radial pulses present GI: Present soft and distention; Absent tenderness or guarding Skin: Present intact; Absent cyanosis or jaundice Neuro: Present alert, awake and oriented x 3 Extremities: Present normal inspection; Absent clubbing or cyanosis Psychiatric: Present normal affect and cooperative Meds Home Medications and Allergies Home Medications ?Medication ?Instructions ?Recorded ?Confirmed ?Type atorvastatin 40 mg tablet 40 mg PO HS 02/29/24 08/26/24 History bicalutamide 50 mg tablet 50 mg PO DAILY 02/29/24 08/26/24 History budesonide 160 mcg-glycopyr 9 2 inh inhalation BID 02/29/24 08/26/24 History mcg-formot 4.8 mcg/actuation HFA inhaler (Breztri Aerosphere) diltiazem HCl 120 mg tablet 120 mg PO DAILY 02/29/24 08/26/24 History nifedipine 30 mg tablet,extended 30 mg PO DAILY 02/29/24 08/26/24 History release omeprazole 40 mg capsule,delayed 40 mg PO DAILY 02/29/24 08/26/24 History release rivaroxaban 10 mg tablet (Xarelto) 10 mg PO QPMWITHMEAL 02/29/24 08/26/24 History magnesium oxide 400 mg (241.3 mg 400 mg PO DAILY 30 days #30 tabs 03/02/24 08/26/24 Rx magnesium) tablet meloxicam 15 mg tablet 15 mg PO DAILY 08/26/24 08/26/24 History New Prescriptions to Start Prescriptions: Allergies Allergy/AdvReac Type Severity Reaction Status Date / Time No Known Allergies Allergy Verified 10/13/23 09:09 Results Laboratory Findings 08/26/24 06:11 08/26/24 06:11 PT/INR, D-dimer D-Dimer 0.80 ug/mL (0.0-0.5) H 08/25/24 23:00 Abnormal lab findings: Abnormal Labs 08/25/24 08/26/24 23:00 06:11 WBC 12.9 H 13.1 H RBC 4.28 L 4.44 L Hgb 13.6 L Hct 39.5 L 41.8 L MCH 31.8 H 31.7 H Plt Count 437 H 443 H Neut # (Auto) 8.4 H 10.5 H Eos # (Auto) 0.8 H D-Dimer 0.80 H Potassium 3.4 L Anion Gap 17.4 H 15.7 H BUN 21 H Creatinine 1.90 H 1.60 H Estimated GFR 35 L 43 L Est GFR ( Amer) 43 L 52 L D Glucose 112 H 103 H Globulin 3.5 H Assessment and Plan *Assessment and plan (1) Pneumonia: Status: Acute Qualifiers: Pneumonia type: due to unspecified organism Laterality: unspecified laterality Lung location: unspecified part of lung Qualified Code(s): J18.9 - Pneumonia, unspecified organism Category: Medical Code(s): J18.9 - Pneumonia, unspecified organism Plan Mr. Cosme is a 69-year-old male greater than [id number] smoking history, last moved presented to ER complaining of chest pain for further evaluation and management. Cardiology following. Chest pain as per the patient chronic and intermittent however not resolving on this episode. Mostly epigastric nonradiating. No aggravating or relieving factors. Not worsened with coughing or deep breathing. Denies any hemoptysis. Saturating 99% on room air with no evidence of tachycardia. Afebrile. Hemodynamically stable. Mild neutrophilic predominant leukocytosis. CT chest June 2023 upper emphysematous changes along with multiple nodular/cavitary lesions and bronchiectasis noted. Chest x-ray predominant upper lobe emphysematous changes, lower lobe scarring and airspace disease. Patient currently receiving ceftriaxone and azithromycin. Plan: Follow-up with CT chest without contrast Sputum culture with induction DuoNebs 4 times daily scheduled, will transition to Breztri at home inhaler. Continue ceftriaxone and azithromycin pending culture result # Thank you for involving pulmonary in this patient care. Will continue to follow.
--- NOTE | 2024-08-26 09:30 | CT_ITS ---
FINAL REPORT TECHNIQUE: Axial images were obtained from the lung apex to the mid abdomen by computed tomography. Coronal reformatted images were obtained. This study was performed with techniques to keep radiation doses as low as reasonably achievable, (ALARA). Individualized dose reduction techniques using automated exposure control or adjustment of mA and/or kV according to the patient''s size were employed. CLINICAL HISTORY: Pneumonia COMPARISON: Chest x-ray dated 08/26/2024, CT chest dated 07/03/2023 FINDINGS: Borderline mediastinal lymph nodes are stable. No axillary mass or adenopathy is seen. Mild gynecomastia is noted. There is no pericardial or pleural effusion. There is moderate emphysema and mild scarring. There has been interval resolution of the the left lower lobe nodule seen on the prior exam. There are new and worsening left upper lobe, lingular, and left lower lobe opacities consistent with pneumonia. The chest wall is intact.Limited images of the upper abdomen demonstrate a moderate hiatal hernia. There is a 3 mm nonobstructing right renal stone. There has been, presumed, splenectomy. IMPRESSION: New and worsening left lung opacities consistent with pneumonia. Interval resolution of left lower lobe nodule seen on the previous exam. Reviewed, Interpreted and Dictated by Gianni Izaguirre III, MD Transcribed by Britta Cid Authenticated and [facility]
--- NOTE | 2024-08-26 09:50 | EXP.CARD.CON ---
History of Present Illness History of Present Illness Consult date: 08/26/24 Requesting physician: Shoaib Fuentes Consult reason: chest pain Chief complaint: CP History of present illness: This is a 69-year-old gentleman presented to the emergency department complaints of chest pain. The patient states that he is constantly short of breath as well. The patient reports that he feels like he was having pressure in the center of his chest. It did not radiate. He states that the chest pain lasted for approximately 3 hours before coming to the emergency department. He states that he is short of breath all the time and it is no different than his usual. He states his shortness of breath can be severe and it is typically with exertion from his COPD. He states that this improves with rest. He denies any fever, chills, nausea, vomiting, diarrhea, PND or orthopnea. He denies any lower extremity edema. [facility] Disclaimer: The information contained in this section may have been updated after the patient was seen, as this information can be updated by other users. Medical History (Updated 08/26/24 @ 10:00 by Jennifer Albert APRN) Hyperlipidemia Chest pain Pneumonia SOB (shortness of breath) Elevated troponin Atrial fibrillation GERD (gastroesophageal reflux disease) DVT (deep venous thrombosis) HTN (hypertension) Atrial fibrillation with rapid ventricular response Hypomagnesemia Hx of prostatic malignancy Acute exacerbation of chronic obstructive pulmonary disease Atrial fibrillation with rapid ventricular response Immunocompromised Pneumonia COPD (chronic obstructive pulmonary disease) (~09/17/22) Prostate cancer (~09/17/22) Surgical History H/O hernia repair S/P TURP H/O splenectomy Family History Mother , Mother at the age of 73 from sepsis Severe sepsis with septic shock Father , Father at the age of 57 from throat cancer Throat cancer Social History (Updated 08/26/24 @ 03:39 by Flora Pierre RN) Smoking Status: Former smoker alcohol intake: current alcohol intake frequency: a few times a month substance use type: denies use current occupational status: employed Travel in the last 8 weeks: None household members: spouse housing: house Review of Systems Review of Systems Review of systems:: pertinent systems reviewed and negative unless documented below Constitutional Constitutional: Reports system reviewed and no additional complaints, except as documented and Reports lethargy Eyes Eyes: Reports system reviewed and no additional complaints, except as documented ENT Ears, Nose, Mouth, and Throat: Reports system reviewed and no additional complaints, except as documented *Cardiovascular Cardiovascular: Reports system reviewed and no additional complaints, except as documented, Reports chest pain, Reports chest pain at rest, Reports chest pain with activity, Reports dyspnea and Reports dyspnea on exertion *Respiratory Respiratory: Reports system reviewed and no additional complaints, except as documented, Reports dyspnea and Reports dyspnea on exertion *Gastrointestinal Gastrointestinal: Reports system reviewed and no additional complaints, except as documented *Genitourinary Genitourinary: Reports system reviewed and no additional complaints, except as documented *Musculoskeletal Musculoskeletal: Reports system reviewed and no additional complaints, except as documented Integumentary/Breasts Skin/Breast: Reports system reviewed and no additional complaints, except as documented *Neurologic Neurologic: Reports system reviewed and no additional complaints, except as documented and Reports as per HPI Psychiatric Psychiatric: Reports system reviewed and no additional complaints, except as documented Endocrine Endocrine: Reports system reviewed and no additional complaints, except as documented Hematologic/Lymphatic Hematologic/Lymphatic: Reports system reviewed and no additional complaints, except as documented Allergic/Immunologic Allergic/Immunologic: Reports system reviewed and no additional complaints, except as documented Exam Data for Last 24 hours Vital signs and Labs for Last 24 Hours: Temp Pulse Resp BP Pulse Ox O2 Del Method 98 F 91 H 16 147/77 H 94 L Room Air 08/26/24 08:00 08/26/24 08:00 08/26/24 08:00 08/26/24 08:00 08/26/24 08:00 08/26/24 08:00 Laboratory Results - last 24 hr 08/25/24 23:00: WBC 12.9 H, RBC 4.28 L, Hgb 13.6 L, Hct 39.5 L, MCV 92.2, MCH 31.8 H, MCHC 34.5, RDW 15.3, Plt Count 437 H, MPV 8.2, Neut % (Auto) 65.3, Lymph % (Auto) 21.1, [place] % (Auto) 6.5, Eos % (Auto) 6.1, Baso % (Auto) 1.0, Neut # (Auto) 8.4 H, Lymph # (Auto) 2.7, [place] # (Auto) 0.8, Eos # (Auto) 0.8 H, Baso # (Auto) 0.1, D-Dimer 0.80 H, Sodium 138, Potassium 3.4 L, Chloride 102, Carbon Dioxide 22, Anion Gap 17.4 H, BUN 21 H, Creatinine 1.90 H, Estimated Creat Clear 31, Estimated GFR 35 L, Est GFR ( Amer) 43 L, Glucose 112 H, Calcium 9.5, Total Bilirubin 0.7, AST 20, ALT 13, Alkaline Phosphatase 106, Troponin I < 0.01, Total Protein 7.8 D, Albumin 4.3, Globulin 3.5 H, Albumin/Globulin Ratio 1.2, HIV 1&2 Antibody Rapid Nonreactive 08/26/24 01:43: Troponin I < 0.01 08/26/24 06:11: WBC 13.1 H, RBC 4.44 L, Hgb 14.1, Hct 41.8 L, MCV 94.0, MCH 31.7 H, MCHC 33.7, RDW 15.1, Plt Count 443 H, MPV 8.5, Neut % (Auto) 79.8, Lymph % (Auto) 12.2, [place] % (Auto) 6.1, Eos % (Auto) 1.4, Baso % (Auto) 0.6, Neut # (Auto) 10.5 H, Lymph # (Auto) 1.6, [place] # (Auto) 0.8, Eos # (Auto) 0.2, Baso # (Auto) 0.1, Sodium 138, Potassium 3.7, Chloride 104, Carbon Dioxide 22, Anion Gap 15.7 H, BUN 18, Creatinine 1.60 H, Estimated Creat Clear 34, Estimated GFR 43 L, Est GFR ( Amer) 52 L D, Glucose 103 H, Calcium 9.4, Magnesium 2.1, Total Bilirubin 0.5, AST 20, ALT 18 D, Alkaline Phosphatase 92, Total Protein 7.1, Albumin 3.9, Globulin 3.2, Albumin/Globulin Ratio 1.2 I & O for Last 24 hours: Intake & Output 08/23/24 08/24/24 08/25/24 08/26/24 23:59 23:59 23:59 23:59 Intake Total 80 / 80 Output Total 0 / 0 Balance 80 / 80 Weight 130 lb 121 lb 4 oz Narrative: EKG #1 is sinus rhythm with a rate of [address]/T wave abnormalities. EKG #2 sinus rhythm with a rate of 79 bpm and PVCs. Constitutional Constitutional: no acute distress and thin *Routine HEENT Exam Head: Present normocephalic and atraumatic ENT: Present mucous membranes moist *Routine Neck Exam Neck: Present supple, full ROM and normal carotid upstroke; Absent JVD, carotid bruit or lymphadenopathy *Routine Respiratory Exam Respiratory: Present CTA bilaterally, normal respiratory effort, able to speak in complete sentences and symmetric chest movement *Routine Cardiovascular Exam Cardiovascular: Present RRR, Normal S1 and Normal S2; Absent murmur or gallop *Routine Abdominal Exam Abdominal: Present soft and normoactive bowel sounds; Absent tenderness, distended or organomegaly *Routine Extremities Exam Extremities: Present full ROM, pulses intact and normal capillary refill; Absent cyanosis, clubbing or edema *Routine Skin Exam Skin: Present intact and warm; Absent erythema *Routine Neurological Exam Neurological: Present alert, oriented X3 and CN II-XII intact; Absent sensory deficit or motor deficit Routine Psychiatric Exam Psychiatric: Present normal affect Meds Home Medications and Allergies Home Medications ?Medication ?Instructions ?Recorded ?Confirmed ?Type atorvastatin 40 mg tablet 40 mg PO HS 02/29/24 08/26/24 History bicalutamide 50 mg tablet 50 mg PO DAILY 02/29/24 08/26/24 History budesonide 160 mcg-glycopyr 9 2 inh inhalation BID 02/29/24 08/26/24 History mcg-formot 4.8 mcg/actuation HFA inhaler (Breztri Aerosphere) diltiazem HCl 120 mg tablet 120 mg PO DAILY 02/29/24 08/26/24 History nifedipine 30 mg tablet,extended 30 mg PO DAILY 02/29/24 08/26/24 History release omeprazole 40 mg capsule,delayed 40 mg PO DAILY 02/29/24 08/26/24 History release rivaroxaban 10 mg tablet (Xarelto) 10 mg PO QPMWITHMEAL 02/29/24 08/26/24 History magnesium oxide 400 mg (241.3 mg 400 mg PO DAILY 30 days #30 tabs 03/02/24 08/26/24 Rx magnesium) tablet meloxicam 15 mg tablet 15 mg PO DAILY 08/26/24 08/26/24 History New Prescriptions to Start Prescriptions: Allergies Allergy/AdvReac Type Severity Reaction Status Date / Time No Known Allergies Allergy Verified 10/13/23 09:09 Assessment and Plan *Assessment and plan (1) Pneumonia involving left lung: Status: Acute Qualifiers: Lung location: lower lobe of lung Pneumonia type: due to unspecified organism Qualified Code(s): J18.9 - Pneumonia, unspecified organism Category: Medical Code(s): J18.9 - Pneumonia, unspecified organism (2) Chest pain: Status: Acute Qualifiers: Chest pain type: unspecified Qualified Code(s): R07.9 - Chest pain, unspecified Category: Medical Code(s): R07.9 - Chest pain, unspecified (3) Atrial fibrillation: Status: Acute Qualifiers: Atrial fibrillation type: paroxysmal Qualified Code(s): I48.0 - Paroxysmal atrial fibrillation Category: Medical Code(s): I48.91 - Unspecified atrial fibrillation (4) HTN (hypertension): Status: Acute Qualifiers: Hypertension type: primary hypertension Qualified Code(s): I10 - Essential (primary) hypertension Category: Medical Code(s): I10 - Essential (primary) hypertension (5) Hyperlipidemia: Status: Acute Qualifiers: Hyperlipidemia type: mixed hyperlipidemia Qualified Code(s): E78.2 - Mixed hyperlipidemia Category: Medical Code(s): E78.5 - Hyperlipidemia, unspecified (6) COPD (chronic obstructive pulmonary disease): Status: Acute Qualifiers: COPD type: unspecified COPD Qualified Code(s): J44.9 - Chronic obstructive pulmonary disease, unspecified Category: Medical Code(s): J44.9 - Chronic obstructive pulmonary disease, unspecified Plan Plan: 1. The patient was admitted to the hospital with chest pain. He ruled out for an AL. No plans for invasive left cardiac catheterization at this time. Consider an outpatient ischemic evaluation once he has recovered from pneumonia. He does have a recent normal stress test in September 2023. 2. Will obtain an echocardiogram to evaluate his LV function. 3. The patient does have a left lower lobe pneumonia. He is getting IV antibiotics. Will defer to the hospitalist and pulmonology. 4. The patient does have an elevated D-dimer. It appears that he is currently underdosed on his Xarelto. The hospitalist is going to order a CTA of the chest to rule out a PE. 5. The patient does have a history of paroxysmal atrial fibrillation. He is currently in sinus rhythm. He is listed as taking both nifedipine and diltiazem. These are both calcium channel blockers. Stop nifedipine and remain on diltiazem. 6. Will add Toprol 50 mg p.o. daily for his paroxysmal atrial fibrillation and blood pressure. 7. The patient is currently underdosed on Xarelto. Will change his Xarelto to 20 mg p.o. with supper for long-term anticoagulation. 8. There was some concern about the patient's significant dental caries and concern for endocarditis. Will obtain an echocardiogram as mentioned above but as long as he has negative blood cultures then there is no indication for LEONARDO at this time per Dr. De La Cruz. 9. His LDL goal is less than 100. Will get a lipid panel in the morning. Continue his statin. 10. Further recommendations will be made pending the patient's response to treatment and the results of his echocardiogram today. Thank you for the opportunity to help participate in the care of this patient. All recommendations and orders are per Dr. De La Cruz.
[2024-08-26] MEDS: SODIUM CHLORIDE 3% 15ML NEB 3 ML IH (11:02)
--- NOTE | 2024-08-26 12:11 | CT_ITS ---
PROCEDURE INFORMATION: Exam: CTA Chest With Contrast Exam date and time: 08/26/2024 1:22 PM Age: 69 years old Clinical indication: Abnormal findings; Abnormal diagnostic tests; Elevated d-dimer; Additional info: Chest pain, dyspnea, elevated d-dimer TECHNIQUE: Imaging protocol: Computed tomographic angiography of the chest with contrast. Exam focused on the arteries. 3D rendering (Not supervised by radiologist): MIP and/or 3D reconstructed images were created by the technologist. Radiation optimization: All CT scans at this facility use at least one of these dose optimization techniques: automated exposure control; mA and/or kV adjustment per patient size (includes targeted exams where dose is matched to clinical indication); or iterative reconstruction. Contrast material: ISOVUE 370; Contrast volume: 70 ml; Contrast route: INTRAVENOUS (IV); COMPARISON: CR XR CHEST PORTABLE 08/25/2024 11:10 PM FINDINGS: Pulmonary arteries: Normal. No pulmonary emboli. Aorta: Regions of atherosclerotic vascular calcification involving the aortic arch. Lungs: Bullous changes of both lung apices. Densely calcified granuloma left lingula. 2 cm region of masslike consolidation at the right lung apex. In the absence of previous examinations to document stability of the findings, follow-up CT recommended in 3 months. Tree-in-bud opacities most pronounced in the left lower lobe. Findings compatible with bronchiolitis. Bronchiectasis with regions of subsegmental atelectasis and consolidation left upper lobe as well as left lingula. Pleural spaces: Biapical pleural thickening and parenchymal scarring at both lung apices. Series 3, image number 14 demonstrates focal Heart: Unremarkable. No cardiomegaly. No pericardial effusion. Coronary arteries: Coronary artery calcification Lymph nodes: Unremarkable. No enlarged lymph nodes. Diaphragm: Moderate hiatal hernia Bones/joints: Unremarkable. No acute fracture. Soft tissues: Unremarkable. Other findings: moderate emphysema. IMPRESSION: 1. 2 cm region of masslike consolidation at the right lung apex. In the absence of previous examinations to document stability of the findings, follow-up CT recommended in 3 months. 2. Tree-in-bud opacities most pronounced in the left lower lobe. Findings compatible with bronchiolitis. 3. Moderate emphysema. 4. Bronchiectasis with regions of subsegmental atelectasis and consolidation left upper lobe as well as left lingula.
[2024-08-26] MEDS: SODIUM CHLORIDE 0.9% 10ML SYR (RAD ONLY) 10 ML IV (13:36)
[2024-08-26] MEDS: 0.9 % SODIUM CHLORIDE 50 ML VIAL IV (13:36)
[2024-08-26] MEDS: IOPAMIDOL-370 (76%);100ML BOTTLE 70 ML IV (13:36)
--- NOTE | 2024-08-26 14:11 | SW/DCPLANNER ---
I received a consult on this patient regarding resources at time of discharge. Patient expressed that he is unsure if he has dental insurance and would like to speak w/ financial counselor regarding 's health insurance. [facility] has been contacted and will speak w/ patient today.
--- NOTE | 2024-08-26 15:21 | EXP.DC.SUM ---
General Admission date:: 08/26/24 HPI HPI HPI: This patient has been for the last 48 hours has had increased chest wall pain. Versus atypical angina. He denies any new respiratory symptoms of cough but while in the emergency room began to feel chilled , had normal temperature. Patient is a previous smoker for more than 30 years. But quit in 2016, past medical history includes a DVT, doctors talk to him about this and he decided to quit smoking because of, patient also noted for extremely bad teeth, gingivitis untreated. Past medical history include spleenectomy 1985 prostatectomy related to prostate cancer also has had a TURP. History of hypertension with off and on again A-fib and COPD. It is noted in the past scanned that he does have gallstones I have conferred with the ER physician and do agree to admit him., Will need to rule out whether this is cardiac in nature costochondritis, pneumonia referred pain from gallbladder, or possibly something related to his chronic back pain, or related to pleurisy. Patient is medically stable at this time we will place him on the floor start antibiotics and breathing treatments and work with pain relief. Patient noted that he had Toradol and that his pain went from an 8 out of 10 to a 4 out of 10. Hospital Course Hospital Course Hospital Course: Jayden Cosme is a 69-year-old male with a medical history significant for COPD on room air, a fib on Xarelto, hypertension, history of prostate cancer remission presents with worsening midsternal chest pain and shortness of breath. CT chest demonstrated new/worsening left lung opacities, CTA chest reveals 2 cm right upper lobe apical opacity. Case discussed with the provider and decision was made to admit patient for work up of chest pain and shortness of breath. #Atypical chest pain #Shortness of breath #Left lobe community-acquired pneumonia #Right lung apical opacity versus mass ? Pulmonary consulted for lung findings, recommended treating for CAP and follow-up outpatient for further evaluation of opacities. ? Treated with ceftriaxone and azithromycin for 1 day. ? Given elevated d-dimer and that patient was on subtherapeutic dose of [id number] mg with a history of prostate cancer, CTA chest was obtained but did not reveal pulmonary embolism. ? Cardiology consulted for a typical chest pain, ECHO did not show wall motion abnormalities or significant findings. Troponins were negative, EKG unremarkable. ? Cardiology recommended further outpatient ischemic work up if symptoms persist. ? G.I. cocktail did not alleviate symptoms to suggest GERD. Has been compliant with his omeprazole on empty stomach. ? Given unremarkable work up, chest pain and shortness of breath most likely are sequela of pneumonia. ? Discharged with Augmentin for 6 more days. ? Will follow up with cardiology and pulmonology within one week after discharge. #A-fib ? Currently rate controlled. ? Resume home Diltiazem 120mg. Cardiology discontinued nifedipine and started metroprolol succinate 50 mg daily, increased Xarelto to 15 mg daily with renal dosing. #GERD ? Continue home omeprazole 40 mg. Exam Data for Last 24 hours Vital signs and Labs for Last 24 Hours: Temp Pulse Resp BP Pulse Ox O2 Del Method 98 F 88 17 139/75 97 Room Air 08/26/24 12:00 08/26/24 12:00 08/26/24 12:00 08/26/24 12:00 08/26/24 12:00 08/26/24 12:34 Laboratory Results - last 24 hr 08/25/24 23:00: WBC 12.9 H, RBC 4.28 L, Hgb 13.6 L, Hct 39.5 L, MCV 92.2, MCH 31.8 H, MCHC 34.5, RDW 15.3, Plt Count 437 H, MPV 8.2, Neut % (Auto) 65.3, Lymph % (Auto) 21.1, [place] % (Auto) 6.5, Eos % (Auto) 6.1, Baso % (Auto) 1.0, Neut # (Auto) 8.4 H, Lymph # (Auto) 2.7, [place] # (Auto) 0.8, Eos # (Auto) 0.8 H, Baso # (Auto) 0.1, D-Dimer 0.80 H, Sodium 138, Potassium 3.4 L, Chloride 102, Carbon Dioxide 22, Anion Gap 17.4 H, BUN 21 H, Creatinine 1.90 H, Estimated Creat Clear 31, Estimated GFR 35 L, Est GFR ( Amer) 43 L, Glucose 112 H, Calcium 9.5, Total Bilirubin 0.7, AST 20, ALT 13, Alkaline Phosphatase 106, Troponin I < 0.01, Total Protein 7.8 D, Albumin 4.3, Globulin 3.5 H, Albumin/Globulin Ratio 1.2, HIV 1&2 Antibody Rapid Nonreactive 08/26/24 01:43: Troponin I < 0.01 08/26/24 06:11: WBC 13.1 H, RBC 4.44 L, Hgb 14.1, Hct 41.8 L, MCV 94.0, MCH 31.7 H, MCHC 33.7, RDW 15.1, Plt Count 443 H, MPV 8.5, Neut % (Auto) 79.8, Lymph % (Auto) 12.2, [place] % (Auto) 6.1, Eos % (Auto) 1.4, Baso % (Auto) 0.6, Neut # (Auto) 10.5 H, Lymph # (Auto) 1.6, [place] # (Auto) 0.8, Eos # (Auto) 0.2, Baso # (Auto) 0.1, Sodium 138, Potassium 3.7, Chloride 104, Carbon Dioxide 22, Anion Gap 15.7 H, BUN 18, Creatinine 1.60 H, Estimated Creat Clear 34, Estimated GFR 43 L, Est GFR ( Amer) 52 L D, Glucose 103 H, Calcium 9.4, Magnesium 2.1, Total Bilirubin 0.5, AST 20, ALT 18 D, Alkaline Phosphatase 92, Total Protein 7.1, Albumin 3.9, Globulin 3.2, Albumin/Globulin Ratio 1.2 I & O for Last 24 hours: Intake & Output 08/23/24 08/24/24 08/25/24 08/26/24 23:59 23:59 23:59 23:59 Intake Total 80 / 80 Output Total 0 / 0 Balance 80 / 80 Weight 58.967 kg 54.998 kg Microbiology Reports for the Last 24 Hours: Microbiology 08/26/24 10:30 Sputum - Expectorated Sputum Gram Stain - Final Constitutional Constitutional: no acute distress *Routine HEENT Exam Head: Present normocephalic Eye: Present EOMI and PERRL ENT: Present mucous membranes moist *Routine Neck Exam Neck: Present supple; Absent lymphadenopathy *Routine Respiratory Exam Respiratory: Present CTA bilaterally *Routine Cardiovascular Exam Cardiovascular: Present RRR *Routine Abdominal Exam Abdominal: Present soft and normoactive bowel sounds; Absent tenderness *Routine Extremities Exam Extremities: Absent cyanosis, clubbing or edema *Routine Skin Exam Skin: Present warm; Absent rash *Routine Neurological Exam Neurological: Present alert and oriented X3 Results Data Completed and Pending Labs on day of discharge: Labs from last 24 hours 08/26/24 08/26/24 08/25/24 06:11 01:43 23:00 WBC 13.1 H 12.9 H RBC 4.44 L 4.28 L Hgb 14.1 13.6 L Hct 41.8 L 39.5 L MCV 94.0 92.2 MCH 31.7 H 31.8 H MCHC 33.7 34.5 RDW 15.1 15.3 Plt Count 443 H 437 H MPV 8.5 8.2 Neut % (Auto) 79.8 65.3 Lymph % (Auto) 12.2 21.1 [place] % (Auto) 6.1 6.5 Eos % (Auto) 1.4 6.1 Baso % (Auto) 0.6 1.0 Neut # (Auto) 10.5 H 8.4 H Lymph # (Auto) 1.6 2.7 [place] # (Auto) 0.8 0.8 Eos # (Auto) 0.2 0.8 H Baso # (Auto) 0.1 0.1 D-Dimer 0.80 H Sodium 138 138 Potassium 3.7 3.4 L Chloride 104 102 Carbon Dioxide 22 22 Anion Gap 15.7 H 17.4 H BUN 18 21 H Creatinine 1.60 H 1.90 H Estimated Creat Clear 34 31 Estimated GFR 43 L 35 L Est GFR ( Amer) 52 L D 43 L Glucose 103 H 112 H Calcium 9.4 9.5 Magnesium 2.1 Total Bilirubin 0.5 0.7 AST 20 20 ALT 18 D 13 Alkaline Phosphatase 92 106 Troponin I < 0.01 < 0.01 Total Protein 7.1 7.8 D Albumin 3.9 4.3 Globulin 3.2 3.5 H Albumin/Globulin Ratio 1.2 1.2 HIV 1&2 Antibody Rapid Nonreactive DS: Diagnosis Discharge Diagnosis (1) Pneumonia involving left lung: Status: Acute Code(s): J18.9 - Pneumonia, unspecified organism Qualifiers: Lung location: lower lobe of lung Pneumonia type: due to unspecified organism Qualified Code(s): J18.9 - Pneumonia, unspecified organism (2) Chest pain: Status: Acute Code(s): R07.9 - Chest pain, unspecified Qualifiers: Chest pain type: unspecified Qualified Code(s): R07.9 - Chest pain, unspecified (3) Atrial fibrillation: Status: Acute Code(s): I48.91 - Unspecified atrial fibrillation Qualifiers: Atrial fibrillation type: paroxysmal Qualified Code(s): I48.0 - Paroxysmal atrial fibrillation (4) HTN (hypertension): Status: Acute Code(s): I10 - Essential (primary) hypertension Qualifiers: Hypertension type: primary hypertension Qualified Code(s): I10 - Essential (primary) hypertension (5) Hyperlipidemia: Status: Acute Code(s): E78.5 - Hyperlipidemia, unspecified Qualifiers: Hyperlipidemia type: mixed hyperlipidemia Qualified Code(s): E78.2 - Mixed hyperlipidemia (6) COPD (chronic obstructive pulmonary disease): Status: Acute Code(s): J44.9 - Chronic obstructive pulmonary disease, unspecified Qualifiers: COPD type: unspecified COPD Qualified Code(s): J44.9 - Chronic obstructive pulmonary disease, unspecified Meds Home Medications and Allergies Home Medications ?Medication ?Instructions ?Recorded ?Confirmed ?Type atorvastatin 40 mg tablet 40 mg PO HS 02/29/24 08/26/24 History bicalutamide 50 mg tablet 50 mg PO DAILY 02/29/24 08/26/24 History budesonide 160 mcg-glycopyr 9 2 inh inhalation BID 02/29/24 08/26/24 History mcg-formot 4.8 mcg/actuation HFA inhaler (Breztri Aerosphere) diltiazem HCl 120 mg tablet 120 mg PO DAILY 02/29/24 08/26/24 History omeprazole 40 mg capsule,delayed 40 mg PO DAILY 02/29/24 08/26/24 History release magnesium oxide 400 mg (241.3 mg 400 mg PO DAILY 30 days #30 tabs 03/02/24 08/26/24 Rx magnesium) tablet amoxicillin 500 mg-potassium 1 tab PO TID 6 days #18 tabs 08/26/24 Rx clavulanate 125 mg tablet (Augmentin) meloxicam 15 mg tablet 15 mg PO DAILY 08/26/24 08/26/24 History metoprolol succinate 50 mg 50 mg PO DAILY 30 days #30 tabs 08/26/24 Rx tablet,extended release 24 hr (Toprol XL) rivaroxaban 15 mg tablet (Xarelto) 15 mg PO QPMWITHMEAL 30 days #30 08/26/24 Rx tabs levofloxacin 750 mg tablet 750 mg PO Q48H 5 days #3 tabs 09/02/24 Rx New Prescriptions to Start Prescriptions: amoxicillin-pot clavulanate [Augmentin] Shoaib Fuentes levofloxacin Rashaad Arreola metoprolol succinate [Toprol XL] Shoaib Fuentes rivaroxaban [Xarelto] Shoaib Fuentes Allergies Allergy/AdvReac Type Severity Reaction Status Date / Time No Known Allergies Allergy Verified 10/13/23 09:09 Discharge Plan Disposition Patient Disposition: Home, Self-Care Follow up Plan Follow up with: Jennifer Albert APRN [Nurse Practitioner] - 09/02/24 Shaq Sevilla MD [Referring] - 09/02/24 10:00 am Dawit Arechiga MD [Physician] - 2 weeks (please call for appointment ) Prescriptions/Medication Reconciliation: New Xarelto 15 mg Tablet 15 mg PO QPMWITHMEAL 30 Days Qty: 30 0RF metoprolol succinate [Toprol XL] 50 mg Tablet Extended Release 24 Hr 50 mg PO DAILY 30 Days Qty: 30 0RF amoxicillin-pot clavulanate [Augmentin] 500-125 mg tablet 1 tab PO TID 6 Days Qty: 18 0RF levofloxacin 750 mg tablet 750 mg PO Q48H 5 Days Qty: 3 0RF Continued atorvastatin 40 mg tablet 40 mg PO HS Patient Comments: TAKE ONE TABLET BY MOUTH EVERY DAY bicalutamide 50 mg tablet 50 mg PO DAILY Patient Comments: TAKE ONE TABLET BY MOUTH EVERY DAY omeprazole 40 mg capsule,delayed release(DR/EC) 40 mg PO DAILY Patient Comments: TAKE ONE CAPSULE BY MOUTH ONCE DAILY IN THE MORNING FOR stomach diltiazem HCl 120 mg tablet 120 mg PO DAILY Patient Comments: TAKE ONE TABLET BY MOUTH EVERY DAY DIRECTED Anival Aerosphere 160-9-4.8 mcg/actuation HFA aerosol inhaler 2 inh INHALATION BID Patient Comments: INHALE TWO PUFFS BY MOUTH TWICE DAILY magnesium oxide 400 mg (241.3 mg magnesium) Tablet 400 mg PO DAILY 30 Days Qty: 30 0RF meloxicam 15 mg tablet 15 mg PO DAILY Patient Comments: TAKE ONE TABLET BY MOUTH EVERY DAY Discontinued nifedipine 30 mg tablet extended release 30 mg PO DAILY Patient Comments: TAKE ONE TABLET BY MOUTH EVERY DAY Xarelto 10 mg tablet 10 mg PO QPMWITHMEAL Patient Comments: TAKE ONE TABLET BY MOUTH EVERY DAY Problem Reconciliation Problems Reviewed?: Yes Patient Discharge Instructions Patient Instructions: DI for Chest Pain Print Language: Japanese Providers Primary Care Provider: Provider,Referral Admit Provider: Rashaad Arreola Attending Provider: Rashaad Arreola
[2024-08-27 09:14] LABS: HCV Ab Non Reactive (Non Reactive)
--- NOTE | 2024-08-29 13:15 | SW/DCPLANNER ---
spoke with patient and said he was doing good and has been out and about. Stated he had no questions and is doing very well.
[2024-08-30 18:41] LABS: QuantiFERON-TB Gold Plus Negative (Negative)
== END 2024-08-26 16:16 | disposition home or self-care (01) ==
LOC: ER 08-26 02:26 → 2ND 08-26 03:08
PROVIDERS: Internal Medicine Pulmonary Disease; Nurse Practitioner Family; Admitting Provider Internal Medicine Adolescent Medicine; Emergency Provider Emergency Medicine; Visit Provider Internal Medicine Adolescent Medicine
DX: J18.9 Pneumonia, unspecified organism (principal); R07.9 Chest pain, unspecified; I48.0 Paroxysmal atrial fibrillation; I10 Essential (primary) hypertension; E78.2 Mixed hyperlipidemia; J44.9 Chronic obstructive pulmonary disease, unspecified; I20.0 Unstable angina; R10.11 Right upper quadrant pain; M54.50 Low back pain, unspecified; G89.29 Other chronic pain; Z79.899 Other long term (current) drug therapy
CPT/HCPCS: 36415; 71045; 71250; 71275; 80053; 83735; 84484; 85025; 85378; 86480; 86803; 87070; 87077; 87186; 87205; 87389; 93005; 93306; 94640; 99285; G0378; J0696; J1885; J7030; J7620; Q9967

== ENCOUNTER 2025-05-19 08:46 | Inpatient (IN) | payer MEDICARE, SELFPAY ==
[2025-05-19] VITALS (19 sets, daily range): BP systolic 93–148; BP diastolic 56–95; PULSE 60–150; RESP 12–26; TEMP 36.5–36.9; O2SAT 91–97; BMI 19.5
--- NOTE | 2025-05-19 08:47 | ECG_ITS ---
APPROVED REPORT Exam: Resting ECG HR:141 bpm ECG Measurements Heart Rate 141 AXES QRSd 81 QRS 2 QT 287 T 32 QTc 369 Conclusion ATRIAL FIBRILLATION WITH RAPID VENTRICULAR RESPONSE MODERATE ST DEPRESSION [0.05+ mV ST DEPRESSION] ABNORMAL ECG UNCONFIRMED REPORT Electronically signed by : Samuel Saldaña MD 05/20/2025 09:01:03
--- NOTE | 2025-05-19 08:52 | XR_ITS ---
FINAL REPORT TECHNIQUE: Chest PA & Lateral CLINICAL HISTORY: Shortness of breath, cough COMPARISON: 09/08/2023 FINDINGS: 2 views of the chest were performed. The heart size is normal. The mediastinum is within normal limits. The lungs are hyperinflated. There is dense airspace opacity in the right upper lobe probably due to acute pneumonia. The previously noted airspace opacities at the bases have resolved. There are no pleural effusions. There is no pneumothorax. The bony thorax appears intact. IMPRESSION: Resolution of bibasilar airspace infiltrates. Interval development of dense right upper lobe airspace infiltrate. Recommend follow-up radiographs to ensure resolution. Reviewed, Interpreted and Dictated by Adam Laws MD Transcribed by Lakeshia Bishop Authenticated and [facility]
--- NOTE | 2025-05-19 08:54 | HMH.EDGENADL ---
Discharge Plan Disposition Patient Disposition: Admitted Prescriptions Prescriptions: No Action atorvastatin 40 mg tablet 40 mg PO HS Patient Comments: TAKE ONE TABLET BY MOUTH EVERY DAY bicalutamide 50 mg tablet 50 mg PO DAILY Patient Comments: TAKE ONE TABLET BY MOUTH EVERY DAY omeprazole 40 mg capsule,delayed release(DR/EC) 40 mg PO DAILY Patient Comments: TAKE ONE CAPSULE BY MOUTH ONCE DAILY IN THE MORNING FOR stomach Breztri Aerosphere 160-9-4.8 mcg/actuation HFA aerosol inhaler 2 inh INHALATION BID Patient Comments: INHALE TWO PUFFS BY MOUTH TWICE DAILY magnesium oxide 400 mg (241.3 mg magnesium) Tablet 400 mg PO DAILY 30 Days Qty: 30 0RF meloxicam 15 mg tablet 15 mg PO DAILY Patient Comments: TAKE ONE TABLET BY MOUTH EVERY DAY Xarelto 15 mg Tablet 15 mg PO QPMWITHMEAL 30 Days Qty: 30 0RF diltiazem HCl 120 mg tablet 120 mg PO DAILY Patient Comments: TAKE ONE TABLET BY MOUTH EVERY DAY Referrals Follow up/Referrals: Shaq Sevilla MD [Primary Care Provider, Medical] - See instructions Clinical Impressions Clinical Impression: Sepsis, Pneumonia, Atrial fibrillation with rapid ventricular response Print Language Print Language: Slovenian Discharge ED Provider: Cheikh Clement General Adult HPI General Chief complaint: Chest Pain Stated complaint: chest pain Time Seen by Provider: 05/19/25 08:52 Mode of Arrival: Ambulatory Source of Information: Patient Limitations: No Limitations History of Present Illness HPI narrative: Jayden Cosme is a 69y male with a history of A-fib with RVR, hypertension, COPD who presents to the emergency department for complaints of heart palpitations, fatigue and intermittent chest pain for the past 3 weeks. Patient states that he was taken off of his diltiazem 2 days ago as a follow-up was dropping his blood pressure too low, stating that his blood pressures were 110 over 60s. Patient states that today, he felt that his symptoms were worse and feels palpitations in his chest. He does report some shortness of breath and cough. He denies any abdominal pain, nausea, vomiting, diarrhea. Related Data Home Medications ?Medication ?Instructions ?Recorded ?Confirmed atorvastatin 40 mg tablet 40 mg PO HS 02/29/24 05/19/25 bicalutamide 50 mg tablet 50 mg PO DAILY 02/29/24 05/19/25 budesonide 160 mcg-glycopyr 9 2 inh inhalation BID 02/29/24 05/19/25 mcg-formot 4.8 mcg/actuation HFA inhaler (Breztri Aerosphere) omeprazole 40 mg capsule,delayed 40 mg PO DAILY 02/29/24 05/19/25 release meloxicam 15 mg tablet 15 mg PO DAILY 08/26/24 05/19/25 diltiazem HCl 120 mg tablet 120 mg PO DAILY 05/19/25 05/19/25 Previous Rx's ?Medication ?Instructions ?Recorded magnesium oxide 400 mg (241.3 mg 400 mg PO DAILY 30 days #30 tabs 03/02/24 magnesium) tablet rivaroxaban 15 mg tablet (Xarelto) 15 mg PO QPMWITHMEAL 30 days #30 08/26/24 tabs Allergies Allergy/AdvReac Type Severity Reaction Status Date / Time No Known Allergies Allergy Verified 10/13/23 09:09 [facility] Disclaimer: The information contained in this section may have been updated after the patient was seen, as this information can be updated by other users. Medical History (Updated 05/19/25 @ 10:07 by Cheikh Clement MD) Hyperlipidemia Chest pain Pneumonia SOB (shortness of breath) Elevated troponin Atrial fibrillation GERD (gastroesophageal reflux disease) DVT (deep venous thrombosis) HTN (hypertension) Atrial fibrillation with rapid ventricular response Hypomagnesemia Hx of prostatic malignancy Acute exacerbation of chronic obstructive pulmonary disease Atrial fibrillation with rapid ventricular response Immunocompromised Pneumonia COPD (chronic obstructive pulmonary disease) (~09/17/22) Prostate cancer (~09/17/22) Surgical History H/O hernia repair S/P TURP H/O splenectomy Family History Mother , Mother at the age of 73 from sepsis Severe sepsis with septic shock Father , Father at the age of 57 from throat cancer Throat cancer Social History (Updated 08/26/24 @ 03:39 by Flora Pierre RN) Smoking Status: Unknown if ever smoked alcohol intake: current alcohol intake frequency: a few times a month substance use type: denies use current occupational status: employed Travel in the last 8 weeks?: None household members: spouse housing: house additional social history: The patient lives with Dorothea his of 40 years. He has 2 adult sons. He quit smoking several years ago after smoking 1 pack/day for 50 years. He denies routine alcohol consumption. He elects a full CODE STATUS. Have you lived/traveled outside US in past 30 days?: No Contact w/someone who lives/traveled outside US past 30 days?: No Exposure to someone with infectious disease in past 14 days?: No Do you have a fever (greater than 100.4 F or 38 C)?: No Have you tested positive for COVID-19?: No Exposed to someone with COVID-19 in past 14 days?: No Do you have a sore throat?: No Do you have a cough?: No Do you have any weakness?: No Do you have any diarrhea?: No Are you experiencing any unusual bleeding?: No Do you have any muscle aches/pain?: No Do you have any abdominal pain?: No Are you experiencing loss of taste or smell?: No Other Medical History Have you received the Flu Vaccine for this season: No Have you received the Pneumonia Vaccine: No ROS Obtained: Yes Systems reviewed as appropriate & no additional complaints except as documented Physical Exam General General appearance: alert and in no apparent distress Head Head exam: atraumatic Eye Eye exam: Present normal appearance ENT ENT exam: Present normal external ear exam Neck Neck exam: Present full ROM Chest Chest inspection: Present symmetric chest wall rise Respiratory Respiratory exam: Present normal lung sounds bilaterally; Absent respiratory distress Cardiovascular Cardiovascular exam: Present tachycardia and irregular rhythm Abdominal Exam Abdominal exam: Present soft; Absent distention, tenderness or guarding exam: Present deferred Extremities Exam Extremities exam: Present normal inspection Back Exam Back exam: Present normal inspection Neurological Exam Neurological exam: Present alert and oriented X3 Psychiatric Psychiatric exam: Present normal affect Skin Skin exam: Present warm and dry Medical Decision Making Medical Records Screening: Per USPSTF and CDC recommendations, given the prevalence of disease in our region, it is our hospital?s policy to screen for HIV and viral Hepatitis for all patients aged 18 and over and those with ongoing risk factors. Denis Inquiry Pt receiving controlled substance: No Vital Signs: 05/19/25 08:57 05/19/25 09:00 05/19/25 09:00 Pulse Rate 121 H Pulse Rate [Right Brachial] 150 H Respiratory Rate 22 24 Blood Pressure 131/77 Blood Pressure [Right Arm] 148/76 H Blood Pressure Mean 86 Blood Pressure Mean [Right Arm] 100 Blood Pressure Source [Right Arm] Automatic Cuff 02 Sat by Pulse Oximetry 97 97 Oxygen Delivery Method Room Air 05/19/25 09:24 05/19/25 09:24 05/19/25 09:28 Pulse Rate 115 H Pulse Rate [Right Brachial] Respiratory Rate 22 Blood Pressure 123/71 110/66 Blood Pressure [Right Arm] Blood Pressure Mean 90 80 Blood Pressure Mean [Right Arm] Blood Pressure Source [Right Arm] 02 Sat by Pulse Oximetry 96 Oxygen Delivery Method 05/19/25 09:28 05/19/25 09:42 Pulse Rate 103 H 108 H Pulse Rate [Right Brachial] Respiratory Rate 22 Blood Pressure Blood Pressure [Right Arm] Blood Pressure Mean Blood Pressure Mean [Right Arm] Blood Pressure Source [Right Arm] 02 Sat by Pulse Oximetry 97 Oxygen Delivery Method Lab Data Lab Results 05/19/25 08:52: SARS-CoV-2 (PCR) Not detected, Influenza A Untype (PCR) Not detected, Influenza Type B (PCR) Not detected 05/19/25 09:15: WBC 19.7 H, RBC 3.95 L, Hgb 11.4 L, Hct 35.1 L, MCV 88.9, MCH 28.9, MCHC 32.5, RDW 14.9, Plt Count 939 H*, MPV 10.2, Neut % (Auto) 83.1 H, Lymph % (Auto) 6.2 L, [place] % (Auto) 8.7, Eos % (Auto) 0.4, Baso % (Auto) 0.6, Neut # (Auto) 16.4 H, Lymph # (Auto) 1.2, [place] # (Auto) 1.7 H, Eos # (Auto) 0.1, Baso # (Auto) 0.1, Total Counted 100, Neutrophils % (Manual) 81 H, Lymphocytes % (Manual) 8 L, Monocytes % (Manual) 10 H, Basophils % (Manual) 1.0, Platelet Estimate Marked increase, RBC Morphology Normal, Sodium 132 L, Potassium 3.8, Chloride 99, Carbon Dioxide 24, Anion Gap 12.8, BUN 20, Creatinine 1.60 H, Estimated Creat Clear 39, Estimated GFR 43 L, Est GFR ( Amer) 52 L, Glucose 119 H, Calcium 9.4, Magnesium 1.7, Total Bilirubin 0.9, AST 24, ALT 19, Alkaline Phosphatase 102, Troponin I < 0.01, NT-Pro-B Natriuret Pep 2050 H, Total Protein 7.7, Albumin 3.8, Globulin 3.9 H, Albumin/Globulin Ratio 1.0 L 05/19/25 09:15 05/19/25 09:15 Orders (Tests/Meds): ED MEDICATIONS Generic Name Dose Route Start Last Admin Trade Name Freq PRN Reason Stop Dose Admin Azithromycin 500 mg/ Sodium 250 mls @ 250 mls/hr 05/19/25 10:00 Chloride IV 05/29/25 09:59 Q24H ARMEN Ceftriaxone Sodium 2 gm/ 100 mls @ 200 mls/hr 05/19/25 10:00 Sodium Chloride IV 05/29/25 09:59 Q24H ARMEN Lactated Ringer's 1,000 mls @ 150 mls/hr 05/19/25 10:00 Lactated Ringer's 1000 Ml Bag IV 06/18/25 09:59 .[id number] ARMEN Discontinued Medications Generic Name Dose Route Start Last Admin Trade Name Freq PRN Reason Stop Dose Admin Diltiazem HCl 20 mg 05/19/25 08:52 05/19/25 09:21 Diltiazem 25mg/5ml Vial IV 05/19/25 08:53 20 mg ONCE ONE Administration ORDERS Category Date Time Status CXR 2 view (NOT portable) [XR chest 2V] Stat Exams 05/19/25 08:52 Taken BNP [NT Pro Brain Natriuretic Pep.] Stat Lab 05/19/25 09:15 Results CBC w/Auto Diff [Complete Blood Count Auto Diff] Stat Lab 05/19/25 09:15 Completed CMP [Comprehensive Metabolic Panel] Stat Lab 05/19/25 09:15 Results Free T4 (Free Thyroxine) Stat Lab 05/19/25 09:15 Received Magnesium Stat Lab 05/19/25 09:15 Results Rapid PCR Covid and Flu A/B Stat Lab 05/19/25 08:52 Completed TSH [Thyroid Stimulating Hormone] Stat Lab 05/19/25 09:15 Results Troponin I Q3H Lab 05/19/25 12:00 Ordered Troponin I Q3H Lab 05/19/25 15:00 Ordered Troponin I Stat Lab 05/19/25 09:15 Results Blood Culture Stat Micro 05/19/25 09:55 Ordered ECG Data Tracing #1: I reviewed this ECG and interpreted as documented below: A-fib with RVR with ventricular rate of [address] depressions in V3, V4, V5 and mild depressions in V6 without reciprocal changes. QTc normal at 369. Medical Decision Narrative: Jayden Cosme is a 69y male with a history of A-fib with RVR on Xarelto, hypertension, COPD who presents to the emergency department for complaints of heart palpitations, fatigue and intermittent chest pain for the past 3 weeks. Patient states that he was taken off of his diltiazem 2 days ago as a follow-up was dropping his blood pressure too low, stating that his blood pressures were 110 over 60s. Patient states that today, he felt that his symptoms were worse and feels palpitations in his chest. He does report some shortness of breath and cough. On arrival, patient is tachycardic with heart rate in the 140s. Blood pressure is mildly hypertensive with systolic in the 140s. Afebrile, maintaining appropriate oxygen saturation on room air. Physical exam, as stated above, revealed an overall well-appearing male in no respiratory distress. Cardiopulmonary exam revealed irregular and tachycardic rhythm but no murmurs. No wheezing, rales or rhonchi. Abdomen is soft, nontender nondistended. GCS 15. Demential diagnosis includes, but is not limited to: Cardiac arrhythmia, electrolyte derangement, metabolic derangement, ACS, viral respiratory illness, pneumonia, among others. The most morbid conditions were considered and workup was based on these. Workup in the emergency department included: 2 view chest x-ray, EKG, troponin, BNP, CBC, CMP, magnesium level, TSH, free T4, rapid COVID and flu test. Patient was administered 20 mg of IV diltiazem after EKG revealed A-fib with RVR with a rate of 141 beats per minute. See interpretation above Chest x-ray interpreted by me personally. There are airspace opacities in the right upper lobe concerning for pneumonia. See final radiology report for final details. Laboratory workup shows leukocytosis of 19.7 with left shift. Elevated platelets at 939 (baseline is in the 400s), this could be reactive in nature given concern for pneumonia. Mild hyponatremia of 132, creatinine elevated but at baseline at 1.6. BUN normal at 20. Glucose normal at 119. Magnesium normal at 1.7. Initial troponin less than 0.01, repeat troponin pending. BNP is 2050, which is near or below baseline. Negative COVID/flu testing. Given patient's pneumonia and concern for sepsis given his tachycardia, will obtain blood cultures and start him on broad-spectrum antibiotics, azithromycin 500 mg and 2 mg IV Rocephin as well as 1 L lactated ringer. Patient's heart rate has improved to the low 100s-110s after 20 of diltiazem. It is felt the patient will require admission for continued IV antibiotics and rate control for his A-fib. I discussed patient's case with YOBANY Wills working with Dr. Arreola with the hospital medicine service and patient was accepted for admission. Critical Care Critical Care Time Critical Care Time: Yes Attestation: On 05/19/25, the high probability of a clinically significant, sudden or life threatening deterioration of the following system(s) required my full and direct attention, intervention and personal management. The time I documented below is in addition to time spent performing reported procedures but includes the following listed in this critical care notation. Total Time Total Critical Care Time: 35
--- OUTSIDE RECORDS SUMMARY | 2025-05-19 09:13 | XMS_ITS | Clinical Summary ---
Author Organization Healthcare Address [address] [place] [address] Care Team Providers Care Sub Master Name Role Phone Unavailable Primary Care Provider Unavailabl e Social History Tobacco Use Types Packs/Day Years Used Date Smoking Tobacco: Never Assessed Sex and Gender Information Value Date Recorded Sex Assigned at Not on file Legal Sex Male 7:32 PM EDT Gender Identity Not on file Sexual Orientation Not on file Plan of Treatment Health Maintenance Due Date Last Done Comments [facility]-Depression Screening 1955 [facility]-/Child/Adol SDOH Screenings 1955 [facility]- SDOH Screenings 1973 [facility]-Adult SDOH Screenings 1973 [facility]-DTaP,Tdap,and Td Vaccine s (1 - Tdap) 1974 CT Colonography 2000 Colonoscopy 2000 FIT-DNA 2000 FIT 2000 FOBT 2000 Sigmoidoscopy 2000 [facility]-Colorectal Cancer Screening 2000 [facility]-Pneumococcal Vaccine: 50 + Years (1 of 1 - PCV) 2005 [facility]-Zoster Vaccines (1 of 2) 2005 [id number] Vaccine (1 - 20 24-25 season) 2024 [facility]-Influenza Vaccine (#1) 2025 [facility]-RSV Vaccine: 60+ Years o r (1 - 1-dose 75+ series) 2030 HPV Vaccines Aged Out No longer eligi ble based on patient's age to complete this topic [facility]-HIB Vaccines Aged Out No longer e ligible based on patient's age to complete this topic [facility]-Hepatitis A Vaccines Aged Out No longer eligible based on patient's age to complete this topic [facility]-IPV Vaccines Aged Out No longer e ligible based on patient's age to complete this topic [facility]-Rotavirus Vaccines Aged Out No lo nger eligible based on patient's age to complete this topic
--- OUTSIDE RECORDS SUMMARY | 2025-05-19 09:13 | XMS_ITS ---
Author Organization Unknown Problems Date Problem Result OnSetDate Icd10 SnomedCode Severity Cu stom 08/01/2024 00:00:00 Coronary artery disease I25.10 10/26/2024 00:00:00 Chronic CHF I50.9 12/06/2024 00:00:00 Migraine G43.909 12/06/2024 00:00:00 Frontal sinusitis J32.1
--- OUTSIDE RECORDS SUMMARY | 2025-05-19 09:13 | XMS_ITS | Clinical Summary ---
Author Organization [facility] Address [address] [place] [id number] Care Team Providers Care Configuration Management Administrator Name Role Phone Unavailable Primary Care Provider Unavailabl e Social History Tobacco Use Types Packs/Day Years Used Date Smoking Tobacco: Never Assessed Abuse Screen Answer Date Recorded Unsafe at Home or Work/School Not on file Feels Threatened by Someone? Not on file 06/2023 Does Anyone Keep You from Co ntacting Others or Doint Things Outside the Home? Not on file 07/20/2023 Physical Sign of Abuse Present Not on file 1 Housing Stability Answer Date Recorded Current Living Arrangements Not on file 06/2023 Potentially Unsafe Housing Conditions Not on josefa e 07/20/2023 Family and Community Support Answer Adelso e Recorded Help with Day-to-Day Activities Not on file 07/20/2023 Lonely or Isolated Not on file 07/20/2023 Employment Answer Date Recorded Do you want help finding or keeping work or a gemini b? Not on file 07/20/2023 Disabilities Answer Date Recorded Concentrating, Remembering, or Making Decisions Difficulty Not on file 07/20/2023 Doing Errands Independently Difficulty Not on fi le 07/20/2023 Education Answer Date Recorded Help with school or training? Not on file Preferred Language Not on file 07/20/2023 Sex and Gender Information Value Date Recorded Sex Assigned at Not on file Legal Sex Male 1:36 PM EDT Gender Identity Not on file Sexual Orientation Not on file Plan of Treatment Health Maintenance Due Date Last Done Comments ANNUAL PHYSICAL 1955 HEPATITIS C SCREENING 1955 TDAP/TD VACCINES (1 - Tdap) 1974 COLOGUARD 2000 COLON CANCER SCREENING 5 YEAR SIGMOIDOSCOPY 2000 COLONOSCOPY [address] CANCER SCREENING [address] COLONOGRAPHY 2000 FECAL OCCULT BLOOD TEST 2000 FIT Testing (1 year) 2000 Pneumococcal Vaccine 50+ (1 of 1 - PCV) 2005 ZOSTER VACCINE (1 of 2) 2005 AAA SCREEN ONCE 2020 COVID-19 Vaccine ( - 2023- season) 2024 INFLUENZA VACCINE 07/12/2025
--- OUTSIDE RECORDS SUMMARY | 2025-05-19 09:13 | XMS_ITS | Clinical Summary ---
Author Organization [facility] [place] [id number] Care Team Providers Care Catcher Helper Name Role Phone Unavailable Primary Care Provider Unavailabl e Social History Tobacco Use Types Packs/Day Years Used Date Smoking Tobacco: Never Assessed Sex and Gender Information Value Date Recorded Sex Assigned at Not on file Legal Sex Male 5:25 AM EDT Gender Identity Not on file Sexual Orientation Not on file Plan of Treatment Health Maintenance Due Date Last Done Comments Annual Wellness Exam 1958 Hepatitis C Screening 1973 DTaP/TDaP/Td (1 - Tdap) 1974 Cologuard 2000 Colon Cancer Screening 2000 Colonoscopy 2000 FIT 2000 Sigmoidoscopy 2000 Virtual Colonography 2000 Pneumococcal Vaccine 50+ (1 of 1 - PCV) 2005 Zoster (1 of 2) 2005 COVID-19 Vaccine (2023-2 5 season) 2024 Influenza Vaccine (#1) 2025 Hepatitis B Vaccine Aged Out No longe r eligible based on patient's age to complete this topic Meningococcal B Vaccine Aged Out No l onger eligible based on patient's age to complete this topic
[2025-05-19 09:18] LABS: Coronavirus 19, PCR Not Detected (NotDetected); Influenza A, PCR Not Detected (NotDetected); Influenza B, PCR Not Detected (NotDetected)
[2025-05-19 09:20] LABS: Hematocrit 35.1 % (42.0-52.0); Hemoglobin 11.4 g/dL (14.1-18.0); Immature Granulocytes % 1.0 %; Mean Corpuscular HGB Conc 32.5 g/dL (31.8-35.4); Mean Corpuscular Hemoglobin 28.9 pg (27.0-31.2); Mean Corpuscular Volume 88.9 fl (80-94); Nucleated Red Blood Cells % 0 %; Platelet Count 939 K/mm3 (142-424); Red Blood Count 3.95 M/mm3 (4.60-6.20); Red Cell Distribution Width-SD 49.1 fL; White Blood Count 19.7 K/mm3 (4.8-10.8)
--- NOTE | 2025-05-19 09:29 | PC.NURSE ---
diltiazem bolus given, heart rate remains irregular 110-130s. bp lowered slightly during administration but within normal limits;
[2025-05-19 09:38] LABS: Albumin Level 3.8 g/dl (3.5-5.0); Chloride 99 mmol/L (98-107); Potassium 3.8 mmoL/L (3.5-5.1); Sodium 132 mmol/L (136-145)
[2025-05-19 09:41] LABS: Alanine Aminotransferase 19 U/L (12-78); Albumin/Globulin Ratio 1.0 (1.1-1.8); Alkaline Phosphatase 102 U/L (38-126); Anion Gap 12.8 mEq/L (5-15); Aspartate Amino Transferase 24 U/L (17-59); Bilirubin,Total 0.9 mg/dl (0.2-1.3); Blood Urea Nitrogen 20 mg/dl (9-20); Calcium 9.4 mg/dl (8.4-10.2); Carbon Dioxide 24 mmol/L (22.0-30.0); Creatinine Clearance Estimated 39 mL/min (50-200); Creatinine,Serum 1.60 mg/dl (0.66-1.25); Estimated Glomerular Filt Rate 43 ml/min (>60); GFR (African American) 52 ML/MIN (>60); Globulin 3.9 g/dL (1.3-3.2); Glucose 119 mg/dl (74-100); Magnesium 1.7 mg/dl (1.6-2.3); Total Protein,Serum 7.7 g/dl (6.3-8.2)
[2025-05-19 09:51] LABS: NT Pro Brain Natriuretic Pep. 2050 pg/mL (0-125)
[2025-05-19 09:54] LABS: Troponin I < 0.01 ng/ml (0.00-0.034)
[2025-05-19 10:00] LABS: Total Cells Counted 100
[2025-05-19 10:01] LABS: RBC Morphology Normal
--- NOTE | 2025-05-19 10:05 | HMH.PHAINT1 ---
Pharmacy Intervention Comments: MEDICATION RECONCILIATION COMPLETED ON PATIENT USING EXTERNAL FILL HISTORY FROM PHARMACY. -STAN HUI, KAYLEED
--- NOTE | 2025-05-19 10:07 | PC.NURSE ---
Addendum entered by Roxie Funk RN 05/19/25 10:11: ROOM 206 Original Note: PT ADMITTED ROOM 205. ALL STAFF NOTIFIED
[2025-05-19 10:12] LABS: Thyroid Stimulating Hormone 1.83 uIU/mL (0.465-4.68)
--- NOTE | 2025-05-19 10:23 | PC.NURSE ---
report called to micheal lam
[2025-05-19 10:24] LABS: Free T4 (Free Thyroxine) 1.79 ng/dl (0.78-2.19)
--- NOTE | 2025-05-19 11:45 | P.HP_ITS ---
<Statement entered by Rashaad Arreola MD - 05/19/25 12:38> Rounded on patient after nurse practitioner. Personally examined and interviewed patient. Agree with exam findings and care plan as documented. History of Present Illness *Admission Date: 05/19/25 *Reason for visit:: Pneumonia, A-fib RVR *History of present illness: Mr. Cosme is a 69-year-old male who presented to the emergency department today with complaints of heart palpitations, fatigue, intermittent shortness of breath, intermittent chest pain for approximately 3 weeks. He has a primary medical history of atrial fibrillation with RVR, COPD, hypertension, chronic back pain, and prostate cancer. He has been taking Cardizem 120 mg daily for his atrial fibrillation, this was recently stopped by his PCP due to hypotension. He is anticoagulated on Xarelto 15 mg daily. On arrival to the emergency room department he was found to have a heart rate in the 140s, he was given Cardizem 20 mg IV which lowered his heart rate to the 110s. Workup revealed a right upper lobe pneumonia, significant leukocytosis of 19.7 with left shift, elevated platelets of 939. Troponins were negative, kidney function appears to be at baseline creatinine 1.6, BNP elevated at 2050 (appears to be patient baseline), negative COVID/flu test. Patient was initiated on azithromycin and Rocephin. [facility] Disclaimer: The information contained in this section may have been updated after the patient was seen, as this information can be updated by other users. Medical History Hyperlipidemia Chest pain Pneumonia SOB (shortness of breath) Elevated troponin Atrial fibrillation GERD (gastroesophageal reflux disease) DVT (deep venous thrombosis) HTN (hypertension) Atrial fibrillation with rapid ventricular response Hypomagnesemia Hx of prostatic malignancy Acute exacerbation of chronic obstructive pulmonary disease Atrial fibrillation with rapid ventricular response Immunocompromised Pneumonia COPD (chronic obstructive pulmonary disease) (~09/17/22) Prostate cancer (~09/17/22) Surgical History H/O hernia repair S/P TURP H/O splenectomy Family History Mother Severe sepsis with septic shock Father Throat cancer Social History Smoking Status: Former smoker alcohol intake: never substance use type: denies use current occupational status: employed Travel in the last 8 weeks?: None household members: spouse housing: house additional social history: The patient lives with Dorothea his of 40 years. He has 2 adult sons. He quit smoking several years ago after smoking 1 pack/day for 50 years. He denies routine alcohol consumption. He elects a full CODE STATUS. Have you lived/traveled outside US in past 30 days?: No Contact w/someone who lives/traveled outside US past 30 days?: No Exposure to someone with infectious disease in past 14 days?: No Do you have a fever (greater than 100.4 F or 38 C)?: No Have you tested positive for COVID-19?: No Exposed to someone with COVID-19 in past 14 days?: No Do you have a sore throat?: No Do you have a cough?: Yes Do you have any weakness?: Yes Are you experiencing any nausea/vomitting?: No Do you have any diarrhea?: No Are you experiencing any unusual bleeding?: No Do you have any muscle aches/pain?: No Do you have any abdominal pain?: No Are you experiencing loss of taste or smell?: No Other Medical History Have you received the Flu Vaccine for this season: Yes Have you received the Pneumonia Vaccine: Yes Review of Systems Review of Systems Review of systems:: pertinent systems reviewed and negative unless documented below Constitutional Constitutional: Reports chills, Reports poor appetite, Reports lethargy and Reports malaise ENT Ears, Nose, Mouth, and Throat: Denies disequilibrium, Denies nasal congestion, Denies nasal discharge, Denies sore throat and Denies vertigo *Cardiovascular Cardiovascular: Reports chest pain (Intermittent), Reports dyspnea, Reports irregular heart rhythm, Denies leg edema and Reports palpitations *Respiratory Respiratory: Reports chest congestion, Reports cough, Reports dyspnea and Denies wheezing *Gastrointestinal Gastrointestinal: Denies abdominal pain, Denies heartburn, Denies nausea and Denies vomiting *Musculoskeletal Musculoskeletal: Reports back pain (Chronic) *Neurologic Neurologic: Denies disequilibrium and Denies vertigo Endocrine Endocrine: Reports palpitations Allergic/Immunologic Allergic/Immunologic: Denies wheezing Meds Home Medications and Allergies Home Medications ?Medication ?Instructions ?Recorded ?Confirmed ?Type atorvastatin 40 mg tablet 40 mg PO HS 02/29/24 5 History bicalutamide 50 mg tablet 50 mg PO DAILY 02/29/2406/05 History budesonide 160 mcg-glycopyr 9 2 inh inhalation BID 05/19/25 History mcg-formot 4.8 mcg/actuation HFA inhaler (Breztri Aerosphere) omeprazole 40 mg capsule,delayed 40 mg PO DAILY 05/19/25 History release magnesium oxide 400 mg (241.3 mg 400 mg PO DAILY 30 da ys #30 tabs 03/02/24 05/19/25 Rx magnesium) tablet meloxicam 15 mg tablet 15 mg PO DAILY 08/26/2406/05 History rivaroxaban 15 mg tablet (Xarelto) 15 mg PO QPMWITHMEA L 30 days #30 08/26/24 05/19/25 Rx tabs diltiazem HCl 120 mg tablet 120 mg PO DAILY 05/19/25 0 05/19/25 History New Prescriptions to Start Prescriptions: Allergies Allergy/AdvReac Type Severity Reaction Status Date / Time No Known Allergies Allergy Verified 10/13/23 09:09 Exam Data for Last 24 hours Vital signs and Labs for Last 24 Hours: Temp Pulse Resp BP Pulse Ox O2 Del Method 97.7 F 112 H 18 111/71 96 Room Air 05/19/25 10:37 05/19/25 10:37 05/19/25 10:37 05/19/25 10:37 05/19/25 10:14 05/19/25 10:37 Laboratory Results - last 24 hr 05/19/25 08:52: SARS-CoV-2 (PCR) Not detected, Influenza A Untype (PCR) Not detected, Influenza Type B (PCR) Not detected 05/19/25 09:15: WBC 19.7 H, RBC 3.95 L, Hgb 11.4 L, Hct 35.1 L, MCV 88.9, MCH 28 .9, MCHC 32.5, RDW 14.9, Plt Count 939 H*, MPV 10.2, Neut % (Auto) 83.1 H, Lymph % (Auto) 6.2 L, [place] % (Auto) 8.7, Eos % (Auto) 0.4, Baso % (Auto) 0.6, Neut # (Auto) 16.4 H, Lymph # (Auto) 1.2, [place] # (Auto) 1.7 H, Eos # (Auto) 0.1, Baso # (Auto) 0.1, Total Counted 100, Neutrophils % (Manual) 81 H, Lymphocytes % (Manual) 8 L, Monocytes % (Manual) 10 H, Basophils % (Manual) 1.0, Platelet Estimate Marked increase, RBC Morphology Normal, Sodium 132 L, Potassium 3.8, Chloride 99, Carbon Dioxide 24, Anion Gap 12.8, BUN 20, Creatinine 1.60 H, Estimated Creat Clear 39, Estimated GFR 43 L, Est GFR ( Amer) 52 L, Glucose 119 H, Calcium 9.4, Magnesium 1.7, Total Bilirubin 0.9, AST 24, ALT 19, Alkaline Phosphatase 102, Troponin I < 0.01, NT-Pro-B Natriuret Pep 2050 H, Total Protein 7.7, Albumin 3.8, Globulin 3.9 H, Albumin/Globulin Ratio 1.0 L, TSH 1.83, Free T4 1.79 I & O for Last 24 hours: Intake & Output 05/16/25 05/17/25 05/18/25 05/19/25 23:59 23:59 23:59 23:59 Weight 61.915 kg Constitutional Constitutional: no acute distress, thin and cooperative *Routine HEENT Exam Head: Present normocephalic Eye: Present EOMI ENT: Present mucous membranes moist *Routine Neck Exam Neck: Present supple; Absent JVD *Routine Respiratory Exam Respiratory: Present rhonchi (Right upper lobe), normal respiratory effort, able to speak in complete sentences and symmetric chest movement *Routine Cardiovascular Exam Cardiovascular: Present irregularly irregular; Absent murmur *Routine Abdominal Exam Abdominal: Present soft and normoactive bowel sounds; Absent tenderness or distended *Routine Rectal Exam Rectal:: deferred *Routine Genitalia Exam Genitalia:: deferred *Routine Extremities Exam Extremities: Present full ROM; Absent edema *Routine Neurological Exam Neurological: Present alert, oriented X3, hearing grossly intact and normal speech Assessment and Plan *Assessment and plan (1) Atrial fibrillation with rapid ventricular response: Status: Acute Category: Medical Code(s): I48.91 - Unspecified atrial fibrillation (2) Sepsis: Status: Acute Category: Medical Code(s): A41.9 - Sepsis, unspecified organism (3) Leukocytosis: Status: Acute Category: Medical Code(s): D72.829 - Elevated white blood cell count, unspecified (4) Community acquired pneumonia of right upper lobe of lung: Status: Acute Category: Medical Code(s): J18.9 - Pneumonia, unspecified organism (5) Thrombocytosis: Status: Acute Category: Medical Code(s): D75.839 - Thrombocytosis, unspecified Plan Mr. Cosme is a 69-year-old male who presented to the emergency department today with complaints of heart palpitations, fatigue, intermittent shortness of breath, intermittent chest pain for approximately 3 weeks. He has a primary medical history of atrial fibrillation with RVR, COPD, hypertension, chronic back pain, and prostate cancer. He has been taking Cardizem 120 mg daily for his atrial fibrillation, this was recently stopped by his PCP due to hypotension. He is anticoagulated on Xarelto 15 mg daily. On arrival to the emergency room department he was found to have a heart rate in the 140s, he was given Cardizem 20 mg IV which lowered his heart rate to the 110s. Workup revealed a right upper lobe pneumonia, significant leukocytosis of 19.7 with left shift, elevated platelets of 939. Troponins were negative, kidney function appears to be at baseline creatinine 1.6, BNP elevated at 0 (appears to be patient baseline), negative COVID/flu test. Patient was initiated on azit hromycin and Rocephin. Dr. José in the ED consulted hospital medicine for admission, I agreed to accept the patient for further management. Plan of care as follows: #Atrial fibrillation with RVR ? Patient currently in atrial fibrillation with rapid ventricular response, heart rate in the 110-120 range. Patient is anticoagulated on Xarelto 15 mg daily, recently stopped his Cardizem 120 mg daily due to hypotension. Patient was given Cardizem 20 mg IV in the ED for rate of 140s. Will resume Xarelto 15 mg daily. ? Cardiology consulted, pending recommendations. Patient had an echo in August 2024, showed LVEF 55%. ? Patient placed on continuous cardiac telemetry. #Sepsis #Leukocytosis #Community-acquired pneumonia, right upper lobe ? Patient found to have elevated WBC of 19.7 with neutrophilic predominance. Flu/COVID respiratory panel negative. Full respiratory panel pending. No other electrolyte abnormalities noted. ? I personally reviewed patient's chest x-ray showing right upper lobe consolidation, concerning for pneumonia. Patient started on empiric antibiotics?azithromycin and Rocephin. Continue daily IV ? Sputum ordered, pending. DuoNeb every 6 hour ordered. ? Ordered CBC, CMP for the a.m. #Thrombocytosis ? Patient platelet count found to be 939, previous platelet counts within normal range. Likely reactive thrombocytosis due to infection. ? CBC ordered for the a.m. to monitor. Hyperlipidemia: Continue atorvastatin 40 mg at bedtime. COPD: Breztri twice daily continued. GERD: Pantoprazole 40 mg at bedtime ordered. Prostate cancer: Holding bicalutamide 50 mg daily. Full code VTE?Xarelto Ambulate as tolerated Cardiac diet
[2025-05-19] MEDS: AZITHROMYCIN 500 MG in 0.9 % SODIUM CHLORIDE 250 ML 250 MG IV (11:49)
[2025-05-19] MEDS: LACTATED RINGERS 1000ML 1,000 ML 150 ML IV ×2 (11:49→23:37)
--- NOTE | 2025-05-19 12:06 | EXP.CARD.CON ---
History of Present Illness History of Present Illness Consult date: 05/19/25 Chief complaint: soa, weakness History of present illness: 69-year-old white male established patient of our office with history of paroxysmal atrial fibrillation. Had low risk stress test and echo here in 2022. Recently presented to PCP for several weeks worsening shortness of breath and fatigue. Blood pressure was noted to be 110 over 60s so PCP stopped Cardizem which is currently used for rate control. Patient presented to the hospital last night feeling much worse and was found to be in A-fib RVR. Workup also revealed dense right upper lobe consolidation consistent with pneumonia as well as neutrophil predominant leukocytosis. WBC 19.7. Patient admitted for further workup and management. Heart rate and blood pressure both currently averaging approximately 110. [facility] Disclaimer: The information contained in this section may have been updated after the patient was seen, as this information can be updated by other users. Medical History Hyperlipidemia Chest pain Pneumonia SOB (shortness of breath) Elevated troponin Atrial fibrillation GERD (gastroesophageal reflux disease) DVT (deep venous thrombosis) HTN (hypertension) Atrial fibrillation with rapid ventricular response Hypomagnesemia Hx of prostatic malignancy Acute exacerbation of chronic obstructive pulmonary disease Atrial fibrillation with rapid ventricular response Immunocompromised Pneumonia COPD (chronic obstructive pulmonary disease) (~09/17/22) Prostate cancer (~09/17/22) Surgical History H/O hernia repair S/P TURP H/O splenectomy Family History Mother Severe sepsis with septic shock Father Throat cancer Social History Smoking Status: Former smoker alcohol intake: never substance use type: denies use current occupational status: employed Travel in the last 8 weeks?: None household members: spouse housing: house additional social history: The patient lives with Dorothea his of 40 years. He has 2 adult sons. He quit smoking several years ago after smoking 1 pack/day for 50 years. He denies routine alcohol consumption. He elects a full CODE STATUS. Have you lived/traveled outside US in past 30 days?: No Contact w/someone who lives/traveled outside US past 30 days?: No Exposure to someone with infectious disease in past 14 days?: No Do you have a fever (greater than 100.4 F or 38 C)?: No Have you tested positive for COVID-19?: No Exposed to someone with COVID-19 in past 14 days?: No Do you have a sore throat?: No Do you have a cough?: Yes Do you have any weakness?: Yes Are you experiencing any nausea/vomitting?: No Do you have any diarrhea?: No Are you experiencing any unusual bleeding?: No Do you have any muscle aches/pain?: No Do you have any abdominal pain?: No Are you experiencing loss of taste or smell?: No Review of Systems Constitutional Constitutional: Reports fatigue and Reports weakness Eyes Eyes: Denies loss of vision ENT Ears, Nose, Mouth, and Throat: Denies hearing loss and Denies vertigo *Cardiovascular Cardiovascular: Denies chest pain, Reports dyspnea and Denies syncope *Respiratory Respiratory: Denies cough and Reports dyspnea *Gastrointestinal Gastrointestinal: Denies change in stool character, Denies nausea and Denies vomiting *Genitourinary Genitourinary: Denies difficulty urinating *Musculoskeletal Musculoskeletal: Denies muscle weakness Integumentary/Breasts Skin/Breast: Denies changing lesions *Neurologic Neurologic: Denies loss of vision, Denies syncope, Denies vertigo and Reports weakness Endocrine Endocrine: Reports fatigue Exam Data for Last 24 hours Vital signs and Labs for Last 24 Hours: Temp Pulse Resp BP Pulse Ox O2 Del Method 97.7 F 112 H 18 111/71 96 Room Air 05/19/25 10:37 05/19/25 10:37 05/19/25 10:37 05/19/25 10:37 05/19/25 10:14 05/19/25 10:37 Laboratory Results - last 24 hr 05/19/25 08:52: SARS-CoV-2 (PCR) Not detected, Influenza A Untype (PCR) Not detected, Influenza Type B (PCR) Not detected 05/19/25 09:15: WBC 19.7 H, RBC 3.95 L, Hgb 11.4 L, Hct 35.1 L, MCV 88.9, MCH 28.9, MCHC 32.5, RDW 14.9, Plt Count 939 H*, MPV 10.2, Neut % (Auto) 83.1 H, Lymph % (Auto) 6.2 L, [place] % (Auto) 8.7, Eos % (Auto) 0.4, Baso % (Auto) 0.6, Neut # (Auto) 16.4 H, Lymph # (Auto) 1.2, [place] # (Auto) 1.7 H, Eos # (Auto) 0.1, Baso # (Auto) 0.1, Total Counted 100, Neutrophils % (Manual) 81 H, Lymphocytes % (Manual) 8 L, Monocytes % (Manual) 10 H, Basophils % (Manual) 1.0, Platelet Estimate Marked increase, RBC Morphology Normal, Sodium 132 L, Potassium 3.8, Chloride 99, Carbon Dioxide 24, Anion Gap 12.8, BUN 20, Creatinine 1.60 H, Estimated Creat Clear 39, Estimated GFR 43 L, Est GFR ( Amer) 52 L, Glucose 119 H, Calcium 9.4, Magnesium 1.7, Total Bilirubin 0.9, AST 24, ALT 19, Alkaline Phosphatase 102, Troponin I < 0.01, NT-Pro-B Natriuret Pep 2050 H, Total Protein 7.7, Albumin 3.8, Globulin 3.9 H, Albumin/Globulin Ratio 1.0 L, TSH 1.83, Free T4 1.79 I & O for Last 24 hours: Intake & Output 05/16/25 05/17/25 05/18/25 05/19/25 23:59 23:59 23:59 23:59 Weight 136 lb 8 oz Constitutional Constitutional: no acute distress and cooperative *Routine HEENT Exam Eye: Present PERRL *Routine Respiratory Exam Respiratory: Present CTA bilaterally; Absent accessory muscle use, wheezes or crackles *Routine Cardiovascular Exam Cardiovascular: Present Normal S1 and Normal S2; Absent murmur, gallop or rubs *Routine Abdominal Exam Abdominal: Present soft; Absent tenderness *Routine Extremities Exam Extremities: Present pulses intact; Absent cyanosis or edema *Routine Skin Exam Skin: Present intact; Absent erythema or wounds *Routine Neurological Exam Neurological: Present alert and oriented X3 Routine Psychiatric Exam Psychiatric: Present cooperative Meds Home Medications and Allergies Home Medications ?Medication ?Instructions ?Recorded ?Confirmed ?Type atorvastatin 40 mg tablet 40 mg PO HS 02/29/24 05/19/25 History bicalutamide 50 mg tablet 50 mg PO DAILY 02/29/24 05/19/25 History budesonide 160 mcg-glycopyr 9 2 inh inhalation BID 02/29/24 05/19/25 History mcg-formot 4.8 mcg/actuation HFA inhaler (Breztri Aerosphere) omeprazole 40 mg capsule,delayed 40 mg PO DAILY 02/29/24 05/19/25 History release magnesium oxide 400 mg (241.3 mg 400 mg PO DAILY 30 days #30 tabs 03/02/24 05/19/25 Rx magnesium) tablet meloxicam 15 mg tablet 15 mg PO DAILY 08/26/24 05/19/25 History rivaroxaban 15 mg tablet (Xarelto) 15 mg PO QPMWITHMEAL 30 days #30 08/26/24 05/19/25 Rx tabs diltiazem HCl 120 mg tablet 120 mg PO DAILY 05/19/25 05/19/25 History New Prescriptions to Start Prescriptions: Allergies Allergy/AdvReac Type Severity Reaction Status Date / Time No Known Allergies Allergy Verified 10/13/23 09:09 Assessment and Plan *Assessment and plan (1) Community acquired pneumonia of right upper lobe of lung: Status: Acute Category: Medical Code(s): J18.9 - Pneumonia, unspecified organism (2) Atrial fibrillation with rapid ventricular response: Status: Acute Category: Medical Code(s): I48.91 - Unspecified atrial fibrillation (3) Thrombocytosis: Status: Acute Category: Medical Code(s): D75.839 - Thrombocytosis, unspecified (4) Pneumonia: Status: Acute Category: Medical Code(s): J18.9 - Pneumonia, unspecified organism Plan A-fib RVR - Known diagnosis, acute exacerbation with discontinuation of rate control medicines in the setting of community-acquired pneumonia - Continue Xarelto - Can use as needed Cardizem here for heart rate sustained greater than 120, otherwise expect some tachycardia in the setting of pneumonia -proBNP is elevated, will check 2D echo-was low risk in 2022 Community-acquired pneumonia -Dense right upper lobe consolidation noted on chest x-ray, WBC 19.7 -On antibiotics Thrombocytosis -Platelets greater than 900, workup in progress - CV stable, use Cardizem IV as needed. Rate control should improve with resolution of pneumonia. Further plans pending echo results.
[2025-05-19 12:37] LABS: Troponin I < 0.01 ng/ml (0.00-0.034)
[2025-05-19 12:41] LABS: Adenovirus,PCR Not Detected (NotDetected); Chlamydophila Pneumoniae, PCR Not Detected (NotDetected); Coronavirus 19, PCR Not Detected (NotDetected); Coronovirus HKU1,PCR Not Detected (NotDetected); Influenza A, PCR Not Detected (NotDetected); Influenza AH1, 2009 Not Detected (NotDetected); Influenza AH1, PCR Not Detected (NotDetected); Influenza AH3,PCR Not Detected (NotDetected); Influenza B, PCR Not Detected (NotDetected); Mycoplasma Pneumoniae, PCR Not Detected (NotDetected); Parainfluenza 1, PCR Not Detected (NotDetected); Parainfluenza 2, PCR Not Detected (NotDetected); Parainfluenza 3, PCR Not Detected (NotDetected); Parainfluenza 4, PCR Not Detected (NotDetected)
--- OUTSIDE RECORDS SUMMARY | 2025-05-19 14:48 | XMS_ITS | Clinical Summary ---
Author Organization [facility] [place] [id number] Care Team Providers Care Leather Production Worker Name Role Phone Unavailable Primary Care Provider [...]
--- OUTSIDE RECORDS SUMMARY | 2025-05-19 14:49 | XMS_ITS | Clinical Summary ---
Author Organization [facility] Address [address] [place] [id number] Care Team Providers Care Nursing Home Assistant Name Role Phone Unavailable Primary Care Provider [...]
--- OUTSIDE RECORDS SUMMARY | 2025-05-19 14:49 | XMS_ITS | Clinical Summary ---
Author Organization [facility] Address [address] [place] [address] Care Team Providers Care Surface Hydrologist Name Role Phone Unavailable Primary Care Provider [...] 2005 UKY-Zoster Vaccines (1 of 2) 2005 [id number] Vaccine (1 - 20 24-25 season) 2024 [...]
[2025-05-19 15:20] LABS: Microscopic, Urine URINE MICROSCOPIC (MICROSCOPIC)
[2025-05-19 15:26] LABS: Color,Urine YELLOW (Yellow); Glucose,Urine (UA) Negative (Negative); Ketones,Urine TRACE (Negative); Leukocyte Esterase,Urine Negative (Negative); PH,Urine 6.0 (5.0-8.5); Protein,Urine 1+ (Negative); Specific Gravity, Urine 1.025 (1.005-1.030); Urobilinogen,Urine 0.2 EU/dl (0.2)
[2025-05-19 15:32] LABS: Bilirubin,Urine 1+ (Negative)
[2025-05-19 15:44] LABS: Bacteria,Urine 2+ /lpf
[2025-05-19] MEDS: MAGNESIUM SULFATE IN WATER 2 GM/50 ML PIGGYBACK IV ×2 (16:46→18:26)
[2025-05-19] MEDS: IPRATROPIUM/ALBUTEROL 3 ML NEB IH (18:09)
[2025-05-19] MEDS: BREZTRI AEROSPHERE 2 EACH IH (18:09)
[2025-05-19] MEDS: PANTOPRAZOLE 40MG TABLET 40 MG PO (20:18)
[2025-05-19] MEDS: ATORVASTATIN 40MG TABLET 40 MG PO (20:18)
[2025-05-20] VITALS (10 sets, daily range): BP systolic 137–177; BP diastolic 47–84; PULSE 60–100; RESP 14–22; TEMP 36.6–37.1; O2SAT 92–98; BMI 21.0
[2025-05-20] MEDS: IPRATROPIUM/ALBUTEROL 3 ML NEB IH ×3 (00:57→11:02)
[2025-05-20] MEDS: LACTATED RINGERS 1000ML 1,000 ML 150 ML IV ×3 (06:10→22:04)
[2025-05-20] MEDS: BREZTRI AEROSPHERE 2 EACH IH ×2 (06:34→18:08)
[2025-05-20 07:22] LABS: Hematocrit 28.7 % (42.0-52.0); Immature Granulocytes % 0.7 %; Mean Corpuscular HGB Conc 32.4 g/dL (31.8-35.4); Nucleated Red Blood Cells % 0 %
[2025-05-20 07:25] LABS: Mean Corpuscular Hemoglobin 28.7 pg (27.0-31.2); Mean Corpuscular Volume 88.6 fl (80-94); Platelet Count 716 K/mm3 (142-424); Red Blood Count 3.24 M/mm3 (4.60-6.20); Red Cell Distribution Width-SD 49.7 fL; White Blood Count 15.8 K/mm3 (4.8-10.8)
[2025-05-20 07:29] LABS: Hemoglobin 9.3 g/dL (14.1-18.0)
[2025-05-20 07:32] LABS: Albumin Level 2.5 g/dl (3.5-5.0); Chloride 100 mmol/L (98-107); Potassium 3.7 mmoL/L (3.5-5.1); Sodium 131 mmol/L (136-145)
[2025-05-20 07:34] LABS: Blood Urea Nitrogen 17 mg/dl (9-20)
[2025-05-20 07:35] LABS: Alanine Aminotransferase 12 U/L (12-78); Albumin/Globulin Ratio 0.9 (1.1-1.8); Anion Gap 10.7 mEq/L (5-15); Aspartate Amino Transferase 17 U/L (17-59); Calcium 8.0 mg/dl (8.4-10.2); Carbon Dioxide 24 mmol/L (22.0-30.0); Cholesterol 83 mg/dl (140-200); Creatinine Clearance Estimated 55 mL/min (50-200); Creatinine,Serum 1.20 mg/dl (0.66-1.25); Estimated Glomerular Filt Rate 60 ml/min (>60); GFR (African American) 73 ML/MIN (>60); Globulin 2.8 g/dL (1.3-3.2); Glucose 111 mg/dl (74-100); Phosphorous 3.1 mg/dl (2.5-4.5); Total Protein,Serum 5.3 g/dl (6.3-8.2); Triglycerides 63 mg/dl (30-150)
[2025-05-20 07:36] LABS: HDL Cholesterol 29 mg/dl (40-60); Magnesium 2.4 mg/dl (1.6-2.3)
[2025-05-20 07:51] LABS: Alkaline Phosphatase 85 U/L (38-126); Bilirubin,Total 0.3 mg/dl (0.2-1.3)
[2025-05-20] MEDS: AZITHROMYCIN 500 MG in 0.9 % SODIUM CHLORIDE 250 ML 250 MG IV (10:28)
--- NOTE | 2025-05-20 12:47 | EXP.ACUTE.PN ---
Subjective *Date: 05/20/25 *Time: 12:47 Interval history: Patient has marginal treatment today. Still feels quite weak. Stable on room air this morning. No fever. No nausea or vomiting. Seeing improvement in his white count. Not sure he has the energy to get out of bed but would like to try getting up and walking today. Afebrile overnight. Medical Exam Vital signs and Labs for Last 24 Hours: Vital Signs Temp Pulse Pulse Resp BP Pulse Ox O2 Del Method 05/20/25 12:00 100 H 05/20/25 12:00 97.9 F 84 20 150/80 H 98 Room Air 05/20/25 11:03 73 05/20/25 11:03 73 05/20/25 11:00 Room Air 05/20/25 09:10 Room Air 05/20/25 08:30 95 Room Air 05/20/25 08:00 90 05/20/25 08:00 98.1 F 93 H 20 141/76 H 95 Room Air 05/20/25 06:35 70 05/20/25 06:35 72 05/20/25 06:35 93 L Room Air 05/20/25 06:17 Room Air 05/20/25 05:00 Room Air 05/20/25 04:00 98.6 F 73 14 137/84 95 Room Air 05/20/25 04:00 60 05/20/25 03:00 Room Air 05/20/25 01:00 Room Air 05/20/25 00:57 67 05/20/25 00:57 69 05/20/25 00:00 60 05/20/25 00:00 97.9 F 79 14 152/47 H 92 L Room Air 05/19/25 23:00 Room Air 05/19/25 21:00 Room Air 05/19/25 20:00 80 05/19/25 20:00 Room Air 05/19/25 19:39 98.2 F 84 12 133/62 95 Room Air 05/19/25 18:30 Room Air 05/19/25 18:10 66 05/19/25 18:10 70 05/19/25 18:10 96 Room Air 05/19/25 17:00 Room Air 05/19/25 16:00 60 05/19/25 16:00 98.1 F 68 20 145/87 H 96 Room Air 05/19/25 15:00 Room Air 05/19/25 13:00 Room Air Intake and Output 05/19/25 05/20/25 05/20/25 23:59 07:59 15:59 Intake Total 1136 / 1436 1994 / 2644 650 / 2644 Output Total 550 / 550 200 / 550 350 / 550 Balance 586 / 886 1794 / 2094 300 / 2094 Intake: Intake, Oral Amount 480 / 780 60 / 360 300 / 360 Intake, Total IV Amount 656 / 656 1934 / 2284 350 / 2284 Azithromycin 500 mg In 0.9 % 250 / 250 Sodium Chloride 250 ml @ 250 mls/hr IV Q24H [facility] Rx#:[id number] Ceftriaxone Sodium 2 gm In 0.9 100 / 100 % Sodium Chloride 100 ml @ 200 mls/hr IV Q24H [facility] Rx#:[id number] Lactated Ringers 1000ML 1,000 556 / 556 1934 / 1934 ml @ 150 mls/hr IV .Q6H40M [facility] Rx#:[id number] Magnesium Sulfate in Water 2 gm 100 / 100 In 50 ml @ 50 mls/hr IV Q1H [facility] Rx#:[id number] Output: Output, Urine Amount 550 / 550 200 / 550 350 / 550 Other: Number of Unmeasured Voids 1 0 Weight 66.723 kg Patient Weight 05/20/25 23:59 Weight 66.723 kg Laboratory Results - last 24 hr 05/19/25 12:16: Chlamy pneumoniae PCR Not detected, Adenovirus (PCR) Not detected, B. pertussis DNA (PCR) Not detected, Coronavirus OC43 (PCR) Not detected, Coronavirus HKU1 (PCR) Not detected, Coronavirus 229E (PCR) Not detected, SARS-CoV-2 (PCR) Not detected, Coronavirus NL63 (PCR) Not detected, Human Metapneumovir PCR Not detected, Influenza A (H1) PCR Not detected, Influ A (H1N1/09) PCR Not detected, Influenza A (H3) PCR Not detected, Influenza Type A (PCR) Not detected, Influenza Type B (PCR) Not detected, M. pneumoniae (PCR) Not detected, Parainfluenza 1 (PCR) Not detected, Parainfluenza 2 (PCR) Not detected, Parainfluenza 3 (PCR) Not detected, Parainfluenza 4 (PCR) Not detected, RSV (PCR) Not detected, Entero/Rhino (PCR) Not detected 05/19/25 15:16: Urine Color Yellow, Urine Appearance Clear, Urine pH 6.0, Ur Specific [place] 1.025, Urine Protein 1+ A, Urine Glucose (UA) Negative, Urine Ketones Trace, Urine Blood Negative, Urine Nitrate Negative, Urine Bilirubin 1+ A, Urine Urobilinogen 0.2, Ur Leukocyte Esterase Negative, Urine RBC None, Urine WBC 5-10, Ur Squamous Epith Cells None, Urine Bacteria 2+ 05/20/25 06:40: WBC 15.8 H, RBC 3.24 L, Hgb 9.3 L D, Hct 28.7 L, MCV 88.6, MCH 28.7, MCHC 32.4, RDW 15.3, Plt Count 716 H, MPV 11.3 H, Neut % (Auto) 80.7 H, Lymph % (Auto) 9.4 L, [place] % (Auto) 8.0, Eos % (Auto) 0.6, Baso % (Auto) 0.6, Neut # (Auto) 12.7 H, Lymph # (Auto) 1.5, [place] # (Auto) 1.3 H, Eos # (Auto) 0.1, Baso # (Auto) 0.1, Sodium 131 L, Potassium 3.7, Chloride 100, Carbon Dioxide 24, Anion Gap 10.7, BUN 17, Creatinine 1.20 D, Estimated Creat Clear 55, Estimated GFR 60, Est GFR ( Amer) 73 D, Glucose 111 H, Calcium 8.0 L, Phosphorus 3.1, Magnesium 2.4 H D, Total Bilirubin 0.3, AST 17 D, ALT 12 D, Alkaline Phosphatase 85, Total Protein 5.3 L D, Albumin 2.5 L D, Globulin 2.8, Albumin/Globulin Ratio 0.9 L, Triglycerides 63, Cholesterol 83 L, LDL Cholesterol Direct 33.01 L, VLDL Cholesterol 13, HDL Cholesterol 29 L, Cholesterol/HDL Ratio 2.9 I & O for Labs for Last 24 Hours: Intake & Output 05/17/25 05/18/25 05/19/25 05/20/25 23:59 23:59 23:59 23:59 Intake Total 1376 / 1436 2644 / 2644 Output Total 550 / 550 550 / 550 Balance 826 / 886 2094 / 2094 Weight 61.915 kg 66.723 kg Microbiology Reports for the Last 24 Hours: Microbiology 05/19/25 10:08 Blood Blood Culture - Preliminary NO GROWTH AFTER 24 HOURS 05/19/25 10:07 Blood Blood Culture - Preliminary NO GROWTH AFTER 24 HOURS 05/19/25 14:57 Sputum - Expectorated Sputum Gram Stain - Final Constitutional: Present no acute distress, thin, chronically ill appearing and cooperative Head: Present atraumatic and normocephalic ENT: Present normal exam Neck: Present normal inspection Respiratory: Present crackles (Faint in right lung field), distant breath sounds and normal respiratory effort; Absent rhonchi or wheezes Cardiac: Present Reg Rate and Rhythm GI: Present soft and normal bowel sounds; Absent distention or tenderness Extremities: Present normal inspection and full ROM Skin: Present intact; Absent erythema Neuro: Present Grossly Intact, alert, awake, oriented x 3 and moves all extremities Assessment and Plan *Assessment and plan (1) Atrial fibrillation with rapid ventricular response: Status: Acute Category: Medical Code(s): I48.91 - Unspecified atrial fibrillation (2) Sepsis: Status: Acute Category: Medical Code(s): A41.9 - Sepsis, unspecified organism (3) Leukocytosis: Status: Acute Category: Medical Code(s): D72.829 - Elevated white blood cell count, unspecified (4) Community acquired pneumonia of right upper lobe of lung: Status: Acute Category: Medical Code(s): J18.9 - Pneumonia, unspecified organism (5) Thrombocytosis: Status: Acute Category: Medical Code(s): D75.839 - Thrombocytosis, unspecified Plan Mr. Cosme is a 69-year-old male who presented to the emergency department today with complaints of heart palpitations, fatigue, intermittent shortness of breath, intermittent chest pain for approximately 3 weeks. He has a primary medical history of atrial fibrillation with RVR, COPD, hypertension, chronic back pain, and prostate cancer. He has been taking Cardizem 120 mg daily for his atrial fibrillation, this was recently stopped by his PCP due to hypotension. He is anticoagulated on Xarelto 15 mg daily. On arrival to the emergency room department he was found to have a heart rate in the 140s, he was given Cardizem 20 mg IV which lowered his heart rate to the 110s. Workup revealed a right upper lobe pneumonia, significant leukocytosis of 19.7 with left shift, elevated platelets of 939. Troponins were negative, kidney function appears to be at baseline creatinine 1.6, BNP elevated at 2049 (appears to be patient baseline), negative COVID/flu test. Patient was initiated on azithromycin and Rocephin. Showing some improvement today. Continue to monitor and patient until the morning. Anticipate discharge tomorrow. Problems addressed as follows: #Atrial fibrillation with RVR ? A-fib better controlled today. Had previously been on Cardizem 120, this was stopped due to hypotension. Will initiate metoprolol succinate 50 mg daily. Monitor for rate control and stable blood pressure. Continue anticoagulation with Xarelto 15 mg daily. - Continue to monitor on telemetry. Patient had an echo in August 2024, showed LVEF 55%. #Sepsis #Leukocytosis #Community-acquired pneumonia, right upper lobe ? Patient found to have elevated WBC of 19.7 with neutrophilic predominance. Flu/COVID respiratory panel negative. Full respiratory panel pending. No other electrolyte abnormalities noted. ? Doing better this morning with white count of 15.8. Continue azithromycin 500 mg IV daily and ceftriaxone 1 g daily. Will transition to oral antibiotics tomorrow for discharge home if remains stable - Sputum ordered, pending. DuoNeb every 6 hour ordered. ? Ordered CBC, CMP for the a.m. #Thrombocytosis ? Showing some improvement with platelets down to 716 from 939. Hemoglobin dropped from 11-9. Concern for delusional component with rehydration. Kidney function stable with BUN 17, creatinine 1.2. Magnesium 2.4. - Likely reactive thrombocytosis due to infection. Hyperlipidemia: Continue atorvastatin 40 mg at bedtime. COPD: Breztri twice daily continued. GERD: Pantoprazole 40 mg at bedtime ordered. Prostate cancer: Holding bicalutamide 50 mg daily. Full code VTE?Xarelto Ambulate as tolerated Cardiac diet
[2025-05-20] MEDS: METOPROLOL SUCCINATE XL 50MG TABLET 50 MG PO (13:30)
--- NOTE | 2025-05-20 18:13 | PC.NURSE ---
pt is A&Ox4. His lung sounds are a little diminished in the bases. he was getting lactated ringers at 150 ml/hr but around 1630 his IV started leaking. two attempts were taken to start another with no luck. will try to get one ultrasound guided. platelets are improving from 939 to 716. pt is getting IV antibiotics. pt has no other needs at this time. call light within reach.
[2025-05-20] MEDS: PANTOPRAZOLE 40MG TABLET 40 MG PO (20:46)
[2025-05-20] MEDS: ATORVASTATIN 40MG TABLET 40 MG PO (20:46)
[2025-05-21] VITALS: BP 147/74; PULSE 60; PULSE 78; RESP 16; TEMP 36.8; O2SAT 96
--- NOTE | 2025-05-21 02:38 | PC.NURSE ---
Pt. laying in bed and short of breath. Pt. has IV fluids infusing LR at 150 ml/hr. Pt lung sounds with fine crackles to bilateral lower lung browne and expiratory rub. . Gregorio Valdes APRN notified. IV fluids discontinued. .
--- NOTE | 2025-05-21 03:15 | XR_ITS ---
PROCEDURE INFORMATION: Exam: XR Chest Exam date and time: 05/21/2025 4:26 AM Age: 69 years old Clinical indication: Shortness of breath; Additional info: Right upper lung infiltrate TECHNIQUE: Imaging protocol: Radiologic exam of the chest. Views: 1 view. COMPARISON: CR XR CHEST 2V 05/19/2025 8:53 AM FINDINGS: Lungs: The dense right upper lobe infiltrate is stable to subtly worsened. There is scar in the periphery of the left mid lung. Underlying COPD suggested. Pleural spaces: Unremarkable. No pleural effusion. No pneumothorax. Heart/Mediastinum: The heart size is stable. Bones/joints: Unremarkable. IMPRESSION: The dense right upper lobe pulmonary infiltrate seen on the prior study is stable to subtly worsened.
[2025-05-21 04:00] VITALS: BP 137/95; PULSE 120; PULSE 93; RESP 16; TEMP 37.2; O2SAT 93; BMI 20.5
--- NOTE | 2025-05-21 05:17 | PC.NURSE ---
Pt has been increasingly SOB. Phoned Gregorio MUSTAFA about possibly d/c the LR at 150. Order was D/fercho. Phoned him about his Lung sound were almost crackles with possible rub. at 300 AM Pt started Afib with RVR. Spoke with Gregorio MUSTAFA and he ordered 10 mg of IV Cardizem. Spoke with Gregorio about 500 AM to inform him the CXR he ordered had been completed. PT does not C/O of pain or discomfort. CAMPBELL JJ RN
[2025-05-21 06:21] LABS: Hematocrit 28.0 % (42.0-52.0); Hemoglobin 9.0 g/dL (14.1-18.0); Immature Granulocytes % 0.7 %; Mean Corpuscular HGB Conc 32.1 g/dL (31.8-35.4); Mean Corpuscular Hemoglobin 28.4 pg (27.0-31.2); Mean Corpuscular Volume 88.3 fl (80-94); Nucleated Red Blood Cells % 0 %; Platelet Count 774 K/mm3 (142-424); Red Blood Count 3.17 M/mm3 (4.60-6.20); Red Cell Distribution Width-SD 49.1 fL; White Blood Count 14.2 K/mm3 (4.8-10.8)
[2025-05-21 06:31] LABS: Albumin Level 2.9 g/dl (3.5-5.0); Chloride 104 mmol/L (98-107); Sodium 132 mmol/L (136-145)
[2025-05-21 06:32] LABS: Potassium 3.4 mmoL/L (3.5-5.1)
[2025-05-21 06:34] LABS: Alanine Aminotransferase 13 U/L (12-78); Albumin/Globulin Ratio 0.9 (1.1-1.8); Anion Gap 7.4 mEq/L (5-15); Aspartate Amino Transferase 21 U/L (17-59); Blood Urea Nitrogen 13 mg/dl (9-20); Carbon Dioxide 24 mmol/L (22.0-30.0); Creatinine Clearance Estimated 58 mL/min (50-200); Creatinine,Serum 1.10 mg/dl (0.66-1.25); Estimated Glomerular Filt Rate 66 ml/min (>60); GFR (African American) 80 ML/MIN (>60); Globulin 3.1 g/dL (1.3-3.2); Total Protein,Serum 6.0 g/dl (6.3-8.2)
[2025-05-21 06:35] LABS: Alkaline Phosphatase 81 U/L (38-126); Bilirubin,Total 0.3 mg/dl (0.2-1.3); Calcium 8.2 mg/dl (8.4-10.2); Glucose 106 mg/dl (74-100)
--- NOTE | 2025-05-21 07:21 | EXP.DC.SUM ---
General Admission date:: 05/19/25 Discharge date: 05/21/25 HPI HPI HPI: Mr. Cosme is a 69-year-old male who presented to the emergency department today with complaints of heart palpitations, fatigue, intermittent shortness of breath, intermittent chest pain for approximately 3 weeks. He has a primary medical history of atrial fibrillation with RVR, COPD, hypertension, chronic back pain, and prostate cancer. He has been taking Cardizem 120 mg daily for his atrial fibrillation, this was recently stopped by his PCP due to hypotension. He is anticoagulated on Xarelto 15 mg daily. On arrival to the emergency room department he was found to have a heart rate in the 140s, he was given Cardizem 20 mg IV which lowered his heart rate to the 110s. Workup revealed a right upper lobe pneumonia, significant leukocytosis of 19.7 with left shift, elevated platelets of 939. Troponins were negative, kidney function appears to be at baseline creatinine 1.6, BNP elevated at 2050 (appears to be patient baseline), negative COVID/flu test. Patient was initiated on azithromycin and Rocephin. Hospital Course Hospital Course Hospital Course: Mr. Cosme is a 69-year-old male who presented to the emergency department today with complaints of heart palpitations, fatigue, intermittent shortness of breath, intermittent chest pain for approximately 3 weeks. He has a primary medical history of atrial fibrillation with RVR, COPD, hypertension, chronic back pain, and prostate cancer. He has been taking Cardizem 120 mg daily for his atrial fibrillation, this was recently stopped by his PCP due to hypotension. He is anticoagulated on Xarelto 15 mg daily. On arrival to the emergency room department he was found to have a heart rate in the 140s, he was given Cardizem 20 mg IV which lowered his heart rate to the 110s. Workup revealed a right upper lobe pneumonia, significant leukocytosis of 19.7 with left shift, elevated platelets of 939. Troponins were negative, kidney function appears to be at baseline creatinine 1.6, BNP elevated at 2050 (appears to be patient baseline), negative COVID/flu test. Patient was initiated on azithromycin and Rocephin. Showed gradual improvement. Remained stable on room air. White count improving. Given his clinical improvement, stable discharge home. Problems addressed as follows: #Atrial fibrillation with RVR ? A-fib showed improved control with intermittent diltiazem. Given his improvement in blood pressure, resumed diltiazem 120 mg extended release once daily prior to discharge home. Continue anticoagulation with Xarelto 15 mg daily. He had an echo in August 2024, showed LVEF 55%. #Sepsis #Leukocytosis #Community-acquired pneumonia, right upper lobe ? Patient found to have elevated WBC of 19.7 with neutrophilic predominance on admission. Flu/COVID respiratory panel negative. Full respiratory panel remained negative. White count showed gradual improvement during admission to 14 by day of discharge. Completed 3 doses of azithromycin 500 mg IV daily. Will transition to cefdinir to complete 7 days of cephalosporin therapy. Given his improvement, discharged home with close follow-up with PCP within the week. Remained stable on room air during entire admission. #Thrombocytosis ?Platelets initially elevated at just under 1 million on admission. After fluid resuscitation, improved to 700 by morning of discharge. Has mild anemia as well after hemodilution with hemoglobin dropping from 11-9. Remained stable. No active signs of bleeding. Would recommend repeat labs and follow-up with PCP. Electrolytes and kidney function stable. Suspect reactive nature of thrombocytosis. Hyperlipidemia: Continue atorvastatin 40 mg at bedtime. COPD: Breztri twice daily continued. GERD: Pantoprazole 40 mg at bedtime ordered. Prostate cancer: Holding bicalutamide 50 mg daily. Total time spent on discharge 32 minutes in counseling, documentation, chart review, and direct care with patient. Exam Data for Last 24 hours Vital signs and Labs for Last 24 Hours: Temp Pulse Resp BP Pulse Ox O2 Del Method O2 Flow Rate 98.9 F 93 H 16 137/95 H 93 L Room Air 98 05/21/25 04:00 05/21/25 04:00 05/21/25 04:00 05/21/25 04:00 05/21/25 04:00 05/21/25 06:57 05/20/25 21:00 Laboratory Results - last 24 hr 05/20/25 06:40: WBC 15.8 H, RBC 3.24 L, Hgb 9.3 L D, Hct 28.7 L, MCV 88.6, MCH 28.7, MCHC 32.4, RDW 15.3, Plt Count 716 H, MPV 11.3 H, Neut % (Auto) 80.7 H, Lymph % (Auto) 9.4 L, [place] % (Auto) 8.0, Eos % (Auto) 0.6, Baso % (Auto) 0.6, Neut # (Auto) 12.7 H, Lymph # (Auto) 1.5, [place] # (Auto) 1.3 H, Eos # (Auto) 0.1, Baso # (Auto) 0.1, Sodium 131 L, Potassium 3.7, Chloride 100, Carbon Dioxide 24, Anion Gap 10.7, BUN 17, Creatinine 1.20 D, Estimated Creat Clear 55, Estimated GFR 60, Est GFR ( Amer) 73 D, Glucose 111 H, Calcium 8.0 L, Phosphorus 3.1, Magnesium 2.4 H D, Total Bilirubin 0.3, AST 17 D, ALT 12 D, Alkaline Phosphatase 85, Total Protein 5.3 L D, Albumin 2.5 L D, Globulin 2.8, Albumin/Globulin Ratio 0.9 L, Triglycerides 63, Cholesterol 83 L, LDL Cholesterol Direct 33.01 L, VLDL Cholesterol 13, HDL Cholesterol 29 L, Cholesterol/HDL Ratio 2.9 05/21/25 06:05: WBC 14.2 H, RBC 3.17 L, Hgb 9.0 L, Hct 28.0 L, MCV 88.3, MCH 28.4, MCHC 32.1, RDW 15.2, Plt Count 774 H, MPV 10.8 H, Neut % (Auto) 74.8, Lymph % (Auto) 11.7, [place] % (Auto) 10.5 H, Eos % (Auto) 1.6, Baso % (Auto) 0.7, Neut # (Auto) 10.6 H, Lymph # (Auto) 1.7, [place] # (Auto) 1.5 H, Eos # (Auto) 0.2, Baso # (Auto) 0.1, Sodium 132 L, Potassium 3.4 L, Chloride 104, Carbon Dioxide 24, Anion Gap 7.4, BUN 13, Creatinine 1.10, Estimated Creat Clear 58, Estimated GFR 66, Est GFR ( Amer) 80, Glucose 106 H, Calcium 8.2 L, Total Bilirubin 0.3, AST 21, ALT 13, Alkaline Phosphatase 81, Total Protein 6.0 L, Albumin 2.9 L D, Globulin 3.1, Albumin/Globulin Ratio 0.9 L I & O for Last 24 hours: Intake & Output 05/18/25 05/19/25 05/20/25 05/21/25 23:59 23:59 23:59 23:59 Intake Total 1376 / 1436 4080 / 4420 340 / 340 Output Total 550 / 550 750 / 1225 1275 / 1275 Balance 826 / 886 3330 / 3195 -935 / -935 Weight 61.915 kg 66.723 kg 65.005 kg Microbiology Reports for the Last 24 Hours: Microbiology 05/19/25 15:16 Urine,Clean Catch Urine Culture - Final NO GROWTH AFTER 48 HOURS 05/19/25 10:08 Blood Blood Culture - Preliminary NO GROWTH AFTER 24 HOURS 05/19/25 10:07 Blood Blood Culture - Preliminary NO GROWTH AFTER 24 HOURS Constitutional Constitutional: no acute distress, thin, chronically ill appearing and cooperative *Routine HEENT Exam Head: Present normocephalic Eye: Present EOMI and PERRL ENT: Present mucous membranes moist *Routine Neck Exam Neck: Present supple; Absent lymphadenopathy *Routine Respiratory Exam Respiratory: Present CTA bilaterally; Absent rhonchi, wheezes or crackles *Routine Cardiovascular Exam Cardiovascular: Present RRR *Routine Abdominal Exam Abdominal: Present soft and normoactive bowel sounds; Absent tenderness *Routine Rectal Exam Patient deferred: visual exam *Routine Exam Patient deferred: penile exam *Routine Extremities Exam Extremities: Absent cyanosis, clubbing or edema *Routine Skin Exam Skin: Present intact and warm; Absent rash *Routine Neurological Exam Neurological: Present alert, oriented X3 and moving all extremities; Absent altered mental status Results Data Completed and Pending Labs on day of discharge: Labs from last 24 hours 05/21/25 05/20/25 06:05 06:40 WBC 14.2 H 15.8 H RBC 3.17 L 3.24 L Hgb 9.0 L 9.3 L D Hct 28.0 L 28.7 L MCV 88.3 88.6 MCH 28.4 28.7 MCHC 32.1 32.4 RDW 15.2 15.3 Plt Count 774 H 716 H MPV 10.8 H 11.3 H Neut % (Auto) 74.8 80.7 H Lymph % (Auto) 11.7 9.4 L [place] % (Auto) 10.5 H 8.0 Eos % (Auto) 1.6 0.6 Baso % (Auto) 0.7 0.6 Neut # (Auto) 10.6 H 12.7 H Lymph # (Auto) 1.7 1.5 [place] # (Auto) 1.5 H 1.3 H Eos # (Auto) 0.2 0.1 Baso # (Auto) 0.1 0.1 Sodium 132 L 131 L Potassium 3.4 L 3.7 Chloride 104 100 Carbon Dioxide 24 24 Anion Gap 7.4 10.7 BUN 13 17 Creatinine 1.10 1.20 D Estimated Creat Clear 58 55 Estimated GFR 66 60 Est GFR ( Amer) 80 73 D Glucose 106 H 111 H Calcium 8.2 L 8.0 L Phosphorus 3.1 Magnesium 2.4 H D Total Bilirubin 0.3 0.3 AST 21 17 D ALT 13 12 D Alkaline Phosphatase 81 85 Total Protein 6.0 L 5.3 L D Albumin 2.9 L D 2.5 L D Globulin 3.1 2.8 Albumin/Globulin Ratio 0.9 L 0.9 L Triglycerides 63 Cholesterol 83 L LDL Cholesterol Direct 33.01 L VLDL Cholesterol 13 HDL Cholesterol 29 L Cholesterol/HDL Ratio 2.9 Preliminary micro results at discharge 05/19/25 10:08 Blood Culture - Preliminary Blood NO GROWTH AFTER 24 HOURS 05/19/25 10:07 Blood Culture - Preliminary Blood NO GROWTH AFTER 24 HOURS DS: Diagnosis Discharge Diagnosis (1) Atrial fibrillation with rapid ventricular response: Status: Acute Code(s): I48.91 - Unspecified atrial fibrillation (2) Sepsis: Status: Acute Code(s): A41.9 - Sepsis, unspecified organism (3) Leukocytosis: Status: Acute Code(s): D72.829 - Elevated white blood cell count, unspecified (4) Community acquired pneumonia of right upper lobe of lung: Status: Acute Code(s): J18.9 - Pneumonia, unspecified organism (5) Thrombocytosis: Status: Acute Code(s): D75.839 - Thrombocytosis, unspecified Meds Home Medications and Allergies Home Medications ?Medication ?Instructions ?Recorded ?Confirmed ?Type atorvastatin 40 mg tablet 40 mg PO HS 02/29/24 05/19/25 History bicalutamide 50 mg tablet 50 mg PO DAILY 02/29/24 05/19/25 History budesonide 160 mcg-glycopyr 9 2 inh inhalation BID 02/29/24 05/19/25 History mcg-formot 4.8 mcg/actuation HFA inhaler (Breztri Aerosphere) omeprazole 40 mg capsule,delayed 40 mg PO DAILY 02/29/24 05/19/25 History release magnesium oxide 400 mg (241.3 mg 400 mg PO DAILY 30 days #30 tabs 03/02/24 05/19/25 Rx magnesium) tablet meloxicam 15 mg tablet 15 mg PO DAILY 08/26/24 05/19/25 History rivaroxaban 15 mg tablet (Xarelto) 15 mg PO QPMWITHMEAL 30 days #30 08/26/24 05/19/25 Rx tabs cefdinir 300 mg capsule 300 mg PO BID #8 caps 05/21/25 Rx diltiazem HCl 120 mg 120 mg PO DAILY 30 days #30 caps 05/21/25 Rx capsule,extended release 24 hr New Prescriptions to Start Prescriptions: cefdinir Rashaad Arreola diltiazem HCl Rashaad Arreola Allergies Allergy/AdvReac Type Severity Reaction Status Date / Time No Known Allergies Allergy Verified 10/13/23 09:09 Discharge Plan Disposition Patient Disposition: Home, Self-Care Condition: Fair Discharge Order Discharge Orders: Discharge Order (Routine); Ordered 05/21/25 Ordered By: Rashaad Arreola Follow up Plan Follow up with: Shaq Sevilla MD [Primary Care Provider, Medical] - Enter time for follow up Referral Note: Please call office for follow-up. Robert Blackburn PA [Physician Bookbinder Apprentice, Cardiology] - Enter time for follow up Referral Note: Office will call for follow-up Prescriptions/Medication Reconciliation: New diltiazem HCl 120 mg Capsule,Extended Release 24hr 120 mg PO DAILY 30 Days Qty: 30 0RF cefdinir 300 mg capsule 300 mg PO BID Qty: 8 0RF Continued atorvastatin 40 mg tablet 40 mg PO HS Patient Comments: TAKE ONE TABLET BY MOUTH EVERY DAY bicalutamide 50 mg tablet 50 mg PO DAILY Patient Comments: TAKE ONE TABLET BY MOUTH EVERY DAY omeprazole 40 mg capsule,delayed release(DR/EC) 40 mg PO DAILY Patient Comments: TAKE ONE CAPSULE BY MOUTH ONCE DAILY IN THE MORNING FOR stomach Breztri Aerosphere 160-9-4.8 mcg/actuation HFA aerosol inhaler 2 inh INHALATION BID Patient Comments: INHALE TWO PUFFS BY MOUTH TWICE DAILY magnesium oxide 400 mg (241.3 mg magnesium) Tablet 400 mg PO DAILY 30 Days Qty: 30 0RF meloxicam 15 mg tablet 15 mg PO DAILY Patient Comments: TAKE ONE TABLET BY MOUTH EVERY DAY Xarelto 15 mg Tablet 15 mg PO QPMWITHMEAL 30 Days Qty: 30 0RF Problem Reconciliation Problems Reviewed?: Yes Patient Discharge Instructions ACTIVITY: Continue current activity DIET: continue same diet Stand Alone Forms: [facility] Work Release Patient Instructions: DI for Atrial Fibrillation, DI for Sepsis -- Adult, Stop Light Pneumonia, Stop Light COPD Print Language: Uzbek Providers Primary Care Provider: Shaq Sevilla Admit Provider: Rashaad Arreola Attending Provider: Rashaad Arreola
[2025-05-21 08:00] VITALS: BP 145/70; PULSE 115; PULSE 91; RESP 24; TEMP 36.5; O2SAT 94
[2025-05-21] MEDS: dilTIAZem ER 120MG CAPSULE 120 MG PO (08:09)
[2025-05-21] MEDS: FUROSEMIDE 40MG/4ML VIAL 40 MG IV (08:09)
[2025-05-21 08:15] VITALS: O2SAT 94
[2025-05-21] MEDS: POTASSIUM CHLORIDE 20MEQ TAB 40 MEQ PO (09:26)
[2025-05-21] MEDS: AZITHROMYCIN 500 MG in 0.9 % SODIUM CHLORIDE 250 ML 250 MG IV (10:10)
--- NOTE | 2025-05-22 09:53 | SW/DCPLANNER ---
Spoke with patient on the phone. Patient stated that he is doing good. Patient stated that he was able to get his new medicine picked up. Patient stated that he is aware of his upcoming appointments. Patient stated that he has no concerns or questions at this time. Phuong Cheek
== END 2025-05-21 11:43 | disposition home or self-care (01) | DRG 871 ==
LOC: ER 10:07 → 2ND 10:14
PROVIDERS: Admitting Provider Internal Medicine Adolescent Medicine; Emergency Provider Student in an Organized Health Care Education/Training Program; PCP Family Medicine; Visit Provider Internal Medicine Adolescent Medicine
DX: A41.9 Sepsis, unspecified organism (principal); J18.9 Pneumonia, unspecified organism; J44.0 Chronic obstructive pulmonary disease with (acute) lower respiratory infection; I48.0 Paroxysmal atrial fibrillation; I10 Essential (primary) hypertension; G89.29 Other chronic pain; M54.9 Dorsalgia, unspecified; D75.838 Other thrombocytosis; E78.5 Hyperlipidemia, unspecified; K21.9 Gastro-esophageal reflux disease without esophagitis; C61 Malignant neoplasm of prostate; D63.0 Anemia in neoplastic disease; Z87.891 Personal history of nicotine dependence; Z79.51 Long term (current) use of inhaled steroids; Z79.01 Long term (current) use of anticoagulants; Z79.899 Other long term (current) drug therapy
CPT/HCPCS: 0223U; 36415; 71045; 71046; 80053; 80061; 81001; 83735; 83880; 84100; 84439; 84443; 84484; 85007; 85025; 87040; 87070; 87086; 87205; 87636; 93005; 94640; J0456; J0696; J1938; J3475; J7050; J7120